=== PATIENT | female | born 1950 | race Caucasian/White ===

== ENCOUNTER 2022-11-28 09:38 | Outpatient (OUT) | payer MEDICARE, OTHER, SELFPAY ==
[2022-11-28 09:53] LABS: Basophils Percent Auto 0.5 % (0.2-2.0); Eosinophils Absolute Auto 0.1 10^3/uL (0.0-0.7); Eosinophils Percent Auto 2.7 % (0.9-7.0); Hematocrit 39.1 % (36.0-48.0); Hemoglobin 12.1 g/dL (12.0-16.0); Lymphocytes Absolute Auto 1.3 10^3/uL (1.2-3.8); Lymphocytes Percent Auto 30.7 % (20.5-60.0); Mean Corpuscular HGB Conc 30.9 g/dL (29.9-35.2); Mean Corpuscular Hemoglobin 26.1 pg (26.7-34.0); Mean Corpuscular Volume 84.4 fL (81.0-99.0); Mean Platelet Volume 11.7 fL (9.5-13.5); Monocytes Absolute Auto 0.3 10^3/uL (0.3-0.8); Monocytes Percent Auto 6.8 % (1.7-12.0); Neutrophils Absolute Auto 2.5 10^3/uL (1.4-6.5); Neutrophils Percent Auto 59.3 % (43.0-75.0); Platelet Count 186 10^3/uL (150-450); Red Blood Count 4.63 10^6/uL (4.20-5.40); Red Cell Distribution Width 14.5 % (11.0-15.0); White Blood Count 4.1 10^3/uL (4.0-11.0)
[2022-11-28 10:21] LABS: Thyroid Stimulating Hormone 2.394 uIU/mL (0.358-3.740)
[2022-11-28 10:40] LABS: Free T4 1.07 ng/dL (0.76-1.46)
[2022-11-29 11:09] LABS: PTH, Intact 23 pg/mL (15-65)
[2022-11-30 20:09] LABS: Alanine Aminotransferase 20 U/L (14-59); Albumin Globulin Ratio 0.9; Albumin Level 3.3 g/dL (3.4-5.0); Alkaline Phosphatase 98 U/L (46-116); Anion Gap 19.4; Aspartate Amino Transferase 20 U/L (15-37); BUN Creatinine Ratio 11.7; Bilirubin Total 0.3 mg/dL (0.2-1.0); Calcium 9.5 mg/dL (8.5-10.1); Carbon Dioxide 19.7 mmol/L (21.0-32.0); Chloride 105 mmol/L (98-107); Chol HDL Ratio 4.7; Cholesterol 234 mg/dL (<=200); Estimated GFR (African America >60 (>=60); Estimated GFR (Non-African Ame 53 (>=60); Globulin 3.7 g/dL; Glucose 99 mg/dL (74-106); HDL Cholesterol 50 mg/dL (40-60); Potassium 5.1 mmol/L (3.5-5.1); Sodium 139 mmol/L (136-145); Triglycerides 153 mg/dL (<=150); Uric Acid 0.1 mg/dL (2.6-6.0); VLDL CHOLESTEROL 30.6 mg/dL
== END 2022-11-28 09:39 ==
LOC: LAB 09:38
PROVIDERS: PCP Family Medicine; Visit Provider Family Medicine
DX: N18.31 Chronic kidney disease, stage 3a (principal); E03.9 Hypothyroidism, unspecified
CPT/HCPCS: 36415; 80053; 80061; 82306; 83970; 84439; 84443; 84550; 85025

== ENCOUNTER 2022-11-29 11:19 | Outpatient (OUT) | payer MEDICARE, OTHER, SELFPAY ==
--- NOTE | 2022-11-29 11:27 | MM_ITS ---
Patient: ALISA GEORGE Exam Date: 11/29/2022 : 1950 Gender:F Ordering : DR NAYELI SINGH Admission #: [id number] Family : Order #: [id number] CLICK HERE TO VIEW EXAM RADIOLOGY REPORT PROCEDURE: MM TOMOSYNTHESIS SCREENING BI COMPARISON: MG MAMM SCREEN EHSAN W CAD, 11/06/2017. INDICATIONS: Screening Calculator Name NCI Breast Cancer Risk Assessment Tool 5 Year Breast Cancer Risk 1.90% Lifetime Breast Cancer Risk 5.60% Personal Breast Cancer No Personal Ovarian Cancer No Treatments None Family Cancers Father with renal, bladder cancer at age 78; Grandmother-maternal with colon cancer at age 79; Mother with skin cancer cancer at age 73. LOCATION: [facility] BREAST COMPOSITION: Almost entirely fatty. FINDINGS: DIAGNOSTIC CATEGORY 1--NEGATIVE. RIGHT BREAST: No significant suspicious finding. LEFT BREAST: No significant suspicious finding. RECOMMENDATIONS: ROUTINE MAMMOGRAM AND CLINICAL EVALUATION IN 12 MONTHS. PLEASE NOTE: A NORMAL MAMMOGRAM DOES NOT EXCLUDE THE POSSIBILITY OF BREAST CANCER. A CLINICALLY SUSPICIOUS PALPABLE LUMP SHOULD BE BIOPSIED. Dictated by: Lazarus Quezada M.D. on 11/29/2022 at 13:08 Approved by: Lazarus Quezada M.D. on 11/29/2022 at 13:12
== END 2022-11-29 11:20 ==
LOC: MAMMO 11:19
PROVIDERS: PCP Family Medicine; Visit Provider Family Medicine
DX: Z12.31 Encounter for screening mammogram for malignant neoplasm of breast (principal); Z80.51 Family history of malignant neoplasm of kidney; Z80.52 Family history of malignant neoplasm of bladder; Z80.0 Family history of malignant neoplasm of digestive organs; Z80.8 Family history of malignant neoplasm of other organs or systems
CPT/HCPCS: 77063; 77067

== ENCOUNTER 2022-12-01 09:07 | Outpatient (REF) | payer MEDICARE, OTHER, SELFPAY ==
[2022-12-01 09:37] LABS: Magnesium 1.9 mg/dL (1.8-2.4); Phosphorus 3.3 mg/dL (2.6-4.7)
== END 2022-12-01 09:08 ==
LOC: LAB 09:07
PROVIDERS: PCP Family Medicine; Visit Provider Family Medicine
DX: N18.31 Chronic kidney disease, stage 3a (principal)
CPT/HCPCS: 36415; 83735; 84100

== ENCOUNTER 2023-05-30 09:53 | Outpatient (OUT) | payer MEDICARE, OTHER, SELFPAY ==
[2023-05-30 10:54] LABS: Free T4 1.12 ng/dL (0.76-1.46)
[2023-05-30 11:01] LABS: Alanine Aminotransferase 19 U/L (14-59); Albumin Level 3.4 g/dL (3.4-5.0); Alkaline Phosphatase 98 U/L (46-116); Anion Gap 10.2; Aspartate Amino Transferase 12 U/L (15-37); Bilirubin Total 0.4 mg/dL (0.2-1.0); Calcium 8.8 mg/dL (8.5-10.1); Carbon Dioxide 30.9 mmol/L (21.0-32.0); Chloride 105 mmol/L (98-107); Chol HDL Ratio 3.2; Cholesterol 185 mg/dL (<=200); Estimated GFR (African America >60 (>=60); Estimated GFR (Non-African Ame 50 (>=60); Globulin 3.3 g/dL; Glucose 100 mg/dL (74-106); HDL Cholesterol 58 mg/dL (40-60); LDL Cholesterol Calculated 107.6 mg/dL; Potassium 4.1 mmol/L (3.5-5.1); Sodium 142 mmol/L (136-145); Total Protein 6.7 g/dL (6.4-8.2); Triglycerides 97 mg/dL (<=150); VLDL CHOLESTEROL 19.4 mg/dL
== END 2023-05-30 09:54 | disposition home or self-care (01) ==
LOC: LAB 09:53
PROVIDERS: PCP Family Medicine; Visit Provider Nurse Practitioner Family
DX: E03.9 Hypothyroidism, unspecified (principal); E78.49 Other hyperlipidemia
CPT/HCPCS: 36415; 80053; 80061; 84439; 84443

== ENCOUNTER 2023-11-24 10:46 | Outpatient (OUT) | payer MEDICARE, OTHER, SELFPAY ==
--- OUTSIDE RECORDS SUMMARY | 2023-11-24 11:06 | XMS_ITS | CCD ---
Author Organization [facility] Inform ion Partnership [facility] Care Team Providers Care Stitchdown Toe Former Name Role Phone FURLONG, DR SIMONE Batista Admitting Unavailable FURLONG, DR SIMONE Batista Primary Care Unavailable FURLONG, DR SIMONE Batista Attending Unavailable FURLONG, DR SIMONE Batista Admitting Unavailable FURLONG, DR SIMONE Batista Primary Care Unavailable DAYTON, DR SIMONE Batista Consulting Unavailable DAYTON, DR SIMONE Batista Attending Unavailable [place], DR ALICIA Raman Consulting Unavailable Simone Bejarano Unavailable Unavailable Unavailable Carlee, Dr. Simone Medrano Primary Care Tyrava ilmallory Yee, Dr. Jesus Sauceda Attending Unava ilable Festus, Dr. Jesus Sauceda Referring Unava JESUS Macias Unavailable Carlee, Dr. Simone Medrano Primary Care Tyrava ilSimone Sexton DO Primary Care Provider JESUS YEE Referring Unavailable SIMONE BEJARANO Primary Care Unavailab le Simone Bejarano DO Primary Care Provider JESUS YEE Attending Unavailable SIMONE BEJARANO Primary Care Unavailab JESUS Benson Referring Unavailable SIMONE BEJARANO Primary Care Unavailab JESUS Benson Attending Unavailable JESUS YEE Referring Unavailable SIMONE BEJARANO Primary Care Unavailab THOMAS Graff Attending Unavailable THOMAS SALAZAR Referring Unavailable Allergies Allergy Classification Reported Allergen(s) Allergy Type Date of Onset Reaction(s) Facility (1 source) natural latex rubber Drug allergy (disorder) 7 [facility] Repository (1 source) Penicillin Drug Allergy 7 [facility] Repository (3 sources) Latex rubber gloves; Translations: [Latex Gloves] Allergy to drug (finding) Other -[facility] 250 DO Work Phone: (5 sources) Penicillins; Translations: [Penicillins] Allergy to drug (finding) 3 [facility] Repository (6 sources) Latex; Translations: [LATEX] Propensity to adverse reactions 3 [facility] (4 sources) Penicillins Propensity to adverse reactions 3 Unknown, [facility] Medications Current Medications Medication Drug Class(es) Dates Sig (Normalized) Sig (Original) aspirin 81 mg delayed release oral tablet (7 sources) Platelet Aggregation Inhibitor, Nonsteroidal Anti-inflammatory Drug take 1 tablet by mouth in the morning aspirin 81 mg Take 1 tablet (81 mg total) by mouth in the morning. 0 Active escitalopram 5 mg oral tablet (2 sources) Serotonin Reuptake Inhibitor Start: 06-02-2023 End: 08-18-2023 take 1 tablet by mouth once daily escitalopram (LEXAPRO) 5 mg tablet Take 1 tablet (5 mg total) by mouth nightly. 30 tablet 2 08/18/2023 Active levothyroxine sodium 0.075 mg oral tablet (7 sources) l-Thyroxine Start: 06-02-2023 take 1 tablet by mouth in the morning levothyroxine (SYNTHROID, LEVOTHROID) 75 MCG tablet Take 1 tablet (75 mcg total) by mouth in the morning. 90 tablet 3 06/02/2023 Active Start: 01-06-2023 take 1 tablet by jd th once daily before mealtime levothyroxine (Synthroid, Levoxyl) 75 mcg tablet Take 1 tablet (75 mcg) by mouth once daily in the morning. Take before meals. 0 01/06/2023 Active 24 hr metoprolol succinate 25 mg extended release oral tablet (3 sources) beta-Adrenergic Elizabeth Start: 04-20-2023 End: 04-19-2024 take 1 tablet by mouth once daily metoprolol succinate XL (Toprol-XL) 25 mg 24 hr tablet Indications: Benign hypertensive heart disease without heart failure Take 1 tablet (25 mg) by mouth once daily. Do not crush or chew. 30 tablet 11 04/20/2023 04/19/2024 Active rosuvastatin calcium 10 mg oral tablet (7 sources) HMG-CoA Reductase Inhibitor Start: 06-02-2023 take 1 tablet by mouth once daily rosuvastatin (CRESTOR) 10 mg tablet Take 1 tablet (10 mg total) by mouth nightly. 90 tablet 3 06/02/2023 Active Start: 12-12-2022 take 1 tablet by jd th once daily at bedtime rosuvastatin (Crestor) 5 mg tablet Take 1 tablet (5 mg) by mouth once daily at bedtime. 0 12/12/2022 Active Problems Active Problems Problem Classification Problem Date Documented Da te Episodic/Chronic Chronic kidney disease (8 sources) Chronic kidney disease stage 2; Translations: [Chronic kidney disease, Stage II (mild)] Onset: 11-14-2022 04-20-2023 Chronic Chronic kidney disease (2 sources) Chronic kidney disease; Translations: [Chronic kidney disease, stage 3a (CMS/HCC)] Onset: 04-19-2023 Disorders of lipid metabolism (11 sources) Hyperlipidemia; Translations: [Other and unspecified hyperlipidemia] Onset: 11-14-2022 04-20-2023 Chronic Hypertension with complications and secondary hypertension (6 sources) Benign hypertensive heart disease without congestive heart failure; Translations: [Hypertensive heart disease without heart failure] Onset: 04-20-2023 04-20-2023 Chronic Other lower respiratory disease (3 sources) Other forms of dyspnea; Translations: [Other forms of dyspnea] Onset: 03-23-2023 Episodic Other nutritional; endocrine; and metabolic disorders (3 sources) Obesity; Translations: [Obesity, unspecified] Chronic Other nutritional; endocrine; and metabolic disorders (4 sources) Body mass index 30+ - obesity; Translations: [Body mass index (BMI) 32.0-32.9, adult] Onset: 04-19-2023 04-20-2023 Chronic Other nutritional; endocrine; and metabolic disorders (1 source) Obesity caused by energy imbalance; Translations: [Other obesity due to excess calories] Onset: 12-12-2022 12-12-2022 Chronic Other nutritional; endocrine; and metabolic disorders (2 sources) Body mass index (BMI) 32.0-32.9, adult; Translations: [Body mass index (BMI) 32.0-32.9, adult] Onset: 04-19-2023 Chronic Residual codes; unclassified (2 sources) Other specified health status; Translations: [Other specified health status] Onset: 10-24-2023 Episodic Spondylosis; intervertebral disc disorders; other back problems (1 source) Spondylosis without myelopathy or radiculopathy, thoracic region; Translations: [SPONDYLS W/O MYELO-/RADICULOP THOR] Onset: 05-06-2021 Chronic Thyroid disorders (4 sources) Acquired hypothyroidism; Translations: [Hypothyroidism, unspecified] Onset: 11-14-2022 04-19-2023 Chronic Past or Other Problems Problem Classification Problem Date Documented Da te Episodic/Chronic Cardiac dysrhythmias (7 sources) Palpitations; Translations: [Palpitations] Onset: 04-20-2023 04-20-2023 Episodic Mood disorders (1 source) Mood disorders Onset: 06-02-2023 06-02-2023 Other lower respiratory disease (7 sources) Dyspnea on exertion; Translations: [Other respiratory abnormalities] Onset: 12-12-2022 04-19-2023 Episodic Other lower respiratory disease (5 sources) Dyspnea; Translations: [Shortness of breath] Onset: 04-20-2023 04-20-2023 Episodic Other lower respiratory disease (2 sources) Shortness of breath; Translations: [Shortness of breath] Onset: 04-20-2023 Episodic Spondylosis; intervertebral disc disorders; other back problems (4 sources) Pain in thoracic spine; Translations: [PAIN IN THORACIC SPINE] Onset: 04-28-2021 Episodic Unclassified (3 sources) Never smoked tobacco; Translations: [Never a smoker] Unclassified (3 sources) Onset: 04-20-2023 04-20-2023 Varicose veins of lower extremity (4 sources) Varicose veins of lower extremity; Translations: [Asymptomatic varicose veins of bilateral lower extremities] Onset: 12-12-2022 04-19-2023 Episodic Results Test Name Value Interpretation Reference Range Facility US Heart TransthoracicOrdere d By: Jesus Baker on 04-27-2023 LV A4C EF 57.4 [facility] Work Phone: [facility] Work Phone: Heart Transthoracicon [facility] [address], [address], [place] [address] TRANSTHORACIC ECHOCARDIOGRAM REPORT Patient Name: ASTER Mckeon DORIS Reading Physician: [id number] Jesus Baker MD Study Date: 04/25/2023 Ordering Provider: [id number] JESUS YEE MRN/PID: [id number] Fellow: Nurse: Date of /Age: 11 1950 / 72 years Sales Administrator: Jennifer Long RDCS, RVT Gender: F Additional Staff: Height: 167.64 cm Admit Date: Weight: 93.90 kg Admission Status: BSA: 2.03 m2 Department Location: [facility] Blood Pressure: 136 /92 mmHg Study Type: TRANSTHORACIC ECHO (TTE) COMPLETE Diagnosis/ICD: Palpitations-R00.2; Shortness of breath-R06.02 Indication: Hyperlipidemia, Hypothyroid, CKD-Stage III CPT Codes: Echo Complete w Full Doppler-[id number] Study Detail: The following Echo studies were performed: 2D, M-Mode, Doppler and color flow. PHYSICIAN INTERPRETATION: Left Ventricle: Left ventricular systolic function is normal, with an estimated ejection fraction of 60%. There are no regional wall motion abnormalities. The left ventricular cavity size is normal. Spectral Doppler shows a normal pattern of left ventricular diastolic filling. Left Atrium: The left atrium is mildly dilated. Right Ventricle: The right ventricle is normal in size. There is normal right ventricular global systolic function. Right Atrium: The right atrium is normal in size. Aortic Valve: The aortic valve is trileaflet. There is no evidence of aortic valve regurgitation. The peak instantaneous gradient of the aortic valve is 6.9 mmHg. The mean gradient of the aortic valve is 3.0 mmHg. Mitral Valve: The mitral valve is mildly thickened. There is moderate mitral valve regurgitation. Tricuspid Valve: The tricuspid valve is structurally normal. There is trace to mild tricuspid regurgitation. Pulmonic Valve: The pulmonic valve is not well visualized. There is trace pulmonic valve regurgitation. Pericardium: There is no pericardial effusion noted. Aorta: The aortic root is normal. There is mild dilatation of the aortic arch. CONCLUSIONS: 1. Left ventricular systolic function is normal with a 60% estimated ejection fraction. 2. Moderate mitral valve regurgitation. QUANTITATIVE DATA SUMMARY: 2D MEASUREMENTS: Normal Ranges: Ao Root d: 2.60 cm (2.0-3.7cm) LAs: 3.90 cm (2.7-4.0cm) RVIDd: 2.50 cm (0.9-3.6cm) IVSd: 1.10 cm (0.6-1.1cm) LVPWd: 0.80 cm (0.6-1.1cm) LVIDd: 4.60 cm (3.9-5.9cm) LVIDs: 3.70 cm LV Mass Index: 73.0 g/m2 LV % FS 19.6 % LV SYSTOLIC FUNCTION BY 2D PLANIMETRY (MOD): Normal Ranges: EF-A4C View: 57.4 % (>=55%) LV DIASTOLIC FUNCTION: Normal Ranges: MV Peak E: 1.00 m/s (0.7-1.2 m/s) MV Peak A: 0.85 m/s (0.42-0.7 m/s) E/A Ratio: 1.17 (1.0-2.2) MV lateral e' 0.09 m/s MV medial e' 0.08 m/s E/e' Ratio: 10.80 (<8.0) MITRAL VALVE: Normal Ranges: MV Vmax: 1.15 m/s (<=1.3m/s) MV peak P.3 mmHg (<5mmHg) MV mean P.0 mmHg (<48mmHg) MITRAL INSUFFICIENCY: Normal Ranges: MR Vmax: 476.00 cm/s dP/dt: 1298 mmHg/s (>1200mmHg/sec) AORTIC VALVE: Normal Ranges: AoV Vmax: 1.31 m/s (<=1.7m/s) AoV Peak P.9 mmHg (<20mmHg) AoV Mean P.0 mmHg (1.7-11.5mmHg) LVOT Max Korey: 0.83 m/s (<=1.1m/s) AoV VTI: 31.20 cm (18-25cm) LVOT VTI: 18.30 cm LVOT Diameter: 2.40 cm (1.8-2.4cm) AoV Area, VTI: 2.65 cm2 (2.5-5.5cm2) AoV Area,Vmax: 2.86 cm2 (2.5-4.5cm2) AoV Dimensionless Index: 0.59 TRICUSPID VALVE/RVSP: Normal Ranges: Peak TR Velocity: 2.58 m/s RV Syst Pressure: 29.6 mmHg (< 30mmHg) PULMONIC VALVE: Normal Ranges: PV Max Korey: 0.6 m/s (0.6-0.9m/s) PV Max P.6 mmHg [id number] Jesus Baker MD Electronically signed on 04/27/2023 at 9:14:45 AM Final SYNGO Jesus Baker MD - 04/27/[address], [address] [place] [address] TRANSTHORACIC ECHOCARDIOGRAM REPORT Patient Name: ASTER BACON Reading Physician: [id number] Baker MD Study Date: 04/25/2023 Ordering Provider: [id number] JESUS YEE MRN/PID: [id number] Fellow: Nurse: Date of /Age: 11 1950 / 72 years Sales Administrator: Jennifer Long RDCS, RVT Gender: F Additional Staff: Height: 167.64 cm Admit Date: Weight: 93.90 kg Admission Status: BSA: 2.03 m2 Department Location: [facility] Blood Pressure: 136 /92 mmHg Study Type: TRANSTHORACIC ECHO (TTE) COMPLETE Diagnosis/ICD: Palpitations-R00.2; Shortness of breath-R06.02 Indication: Hyperlipidemia, Hypothyroid, CKD-Stage III CPT Codes: Echo Complete w Full Doppler-[id number] Study Detail: The following Echo studies were performed: 2D, M-Mode, Doppler and color flow. PHYSICIAN INTERPRETATION: Left Ventricle: Left ventricular systolic function is normal, with an estimated ejection fraction of 60%. There are no regional wall motion abnormalities. The left ventricular cavity size is normal. Spectral Doppler shows a normal pattern of left ventricular diastolic filling. Left Atrium: The left atrium is mildly dilated. Right Ventricle: The right ventricle is normal in size. There is normal right ventricular global systolic function. Right Atrium: The right atrium is normal in size. Aortic Valve: The aortic valve is trileaflet. There is no evidence of aortic valve regurgitation. The peak instantaneous gradient of the aortic valve is 6.9 mmHg. The mean gradient of the aortic valve is 3.0 mmHg. Mitral Valve: The mitral valve is mildly thickened. There is moderate mitral valve regurgitation. Tricuspid Valve: The tricuspid valve is structurally normal. There is trace to mild tricuspid regurgitation. Pulmonic Valve: The pulmonic valve is not well visualized. There is trace pulmonic valve regurgitation. Pericardium: There is no pericardial effusion noted. Aorta: The aortic root is normal. There is mild dilatation of the aortic arch. CONCLUSIONS: 1. Left ventricular systolic function is normal with a 60% estimated ejection fraction. 2. Moderate mitral valve regurgitation. QUANTITATIVE DATA SUMMARY: 2D MEASUREMENTS: Normal Ranges: Ao Root d: 2.60 cm (2.0-3.7cm) LAs: 3.90 cm (2.7-4.0cm) RVIDd: 2.50 cm (0.9-3.6cm) IVSd: 1.10 cm (0.6-1.1cm) LVPWd: 0.80 cm (0.6-1.1cm) LVIDd: 4.60 cm (3.9-5.9cm) LVIDs: 3.70 cm LV Mass Index: 73.0 g/m2 LV % FS 19.6 % LV SYSTOLIC FUNCTION BY 2D PLANIMETRY (MOD): Normal Ranges: EF-A4C View: 57.4 % (>=55%) LV DIASTOLIC FUNCTION: Normal Ranges: MV Peak E: 1.00 m/s (0.7-1.2 m/s) MV Peak A: 0.85 m/s (0.42-0.7 m/s) E/A Ratio: 1.17 (1.0-2.2) MV lateral e' 0.09 m/s MV medial e' 0.08 m/s E/e' Ratio: 10.80 (<8.0) MITRAL VALVE: Normal Ranges: MV Vmax: 1.15 m/s (<=1.3m/s) MV peak P.3 mmHg (<5mmHg) MV mean P.0 mmHg (<48mmHg) MITRAL INSUFFICIENCY: Normal Ranges: MR Vmax: 476.00 cm/s dP/dt: 1298 mmHg/s (>1200mmHg/sec) AORTIC VALVE: Normal Ranges: AoV Vmax: 1.31 m/s (<=1.7m/s) AoV Peak P.9 mmHg (<20mmHg) AoV Mean P.0 mmHg (1.7-11.5mmHg) LVOT Max Korey: 0.83 m/s (<=1.1m/s) AoV VTI: 31.20 cm (18-25cm) LVOT VTI: 18.30 cm LVOT Diameter: 2.40 cm (1.8-2.4cm) AoV Area, VTI: 2.65 cm2 (2.5-5.5cm2) AoV Area,Vmax: 2.86 cm2 (2.5-4.5cm2) AoV Dimensionless Index: 0.59 TRICUSPID VALVE/RVSP: Normal Ranges: Peak TR Velocity: 2.58 m/s RV Syst Pressure: 29.6 mmHg (< 30mmHg) PULMONIC VALVE: Normal Ranges: PV Max Korey: 0.6 m/s (0.6-0.9m/s) PV Max P.6 mmHg [id number] Jesus Baker MD Electronically signed on 04/27/2023 at 9:14:45 AM Final [facility] Work Phone: TRANSTHORACIC ECHO (TTE) COM PLETEon 04-25-2023 TRANSTHORACIC ECHO (TTE) COMPLETE [address], [address] [place] [address] TRANSTHORACIC ECHOCARDIOGRAM REPORT Patient Name: ASTER Mike BACON Reading Physician: [id number] Baker MD Study Date: 04/25/2023 Ordering Provider: [id number] JESUS YEE MRN/PID: [id number] Fellow: Nurse: Date of /Age: 11 1950 / 72 years Sales Administrator: CRISS Figueredo RDCST Gender: F Additional Staff: Height: 167.64 cm Admit Date: Weight: 93.90 kg Admission Status: BSA: 2.03 m2 Department Location: [facility] Blood Pressure: 136 /92 mmHg Study Type: TRANSTHORACIC ECHO (TTE) COMPLETE Diagnosis/ICD: Palpitations-R00.2; Shortness of breath-R06.02 Indication: Hyperlipidemia, Hypothyroid, CKD-Stage III CPT Codes: Echo Complete w Full Doppler-[id number] Study Detail: The following Echo studies were performed: 2D, M-Mode, Doppler and color flow. PHYSICIAN INTERPRETATION: Left Ventricle: Left ventricular systolic function is normal, with an estimated ejection fraction of 60%. There are no regional wall motion abnormalities. The left ventricular cavity size is normal. Spectral Doppler shows a normal pattern of left ventricular diastolic filling. Left Atrium: The left atrium is mildly dilated. Right Ventricle: The right ventricle is normal in size. There is normal right ventricular global systolic function. Right Atrium: The right atrium is normal in size. Aortic Valve: The aortic valve is trileaflet. There is no evidence of aortic valve regurgitation. The peak instantaneous gradient of the aortic valve is 6.9 mmHg. The mean gradient of the aortic valve is 3.0 mmHg. Mitral Valve: The mitral valve is mildly thickened. There is moderate mitral valve regurgitation. Tricuspid Valve: The tricuspid valve is structurally normal. There is trace to mild tricuspid regurgitation. Pulmonic Valve: The pulmonic valve is not well visualized. There is trace pulmonic valve regurgitation. Pericardium: There is no pericardial effusion noted. Aorta: The aortic root is normal. There is mild dilatation of the aortic arch. CONCLUSIONS: 1. Left ventricular systolic function is normal with a 60% estimated ejection fraction. 2. Moderate mitral valve regurgitation. QUANTITATIVE DATA SUMMARY: 2D MEASUREMENTS: Normal Ranges: Ao Root d: 2.60 cm (2.0-3.7cm) LAs: 3.90 cm (2.7-4.0cm) RVIDd: 2.50 cm (0.9-3.6cm) IVSd: 1.10 cm (0.6-1.1cm) LVPWd: 0.80 cm (0.6-1.1cm) LVIDd: 4.60 cm (3.9-5.9cm) LVIDs: 3.70 cm LV Mass Index: 73.0 g/m2 LV % FS 19.6 % LV SYSTOLIC FUNCTION BY 2D PLANIMETRY (MOD): Normal Ranges: EF-A4C View: 57.4 % (>=55%) LV DIASTOLIC FUNCTION: Normal Ranges: MV Peak E: 1.00 m/s (0.7-1.2 m/s) MV Peak A: 0.85 m/s (0.42-0.7 m/s) E/A Ratio: 1.17 (1.0-2.2) MV lateral e' 0.09 m/s MV medial e' 0.08 m/s E/e' Ratio: 10.80 (<8.0) MITRAL VALVE: Normal Ranges: MV Vmax: 1.15 m/s (<=1.3m/s) MV peak P.3 mmHg (<5mmHg) MV mean P.0 mmHg (<48mmHg) MITRAL INSUFFICIENCY: Normal Ranges: MR Vmax: 476.00 cm/s dP/dt: 1298 mmHg/s (>1200mmHg/sec) AORTIC VALVE: Normal Ranges: AoV Vmax: 1.31 m/s (<=1.7m/s) AoV Peak P.9 mmHg (<20mmHg) AoV Mean P.0 mmHg (1.7-11.5mmHg) LVOT Max Korey: 0.83 m/s (<=1.1m/s) AoV VTI: 31.20 cm (18-25cm) LVOT VTI: 18.30 cm LVOT Diameter: 2.40 cm (1.8-2.4cm) AoV Area, VTI: 2.65 cm2 (2.5-5.5cm2) AoV Area,Vmax: 2.86 cm2 (2.5-4.5cm2) AoV Dimensionless Index: 0.59 TRICUSPID VALVE/RVSP: Normal Ranges: Peak TR Velocity: 2.58 m/s RV Syst Pressure: 29.6 mmHg (< 30mmHg) PULMONIC VALVE: Normal Ranges: PV Max Korey: 0.6 m/s (0.6-0.9m/s) PV Max P.6 mmHg [id number] Jesus Baker MD Electronically signed on 04/27/2023 at 9:14:[address] [facility] Cardiac Stress Teston 2022 Cardiac Stress Test [address], [address] [facility], [place] [address] Exercise Stress Test Patient Name: ASTER Ordering Physician: DORIS Study Date: 03/23/2023 Reading Physician: [id number] Alejandro Perry MD MRN/PID: [id number] Supervising [id number] Alejandro Perry Physician: Accession/Order#: [id number] Referring Physician: JESUS YEE Date of : 1950 PCP: Gender: F Fellow: Height: 167.64 cm Nurse: Yun Minaya RN Weight: 92.99 kg Sales Administrator: N/A BSA: 2.02 m2 Technologist: BMI: 33.09 kg/m2 Additional Staff: Age: 72 years cc report to: Study Type: Cardiac Stress Test Diagnosis/ICD: R06.09-Other forms of dyspnea; E78.5-Hyperlipidemi a unspecified Indication: Dyspnea on Exertion Procedure/CPT: Stress Test Supervision-[id number] Falls Risk: Low: Patient has low risk for sustaining a fall; environmental safety interventions in place. Study Details: Correct procedure and correct patient verified verbally. Patient Performance: The peak heart rate achieved was 144 bpm, which was 97 % of the age predicted target heart rate of 149 bpm. The resting blood pressure was 132/78 mmHg with a heart rate of 60 bpm. The standing blood pressure was 118/70 mmHg with a heart rate of 63 bpm. The patient developed dyspnea during the stress exam. The blood pressure response was normal. The test was terminated due to: MPHR >85% and dyspnea. Sinus tachycardia. Double Product (HR x BP): 256. Baseline ECG: Resting ECG showed normal sinus rhythm with normal tracing. Normal sinus rhythm. Stress Stage Data: + + ---+------+-------+ HR Sys BP Morales BP + + ---+------+-------+ Baseline Resting 60 132 78 + + ---+------+-------+ Baseline Standing 63 118 70 + + ---+------+-------+ Stage I 125 156 60 + + ---+------+-------+ Stage II 139 178 80 + + ---+------+-------+ + +---+- -----+-------+ HR Sys BP Morales BP + +---+- -----+-------+ Recovery I 130 140 60 + +---+- -----+-------+ Recovery II 125 170 70 + +---+- -----+-------+ Recovery III 75 120 70 + +---+- -----+-------+ Recovery IV 76 120 78 + +---+- -----+-------+ Summary: 1. Graded exercise stress test with nondiagnostic ST-T changes for ischemia. 2. No provoked chest pain or arrhythmia. 3. Appropriate hemodynamic response to exercise. 4. Fair exercise tolerance. 5. Normal heart rate recovery phase. 6. Patient was able to exercise for 4-minute 31 seconds per the Scotty protocol. Achieved workload of 6.4 METS and 96% of maximum predicted heart rate. 7. Adequate level of stress achieved. [id number] Alejandro Perry MD Electronically signed on 03/23/2023 at 6:48:55 PM Final Normal [facility] Cardiac Stress Test [facility] 250 DO Work Phone: Office Visit (Cardiology)on 02-23-2023 Follow-up visit Diagnoses/Problems Assessed Dyspnea on minimal exertion (786.09) (R06.09) Hyperlipidemia (272.4) (E78.5) Chronic kidney disease with symptom management only, stage 2 (mild) (585.2) (N18.2) Class 1 obesity with body mass index (BMI) of 32.0 to 32.9 in adult (278.00,V85.32) (E66.9,Z68.32) Never a smoker Orders Class 1 obesity with body mass index (BMI) of 32.0 to 32.9 in adult Healthy Weight Tips; Status:Complete - Retrospective Authorization; Done: [id number] Some eating tips that can help you lose weight.; Status:Complete - Retrospective Authorization; Done: [id number] Dyspnea on minimal exertion, Hyperlipidemia Cardiac Stress Test; Status:Hold For - Scheduling,Retrospe ctive Authorization; Requested for:[id number]; Hyperlipidemia IO EKG Electrocardiogram- 12 Lead; Status:Complete; Done: [id number] SocHx: Never a smoker Tobacco Use Screening; Status:Complete; Done: [id number] Patient Instructions Please bring all medicines, vitamins, and herbal supplements with you when you come to the office. Prescriptions will not be filled unless you are compliant with your follow up appointments or have a follow up appointment scheduled as per instruction of your physician. Refills should be requested at the time of your visit. Fall prevention education given Follow up after testing completed stress test GXT Chief Complaint ASTER BACON is being seen for an initial evaluation of SOB. 72-year-old female seen in cardiology consultation at the request of her primary care physician for exertional dyspnea. She has no chest discomfort. She is usually very active but now with any amount of activity she becomes more dyspneic. She has a family history of coronary artery disease in both mother father, sister and brother, has hyperlipidemia and chronic kidney disease. There is no prior history of myocardial infarction revascularization, stroke, thromboembolic or bleeding disorder ECG today is normal sinus rhythm completely normal. Overall overall risk for CAD is low other than family history, chronic kidney disease as main comorbidity features Recommendations proceed with treadmill stress testing to further assess her dyspnea and or ischemic etiology. Surgical History Problems History of Ankle surgery History of Appendectomy History of Cholecystectomy History of Colonoscopy History of Tonsillectomy Current Meds Medication NameInstruction Aspirin 81 MG Oral Tablet Delayed ReleaseTAKE 1 TABLET DAILY. Levothyroxine Sodium 75 MCG Oral TabletTAKE 1 TABLET DAILY DIRECTED. Rosuvastatin Calcium 5 MG Oral TabletTAKE 1 TABLET Bedtime Allergies Medication Latex Gloves Adverse Reaction; blisters; Recorded By: Denise Petit; 02/23/2023 9:14:44 AM Penicillins Adverse Reaction; Recorded By: Denise Petit; 02/23/2023 9:14:44 AM Family History Mother Family history of Coronary artery graft present Family history of cardiac pacemaker (V17.49) (Z82.49) Family history of malignant neoplasm (V16.9) (Z80.9) History of PTCA Father Family history of Coronary artery graft present Family history of malignant neoplasm (V16.9) (Z80.9) History of PTCA Sister Family history of Coronary artery graft present Family history of malignant neoplasm (V16.9) (Z80.9) History of PTCA Brother Family history of Coronary artery graft present History of PTCA Social History Problems Daily caffeine consumption Never a smoker No illicit drug use Occasional alcohol use Review of Systems Constitutional: not feeling tired. Cardiovascular: palpitations, but no intermittent leg claudication and as noted in HPI. Respiratory: shortness of breath during exertion, but no cough and no shortness of breath. Gastrointestinal: no change in bowel habits and no blood in stools. Integumentary: no skin rashes. Neurological: no seizures and no frequent falls. All other systems have been reviewed and are negative for complaint. Vitals Vital Signs Recorded: [id number] 09:14AMRecorded: [id number] 09:10AM Nfqyihuy226, RUE, Easzgve360, LUE, Sitting Pwywbtpfw75, RUE, Xbfohqw61, LUE, Sitting Heart Rate71, Apical Height5 ft 6.5 in Armnno886 lb BMI Tyavtrdkjt83.59 kg/m2 BSA Calculated2.03 Tobacco Useb) No PHQ-2 #1. Over the last 2 weeks have you felt down, depressed or hopeless? (If yes, answer PHQ-9 below)Yes PHQ-2 #2. Over the last 2 weeks have you felt little interest or pleasure in doing things? (If yes, answer PHQ-9 below)No Falls Screening (Age 18+)b) One or more falls in the last year PHQ-9 #1. Little interest or pleasure in doing things0-Not at all PHQ-9 #2. Feeling down, depressed, or hopelesS3-Nearly every day PHQ-9 #3. Trouble falling or staying asleep, or sleeping too much3-Nearly every day PHQ-9 #4. Feeling tired or having little energy2-More than half the days PHQ-9 #5. Poor appetite or overeating0-Not at all PHQ-9 #6. Feeling bad about yourself or you are a failure or that you have l (more content not included)... Normal [facility] Tobacco Screening.on 023 Adult depression screening assessment Yes [facility] 250 DO Work Phone: Adult depression screening assessment No [facility] [facility] DO Work Phone: Adult depression screening assessment Moderate (10-14) [facility] 250 DO Work Phone: Fall risk assessment b) One or more falls in the last year [facility] 250 DO Work Phone: Tobacco use status CP b) No [facility] 250 DO Work Phone: Tobacco Screening. 0-Not at all [facility] 250 DO Work Phone: Tobacco Screening. 3-Nearly every day [facility] 250 DO Work Phone: Tobacco Screening. 2-More than half the days [facility] 250 DO Work Phone: Tobacco Screening. Somewhat Difficult [facility] 250 DO Work Phone: XR TSPINE 3 VIEWSon 04-28-20 21 XR TSPINE 3 VIEWS EXAMINATION: XR TSPINE 3 VIEWS HISTORY: Pain in thoracic spine COMPARISON: No relevant comparison available. FINDINGS: BONES: Normal alignment on the lateral projection with no acute fracture or spondylolisthesis. Moderate to severe diffuse degenerative spondylosis. Dextrocurvature the mid thoracic spine on the frontal projection DISC SPACES: Multilevel disc space narrowing with endplate sclerosis PARASPINOUS: Negative. No paraspinous abnormality is seen. OTHER: Right upper quadrant surgical clips likely from cholecystectomy IMPRESSION: Moderate to severe diffuse degenerative spondylosis Electronically authenticated by: ALICIA MUNGUIA Date: 2021-04-28 19:29 Normal [facility] CBC (INCLUDES DIFF/PLT)on Basophils (Bld) [#/Vol] 0.021 10*3/uL Normal 0-200 [facility] Comment on above: Performed By: #### 7 18, 905, 7600, 6399, 91383, 622, 11699, 61212 #### [facility] [address], [address] [place] [address] [employer] Polishing Laborer: Rip Cornejo MD Basophils/100 WBC (Bld) 0.6 % Normal [facility] Comment on above: Performed By: #### 7 18, 905, 7600, 6399, 78280, 622, 85144, 44202 #### [facility] [address], [address] [place] [address] [employer] Polishing Laborer: Rip Cornejo MD Eosinophils (Bld) [#/Vol] 0.098 10*3/uL Normal 15-500 [facility] Comment on above: Performed By: #### 7 18, 905, 7600, 6399, 60806, 622, 37269, 12807 #### [facility] [address], [address] [place] [address] [employer]ishing Laborer: Rip Cornejo MD Eosinophils/100 WBC (Bld) 2.8 % Normal [facility] Comment on above: Performed By: #### 7 18, 905, 7600, 6399, 58093, 622, 38238, 15513 #### [facility] [address], [address] [place] [address] [employer] Polishing Laborer: Rip Cornejo MD Erythrocyte distribution width (RBC) [Ratio] 14.2 % Normal 11.0-15.0 [facility] Comment on above: Performed By: #### 7 18, 905, 7600, 6399, 95747, 622, 83085, 15123 #### [facility] of [place] [address] [employer] Laborer: Rip Cornejo MD Hematocrit (Bld) [Volume fraction] 37.3 % Normal 35.0-45.0 [facility] Comment on above: Performed By: #### 7 18, 905, 7600, 6399, 70399, 622, 53300, 11374 #### [facility] [place] [address] [employer]ishing Laborer: iRp Cornejo MD Hemoglobin (Bld) [Mass/Vol] 12.0 g/dL Normal 11.7-15.5 [facility] Comment on above: Performed By: #### 7 18, 905, 7600, 6399, 85665, 622, 14297, 74738 #### [facility] [place] [address] [employer]ishing Laborer: Rip Cornejo MD Lymphocytes (Bld) [#/Vol] 1.32 10*3/uL Normal 850-3900 [facility] Comment on above: Performed By: #### 7 18, 905, 7600, 6399, 47682, 622, 15149, 25082 #### [facility] [place] [address] [employer]ishing Laborer: Rip Cornejo MD Lymphocytes/100 WBC (Bld) 37.7 % Normal [facility] Comment on above: Performed By: #### 7 18, 905, 7600, 6399, 15971, 622, 77819, 78280 #### [facility] [place] [address] [employer] Polishing Laborer: Rip Cornejo MD MCH (RBC) [Entitic mass] 25.9 pg Low 27.0-33.0 [facility] Comment on above: Performed By: #### 7 18, 905, 7600, 6399, 14486, 622, 11910, 17682 #### [facility] [place] [address] [employer] Polishing Laborer: Rip Cornejo MD MCHC (RBC) [Mass/Vol] 32.2 g/dL Normal 32.0-36.[address] [facility] Comment on above: Performed By: #### 7 18, 905, 7600, 6399, 94977, 622, 50986, 59130 #### [facility] [place] [address] [employer] And Polishing Laborer: Rip Cornejo MD MCV (RBC) [Entitic vol] 80.6 fL Normal 80.0-100.0 [facility] Comment on above: Performed By: #### 7 18, 905, 7600, 6399, 44797, 622, 55393, 55766 #### [facility] [place] [address] [employer] Laborer: Rip Cornejo MD Monocytes (Bld) [#/Vol] 0.217 10*3/uL Normal 200-950 [facility] Comment on above: Performed By: #### 7 18, 905, 7600, 6399, 71445, 622, 10850, 86941 #### [facility] [place] [address] [employer] Polishing Laborer: Rip Cornejo MD Monocytes/100 WBC (Bld) 6.2 % Normal [facility] Comment on above: Performed By: #### 7 18, 905, 7600, 6399, 89674, 622, 20897, 81529 #### [facility] [place] [address] [employer]ishing Laborer: Rip Cornejo MD Neutrophils (Bld) [#/Vol] 1.845 10*3/uL Normal 6631-3431 [facility] Comment on above: Performed By: #### 7 18, 905, 7600, 6399, 88931, 622, 76702, 94732 #### [facility] of [address], [address] [place] [address] [employer] Polishing Laborer: Rip Cornejo MD Neutrophils/100 WBC (Bld) 52.7 % Normal [facility] Comment on above: Performed By: #### 7 18, 905, 7600, 6399, 15905, 622, 87549, 94534 #### [facility] of [address], [address] [place] [address] Gr[employer] And Polishing Laborer: Rip Cornejo MD Platelet mean volume (Bld) [Entitic vol] 12.6 fL High 7.5-12.5 [facility] Comment on above: Performed By: #### 7 18, 905, 7600, 6399, 51910, 622, 19539, 81321 #### [facility] of [address], [address] [place] [address] [employer] And Polishing Laborer: Rip Cornejo MD Platelets (Bld) [#/Vol] 202 10*3/uL Normal 140-400 [facility] Comment on above: Performed By: #### 7 18, 905, 7600, 6399, 47384, 622, 72913, 05878 #### [facility] [place] [address] [employer]ishing Laborer: Rip Cornejo MD RBC (Bld) [#/Vol] 4.63 10*6/uL Normal 3.80-5.10 [facility] Comment on above: Performed By: #### 7 18, 905, 7600, 6399, 20843, 622, 28151, 55067 #### [facility] of [address], [address] [place] [address] Grinding And Polishing Laborer: Rip Cornejo MD WBC (Bld) [#/Vol] 3.5 10*3/uL Low 3.8-10.8 [facility] Comment on above: Performed By: #### 7 18, 905, 7600, 6399, 79153, 622, 44566, 09150 #### [facility] of [address] [place] [address] [employer] Polishing Laborer: Rip Cornejo MD [facility] 04-20-2021 Albumin [Mass/Vol] 3.8 g/dL Normal 3.6-5.1 [facility] Comment on above: Performed By: #### 7 18, 905, 7600, 6399, 80407, 622, 66527, 21328 #### [facility] of [address], [address] [place] [address] [employer] Polishing Laborer: Rip Cornejo MD Albumin/Globulin [Mass ratio] 1.5 {ratio} Normal 1.0-2.5 [facility] Comment on above: Performed By: #### 7 18, 905, 7600, 6399, 97124, 622, 09997, 76219 #### [facility] [place] [address] [employer] Polishing Laborer: Rip Cornejo MD ALP [Catalytic activity/Vol] 87 U/L Normal 37-153 [facility] Comment on above: Performed By: #### 7 18, 905, 7600, 6399, 70005, 622, 80731, 21558 #### [facility] [place] [address] [employer]ishing Laborer: Rip Cornejo MD ALT [Catalytic activity/Vol] 10 U/L Normal 6-29 [facility] Comment on above: Performed By: #### 7 18, 905, 7600, 6399, 19116, 622, 87883, 87111 #### [facility] of [address], [address] [place] [address] Gr[employer] And Polishing Laborer: Rip Cornejo MD AST [Catalytic activity/Vol] 11 U/L Normal 10-35 [facility] Comment on above: Performed By: #### 7 18, 905, 7600, 6399, 54878, 622, 01933, 72361 #### [facility] of [address], [address] [place] [address] Grinding And Polishing Laborer: Rip Cornejo MD Bilirubin [Mass/Vol] 0.4 mg/dL Normal 0.2-1.2 [facility] Comment on above: Performed By: #### 7 18, 905, 7600, 6399, 06067, 622, 96628, 78964 #### [facility] of [address], [address] [place] [address] Grinding And Polishing Laborer: Rip Cornejo MD BUN/CREATININE RATIO NOT APPLICABLE Normal 6-22 [facility] Comment on above: Performed By: #### 7 18, 905, 7600, 6399, 86462, 622, 30367, 59783 #### [facility] [place] [address] [employer] And Polishing Laborer: Rip Cornejo MD Calcium [Mass/Vol] 9.5 mg/dL Normal 8.6-10.4 [facility] Comment on above: Performed By: #### 7 18, 905, 7600, 6399, 15769, 622, 12911, 79385 #### [facility] [place] [address] [employer] Polishing Laborer: Rip Cornejo MD Chloride [Moles/Vol] 108 mmol/L Normal 98-110 [facility] Comment on above: Performed By: #### 7 18, 905, 7600, 6399, 91069, 622, 52920, 60349 #### [facility] [place] [address] Grinding And Polishing Laborer: Rip Cornejo MD CO2 [Moles/Vol] 25 mmol/L Normal 20-32 [facility] Comment on above: Performed By: #### 7 18, 905, 7600, 6399, 60206, 622, 69531, 82569 #### [facility] [place] [address] Gr[employer] And Polishing Laborer: Rip Cornejo MD Creatinine [Mass/Vol] 0.94 mg/dL Normal 0.50-0.99 [facility] Comment on above: Result Comment: For patients >49 years of age, the reference limit for Creatinine is approximately 13% higher for people identified as -[place]. Performed By: #### 7 18, 905, 7600, 6399, 84641, 622, 16793, 03725 #### [facility] [place] [address] Grinding And Polishing Laborer: Rip Cornejo MD eGFR NON-AFR. NAURUAN 62 mL/min/1.73m2 Normal > OR = 60 [facility] Comment on above: Performed By: #### 7 18, 905, 7600, 6399, 98598, 622, 09779, 17465 #### [facility] [address], [address] [place] [address] Grinding And Polishing Laborer: Rip Cornejo MD GFR/1.73 sq M.predicted among blacks MDRD (S/P/Bld) [Vol rate/Area] 72 mL/min/{1.73_m2} Normal > OR = 60 [facility] Comment on above: Performed By: #### 7 18, 905, 7600, 6399, 33931, 622, 43108, 71075 #### [facility] [place] [address] Gr[employer] And Polishing Laborer: Rip Cornejo MD Globulin (S) [Mass/Vol] 2.5 g/dL Normal 1.9-3.7 [facility] Comment on above: Performed By: #### 7 18, 905, 7600, 6399, 92840, 622, 41741, 79181 #### [facility] [place] [address] Gr[employer] And Polishing Laborer: Rip Cornejo MD Glucose [Mass/Vol] 103 mg/dL High 65-99 [facility] Comment on above: Result Comment: Fasting reference interval For someone without known diabetes, a glucose value between 100 and 125 mg/dL is consistent with prediabetes and should be confirmed with a follow-up test. Performed By: #### 7 18, 905, 7600, 6399, 84044, 622, 84412, 57563 #### [facility] [address] [place] [address] [employer] Polishing Laborer: Rip Cornejo MD Potassium [Moles/Vol] 4.2 mmol/L Normal 3.5-5.3 [facility] Comment on above: Performed By: #### 7 18, 905, 7600, 6399, 46254, 622, 74333, 09066 #### [facility] [address], [address] [place] [address] Grinding And Polishing Laborer: Rip Cornejo MD Protein [Mass/Vol] 6.3 g/dL Normal 6.1-8.1 [facility] Comment on above: Performed By: #### 7 18, 905, 7600, 6399, 92436, 622, 60369, 87254 #### [facility] [place] [address] Grinding And Polishing Laborer: Rip Cornejo MD Sodium [Moles/Vol] 140 mmol/L Normal 135-146 [facility] Comment on above: Performed By: #### 7 18, 905, 7600, 6399, 09642, 622, 75087, 20243 #### [facility] [place] [address] Gr[employer] And Polishing Laborer: Rip Cornejo MD Urea nitrogen [Mass/Vol] 17 mg/dL Normal 7-25 [facility] Comment on above: Performed By: #### 7 18, 905, 7600, 6399, 61009, 622, 41963, 55673 #### [facility] [place] [address] Grinding And Polishing Laborer: Rip Cornejo MD LIPID PANEL, [facility] 10-2 Cholesterol [Mass/Vol] 209 mg/dL High <200 [facility] Comment on above: Order Comment: FASTI NG:YES FASTING: YES Performed By: #### 7 18, 905, 7600, 6399, 36040, 622, 09107, 94367 #### [facility] [place] [address] Grinding And Polishing Laborer: Rip Cornejo MD Cholesterol in HDL [Mass/Vol] 43 mg/dL Low > OR = 50 [facility] Comment on above: Order Comment: FASTI NG:YES FASTING: YES Performed By: #### 7 18, 905, 7600, 6399, 27033, 622, 29500, 90597 #### [facility] [address], [address] [place] [address] Grinding And Polishing Laborer: Rip Cornejo MD Cholesterol in LDL [Mass/Vol] 139 mg/dL High [facility] Comment on above: Order Comment: FASTI NG:YES FASTING: YES Result Comment: Refe rence range: <100 Desirable range <100 mg/dL for primary prevention; <70 mg/dL for patients with CHD or diabetic patients with > or = 2 CHD risk factors. LDL-C is now calculated using the Too calculation, which is a validated novel method providing better accuracy than the Friedewald equation in the estimation of LDL-C. Chalo SS et al. JOSE. 2013;310(19): 1704-2867 (http://education.GiPStech/faq/GWL563) Performed By: #### 7 18, 905, 7600, 6399, 69456, 622, 36735, 82583 #### [facility] [address], [address] [place], [place] [id number] Gr[employer] And Polishing Laborer: Rip Cornejo MD Cholesterol.total/Choles terol in HDL [Mass ratio] 4.9 {ratio} Normal <5.0 [facility] Comment on above: Order Comment: FASTI NG:YES FASTING: YES Performed By: #### 7 18, 905, 7600, 6399, 82337, 622, 03464, 66778 #### [facility] [address], [address] [place] [address] Grinding And Polishing Laborer: Rip Cornejo MD NON HDL CHOLESTEROL 166 mg/dL (calc) High <130 [facility] Comment on above: Order Comment: FASTI NG:YES FASTING: YES Result Comment: For patients with diabetes plus 1 major ASCVD risk factor, treating to a non-HDL-C goal of <100 mg/dL (LDL-C of <70 mg/dL) is considered a therapeutic option. Performed By: #### 7 18, 905, 7600, 6399, 31867, 622, 32524, 17220 #### [facility] [address], [address] [place] [address] Grinding And Polishing Laborer: Rip Cornejo MD Triglyceride [Mass/Vol] 143 mg/dL Normal <150 [facility] Comment on above: Order Comment: FASTI NG:YES FASTING: YES Performed By: #### 7 18, 905, 7600, 6399, 05444, 622, 51326, 57378 #### [facility] [address], [address] [place] [address] Grinding And Polishing Laborer: Rip Cornejo MD MAGNESIUMon 04-20-2021 Magnesium [Mass/Vol] 1.7 mg/dL Normal 1.5-2.5 [facility] Comment on above: Performed By: #### 7 18, 905, 7600, 6399, 33082, 622, 94520, 74427 #### [facility] [address], [address] [place] [address] Grinding And Polishing Laborer: Rip Cornejo MD PHOSPHATE ( PHOSPHORUS)on 04-20-2021 Phosphate [Mass/Vol] 3.3 mg/dL Normal 2.1-4.3 [facility] Comment on above: Performed By: #### 7 18, 905, 7600, 6399, 22121, 622, 35638, 66485 #### [facility] [address], [address] [place] [address] Grinding And Polishing Laborer: Rip Cornejo MD PTH, INTACT WITHOUT CALCIUMo n 04-20-2021 PARATHYROID HORMONE, INTACT 40 pg/mL Normal 14-64 [facility] Comment on above: Result Comment: Interpretive Guide Intact PTH Calcium ------- Normal Parathyroid Normal Normal Hypoparathyroidism Low or Low Normal Low Hyperparathyroidism Primary Normal or High High Secondary High Normal or Low Tertiary High High Non-Parathyroid Hypercalcemia Low or Low Normal High Performed By: #### 7 18, 905, 7600, 6399, 03639, 622, 09137, 04646 #### [facility] [address], [address] [place] [address] Grinding And Polishing Laborer: Rip Cornejo MD TSH+FREE T4on 04-20-2021 Free T4 [Mass/Vol] 1.3 ng/dL Normal 0.8-1.8 [facility] Comment on above: Performed By: #### 7 18, 905, 7600, 6399, 72930, 622, 27915, 82242 #### [facility] [place] [address] Grinding And Polishing Laborer: Rip Cornejo MD TSH Qn 2.34 m[IU]/L Normal 0.40-4.50 [facility] Comment on above: Performed By: #### 7 18, 905, 7600, 6399, 67715, 622, 85244, 38668 #### [facility] [address], [address] [place] [address] Grinding And Polishing Laborer: Rip Cornejo MD URIC ACIDon 04-20-2021 Urate [Mass/Vol] 5.9 mg/dL Normal 2.5-7.0 [facility] Comment on above: Result Comment: Ther apeutic target for gout patients: <6.0 mg/dL Performed By: #### 7 18, 905, 7600, 6399, 91394, 622, 79689, 22834 #### [facility] [address], [address] [place] [address] Grinding And Polishing Laborer: Rip Cornejo MD VITAMIN D,25-OH,TOTAL,IAon 1 VITAMIN D,25-OH,TOTAL,IA 36 ng/mL Normal 30-100 [facility] Comment on above: Result Comment: Estephanie min D Status 25-OH Vitamin D: Deficiency: <20 ng/mL Insufficiency: 20 - 29 ng/mL Optimal: > or = 30 ng/mL For 25-OH Vitamin D testing on patients on D2-supplementation and patients for whom quantitation of D2 and D3 fractions is required, the QuestAssureD(TM) 25-OH VIT D, (D2,D3), LC/MS/MS is recommended: order code 82386 (patients >2yrs). See Note 1 Note 1 For additional information, please refer to http://education.GiPStech/faq/SFS336 (This link is being provided for informational/ educational purposes only.) Performed By: #### 7 18, 905, 5390, 4999, 56051, 622, 09436, 87588 #### [facility] [address] [facility], [address] [place] [address] Grinding And Polishing Laborer: Rip Cornejo MD Vital Signs Date Time Vital Sign Value Performing Clinician Facility 04-25-2023 12:27-0400 Body height 167.[address] 04-25-2023 12:27-0400 Body mass index (BMI) [Ratio] 33.41 kg/m2 [address] 04-25-2023 12:27-0400 Body weight 93.[address] 04-25-2023 12:27-0400 Diastolic blood pressure 92 mm[Hg] [address] 04-25-2023 12:27-0400 Systolic blood pressure 136 mm[Hg] [address] 04-20-2023 11:43-0400 Body height 168.9 cm Jesus Yee DO Work Phone: [facility] 04-20-2023 11:43-0400 Body mass index (BMI) [Ratio] 32.91 kg/m2 Jesus Yee DO Work Phone: [facility] 04-20-2023 11:43-0400 Body weight 93.89 kg Jesus Yee DO Work Phone: [facility] 04-20-2023 11:43-0400 Diastolic blood pressure 92 mm[Hg] Jesus Yee DO Work Phone: [facility] 04-20-2023 11:43-0400 Heart rate 58 /min Jesus Yee DO Work Phone: [facility] 04-20-2023 11:43-0400 Systolic blood pressure 142 mm[Hg] Jesus Yee DO Work Phone: [facility] 02-23-2023 09:14-0400 Diastolic blood pressure 62 mm[Hg] Simone G Furlong Work Phone: [facility] DO Work Phone: 02-23-2023 09:14-0400 Systolic blood pressure 120 mm[Hg] Simone G Furlong Work Phone: [facility] [facility] DO Work Phone: 02-23-2023 09:10-0400 Body height 168.91 cm Simone G Furlong Work Phone: [facility] DO Work Phone: 02-23-2023 09:10-0400 Body mass index (BMI) [Ratio] 32.59 kg/m2 Simone G Furlong Work Phone: [facility] DO Work Phone: 02-23-2023 09:10-0400 Body surface area Derived from formula 2.03 m2 Simone G Furlong Work Phone: [facility] 250 DO Work Phone: 02-23-2023 09:10-0400 Body weight 92.99 kg Simone G Furlong Work Phone: [facility] [facility] DO Work Phone: 02-23-2023 09:10-0400 Diastolic blood pressure 64 mm[Hg] Simone G Furlong Work Phone: [facility] 250 DO Work Phone: 02-23-2023 09:10-0400 Heart rate 71 /min Simone G Furlong Work Phone: [facility] DO Work Phone: 02-23-2023 09:10-0400 Systolic blood pressure 120 mm[Hg] Simone Bejarano Work Phone: [facility] DO Work Phone: 02-23-2023 09:10-0400 10 1 Simone Bejarano Work Phone: [facility] DO Work Phone: Comment on above: PHQ-9 TS Encounters Encounter Date Encounter Type Care Provider Facility Start: 11-07-2023 End: 11-07-2023 ambulatory THOMAS SALAZAR Not Available Start: 10-24-2023 End: 10-24-2023 ambulatory [facility] Ambulatory Start: 08-18-2023 Refill Joann Margarita [facility] Start: 04-25-2023 End: 04-26-2023 ambulatory [facility] Start: 04-25-2023 End: 04-25-2023 Subsequent hospital visit by physician Latia Loera Echo/Vasc Room 2 [facility] Comment on above: Palpitations; Shortness of breath Start: 04-20-2023 End: 04-20-2023 ambulatory [facility] Amb[facility] Start: 04-20-2023 End: 04-20-2023 Office outpatient visit 25 minutes Jesus Romo [place] DO Work Phone: [facility] Comment on above: BMI 32.0-32.9,adult; Stage 3a chronic kidney disease (CKD) (CMS/HCC); Other hyperlipidemia; Benign hypertensive 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 Simone Bejarano Facility: Start: 04-28-2021 End: 04-29-[address] SIMONE BEJARANO Facility:[facility]1 Procedures Date Procedure Procedure Detail Performing Clinician Start: 10-24-2023 FOLLOW UP IN CARDIOLOGY JESUS YEE Start: 06-02-2023 Adult depression scr eening assessment Joann Margarita CUSTODIAN MANAGER Start: 04-25-2023 TRANSTHORACIC ECHO ( TTE) COMPLETE JESUS YEE Start: 04-25-2023 HOLTER OR EVENT CARD IAC MONITOR JESUS YEE Start: 04-25-2023 Echo tthrc r-t 2d w/ [employer] compl spec&colr d Jesus Clarissa Festus DO Work Phone: Appendectomy Simone batista Work Phone: Cholecystectomy Simone love Work Phone: Colonoscopy Simone Herreran lynne Work Phone: Operative procedure on ankle Simone Bejarano Work Phone: Tonsillectomy Simone jimenez Work Phone: Plan of Treatment Date Care Activity Detail Author Start: 06-13-2026 DTaP,Tdap and Td Vaccines (3 - Td or Tdap) DTaP,Tdap and Td Vaccines (3 - Td or Tdap) [facility] Start: 06-13-2026 DTaP/Tdap/Td Vaccine s (3 - Td or Tdap) DTaP/Tdap/Td Vaccines (3 - Td or Tdap) [facility] Start: 06-02-2024 Adult BMI Screening Adult BMI Screen ing [facility] [facility] Start: 06-02-2024 Depression Screening Depression Scre ening [facility] [employer] [facility] Start: 06-02-2024 Tobacco Screening Tobacco Screening [facility] Start: 12-13-2023 Fall Risk Screening Fall Risk Screen ing [facility] Start: 10-24-2023 End: 10-24-2023 Patient encounter procedure 10/24/2023 1:30 PM EDT Office Visit [facility] [address] [place] [address] Jesus Yee S, DO [address] [place], [place] [id number] [facility] Start: 04-25-2023 End: 04-25-2023 Clinical Support 04/25/2023 11:00 AM EDT Clinical Support [facility] [address] [place] [address] [facility] Start: 04-20-2023 End: 04-20-2024 Holter monitor study Holter Or Event Rn Home Health Cardiac Services Routine Palpitations Shortness of breath Expected: 04/20/2023 (Approximate), Expires: 04/20/2024 [facility] Service Area Work Phone: Comment on above: Expected: 04/20/2023 (Approximate), Expires: 04/20/2024 Start: 04-20-2023 End: 04-20-2025 Heart Transthoracic Transthoracic Echo (TTE) Complete Echocardiography Routine Palpitations Shortness of breath Expected: 04/20/2023 (Approximate), Expires: 04/20/2025 [facility] Work Phone: Comment on above: Expected: 04/20/2023 (Approximate), Expires: 04/20/2025 Start: 04-20-2023 FUV, Provider: Jesus Yee, Status: Pen, Time: 11:20 AM FUV, Provider: Jesus Yee, Status: Pen, Time: 11:20 AM [facility] 250 DO Work Phone: Start: 03-23-2023 STRESS SYDNIE, Provider : [place]AR[place]O HHVI NUCLEAR 01,[id number], Status: Pen, Time: 2:30 PM STRESS SYDNIE, Provider: [place]AR[place] HHVI NUCLEAR 01,[id number], Status: Pen, Time: 2:30 PM [facility] Work Phone: Start: 02-24-2023 Influenza vaccination Influenza Vacc ine (#1) [facility] Start: 09-29-2020 COVID-19 Vaccine (2 - Mixed Product series) COVID-19 Vaccine (2 - Mixed Product series) [facility] Start: 05-31-2013 Administration of varicella zoster vaccine Zoster (Shingles) Vaccine (2 of 3) [facility] Start: 05-31-2013 Zoster Vaccines (2 of 3) Zoster Vacc augusta (2 of 3) [facility] Start: 1992 Screening for malign ant neoplasm of breast Mammogram [facility] Start: 1970 Adult BMI Follow Up Plan Adult BMI F ollow Up Plan [facility] Start: 1970 Diabetes mellitus screening Diabetes Screening [facility] Start: 1970 Hepatitis C screening Hepatitis C Sc reening [facility] Start: 1952 Lipid panel Lipid Panel [facility] Start: 1952 Medicare Annual Well ness Visit [facility] Start: 1952 Screening for malign ant neoplasm of colon [facility] Start: 1952 Screening for osteoporosis Bone Density Scan [facility] Start: 1952 Thyroid stimulating hormone measurement TSH Level [facility] End: 04-25-2023 [facility] Service Area Work Phone: Comment on above: Once for 1 Occurrenc es starting 04/25/2023 until 04/25/2023 Immunizations Immunization Date Immunization Notes Care Provider Madelyn zhu 04-24-2023 influenza, high dose seasonal, preservative-free Joann Margarita CUSTODIAN MANAGER [facility] 04-20-2021 influenza, seasonal, injectable [facility]one [facility]jarano [facility] DO Work Phone: 04-20-2021 influenza virus vacc ine, unspecified formulation Jessu Yee DO Work Phone: [facility] Work Phone: 08-04-2020 SARS-CoV-2, Unspecified Will aaliyah Yee DO Work Phone: [facility] Work Phone: 04-22-2020 pneumococcal polysaccharide vaccine, 23 valent Simone Batista Furlong Work [facility] Work Phone: 04-17-2019 influenza, high dose seasonal, preservative-free Simone Batista Furlong Work Phone: [place] [address] DO Work Phone: 11-03-2017 pneumococcal conjuga te vaccine, 13 valent Simone G Furlong Work Phone: [place] [address] DO Work Phone: 06-13-2016 influenza, injectabl e, quadrivalent, preservative free Simone G [employer] Work Phone: [place] [address] DO Work Phone: 06-13-2016 tetanus toxoid, redu nicholas diphtheria toxoid, and acellular pertussis vaccine, adsorbed Simone G [employer] Work Phone: [facility] DO Work Phone: 04-05-2013 zoster vaccine, live Simone Batista Furlong Work Phone: [place] [address] DO Work Phone: 04-05-2013 zoster vaccine, unspecified formulation Joann Margarita [facility] 06-23-2010 tetanus toxoid, redu nicholas diphtheria toxoid, and acellular pertussis vaccine, adsorbed Simone G Furlong Work Phone: [facility] [employer] DO Work Phone: Payers Date Payer Category Payer Medicare [id number] 2017 Private Health Insurance [id number] 1959 Medicare [id number] 1959 Private Health Insurance [id number] 1950 Unknown [id number] 2.16.84 [id number] 1950 Unknown [id number] 2.16.84 [id number] 1952 Unknown [id number] 2.16. [id number] 1952 Unknown [id number] 2.16.8 [id number] 1952 Unknown [id number] 2.16.84 [id number] 1952 Unknown [id number] 2.16.8 [id number] 1952 Unknown [id number] 2.16.8 [id number] 1952 Unknown [id number] 2.16.8 [id number] 1952 Unknown [id number] 2.16.84 [id number] 1952 Unknown [id number] 2.16.84 [id number] Unknown Social History Date Type Detail Facility Start: 12-12-2022 End: 04-20-2023 No illicit drug use No illicit drug use -[facility] 250 DO Work Phone: Start: 12-12-2022 End: 04-20-2023 Tobacco smoking status NHIS Never smoked tobacco [facility] Work Phone: Start: 12-12-2022 End: 04-20-2023 Tobacco use and exposure Smokeless tobacco non-user [facility] Work Phone: Start: 04-20-2023 End: 06-02-2023 Alcohol intake Current drinker of alcohol (finding) [facility] Work Phone: Start: 12-12-2022 End: 04-20-2023 Tobacco use panel [facility] Work Phone: Start: 1950 [facility]igned At [facility] Work [facility]: Start: 04-10-2023 End: 04-25-2023 Exposure to SARS-CoV-2 (event) Not sure [facility] Adolescent depressio n screening assessment 0 [facility] History of Present illness Narrative 04-20-2023 Jesus Yee, DO - 04/20/2023 11:20 AM EDT Note Date & Type Note Facility 04-20-2023 History of Present illness Narrative Subjective Aster Bacon is a 72 y.o. female Chief Complaint Results 72-year-old female returns for follow-up following recent stress testing (stress imaging was denied), primarily for symptoms of exertional dyspnea, palpitations which still persist. She has no chest discomfort. Treadmill stress test is reviewed she was able to perform on the Scotty protocol into stage II, approximately 5 METS without ischemic changes, and appropriate heart rate response. As mentioned above she still has exertional dyspnea, and mentions palpitations that are at rest and sporadic in nature with chest pounding but no chest pain She has evidence of hypertension on today's exam she is usually normotensive at home. Based on the above, I would simply recommend initiating Toprol-XL 25 mg daily to treat underlying palpitations and hypertension, obtain echocardiogram to assess for LV function/wall motion abnormality and evidence for possible diastolic dysfunction. We recommend continued aerobic activity and walking her dog on a regular basis we will follow-up in 6 months and report thereafterwards. Review of Systems Cardiovascular: Positive for palpitations. Respiratory: Positive for shortness of breath. All other systems reviewed and are negative. Visit Vitals BP (!) 142/92 (BP Location: Left arm, Patient Position: Sitting) Pulse 58 Ht 1.689 m (5' 6.5 ) Wt 93.9 kg (207 lb) BMI 32.91 kg/m Smoking Status Never BSA 2.1 m Objective Physical Exam Constitutional: Appearance: Normal appearance. She is normal weight. HENT: Nose: Nose normal. Neck: Vascular: No carotid bruit. Cardiovascular: Rate and Rhythm: Normal rate. Pulses: Normal pulses. Heart sounds: Normal heart sounds. Pulmonary: Effort: Pulmonary effort is normal. Abdominal: General: Bowel sounds are normal. Palpations: Abdomen is soft. Genitourinary: Rectum: Normal. Musculoskeletal: General: Normal range of motion. Cervical back: Normal range of motion. Right lower leg: No edema. Left lower leg: No edema. Skin: General: Skin is warm and dry. Neurological: General: No focal deficit present. Mental Status: She is alert. Psychiatric: Mood and Affect: Mood normal. Behavior: Behavior normal. Thought Content: Thought content normal. Judgment: Judgment normal. Current Medications Current Outpatient Medications: aspirin 81 mg EC tablet, Take 1 tablet (81 mg) by mouth once daily., Disp: , Rfl: levothyroxine (Synthroid, Levoxyl) 75 mcg tablet, Take 1 tablet (75 mcg) by mouth once daily in the morning. Take before meals., Disp: , Rfl: rosuvastatin (Crestor) 5 mg tablet, Take 1 tablet (5 mg) by mouth once daily at bedtime., Disp: , Rfl: Assessment/Plan No diagnosis found. documented in this encounter [facility] Work Phone: Instructions 04-20-2023 Patient Instructions Note Date & Type Note Facility 04-20-2023 Instructions Miki Clements MA - 04/20/2023 11:20 AM EDT Please bring all medicines, vitamins, and herbal supplements with you when you come to the office. Prescriptions will not be filled unless you are compliant with your follow up appointments or have a follow up appointment scheduled as per instruction of your physician. Refills should be requested at the time of your visit. 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 She has no chest discomfort. She is usually very active but now with any amount of activity she becomes more dyspneic. She has a family history of coronary artery disease in both mother father, sister and brother, has hyperlipidemia and chronic kidney disease.There is no prior history of myocardial infarction revascularization, stroke, thromboembolic or bleeding disorderECG today is normal sinus rhythm completely normal.Overall overall risk for CAD is low other than family history, chronic kidney disease as main comorbidity featuresRecommendations proceed with treadmill stress testing to further assess her dyspnea and or ischemic etiology. [facility] [employer] Work Phone: Chief complaint Narrative - Reported Note Date & Type Note Facility Chief complaint Narrative - Reported ASTER BACON is being seen for an initial evaluation of SOB.72-year-old female seen in cardiology consultation at the request of her primary care physician for exertional dyspnea. She has no chest discomfort. She is usually very active but now with any amount of activity she becomes more dyspneic. She has a family history of coronary artery disease in both mother father, sister and brother, has hyperlipidemia and chronic kidney disease.There is no prior history of myocardial infarction revascularization, stroke, thromboembolic or bleeding disorderECG today is normal sinus rhythm completely normal.Overall overall risk for CAD is low other than family history, chronic kidney disease as main comorbidity featuresRecommendations proceed with treadmill stress testing to further assess her dyspnea and or ischemic etiology. -[facility] DO Work Phone: Evaluation note Note Date & Type Note Facility Evaluation note Diagnosis Palpitations Shortness of breath documented in this encounter [facility] Work Phone: Evaluation note Note Date & Type Note Facility Evaluation note Diagnosis Palpitations Shortness of breath documented in this encounter [facility] Work Phone: Instructions Note Date & Type Note Facility Instructions Not on filedocumented in this en counter [facility] Summary Purpose Family History No Family History Records FoundUnknown Family Member Name Dates Details Family history of cardiac pa cemaker: Mother(V17.49, Z82.49) Status:Active Coronary artery graft presen t: Mother, Father, Brother, Sister Status:Active Family history of malignant neoplasm: Mother, Father, Sister(V16.9, Z80.9) Status:Active History of PTCA: Mother, Fat her, Sister, Brother(V45.82, Z98.61) Status:Active Unknown Family Member Name Dates Details Coronary artery graft presen t: Mother, Father, Brother, Sister Status:Active Family history of cardiac pa cemaker: Mother(V17.49, Z82.49) Status:Active Family history of malignant neoplasm: Mother, Father, Sister(V16.9, Z80.9) Status:Active History of PTCA: Mother, Fat her, Sister, Brother(V45.82, Z98.61) Status:Active Unknown Family Member Name Dates Details Family history of cardiac pa cemaker: Mother(V17.49, Z82.49) Status:Active Coronary artery graft presen t: Mother, Father, Brother, Sister Status:Active Family history of malignant neoplasm: Mother, Father, Sister(V16.9, Z80.9) Status:Active History of PTCA: Mother, Fat her, Sister, Brother(V45.82, Z98.61) Status:Active Advance Directives No Advanced Directives Records FoundNo Advanced Directives Records FoundNo Advanced Directives Records FoundNo Advanced Directives Records FoundNo Advanced Directives Records FoundNo Advanced Directives Records FoundNo Advanced Directives Records FoundNo Advanced Directives Records Found Reason for Referral Specialty Diagnoses / Procedures Referred By Contac t Referred To Contact Cardiology Diagnoses Palpitations Shortness of breath Procedures Transthoracic Echo (TTE) Complete RI ECHO TRANSTHORC R-T 2D W/WO M-MODE REC F-UP/LMTD RI DOP ECHOCARD COLOR FLOW VELOCITY MAPPING RI DOP ECHOCARD PULSE WAVE W/SPECTRAL F-UP/LMTD STD Jesus Yee, DO [address] [place] [address] [facility] [address] [place] [address] Referral ID Status Reason Start Date Expiration Date Visits Requested Visits Authorized [id number] Pending Review Perform Procedure 3 04/19/2024 1 1 Specialty Diagnoses / Procedures Referred By Contac t Referred To Contact Cardiology Diagnoses Palpitations Shortness of breath Procedures Holter Or Event Rn Home Health Jesus Yee, DO [address] [place] [address] [facility] [address] [place] [address] Referral ID Status Reason Start Date Expiration Date V isits Requested Visits Authorized [id number] Pending Review 04/20/2023 04/19/2024 1 1 Specialty Diagnoses / Procedures Referred By Contac t Referred To Contact Cardiology Diagnoses Benign hypertensive heart disease without heart failure Palpitations Procedures Follow Up In Cardiology Jesus Yee, [address] [place] [address] [facility] [address], [address] [address] Jesus Yee, DO [address] [place] [address] [facility] 2, [address] [address] Referral ID Status Reason Start Date Expiration Date V isits Requested Visits Authorized [id number] Authorized 04/20/2023 04/19/2024 1 1 Referral ID Status Reason Start Date Expiration Date Visits Requested Visits Authorized [id number] Authorized Perform Procedure 3 04/19/2024 1 1 Additional Source Comments INFORMATION SOURCE (unrecogn ized section and content) DATE CREATED AUTHOR 04/25/2021 [facility] DATE CREATED AUTHOR AUTHOR'S ORGANIZ ATION 08/10/2021 [facility] DATE CREATED AUTHOR AUTHOR'S ORGANIZ ATION 02/24/2023 [employer] DATE CREATED AUTHOR AUTHOR'S ORGANIZ ATION 03/03/2023 [facility] DATE CREATED AUTHOR AUTHOR'S ORGANIZ ATION 03/30/2023 [facility] DATE CREATED AUTHOR AUTHOR'S ORGANIZ ATION 04/30/2023 [facility] DATE CREATED AUTHOR AUTHOR'S ORGANIZ ATION 10/25/2023 [facility] DATE CREATED AUTHOR AUTHOR'S ORGANIZ ATION 11/09/2023 [facility] EPIC Reason for Visit (unrecogniz ed section and content) Reason Comments Results stress Specialty Diagnoses / Procedures Referred By Contac t Referred To Contact Cardiology Diagnoses Palpitations Shortness of breath Procedures Transthoracic Echo (TTE) Complete RI ECHO TRANSTHORC R-T 2D W/WO M-MODE REC F-UP/LMTD RI DOP ECHOCARD COLOR FLOW VELOCITY MAPPING RI DOP ECHOCARD PULSE WAVE W/SPECTRAL F-UP/LMTD STD Jesus Yee DO [address] [facility] 2, [address] [address] Referral ID Status Reason Start Date Expiration Date Visits Requested Visits Authorized [id number] Authorized Perform Procedure 3 04/19/2024 1 1 Reason Onset Date Comments Med Refill 08/18/2023 Care Teams (unrecognized sec tion and content) [employer] Former Relationship Specialty Start Date End Date Simone Bejarano DO [address], [facility] [place] [address] PCP - General 02/23/23 [employer] Former Relationship Specialty Start Date End Date Simone Bejarano DO [address], [place] [address] PCP - General 02/23/23 [employer] Former Relationship Specialty Start Date End Date Simone Bejarano DO [address], [place] [address] PCP - General 02/23/23 [employer] Former Relationship Specialty Start Date End Date Simone Bejarano DO [address], [place] [address] PCP - General Family Medicine 09/08/22 FOR RECORDS PERTAINING TO PATIENTS WHO ARE OR HAVE BEEN ENROLLED IN A CHEMICAL DEPENDENCY/SUBSTANCEABUSE PROGRAM, SOME INFORMATION MAY BE OMITTED. This clinical summary was aggregated from multiple sources. Caution should be exercised in using it in the provision of clinical care. This summary normalizes information from multiple sources, and as a consequence, information in this document may materially change the coding, format and clinical context of patient data. In addition, data may be omitted in some cases. CLINICAL DECISIONS SHOULD BE BASED ON THE PRIMARY CLINICAL RECORDS. [employer] provides no warranty or guarantee of the accuracy or completeness of information in this document.
[2023-11-24 11:38] LABS: Basophils Percent Auto 0.5 % (0.2-2.0); Eosinophils Absolute Auto 0.1 10^3/uL (0.0-0.7); Eosinophils Percent Auto 2.3 % (0.9-7.0); Hematocrit 41.2 % (36.0-48.0); Hemoglobin 12.7 g/dL (12.0-16.0); Immature Granulocytes Abs Auto 0.02 10^3/uL (0.00-0.03); Immature Granulocytes Pct Auto 0.4 % (0.0-0.5); Lymphocytes Absolute Auto 1.5 10^3/uL (1.2-3.8); Mean Corpuscular HGB Conc 30.8 g/dL (29.9-35.2); Mean Corpuscular Hemoglobin 26.3 pg (26.7-34.0); Mean Corpuscular Volume 85.3 fL (81.0-99.0); Mean Platelet Volume 12.1 fL (9.5-13.5); Monocytes Absolute Auto 0.3 10^3/uL (0.3-0.8); Monocytes Percent Auto 5.8 % (1.7-12.0); Neutrophils Absolute Auto 3.7 10^3/uL (1.4-6.5); Platelet Count 178 10^3/uL (150-450); Red Blood Count 4.83 10^6/uL (4.20-5.40); Red Cell Distribution Width 14.7 % (11.0-15.0); White Blood Count 5.7 10^3/uL (4.0-11.0)
[2023-11-24 11:46] LABS: Alanine Aminotransferase 22 U/L (14-59); Albumin Globulin Ratio 0.9; Albumin Level 3.3 g/dL (3.4-5.0); Alkaline Phosphatase 99 U/L (46-116); Anion Gap 12.7; Aspartate Amino Transferase 12 U/L (15-37); BUN Creatinine Ratio 11.9; Bilirubin Total 0.6 mg/dL (0.2-1.0); Calcium 9.3 mg/dL (8.5-10.1); Carbon Dioxide 28.8 mmol/L (21.0-32.0); Chloride 105 mmol/L (98-107); Chol HDL Ratio 2.8; Cholesterol 185 mg/dL (<=200); Estimated GFR (African America 60 (>=60); Estimated GFR (Non-African Ame 49 (>=60); Globulin 3.6 g/dL; Glucose 103 mg/dL (74-106); HDL Cholesterol 66 mg/dL (40-60); Magnesium 1.9 mg/dL (1.8-2.4); Phosphorus 3.7 mg/dL (2.6-4.7); Potassium 4.5 mmol/L (3.5-5.1); Sodium 142 mmol/L (136-145); Total Protein 6.9 g/dL (6.4-8.2); Triglycerides 93 mg/dL (<=150); Uric Acid 5.7 mg/dL (2.6-6.0); VLDL CHOLESTEROL 18.6 mg/dL
[2023-11-26 13:07] LABS: PTH, Intact 41 pg/mL (15-65)
== END 2023-11-24 10:47 | disposition home or self-care (01) ==
PROVIDERS: PCP Family Medicine; Visit Provider Nurse Practitioner Family
DX: E78.49 Other hyperlipidemia (principal); N18.31 Chronic kidney disease, stage 3a
CPT/HCPCS: 36415; 80053; 80061; 82306; 83735; 83970; 84100; 84550; 85025

== ENCOUNTER 2024-11-23 11:00 | Emergency (ER) | payer MEDICARE, OTHER, SELFPAY ==
--- OUTSIDE RECORDS SUMMARY | 2024-09-16 09:00 | XMS_ITS ---
Author Organization [facility] , [facility] Address [address] [place] [address] Care Team Providers Care Wet Process Technician Name Role Phone Mouna REDMAN, Michelle Primary Care Provider REASON FOR VISIT *New Patient Encounters Encounter [facility] Date [facility] [address] [place] [id number] 09/16/2024 Michelle Freire Plan Of Treatment No Information Progress Notes * Ce BACONhDOB:[birth year] (74 yo F)Acc No.[id number]:09/16/2024 Progress Notes Patient: Aster NOGUEIRA Provider: Clarissa Freire MD :1950 A ge:74 Y S ex:Female Date:09/16/2024 [place] [address] [id number] Subjective: * Chief Complaints: * 1 . *New Patient. * Medical History: Objective: * Vitals: Assessment: Plan: * Treatment: * * Electronic signature of Colten Freire MD, on 11/23/2024 at 10:03 AM EDT Sign off status: Pending * Provider: Clarissa Freire MD Date: 09/16/2024 Generated for Keila jimenez/Stalin/eTransmitting on: 11/23/2024 10:03 AM EDT
[2024-11-23 11:06] VITALS: BP 175/77; PULSE 66; TEMP 36.8; O2SAT 97; BMI 33.9
--- OUTSIDE RECORDS SUMMARY | 2024-11-23 11:06 | XMS_ITS | CCD ---
Author Organization [facility] CliniSymn Care Team Providers Care Director [employer] Name Role Phone HEATHERLONG, DR SIMONE Batista Admitting Unavailable FURLONG, DR SIMONE Batista Primary Care Unavailable FURLONG, DR SIMONE Batista Attending Unavailable FURЮЛИЯ, DR SIMONE Batista Admitting Unavailable FURLONG, DR SIMONE Batista Primary Care Unavailable FURNG, DR SIMONE Batista Consulting Unavailable JARODNG, DR SIMONE Batista Attending Unavailable WEST, DR ALICIA Raman Consulting Unavailable Simone Bejarano Unavailable Unavailable Unavailable Carlee, Dr. Simone Medrano Primary Care Unava ilmallory Yee, Dr. Kenton Sauceda Attending Unava ilable Festus, Dr. Kenton Sauceda Referring Unava KENTON Macias Attending Unavailable Carlee, Dr. Simone Medrano Primary Care Tyrava ilSimone Sexton DO Primary Care Provider KENTON YEE Referring Unavailable SIMONE BEJARANO Primary Care Unavailab THOMAS Graff Attending Unavailable THOMAS SALAZAR Referring Unavailable THOMAS SALAZAR Attending Unavailable YEN DE OLIVEIRA Attending Unavailable Simone Bejarano MD Primary Care Provider [phone] Simone Bejarano DO Primary Care Provider Simone Bejarano DO Primary Care Provider George Ye Primary Care [facility] KARI DOCKERY Attending Unavailable SIMONE BEJARANO Referring Unavailable SIMONE BEJARANO Primary Care Unavailable GEORGE LÓPEZ Attending Unavailable SIMONE BEJARANO Referring Unavailable GEORGE LÓPEZ Primary Care Unavailable GEORGE LÓPEZ Referring Unavailable GEORGE LÓPEZ Primary Care Unavailable Simone Bejarano DO Primary Care Provider Simone Bejarano DO Primary Care Provider [phone] KENTON YEE Attending Unavailable KENTON YEE Referring Unavailable SIMONE BEJARANO Primary Care Unavailab le Allergies Allergy Classification Reported Allergen(s) Allergy Type Date of Onset Reaction(s) Facility (1 source) natural latex rubber Drug allergy (disorder) 7 [facility] Repository (1 source) Penicillin Drug Allergy 7 [facility] Repository (3 sources) Latex rubber gloves; Translations: [Latex Gloves] Allergy to drug (finding) Other -[facility] 250 DO Work Phone: (7 sources) Penicillins; Translations: [Penicillins] Allergy to drug (finding) 3 [facility] Repository (20 sources) Latex; Translations: [LATEX] Propensity to adverse reactions 3 [facility] (12 sources) Penicillins Propensity to adverse reactions 3 Unknown, [facility] (3 sources) Latex Propensity to adverse reactions 3 [facility] (3 sources) Penicillins Drug Intolerance 3 Rash, Unknown [facility] (4 sources) Penicillins Propensity to adverse reactions to drug 3 Rash, Unknown [facility] Medications Current Medications Medication Drug Class(es) Dates Sig (Normalized) Sig (Original) aspirin 81 mg delayed release oral tablet (20 sources) Platelet Aggregation Inhibitor, Nonsteroidal Anti-inflammatory Drug Start: 11-23-2024 take 1 tablet by mouth once daily Aspirin (Adult Aspirin Regimen) 81 mg tablet,delayed release (DR/EC) Active 81 MG PO Daily November 23, 2024 12:00am take 1 tablet by mouth in the mo rning aspirin 81 mg Take 1 tablet (81 mg total) by mouth in the morning. Active furosemide 20 mg oral tablet (5 sources) Loop Diuretic Start: 11-23-2024 End: 11-23-2024 take 1 tablet by mouth once daily as needed for edema Furosemide 20 mg tablet Active 20 MG PO Daily as needed for edema November 23, 2024 10:08am Start: 10-15-2024 take 1 tablet by jd th once daily as needed furosemide (LASIX) 20 mg tablet Indications: Localized swelling of both lower legs Take 1 tablet (20 mg total) by mouth daily as needed (leg swelling). 90 tablet 1 10/15/2024 Active levothyroxine sodium 0.075 mg oral tablet (20 sources) l-Thyroxine Start: 11-23-2024 take 1 tablet by mouth once daily Levothyroxine (Synthroid) 75 mcg tablet Active 75 MCG PO Daily November 23, 2024 12:00am Start: 01-06-2023 End: 07-24-2024 take 1 tablet by mouth in the morning levothyroxine (SYNTHROID, LEVOTHROID) 75 MCG tablet Take 1 tablet (75 mcg total) by mouth in the morning. 90 tablet 1 07/25/2024 Active 24 hr metoprolol succinate 25 mg [...] 30 tablet 11 04/20/2023 04/19/2024 Active rosuvastatin 10 mg oral capsule (20 sources) HMG-CoA Reductase Inhibitor Start: 11-23-2024 take 1 tablet by mouth once daily Rosuvastatin 10 mg tablet Active 10 MG PO Daily November 23, 2024 12:00am Start: 10-24-2023 End: 10-29-2024 take 1 tablet by mouth once daily at bedtime rosuvastatin (Crestor) 5 mg tablet Indications: Other hyperlipidemia Take 1 tablet (5 mg) by mouth once daily at bedtime. 90 tablet 3 10/24/2023 10/29/2024 Discontinued (Dose adjustment) Start: 06-02-2023 End: 10-09-2024 take 1 tablet by mouth once daily rosuvastatin (CRESTOR) 10 mg tablet Take 1 tablet (10 mg total) by mouth nightly. 90 tablet 10/10/2024 Active Start: 12-12-2022 take 1 tablet by jd th once daily at bedtime rosuvastatin (Crestor) 5 mg tablet Take 1 tablet (5 mg) by mouth once daily at bedtime. 0 12/12/2022 Active Completed/Discontinued Medications Medication Drug Class(es) Dates Sig (Normalized) Sig (Original) escitalopram 5 mg oral tablet (20 sources) Serotonin Reuptake Inhibitor Start: 11-23-2024 End: 11-23-2024 take 1 tablet by mouth once daily Escitalopram Oxalate 5 mg tablet Discontinued 5 MG PO Daily November 23, 2024 12:00am November 23, 2024 10:10am Start: 06-02-2023 End: 07-24-2024 take 1 tablet by mouth in the morning escitalopram (LEXAPRO) 5 mg tablet Indications: Reactive depression Take 1 tablet (5 mg total) by mouth in the morning. 90 tablet 1 07/25/2024 Active Problems Active Problems Problem Classification Problem Date Documented Date Episodic/Chronic Abdominal pain (2 sources) Right lower quadrant pain; Translations: [Right lower quadrant pain] Onset: 10-15-2024 10-15-2024 Episodic Anxiety disorders (1 source) Anxiety; Translations: [Anxiety disorder, unspecified] 11-23-2024 Chronic Chronic kidney disease (20 sources) Chronic kidney disease stage 2; Translations: [Chronic kidney disease, Stage II (mild)] Onset: 11-14-2022 04-20-2023 Chronic Chronic kidney disease (1 source) Chronic kidney disease; Translations: [Chronic kidney disease, stage 3a] Onset: 11-14-2022 Disorders of lipid metabolism (20 sources) Hyperlipidemia; Translations: [Other and unspecified hyperlipidemia] Onset: 11-14-2022 04-20-2023 Chronic Essential hypertension (1 source) Hypertensive disorder Onset: 11-30-2023 Chronic Hypertension with complications and secondary hypertension (8 sources) Benign hypertensive heart disease without congestive heart failure; Translations: [Hypertensive heart disease without heart failure] Onset: 04-20-2023 04-20-2023 Chronic Mood disorders (3 sources) Reactive depression (situational); Translations: [Major depressive disorder, single episode, unspecified] Onset: 11-30-2023 07-24-2024 Chronic Osteoarthritis (7 sources) Degenerative joint disease of hand; Translations: [Unilateral primary osteoarthritis of first carpometacarpal joint, right hand] Onset: 11-30-2023 11-30-2023 Chronic Other and unspecified benign neoplasm (2 sources) Melanocytic nevus of trunk; Translations: [Melanocytic nevi of trunk] 03-18-2024 Episodic Other and unspecified benign neoplasm (2 sources) Senile angioma; Translations: [Hemangioma of skin and subcutaneous tissue] 03-18-2024 Episodic Other lower respiratory disease (3 sources) Other forms of dyspnea; Translations: [Other forms of dyspnea] Onset: 03-23-2023 Episodic Other nutritional; endocrine; and metabolic disorders (3 sources) Obesity; Translations: [Obesity, unspecified] Chronic Other nutritional; endocrine; and metabolic disorders (6 sources) Body mass index 30+ - obesity; Translations: [Body mass index (BMI) 32.0-32.9, adult] Onset: 04-19-2023 04-20-2023 Chronic Other nutritional; endocrine; and metabolic disorders (13 sources) Obesity caused by energy imbalance; Translations: [Class 1 obesity due to excess calories with serious comorbidity and body mass index (BMI) of 32.0 to 32.9 in adult] Onset: 12-12-2022 12-12-2022 Chronic Other nutritional; endocrine; and metabolic disorders (1 source) Other obesity due to excess calories; Translations: [Other obesity due to excess calories] Onset: 12-12-2022 Chronic Other nutritional; endocrine; and metabolic disorders (1 source) Body mass index (BMI) 32.0-32.9, adult; Translations: [Body mass index (BMI) 32.0-32.9, adult] Onset: 12-12-2022 Chronic Other nutritional; endocrine; and metabolic disorders (2 sources) Body mass index (BMI) 34.0-34.9, adult; Translations: [Body mass index (BMI) 34.0-34.9, adult] Onset: 10-29-2024 Chronic Other screening for suspected conditions (not mental disorders or infectious disease) (3 sources) Patient encounter status; Translations: [Encounter for screening for diabetes mellitus] Onset: 10-15-2024 10-15-2024 Episodic Other skin disorders (2 sources) Seborrheic keratosis; Translations: [Other seborrheic keratosis] 03-18-2024 Episodic Other skin disorders (1 source) Bilateral localized swelling of lower legs; Translations: [Localized swelling, mass and lump, lower limb, bilateral] 10-15-2024 Episodic Other skin disorders (1 source) Localized swelling, mass and lump, lower limb, bilateral; Translations: [Localized swelling, mass and lump, lower limb, bilateral] Onset: 10-15-2024 Episodic Residual codes; unclassified (2 sources) Never smoked tobacco; Translations: [Other specified health status] Onset: 10-24-2023 10-29-2024 Episodic Residual codes; unclassified (2 sources) Other specified health status; Translations: [Other specified health status] Onset: 10-24-2023 Episodic Spondylosis; intervertebral disc disorders; other back problems (1 source) Spondylosis without myelopathy or radiculopathy, thoracic region; Translations: [SPONDYLS W/O MYELO-/RADICULOP THOR] Onset: 05-06-2021 Chronic Thyroid disorders (19 sources) Acquired hypothyroidism; Translations: [Hypothyroidism, unspecified] Onset: 11-14-2022 04-19-2023 Chronic Past or Other Problems Problem Classification Problem Date Documented Da te Episodic/Chronic Cardiac dysrhythmias (5 sources) Palpitations; Translations: [Palpitations] Onset: 04-25-2023 04-20-2023 Episodic Mood disorders (13 sources) Mood disorders Onset: 11-30-2023 Resolved: 10-15-2024 11-30-2023 Other lower respiratory disease (20 sources) Dyspnea on exertion; Translations: [Other respiratory abnormalities] Onset: 12-12-2022 04-19-2023 Episodic Other lower respiratory disease (4 sources) Dyspnea; Translations: [Shortness of breath] Onset: 04-25-2023 04-20-2023 Episodic Other lower respiratory disease (1 source) Shortness of breath; Translations: [Shortness of breath] Onset: 04-25-2023 Episodic Spondylosis; intervertebral disc disorders; other back problems (4 sources) Pain in thoracic spine; Translations: [PAIN IN THORACIC SPINE] Onset: 04-28-2021 Episodic Unclassified (3 sources) Never smoked tobacco; Translations: [Never a smoker] Unclassified (10 sources) Onset: 04-20-2023 Resolved: 10-15-2024 04-20-2023 Varicose veins of lower extremity (16 sources) Varicose veins of lower extremity; Translations: [Asymptomatic varicose veins of bilateral lower extremities] Onset: 12-12-2022 04-19-2023 Episodic Results Test Name Value Interpretation Reference Range Facility CBC AND AUTO DIFFon 10-16-19 ABSOLUTE BASOPHIL 0.0 X10E9/L Normal 0.0-0.2 [facility] Comment on above: Performed By: #### C BCA, CMP, HA1C #### [facility] ([id number]) [address], [address] [place] [address] ABSOLUTE NEUTROPHIL 2.9 X10E9/L Normal 1.5-6.6 [facility] Comment on above: Performed By: #### C BCA, CMP, HA1C #### [facility] ([id number]) [address], [address] [place] [address] Basophils/100 WBC (Bld) 0.6 % Normal [facility] Comment on above: Performed By: #### C BCA, CMP, HA1C #### [facility] ([id number]) [address], [address] [place] [address] Eosinophils (Bld) [#/Vol] 0.1 10*3/uL Normal 0.0-0.4 [facility] Comment on above: Performed By: #### C BCA, CMP, HA1C #### [facility] ([id number]) [address], [address] [place] [address] Eosinophils/100 WBC (Bld) 2.1 % Normal [facility] Comment on above: Performed By: #### C BCA, CMP, HA1C #### [facility] ([id number]) [address], [address] [place] [address] Erythrocyte distribution width (RBC) [Ratio] 14.5 % Normal 11.5-15.0 [facility] Comment on above: Performed By: #### C BCA, CMP, HA1C #### [facility] ([id number]) [address] [place] [address] Hematocrit (Bld) [Volume fraction] 37.4 % Normal 35-47 [facility] Comment on above: Performed By: #### C NICHOL CMP, HA1C #### [facility] ([id number]) [address], [address] [place] [address] Hemoglobin (Bld) [Mass/Vol] 12.3 g/dL Normal 11.7-15.5 [facility] Comment on above: Performed By: #### C NICHOL, CMP, HA1C #### [facility] ([id number]) [address] [place] [address] Lymphocytes (Bld) [#/Vol] 1.2 10*3/uL Normal 1.0-3.5 [facility] Comment on above: Performed By: #### C NICHOL, CMP, HA1C #### [facility] ([id number]) [address] [place] [address] Lymphocytes/100 WBC (Bld) 26.3 % Normal [facility] Comment on above: Performed By: #### C NICHOL, CMP, HA1C #### [facility] ([id number]) [address] [address] [place] [address] MCH (RBC) [Entitic mass] 26.7 pg Low 27-34 [facility] Comment on above: Performed By: #### C NICHOL, CMP, HA1C #### [facility] ([id number]) [address] [address] [place] [address] MCHC (RBC) [Mass/Vol] 33.0 g/dL Normal 32-36 [facility] Comment on above: Performed By: #### C NICHOL, CMP, HA1C #### [facility] ([id number]) [address], [address] [place] [address] MCV (RBC) [Entitic vol] 81 fL Normal 80-100 [facility] Comment on above: Performed By: #### C BCA, CMP, HA1C #### [facility] ([id number]) [address], [address] [place] [address] Monocytes (Bld) [#/Vol] 0.3 10*3/uL Normal 0-0.9 [facility] Comment on above: Performed By: #### C BCA, CMP, HA1C #### [facility] ([id number]) [address], [facility] [address] [place] [address] Monocytes/100 WBC (Bld) 6.1 % Normal [facility] Comment on above: Performed By: #### C BCA, CMP, HA1C #### [facility] ([id number]) [address] [place] [address] Neutrophils/100 WBC (Bld) 64.9 % Normal [facility] Comment on above: Performed By: #### C BCA, CMP, HA1C #### [facility] ([id number]) [address], [facility] [address] [place] [address] Platelet mean volume (Bld) [Entitic vol] 11.2 fL Normal 7-12 [facility] Comment on above: Performed By: #### C BCA, CMP, HA1C #### [facility] ([id number]) [address] [place] [address] Platelets (Bld) [#/Vol] 161 10*3/uL Normal 150-450 [facility] Comment on above: Performed By: #### C BCA, CMP, HA1C #### [facility] ([id number]) [address] [place] [address] RBC COUNT 4.62 X10E12/L Normal 3.80-5.20 [facility] Comment on above: Performed By: #### C BCA, CMP, HA1C #### [facility] ([id number]) [address] [place] [address] WBC (Bld) [#/Vol] 4.5 10*3/uL Normal 4.0-11.0 [facility] Comment on above: Performed By: #### C BCA, CMP, HA1C #### [facility] ([id number]) [address] [place] [address] CBC auto differentialon 09-25 Basophils (Bld) [#/Vol] 0 10*3/uL [facility] Basophils/100 WBC (Bld) 0.6 % [facility] Eosinophils (Bld) [#/Vol] 0.1 10*3/uL [facility] Eosinophils/100 WBC (Bld) 2.1 % [facility] Erythrocyte distribution width (RBC) [Ratio] 14.5 % 11.5 - 15.0 % [facility] Hematocrit (Bld) [Volume fraction] 37.4 % 35 - 47 % [facility] Hemoglobin (Bld) [Mass/Vol] 12.3 g/dL 11.7 - 15.5 g/dL [facility] Interpretation and review of laboratory results Abnormal [facility] Lymphocytes (Bld) [#/Vol] 1.2 10*3/uL [facility] Lymphocytes/100 WBC (Bld) 26.3 % [facility] MCH (RBC) [Entitic mass] 26.7 pg Low 27 - 34 pg [facility] MCHC (RBC) [Mass/Vol] 33 g/dL 32 - 36 g/dL [facility] MCV (RBC) [Entitic vol] 81 fL 80 - 100 fL [facility] Monocytes (Bld) [#/Vol] 0.3 10*3/uL [facility] Monocytes/100 WBC (Bld) 6.1 % [facility] Neutrophils (Bld) [#/Vol] 2.9 10*3/uL [facility] Neutrophils/100 WBC (Bld) 64.9 % [facility] Platelet mean volume (Bld) [Entitic vol] 11.2 fL 7 - 12 fL [facility] Platelets (Bld) [#/Vol] 161 10*3/uL [facility] RBC (Bld) [#/Vol] 4.62 10*6/uL [facility] WBC corrected for nucl RBC Auto (Bld) [#/Vol] 4.5 [facility] COMPREHENSIVE METABOLIC PANE Domingo 10-15-2024 Albumin [Mass/Vol] 4.3 g/dL Normal 3.2-5.3 [facility] Comment on above: Performed By: #### C BCA, CMP, HA1C #### [facility] ([id number]) [address], [address] [place] [address] ALP [Catalytic activity/Vol] 83 U/L Normal 39-130 [facility] Comment on above: Performed By: #### C BCA, CMP, HA1C #### [facility] ([id number]) [address], [address] [place] [address] ALT [Catalytic activity/Vol] 15 U/L Normal 0-31 [facility] Comment on above: Performed By: #### C BCA, CMP, HA1C #### [facility] ([id number]) [address], [address] [place] [address] Anion gap [Moles/Vol] 9 mmol/L Normal 5-15 [facility] Comment on above: Performed By: #### C BCA, CMP, HA1C #### [facility] ([id number]) [address], [address] [place] [address] AST [Catalytic activity/Vol] 16 U/L Normal 0-41 [facility] Comment on above: Performed By: #### C BCA, CMP, HA1C #### [facility] ([id number]) [address], [address] [place] [address] Bilirubin [Mass/Vol] 0.4 mg/dL Normal 0.3-1.2 [facility] Comment on above: Performed By: #### C BCA, CMP, HA1C #### [facility] ([id number]) [address] [place] [address] Calcium [Mass/Vol] 9.6 mg/dL Normal 8.5-10.5 [facility] Comment on above: Performed By: #### C BCA, CMP, HA1C #### [facility] ([id number]) [address], [address] [place] [address] Chloride [Moles/Vol] 107 mmol/L Normal 98-109 [facility] Comment on above: Performed By: #### C BCA, CMP, HA1C #### [facility] ([id number]) [address], [address] [place] [address] CO2 [Moles/Vol] 25 mmol/L Normal 22-32 [facility] Comment on above: Performed By: #### C BCA, CMP, HA1C #### [facility] ([id number]) [address], [address] [place] [address] Creatinine [Mass/Vol] 1.21 mg/dL High 0.40-1.00 [facility] Comment on above: Result Comment: METH OD TRACEABLE TO IDMS STANDARD Performed By: #### C BCA, CMP, HA1C #### [facility] ([id number]) [address], [address] [address] GFR/1.73 sq M.predicted among non-blacks MDRD (S/P/Bld) [Vol rate/Area] 48 mL/min/{1.73_m2} Low >59 [facility] Comment on above: Result Comment: Reported eGFR is based on the CKD-EPI 2020 equation that does not use a race coefficient. Performed By: #### C BCA, CMP, HA1C #### [facility] ([id number]) [address], [address] [place] [address] Glucose [Mass/Vol] 109 mg/dL High 65-99 [facility] Comment on above: Performed By: #### C BCA, CMP, HA1C #### [facility] ([id number]) [address], [address] [place] [address] Potassium [Moles/Vol] 4.0 mmol/L Normal 3.5-5.0 [facility] Comment on above: Performed By: #### C BCA, CMP, HA1C #### [facility] ([id number]) [address], [address] [address] Protein [Mass/Vol] 6.8 g/dL Normal 6.0-8.0 [facility] Comment on above: Performed By: #### C BCA, CMP, HA1C #### [facility] ([id number]) [address], [address] [place] [address] Sodium [Moles/Vol] 141 mmol/L Normal 134-146 [facility] Comment on above: Performed By: #### C BCA, CMP, HA1C #### [facility] ([id number]) [address], [address] [place] [address] Urea nitrogen [Mass/Vol] 16 mg/dL Normal 5-27 [facility] Comment on above: Performed By: #### C BCA, CMP, HA1C #### [facility] ([id number]) [address], [address] [place] [address] Comprehensive metabolic pane domingo 10-15-2024 Albumin [Mass/Vol] 4.3 g/dL 3.2 - 5.3 g/dL [facility] ALP [Catalytic activity/Vol] 83 U/L 39 - 130 U/L [facility] ALT No additional P-5'-P [Catalytic activity/Vol] 15 U/L 0 - 31 U/L [facility] Anion gap [Moles/Vol] 9 mmol/L 5 - 15 mmol/L [facility] AST [Catalytic activity/Vol] 16 U/L 0 - 41 U/L [facility] Bilirubin [Mass/Vol] 0.4 mg/dL 0.3 - 1 .2 mg/dL [facility] Calcium [Mass/Vol] 9.6 mg/dL 8.5 - 10. 5 mg/dL [facility] Chloride [Moles/Vol] 107 mmol/L 98 - 10 9 mmol/L [facility] CO2 [Moles/Vol] 25 mmol/L 22 - 32 mmol/L [facility] Creatinine [Mass/Vol] 1.21 mg/dL High 0.40 - 1.00 mg/dL [facility] Comment on above: METHOD TRACEABLE TO [facility] STANDARD eGFR (CKD-EPI)non-race dependent 48 Low - PINF [facility] Comment on above: Reported eGFR is based on the CKD-EPI 2020 equation that does not use a race coefficient. Glucose [Mass/Vol] 109 mg/dL High 65 - 99 mg/dL [facility] Interpretation and review of laboratory results Abnormal [facility] Potassium [Moles/Vol] 4 mmol/L 3.5 - 5.0 mmol/L [facility] Protein [Mass/Vol] 6.8 g/dL 6.0 - 8.0 g/dL [facility] Sodium [Moles/Vol] 141 mmol/L 134 - 146 mmol/L [facility] Urea nitrogen [Mass/Vol] 16 mg/dL 5 - 27 mg/d L [facility] HGB A1C (GLYCO-HGB)on 2024 Glucose [Mass/Vol] 120 mg/dL Normal [facility] Comment on above: Performed By: #### C BCA, CMP, HA1C #### [facility] ([id number]) [address], [address] [place] [address] HbA1c (Bld) [Mass fraction] 5.8 % High 4.4-5.6 [facility] Comment on above: Result Comment: NOTE ADA Guidelines Result HgbA1c Normal : less than 5.7 % Prediabetes : 5.7 % to 6.4 % Diabetes : > 6.4 % Use with caution in patients with abnormal hemoglobin variants as the half-life of red blood cells and in vivo glycation rates are affected. Performed By: #### C BCA, CMP, HA1C #### [facility] ([id number]) [address], [address] [place] [address] Heart TransthoracicOrdere d By: Kenton Baker on 04-27-[address]4 [facility] Work Phone: [facility] Work Phone: Heart Transthoracicon [address], [facility] [address] [address] TRANSTHORACIC ECHOCARDIOGRAM REPORT Patient Name: ASTER Mike BACON Reading Physician: [id number] Kenton Baker MD Study Date: 04/25/2023 Ordering Provider: [id number] KENTON YEE MRN/PID: [id number] Fellow: Nurse: Date of /Age: 11 1950 / 72 years Entry Level Marketing Representative: Jennifer Long RDCS, RVT Gender: F Additional Staff: Height: 167.64 cm Admit Date: Weight: 93.90 kg Admission Status: BSA: 2.03 m2 Department Location: [facility] Blood Pressure: 136 /92 mmHg Study Type: TRANSTHORACIC ECHO (TTE) COMPLETE Diagnosis/ICD: Palpitations-R00.2; Shortness of breath-R06.02 Indication: Hyperlipidemia, Hypothyroid, CKD-Stage III CPT Codes: Echo Complete w Full Doppler-65133 Study Detail: The following Echo studies were [...] 0.6 m/s (0.6-0.9m/s) PV Max P.6 mmHg [id number] Kenton Baker MD Electronically signed on 04/27/2023 at 9:14:45 AM Final SYNGO Kenton Baker MD - 04/27/[address], [place] [address] TRANSTHORACIC ECHOCARDIOGRAM REPORT Patient Name: ASTER Lacey Physician: [id number] Baker MD Study Date: 04/25/2023 Ordering Provider: [id number] KENTON YEE MRN/PID: [id number] Fellow: Nurse: Date of /Age: 11 1950 / 72 years Entry Level Marketing Representative: Jennifer Long RDCS, RVT Gender: F Additional Staff: Height: 167.64 cm Admit Date: Weight: 93.90 kg Admission Status: BSA: 2.03 m2 Department Location: [facility] Blood Pressure: 136 /92 mmHg Study Type: TRANSTHORACIC ECHO (TTE) COMPLETE Diagnosis/ICD: Palpitations-R00.2; Shortness of breath-R06.02 Indication: Hyperlipidemia, Hypothyroid, CKD-Stage III CPT Codes: Echo Complete w Full Doppler-20491 Study Detail: The following Echo studies were [...] 0.6 m/s (0.6-0.9m/s) PV Max P.6 mmHg [id number] Kenton Baker MD Electronically signed on 04/27/2023 at 9:14:[address] [facility] Work Phone: TRANSTHORACIC ECHO (TTE) [facility] PLETEon 04-25-2023 TRANSTHORACIC ECHO (TTE) COMPLETE [address], [address] [address] TRANSTHORACIC ECHOCARDIOGRAM REPORT Patient Name: ASTER Mike BACON Reading Physician: [id number] Kenton Baker MD Study Date: 04/25/2023 Ordering Provider: [id number] KENTON YEE MRN/PID: [id number] Fellow: Nurse: Date of /Age: 11 1950 / 72 years Entry Level Marketing Representative: Jennifer Long RDCS, RVT Gender: F Additional Staff: Height: 167.64 cm Admit Date: Weight: 93.90 kg Admission Status: BSA: 2.03 m2 Department Location: [facility] Blood Pressure: 136 /92 mmHg Study Type: TRANSTHORACIC ECHO (TTE) COMPLETE Diagnosis/ICD: Palpitations-R00.2; Shortness of breath-R06.02 Indication: Hyperlipidemia, Hypothyroid, CKD-Stage III CPT Codes: Echo Complete w Full Doppler-33596 Study Detail: The following Echo studies were [...] 0.6 m/s (0.6-0.9m/s) PV Max P.6 mmHg [id number] Kenton Baker MD Electronically signed on 04/27/2023 at 9:14:45 AM Final [facility] Cardiac Stress Teston 2022 Cardiac Stress Test [address], [address] [place] [address] Exercise Stress Test Patient Name: ASTER Ordering Physician: DORIS Study Date: 03/23/2023 Reading Physician: [id number] Alejandro Perry MD MRN/PID: [id number] Supervising [id number] Alejandro Perry Physician: Accession/Order#: [id number] Referring Physician: KENTON YEE Date of : 1950 PCP: Gender: F Fellow: Height: 167.64 cm Nurse: Yun Minaya RN Weight: 92.99 kg Entry Level Marketing Representative: N/A BSA: 2.02 m2 Technologist: BMI: 33.09 kg/m2 Additional Staff: Age: 72 years cc report to: Study Type: Cardiac Stress Test Diagnosis/ICD: R06.09-Other forms of dyspnea; E78.5-Hyperlipidemi a unspecified Indication: Dyspnea on Exertion Procedure/CPT: Stress Test Supervision-96729 Falls Risk: Low: Patient has low risk [...] rate. 7. Adequate level of stress achieved. [id number] Alejandro Perry MD Electronically signed on 03/23/2023 at 6:48:55 PM Final Normal [facility] Cardiac Stress Test MP-No rth [facility] 250 DO Work Phone: Office Visit (Cardiology)on [...] Weight Tips; Status:Complete - Retrospective Authorization; Done: [id number] Some eating tips that can help you lose weight.; Status:Complete - Retrospective Authorization; Done: [id number] Dyspnea on minimal exertion, Hyperlipidemia Cardiac Stress Test; Status:Hold For - Scheduling,Retrospe ctive Authorization; Requested for:[id number]; Hyperlipidemia IO EKG Electrocardiogram- 12 Lead; Status:Complete; Done: [id number] SocHx: Never a smoker Tobacco Use Screening; Status:Complete; Done: [id number] Patient Instructions Please bring all medicines, vitamins, [...] negative for complaint. Vitals Vital Signs Recorded: 23Feb2023 09:14AMRecorded: 23Feb2023 09:10AM Rezdczsh796, RUE, Jupjsup414, LUE, Sitting Cfjqttbmp90, RUE, Dpmskap14, LUE, Sitting Heart Rate71, Apical Height5 ft 6.5 in Oxpbzc832 lb BMI Cpgwmrkdtt28.59 kg/m2 BSA Calculated2.03 Tobacco Useb) No PHQ-2 [...] Screening.on 023 Adult depression screening assessment Yes [facility] 250 DO Work Phone: Adult depression screening assessment No [facility] 250 DO Work Phone: Adult depression screening assessment Moderate (10-14) [facility]io [facility] 250 DO Work Phone: Fall risk assessment b) One or more falls in the last year [facility] 250 DO Work Phone: Tobacco use status CP b) No [facility] 250 DO Work Phone: Tobacco Screening. 0-Not at all [facility] 250 DO Work Phone: Tobacco Screening. 3-Nearly every day [facility] 250 DO Work Phone: Tobacco Screening. 2-More than half the days [facility] 250 DO Work Phone: Tobacco Screening. Somewhat Difficult [facility] 250 DO Work Phone: XR TSPINE 3 [...] by: ALICIA MUNGUIA Date: 2021-04-28 19:[address] [facility] CBC (INCLUDES DIFF/PLT)on Basophils (Bld) [#/Vol] 0.021 10*3/uL Normal 0-200 [facility] Comment on above: Performed By: #### 7 18, 905, 7600, 6399, 15634, 622, 31292, 55504 #### [facility] [address], [address] [place] [address] Price Changer: Rip Cornejo MD Basophils/100 WBC (Bld) 0.6 % Normal [facility] Comment on above: Performed By: #### 7 18, 905, 7600, 6399, 59293, 622, 04230, 16424 #### [facility] [address] [facility], [address] [place] [id number] Price Changer: Rip Cornejo MD Eosinophils (Bld) [#/Vol] 0.098 10*3/uL Normal 15-500 [facility] Comment on above: Performed By: #### 7 18, 905, 7600, 6399, 94998, 622, 27205, 44593 #### [facility] of [place] [address] Price Changer: Rip Cornejo MD Eosinophils/100 WBC (Bld) 2.8 % Normal [facility] Comment on above: Performed By: #### 7 18, 905, 7600, 6399, 01688, 622, 66321, 17775 #### [facility] of [place] [address] Price Changer: Rip Cornejo MD Erythrocyte distribution width (RBC) [Ratio] 14.2 % Normal 11.0-15.0 [facility] Comment on above: Performed By: #### 7 18, 905, 7600, 6399, 63081, 622, 67252, 65906 #### [facility] of [place] [address] Price Changer: Rip Cornejo MD Hematocrit (Bld) [Volume fraction] 37.3 % Normal 35.0-45.0 [facility] Comment on above: Performed By: #### 7 18, 905, 7600, 6399, 55747, 622, 33388, 48354 #### [facility] of [place] [address] Price Changer: Rip Cornejo MD Hemoglobin (Bld) [Mass/Vol] 12.0 g/dL Normal 11.7-15.5 [facility] Comment on above: Performed By: #### 7 18, 905, 7600, 6399, 74244, 622, 93684, 17986 #### [facility] of [place] [address] Price Changer: Rip Cornejo MD Lymphocytes (Bld) [#/Vol] 1.32 10*3/uL Normal 850-3900 [facility] Comment on above: Performed By: #### 7 18, 905, 7600, 6399, 41329, 622, 00648, 51950 #### [facility] of [place] [address] Price Changer: Rip Cornejo MD Lymphocytes/100 WBC (Bld) 37.7 % Normal [facility] Comment on above: Performed By: #### 7 18, 905, 7600, 6399, 80703, 622, 53792, 69591 #### [facility] of [place] [address] Price Changer: Rip Cornejo MD MCH (RBC) [Entitic mass] 25.9 pg Low 27.0-33.0 [facility] Comment on above: Performed By: #### 7 18, 905, 7600, 6399, 25208, 622, 32007, 57142 #### [facility] of [place] [address] Price Changer: Rip Cornejo MD MCHC (RBC) [Mass/Vol] 32.2 g/dL Normal 32.0-36.[address] [facility] Comment on above: Performed By: #### 7 18, 905, 7600, 6399, 60789, 622, 62430, 05334 #### [facility] of [place] [address] Price Changer: Rip Cornejo MD MCV (RBC) [Entitic vol] 80.6 fL Normal 80.0-100.0 [facility] Comment on above: Performed By: #### 7 18, 905, 7600, 6399, 94290, 622, 07009, 10891 #### [facility] of [place] [address] Price Changer: Rip Cornejo MD Monocytes (Bld) [#/Vol] 0.217 10*3/uL Normal 200-950 [facility] Comment on above: Performed By: #### 7 18, 905, 7600, 6399, 05400, 622, 74037, 80510 #### [facility] of [place] [address] Price Changer: Rip Cornejo MD Monocytes/100 WBC (Bld) 6.2 % Normal [facility] Comment on above: Performed By: #### 7 18, 905, 7600, 6399, 56882, 622, 00364, 05101 #### [facility] of [place] [address] Price Changer: Rip Cornejo MD Neutrophils (Bld) [#/Vol] 1.845 10*3/uL Normal 3244-9741 [facility] Comment on above: Performed By: #### 7 18, 905, 7600, 6399, 96144, 622, 20596, 32283 #### [facility] of [place] [address] Price Changer: Rip Cornejo MD Neutrophils/100 WBC (Bld) 52.7 % Normal [facility] Comment on above: Performed By: #### 7 18, 905, 7600, 6399, 28872, 622, 94454, 16129 #### [facility] of [place] [address] Price Changer: Rip Cornejo MD Platelet mean volume (Bld) [Entitic vol] 12.6 fL High 7.5-12.5 [facility] Comment on above: Performed By: #### 7 18, 905, 7600, 6399, 70469, 622, 44230, 74071 #### [facility] of [place] [address] Price Changer: Rip Cornejo MD Platelets (Bld) [#/Vol] 202 10*3/uL Normal 140-400 [facility] Comment on above: Performed By: #### 7 18, 905, 7600, 6399, 33021, 622, 91718, 98348 #### [facility] [place] [address] Price Changer: Rip Cornejo MD RBC (Bld) [#/Vol] 4.63 10*6/uL Normal 3.80-5.10 [facility] Comment on above: Performed By: #### 7 18, 905, 7600, 6399, 52403, 622, 51952, 22672 #### [facility] of [place] [address] Price Changer: Rip Cornejo MD WBC (Bld) [#/Vol] 3.5 10*3/uL Low 3.8-10.8 [facility] Comment on above: Performed By: #### 7 18, 905, 7600, 6399, 48708, 622, 60661, 73508 #### [facility] of [place] [address] Price Changer: Rip Cornejo MD [facility] METABOLIC [facility] 04-20-2021 Albumin [Mass/Vol] 3.8 g/dL Normal 3.6-5.1 [facility] Comment on above: Performed By: #### 7 18, 905, 7600, 6399, 26547, 622, 53990, 50655 #### [facility] of [place] [address] Price Changer: Rip Cornejo MD Albumin/Globulin [Mass ratio] 1.5 {ratio} Normal 1.0-2.5 [facility] Comment on above: Performed By: #### 7 18, 905, 7600, 6399, 05501, 622, 70962, 85171 #### [facility] [place] [address] Price Changer: Rip Cornejo MD ALP [Catalytic activity/Vol] 87 U/L Normal 37-153 [facility] Comment on above: Performed By: #### 7 18, 905, 7600, 6399, 33245, 622, 89364, 06828 #### [facility] [place] [address] Price Changer: Rip Cornejo MD ALT [Catalytic activity/Vol] 10 U/L Normal 6-29 [facility] Comment on above: Performed By: #### 7 18, 905, 7600, 6399, 27268, 622, 56544, 95245 #### [facility] [place] [address] Price Changer: Rip Cornejo MD AST [Catalytic activity/Vol] 11 U/L Normal 10-35 [facility] Comment on above: Performed By: #### 7 18, 905, 7600, 6399, 53691, 622, 69190, 70605 #### [facility] of [address], [address] [place] [address] Price Changer: Rip Cornejo MD Bilirubin [Mass/Vol] 0.4 mg/dL Normal 0.2-1.2 [facility] Comment on above: Performed By: #### 7 18, 905, 7600, 6399, 19787, 622, 74483, 62012 #### [facility] [place] [address] Price Changer: Rip Cornejo MD BUN/CREATININE RATIO NOT APPLICABLE Normal 6-22 [facility] Comment on above: Performed By: #### 7 18, 905, 7600, 6399, 52689, 622, 13124, 05771 #### [facility] of [place] [address] Price Changer: Rip Cornejo MD Calcium [Mass/Vol] 9.5 mg/dL Normal 8.6-10.4 [facility] Comment on above: Performed By: #### 7 18, 905, 7600, 6399, 17532, 622, 48978, 15843 #### [facility] of [place] [address] Price Changer: Rip Cornejo MD Chloride [Moles/Vol] 108 mmol/L Normal 98-110 [facility] Comment on above: Performed By: #### 7 18, 905, 7600, 6399, 14823, 622, 94619, 40973 #### [facility] of [address] [address] Price Changer: Rip Cornejo MD CO2 [Moles/Vol] 25 mmol/L Normal 20-32 [facility] Comment on above: Performed By: #### 7 18, 905, 7600, 6399, 29909, 622, 54140, 72820 #### [facility] [place] [address] Price Changer: Rip Cornejo MD Creatinine [Mass/Vol] 0.94 mg/dL Normal 0.50-0.[address] [facility] Comment on above: Result Comment: For patients >49 years of age, the reference limit for Creatinine is approximately 13% higher for people identified as -Grenadian. Performed By: #### 7 18, 905, 7600, 6399, 83636, 622, 94159, 16990 #### [facility] [place] [address] Price Changer: Rip Cornejo MD eGFR NON-AFR. PORTUGUESE 62 mL/min/1.73m2 Normal > OR = 60 [facility] Comment on above: Performed By: #### 7 18, 905, 7600, 6399, 49654, 622, 85063, 62797 #### [facility] [place] [address] Price Changer: Rip Cornejo MD GFR/1.73 sq M.predicted among blacks MDRD (S/P/Bld) [Vol rate/Area] 72 mL/min/{1.73_m2} Normal > OR = 60 [facility] Comment on above: Performed By: #### 7 18, 905, 7600, 6399, 13750, 622, 19615, 50978 #### [facility] [place] [address] Price Changer: Rip Cornejo MD Globulin (S) [Mass/Vol] 2.5 g/dL Normal 1.9-3.7 [facility] Comment on above: Performed By: #### 7 18, 905, 7600, 6399, 77006, 622, 08417, 04934 #### [facility] [place] [address] Price Changer: Rip Cornejo MD Glucose [Mass/Vol] 103 mg/dL High 65-99 [facility] Comment on above: Result Comment: Fasting reference interval For someone without known diabetes, a glucose value between 100 and 125 mg/dL is consistent with prediabetes and should be confirmed with a follow-up test. Performed By: #### 7 18, 905, 7600, 6399, 52683, 622, 58617, 30957 #### [facility] [place] [address] Price Changer: Rip Cornejo MD Potassium [Moles/Vol] 4.2 mmol/L Normal 3.5-5.[address] [facility] [address] [facility] Comment on above: Performed By: #### 7 18, 905, 7600, 6399, 77401, 622, 17818, 84199 #### [facility] [place] [address] Price Changer: Rip Cornejo MD Protein [Mass/Vol] 6.3 g/dL Normal 6.1-8.1 [facility] Comment on above: Performed By: #### 7 18, 905, 7600, 6399, 10037, 622, 40322, 39448 #### [facility] [place] [address] Price Changer: Rip Cornejo MD Sodium [Moles/Vol] 140 mmol/L Normal 135-146 [facility] Comment on above: Performed By: #### 7 18, 905, 7600, 6399, 30151, 622, 52204, 92648 #### [facility] [place] [address] Price Changer: Rip Cornejo MD Urea nitrogen [Mass/Vol] 17 mg/dL Normal 7-25 [facility] Comment on above: Performed By: #### 7 18, 905, 7600, 6399, 73839, 622, 11182, 22351 #### [facility] [address], [address] [place] [address] Price Changer: Rip Cornejo MD LIPID PANEL, [place] [address] Cholesterol [Mass/Vol] 209 mg/dL High <200 [facility] Comment on above: Order Comment: FASTI NG:YES FASTING: YES Performed By: #### 7 18, 905, 7600, 6399, 68842, 622, 10820, 23875 #### [facility] [address], [address] [place] [address] Price Changer: Rip Cornejo MD Cholesterol in HDL [Mass/Vol] 43 mg/dL Low > OR = 50 [facility] Comment on above: Order Comment: FASTI NG:YES FASTING: YES Performed By: #### 7 18, 905, 7600, 6399, 18256, 622, 14166, 81530 #### [facility] [address], [address] [place] [address] Price Changer: Rip Cornejo MD Cholesterol in LDL [Mass/Vol] 139 mg/dL High [facility] Comment on above: Order Comment: FASTI NG:YES FASTING: YES Result Comment: Refe rence range: <100 Desirable range <100 mg/dL for primary prevention; <70 mg/dL for patients with CHD or diabetic patients with > or = 2 CHD risk factors. LDL-C is now calculated using the Chalo-Ashanti calculation, which is a validated novel method providing better accuracy than the Friedewald equation in the estimation of LDL-C. Chalo LUONG et al. JOSE. 2013;310(19): 6516-2287 (http://education.[employer]/faq/UXY734) Performed By: #### 7 18, 905, 7600, 6399, 51558, 622, 76286, 00851 #### [facility] [address], [address] [place], [place] [address] Price Changer: Rip Cornejo MD Cholesterol.total/Choles terol in HDL [Mass ratio] 4.9 {ratio} Normal <5.0 [facility] Comment on above: Order Comment: FASTI NG:YES FASTING: YES Performed By: #### 7 18, 905, 7600, 6399, 08767, 622, 78333, 51376 #### [facility] [place] [address] Price Changer: Rip Cornejo MD NON HDL CHOLESTEROL 166 mg/dL (calc) High <130 [facility] Comment on above: Order Comment: FASTI NG:YES FASTING: YES Result Comment: For patients with diabetes plus 1 major ASCVD risk factor, treating to a non-HDL-C goal of <100 mg/dL (LDL-C of <70 mg/dL) is considered a therapeutic option. Performed By: #### 7 18, 905, 7600, 6399, 06310, 622, 20678, 61873 #### [facility] [place] [address] Price Changer: Rip Cornejo MD Triglyceride [Mass/Vol] 143 mg/dL Normal <150 [facility] Comment on above: Order Comment: FASTI NG:YES FASTING: YES Performed By: #### 7 18, 905, 7600, 6399, 31965, 622, 07386, 24590 #### [facility] [place] [address] Price Changer: Rip Cornejo MD MAGNESIUMon 04-20-2021 Magnesium [Mass/Vol] 1.7 mg/dL Normal 1.5-2.5 [facility] Comment on above: Performed By: #### 7 18, 905, 7600, 6399, 13228, 622, 65999, 42321 #### [facility] [place] [address] Price Changer: Rip Cornejo MD PHOSPHATE ( PHOSPHORUS)on 04-20-2021 Phosphate [Mass/Vol] 3.3 mg/dL Normal 2.1-4.3 [facility] Comment on above: Performed By: #### 7 18, 905, 7600, 6399, 76028, 622, 45268, 78902 #### [facility] [place] [address] Price Changer: Rip Cornejo MD PTH, INTACT WITHOUT CALCIUMo [...] By: #### 7 18, 905, 7600, 6399, 54993, 622, 47801, 74387 #### [facility] [place] [address] Price Changer: Rip Cornejo MD TSH+FREE T4on 04-20-2021 Free T4 [Mass/Vol] 1.3 ng/dL Normal 0.8-1.8 [facility] Comment on above: Performed By: #### 7 18, 905, 7600, 6399, 18964, 622, 29095, 48530 #### [facility] [place] [address] Price Changer: Rip Cornejo MD TSH Qn 2.34 m[IU]/L Normal 0.40-4.50 [facility] Comment on above: Performed By: #### 7 18, 905, 7600, 6399, 65081, 622, 89227, 37356 #### [facility] [place] [address] Price Changer: Rip Cornejo MD URIC ACIDon 04-20-2021 Urate [Mass/Vol] 5.9 mg/dL Normal 2.5-7.0 [facility] Comment on above: Result Comment: Ther apeutic target for gout patients: <6.0 mg/dL Performed By: #### 7 18, 905, 7600, 6399, 93860, 622, 69845, 62945 #### [facility] [place] [address] [facility], [address] [place] [address] Price Changer: Rip Cornejo MD VITAMIN D,25-OH,TOTAL,IAon 1 VITAMIN [...] D, (D2,D3), LC/MS/MS is recommended: order code 20432 (patients >2yrs). See Note 1 Note 1 For additional information, please refer to http://education.[employer]/faq/INQ385 (This link is being provided for informational/ educational purposes only.) Performed By: #### 7 18, 905, 7600, 6399, 17891, 622, 15833, 13364 #### [facility] [place] [address] [facility], [address] [place], [place] [phone] Price Changer: Rip Cornejo MD Vital Signs Date Time Vital Sign Value Performing Clinician Facility 11-23-2024 10:04040 Body height 167.64 cm [facility] 11-23-2024 10:04-0400 Body mass index (BMI) [Ratio] 34.2 kg/m2 [facility] 11-23-2024 10:04-0400 Body temperature 97.8 [degF] [facility] 11-23-2024 10:04040 Body weight 96.16 kg [facility] 11-23-2024 10:04-0400 Diastolic blood pressure 76 mm[Hg] [facility] 11-23-2024 10:04-0400 Heart rate 77 /min [facility] 11-23-2024 10:04-0400 Respiratory rate 16 /min [facility] 11-23-2024 10:04-0400 SaO2% (BldA) [Mass fraction] 98 % [facility] 11-23-2024 10:04-0400 Systolic blood pressure 131 mm[Hg] [facility] 10-29-2024 09:36-0400 Body height 167.6 cm Kenton Curriedon Work Phone: [facility] 10-29-2024 09:36-0400 Body mass index (BMI) [Ratio] 34.7 kg/m2 Kenton Yee DO Work Phone: [facility] 10-29-2024 09:36-0400 Body weight 97.52 kg Kenton Yee DO Work Phone: [facility] 10-29-2024 09:36-0400 Diastolic blood pressure 78 mm[Hg] Kenton Yee DO Work Phone: [facility] 10-29-2024 09:36-0400 Heart rate 70 /min Kenton Yee DO Work Phone: [facility] 10-29-2024 09:36-0400 Systolic blood pressure 124 mm[Hg] Kenton Yee DO Work Phone: [facility] 10-15-2024 14:04-0400 Body height 168.9 cm George PARIKH [facility] Phone: [facility] 10-15-2024 14:04-0400 Body mass index (BMI) [Ratio] 34.12 kg/m2 George López APRN-SOFT WORK WRAPPER EXAMINER Work Phone: [facility] [employer] [facility] 10-15-2024 14:04-0400 Body temperature 98.29 [degF] George López APRN-SOFT WORK WRAPPER EXAMINER Work Phone: [facility] 10-15-2024 14:04-0400 Body weight 97.34 kg George López APRN-SOFT WORK WRAPPER EXAMINER Work Phone: [facility] 10-15-2024 14:04-0400 Diastolic blood pressure 70 mm[Hg] George López APRN-SOFT WORK WRAPPER EXAMINER Work Phone: [facility] [employer] [facility] 10-15-2024 14:04-0400 Heart rate 87 /min George López APRN-SOFT WORK WRAPPER EXAMINER Work Phone: [facility] [employer] [facility] 10-15-2024 14:04-0400 Respiratory rate 18 /min George López APRN-SOFT WORK WRAPPER EXAMINER Work Phone: [facility] 10-15-2024 14:04-0400 SaO2% (BldA) [Mass fraction] 98 % George López APRN-SOFT WORK WRAPPER EXAMINER Work Phone: [facility] 10-15-2024 14:04-0400 Systolic blood pressure 110 mm[Hg] George López APRN-SOFT WORK WRAPPER EXAMINER Work Phone: [facility] 11-30-2023 12:58-0400 Body height 168.9 cm Kari Dockery [employer]CHO[employer] PROFESSIONAL-MEAL PACKER Work Phone: [facility] 11-30-2023 12:58-0400 Body temperature 97.3 [degF] Kari Dockery [employer] SCHOOL PROFESSIONAL-MEAL PACKER Work Phone: [facility] 11-30-2023 12:58-0400 Diastolic blood pressure 60 mm[Hg] Kari Dockery [employer] SCHOOL PROFESSIONAL-MEAL PACKER Work Phone: [facility] 11-30-2023 12:58-0400 Heart rate 70 /min Kari Dockery [employer] SCHOOL PROFESSIONAL-MEAL PACKER Work Phone: [facility] 11-30-2023 12:58-0400 Respiratory rate 98 /min Kari Dockery [employer]DLE SCHOOL PROFESSIONAL-MEAL PACKER Work Phone: [facility] 11-30-2023 12:58-0400 Systolic blood pressure 116 mm[Hg] Kari Dockery [employer]DLE SCHOOL PROFESSIONAL-MEAL PACKER Work Phone: [facility] 04-25-2023 12:27-0400 Body height 167.[address] 04-25-2023 12:27-0400 Body mass index (BMI) [Ratio] 33.41 kg/m2 [address] 04-25-2023 12:27-0400 Body weight 93.[address] 04-25-2023 12:27-0400 Diastolic blood pressure 92 mm[Hg] [address] 04-25-2023 12:27-0400 Systolic blood pressure 136 mm[Hg] [address] 04-20-2023 11:43-0400 Body height 168.9 cm Kenton Yee DO Work Phone: [facility] 04-20-2023 11:43-0400 Body mass index (BMI) [Ratio] 32.91 kg/m2 Kenton Yee DO Work Phone: [facility] 04-20-2023 11:43-0400 Body weight 93.89 kg Kenton Curriedon DO Work Phone: [facility] 04-20-2023 11:43-0400 Diastolic blood pressure 92 mm[Hg] Kenton Yee DO Work Phone: [facility] 04-20-2023 11:43-0400 Heart rate 58 /min Kenton Curriedon DO Work Phone: [facility] 04-20-2023 11:43-0400 Systolic blood pressure 142 mm[Hg] Kenton Yee DO Work Phone: [facility] 02-23-2023 09:14-0400 Diastolic blood pressure 62 mm[Hg] Simone G Furlong Work Phone: [facility] DO Work Phone: 02-23-2023 09:14-0400 Systolic blood pressure 120 mm[Hg] Simone G Furlong Work Phone: [facility] DO Work Phone: 02-23-2023 09:10-0400 Body height 168.91 cm Simone G Furlong Work Phone: [facility] DO Work Phone: 02-23-2023 09:10-0400 Body mass index (BMI) [Ratio] 32.59 kg/m2 Simone G Furlong Work Phone: [facility] 250 DO Work Phone: 02-23-2023 09:10-0400 Body surface area Derived from formula 2.03 m2 Simone G Furlong Work Phone: [facility] 250 DO Work Phone: 02-23-2023 09:10-0400 Body weight 92.99 kg Simone G Furlong Work Phone: [facility] DO Work Phone: 02-23-2023 09:10-0400 Diastolic blood pressure 64 mm[Hg] Simone G Furlong Work Phone: [facility] DO Work Phone: 02-23-2023 09:10-0400 Heart rate 71 /min Simone G Furlong Work Phone: [facility] DO Work Phone: 02-23-2023 09:10-0400 Systolic blood pressure 120 mm[Hg] Simone G Furlong Work Phone: [facility] DO Work Phone: 02-23-2023 09:10-0400 10 1 Simone G Furlong Work Phone: [facility] DO Work Phone: Comment on above: PHQ-9 TS Encounters Encounter Date Encounter Type Care Provider Facility Start: 11-23-2024 End: 11-23-2024 [facility] Work Phone: Start: 11-23-2024 End: 11-23-2024 Patient encounter procedure [facility] Work Phone: Start: 10-30-2024 End: 10-30-2024 [facility]phone [facility] Start: 10-29-2024 End: 10-29-2024 Office outpatient visit 15 minutes [facility] Work Phone: [facility] Comment on above: Dyspnea on exertion; Benign hypertensive heart disease without heart failure; BMI 34.0-34.9,adult; Never smoked tobacco Start: 10-29-2024 End: 10-29-2024 ambulatory [facility] Start: 10-15-2024 End: 10-15-2024 ambulatory [facility] Start: 10-15-2024 End: 10-15-2024 Office outpatient visit 15 minutes [facility] [employer] PROFESSIONAL-SOFT WORK WRAPPER EXAMINER [facility] Comment on above: Screening for diabet es mellitus (DM) (Primary Dx); Localized swelling of both lower legs; Stage 2 chronic kidney disease; Right lower quadrant abdominal pain Start: 10-15-2024 End: 10-15-2024 ambulatory [facility] Start: 10-09-2024 End: 10-10-2024 Refill [facility] Start: 07-24-2024 End: 07-25-2024 Refill [facility] Comment on above: Reactive depression Start: 04-25-2024 End: 04-25-2024 Telephone encounter [facility] Start: 03-18-2024 End: 03-18-2024 Bamboo flowsheet Yen De Oliveira [employer] S[employer]OL PROFESSIONAL-SOFT WORK WRAPPER EXAMINER Work Phone: [facility] Start: 03-18-2024 End: 03-18-2024 Bamboo flowsheet Yen De Oliveira [employer]CHOOL PROFESSIONAL-SOFT WORK WRAPPER EXAMINER Work Phone: [facility] Start: 03-18-2024 End: 03-18-2024 Office outpatient new 30 minutes Yen De Oliveira [employer] SCHOOL PROFESSIONAL-SOFT WORK WRAPPER EXAMINER Work Phone: [facility] Comment on above: Seborrheic keratosis (Primary Dx); Melanocytic nevi of trunk; Lozano angioma Start: 03-18-2024 End: 03-18-2024 ambulatory YEN DE OLIVEIRA Not Available Start: 12-05-2023 End: 12-05-2023 ambulatory THOMAS SALAZAR Not Available Start: 11-30-2023 End: 11-30-2023 Office outpatient visit 25 minutes Kari Dockery [employer] PROFESSIONAL-MEAL PACKER Work Phone: [facility] Comment on above: Stage 3a chronic kid iglesia disease (CKD) ([facility]) (Primary Dx); Acquired hypothyroidism; Other hyperlipidemia; Class 1 obesity due to excess calories with serious comorbidity and body mass index (BMI) of 32.0 to 32.9 in adult; Reactive depression; Primary osteoarthritis of first carpometacarpal joint of right hand Start: 11-30-2023 End: 11-30-2023 ambulatory KARI DOCKERY [facility] Start: 11-13-2023 End: 11-14-2023 Orders Only Kari Dockery [employer]DLE SCHOOL PROFESSIONAL-MEAL PACKER Work Phone: [facility] Comment on above: Stage 3a chronic kid iglesia disease (CKD) ([facility]) (Primary Dx) Other hyperlipidemia (Primary Dx) Start: 11-07-2023 End: 11-07-2023 ambulatory THOMAS SALAZAR Not Available Start: 11-06-2023 End: 11-13-2023 Telephone encounter Kari Dockery [employer]CHO[employer] PROFESSIONAL-MEAL PACKER Work Phone: [facility] Start: 10-30-2023 End: 10-30-2023 Refill Simone Bejarano DO Work Phone: [facility] Start: 08-18-2023 Refill Joann Margarita INSTRUCTIONAL MATERIALS DIRECTOR [facility] Start: 04-25-2023 End: 04-25-2023 Subsequent hospital visit by physician Latia Loera Echo/Vasc Room 2 [facility] Comment on above: Palpitations; Shortness of breath Start: 04-25-2023 End: 04-25-2023 ambulatory KENTON YEE [facility] Start: 04-20-2023 End: 04-20-2023 Office outpatient visit 25 minutes Kenton Romo Festus DO Work Phone: [facility] Comment on above: BMI 32.0-32.9,adult; Stage 3a chronic kidney disease (CKD) (CMS/HCC); Other hyperlipidemia; Benign hypertensive heart disease without heart failure; Palpitations; Shortness of breath Start: 03-23-2023 Chart Update Simone jimenez Work Phone: [facility] 250 DO Work Phone: Start: 03-23-2023 ambulatory KENTON FESTUS Facilit y:[id number] Start: 02-23-2023 Office consultation new/estab patient 60 min Simone Bejarano Work Phone: [facility] 250 DO Work Phone: Start: 02-23-[address] Simone Bejarano Facility: Start: 04-28-2021 End: 04-29-[address] SIMONE BEJARANO Facility: Procedures Date Procedure Procedure Detail Performing Clinician Start: 10-15-2024 Adult depression scr eening assessment Georgemeredith López [employer]CHO[employer] PROFESSIONAL-SOFT WORK WRAPPER EXAMINER Work Phone: Start: 11-30-2023 Adult depression scr eening assessment Kari Dockery [employer] SCHOOL PROFESSIONAL-MEAL PACKER Work Phone: Start: 06-02-2023 Adult depression scr eening assessment Joann Margarita INSTRUCTIONAL MATERIALS DIRECTOR Start: 04-25-2023 TRANSTHORACIC ECHO ( TTE) COMPLETE KENTON FESTUS Start: 04-25-2023 Echo tthrc r-t 2d w/ wom-mode compl spec&colr d Kenton Clarissa Festus DO Work Phone: Appendectomy Simone batista Work Phone: Cholecystectomy Simone love Work Phone: Colonoscopy Simone batista Work Phone: Operative procedure on ankle Simone Bejarano Work Phone: Tonsillectomy Simone jimenez Work Phone: Plan of Treatment Date Care Activity Detail Author Start: 2027 RSV High Risk: (Elde rly (60+) or Population) (1 - 1-dose 75+ series) RSV High Risk: (Elderly (60+) or Population) (1 - 1-dose 75+ series) [facility] Start: 06-13-2026 DTaP,Tdap and Td Vaccines (3 - Td or Tdap) DTaP,Tdap and Td Vaccines (3 - Td or Tdap) [facility] Start: 06-13-2026 DTaP/Tdap/Td Vaccine s (3 - Td or Tdap) DTaP/Tdap/Td Vaccines (3 - Td or Tdap) [facility] Start: 01-29-2026 Screening for malign ant neoplasm of colon Colonoscopy [facility] Comment on above: Postponed from 05/13 (Not Indicated) Start: 10-15-2025 Adult BMI Follow Up Plan Adult BMI F ollow Up Plan [facility] Start: 10-15-2025 Adult BMI Screening Adult BMI Screen ing [facility] Start: 10-15-2025 Depression Screening Depression Scre ening [facility] Start: 10-15-2025 Tobacco Screening Tobacco Screening [facility] Start: 02-24-2025 Influenza vaccination [facility] Start: 12-09-2024 End: 12-09-2024 Patient encounter procedure 12/09/2024 1:45 PM EDT Office Visit [facility] Internal Medicine - Family Medicine [address] [place] [id number] Simone Bejarano, DO [address] [place] [address] [facility] Start: 11-29-2024 Adult BMI Follow Up Plan Adult BMI F ollow Up Plan [facility] Start: 11-29-2024 Depression Screening Depression Scre ening [facility] Start: 11-29-2024 Fall Risk Screening Fall Risk Screen ing [facility] Start: 11-29-2024 Tobacco Screening Tobacco Screening [facility] Start: 06-02-2024 Adult BMI Screening Adult BMI Screen ing [facility] Start: 06-02-2024 Depression Screening Depression Scre ening [facility] Start: 06-02-2024 Tobacco Screening Tobacco Screening [facility] Start: 03-18-2024 End: 03-18-2024 Patient encounter procedure 03/18/2024 1:55 PM EDT Office Visit [facility] [address] [place] [id number] Yen De Oliveira [employer]CHO[employer] PROFESSIONAL-SOFT WORK WRAPPER EXAMINER [address] [place] [address] Arrived [facility] Comment on above: Arrived Start: 02-25-2024 COVID-19 Vaccine ( season) COVID-19 Vaccine ( season) [facility] Start: 02-25-2024 Influenza vaccination Influenza Vacc ine [facility] Start: 12-13-2023 Fall Risk Screening Fall Risk Screen ing [facility] Start: 11-30-2023 Medicare Annual Well ness Visit Medicare Annual Wellness Visit [facility] Comment on above: Postponed from 05/13 (Patient Refused) Start: 11-30-2023 End: 11-30-2023 Patient encounter procedure 11/30/2023 1:00 PM EDT [facility] [address] [facility] [place] [address] Kari Dockery, MIDDLE SCHOOL PROFESSIONAL-MEAL PACKER [address] [facility] [place] [address] [facility] Start: 10-24-2023 End: 10-24-2023 Patient encounter procedure 10/24/2023 1:30 PM EDT Office Visit [facility] [address] [place] [address] Kenton Yee S, DO [address] [place] [address] [facility] Start: 04-25-2023 End: 04-25-2023 Clinical Support 04/25/2023 11:00 AM EDT Clinical Support [facility] [address] [place] [address] [facility] Start: 04-20-2023 End: 04-20-2024 Holter monitor study Holter Or Event Pediatric Rn Cardiac Services Routine Palpitations Shortness of breath Expected: 04/20/2023 (Approximate), Expires: 04/20/2024 [facility] Service Area Work Phone: Comment on above: Expected: 04/20/2023 (Approximate), Expires: 04/20/2024 Start: 04-20-2023 End: 04-20-2025 [facility] Transthoracic Transthoracic Echo (TTE) Complete Echocardiography Routine Palpitations Shortness of breath Expected: 04/20/2023 (Approximate), Expires: 04/20/2025 [facility] Work Phone: Comment on above: Expected: 04/20/2023 (Approximate), Expires: 04/20/2025 Start: 04-20-2023 FUV, Provider: Kenton Yee, Status: Pen, Time: 11:20 AM FUV, Provider: Kenton Yee, Status: Pen, Time: 11:20 AM [facility] DO Work Phone: Start: 03-23-2023 STRESS SYDNIE, Provider : [place] HHVI NUCLEAR ,[id number], Status: Pen, Time: 2:30 PM STRESS SYDNIE, Provider: [place] HHVI NUCLEAR 01,[id number], Status: Pen, Time: 2:30 PM -[facility] Reddy DO Work Phone: Start: 02-24-2023 Influenza vaccination Influenza Vacc ine (#1) [facility] Start: 09-29-2020 COVID-19 Vaccine (2 - Mixed Product series) COVID-19 Vaccine (2 - Mixed Product series) [facility] Start: 05-31-2013 Administration of varicella zoster vaccine Zoster (Shingles) Vaccine (2 of 3) [facility] Start: 05-31-2013 Zoster Vaccines (2 of 3) Zoster Vacc augusta (2 of 3) [facility] Start: 1992 Screening for malign ant neoplasm of breast Mammogram [facility] Start: 1971 Urine screening for protein CKD: Urine Protein Screening [facility] Start: 1970 Adult BMI Follow Up Plan Adult BMI F ollow Up Plan [facility] Start: 1970 Diabetes mellitus screening Diabetes Screening [facility] Start: 1970 Hepatitis C screening Hepatitis C [facility] Start: 1952 Lipid panel Lipid Panel [facility] Start: 1952 Medicare Annual Well ness Visit [facility] Start: 1952 Screening for malign ant neoplasm of colon [facility] Start: 1952 Screening for osteoporosis Bone Density Scan [facility] Start: 1952 Thyroid stimulating hormone measurement TSH Level [facility] End: 11-12-2024 CBC W Auto Differential panel - Blood CBC auto differential Lab Routine Stage 3a chronic kidney disease (CKD) (CMS-HCC) 1 Occurrences starting 11/13/2023 until 11/12/2024 [facility] Comment on above: 1 Occurrences starti ng 11/13/2023 until 11/12/2024 End: 11-12-2024 Comprehensive metabolic 2000 panel - Serum or Plasma Comprehensive metabolic panel Lab Routine Other hyperlipidemia 1 Occurrences starting 11/13/2023 until 11/12/2024 [employer] Work Phone: Comment on above: 1 Occurrences starti ng 11/13/2023 until 11/12/2024 End: 10-16-2025 Hemoglobin A1c/Hemoglobin.total in Blood Hemoglobin A1c Lab Routine Screening for diabetes mellitus (DM) 1 Occurrences starting 10/15/2024 until 10/16/2025 [employer] Work Phone: Comment on above: 1 Occurrences starti ng 10/15/2024 until 10/16/2025 Hemoglobin A1c/Hemoglobin.total in Blood Hemoglobin A1c Lab Routine Screening for diabetes mellitus (DM) 10/15/2024 5:58 PM EDT [facility] End: 11-12-2024 Lipid panel Lipid panel Lab Routine Other hyperlipidemia 1 Occurrences starting 11/13/2023 until 11/12/2024 [facility] Comment on above: 1 Occurrences starti ng 11/13/2023 until 11/12/2024 End: 11-12-2024 Magnesium [Mass/volume] in Serum or Plasma Magnesium Lab Routine Stage 3a chronic kidney disease (CKD) ([facility]) 1 Occurrences starting 11/13/2023 until 11/12/2024 [employer] Work Phone: Comment on above: 1 Occurrences starti ng 11/13/2023 until 11/12/2024 End: 11-12-2024 Parathyroid Hormone, intact Parathyroid Hormone, intact Lab Routine Stage 3a chronic kidney disease (CKD) ([facility]) 1 Occurrences starting 11/13/2023 until 11/12/2024 [facility] Comment on above: 1 Occurrences starti ng 11/13/2023 until 11/12/2024 End: 11-12-2024 Phosphate [Mass/volume] in Serum or Plasma Phosphorus Lab Routine Stage 3a chronic kidney disease (CKD) ([facility]) 1 Occurrences starting 11/13/2023 until 11/12/2024 [facility] Comment on above: 1 Occurrences starti ng 11/13/2023 until 11/12/2024 End: 11-12-2024 Urate [Mass/volume] in Serum or Plasma Uric acid Lab Routine Stage 3a chronic kidney disease (CKD) ([facility]) 1 Occurrences starting 11/13/2023 until 11/12/2024 [facility] Comment on above: 1 Occurrences starti ng 11/13/2023 until 11/12/2024 End: 04-25-2023 [facility] Service Area Work Phone: Comment on above: Once for 1 Occurrenc es starting 04/25/2023 until 04/25/2023 End: 11-12-2024 Vitamin D 25 hydroxy Vitamin D 25 hydroxy Lab Routine Stage 3a chronic kidney disease (CKD) ([facility]) 1 Occurrences starting 11/13/2023 until 11/12/2024 [facility] Comment on above: 1 Occurrences starti ng 11/13/2023 until 11/12/2024 Immunizations Immunization Date Immunization Notes Care Provider Madelyn joyce 04-24-2023 influenza, high dose seasonal, preservative-free Joann Margarita INSTRUCTIONAL MATERIALS DIRECTOR [facility] 04-24-2023 influenza virus vacc ine, unspecified formulation Simone [employer]Luna [employer]ng DO Work Phone: [facility] 04-20-2021 influenza, seasonal, injectable Simone G Furlong Work Phone: [facility] [employer] DO Work Phone: 04-20-2021 influenza virus vacc ine, unspecified formulation Kenton Curriedon DO Work Phone: [facility] Work Phone: 08-04-2020 SARS-CoV-2, Unspecified Will aaliyah Yee DO Work Phone: [facility] Work Phone: 04-22-2020 pneumococcal polysaccharide vaccine, 23 valent Simone G Furlong Work Phone: [facility] [employer] DO Work Phone: 04-17-2019 influenza, high dose seasonal, preservative-free Simone G Furlong Work Phone: [facility] [employer] DO Work Phone: 11-03-2017 pneumococcal conjuga te vaccine, 13 valent Simone G Furlong Work Phone: [facility] DO Work Phone: 06-13-2016 influenza, injectabl e, quadrivalent, preservative free Simone Batista [employer] Work Phone: [facility] [employer] DO Work Phone: 06-13-2016 tetanus toxoid, redu nicholas diphtheria toxoid, and acellular pertussis vaccine, adsorbed Simone Batista Furlong Work Phone: [facility] DO Work Phone: 04-05-2013 zoster vaccine, live Simone Batista Furlong Work Phone: [facility] [place] DO Work Phone: 04-05-2013 zoster vaccine, unspecified formulation Joann Margarita [facility] 06-23-2010 tetanus toxoid, redu nicholas diphtheria toxoid, and acellular pertussis vaccine, adsorbed Simone Batista [employer] Work Phone: [facility] DO Work Phone: Payers Date Payer Category Payer Managed Care Other (unspecified) [employer] [id number] 2017 Medicare [id number] 2017 Medicare supplementa l policy (as second payer) [employer] MEDICARE SUPPLEMENT [id number] 2017 Private Health Insurance [id number] 1959 Medicare [id number] 1959 Private Health Insurance [id number] 1952 Unknown [id number] .[id number] 1952 Unknown [id number] [id number] .[id number] 1952 Unknown [id number] [id number] .2.356 1952 Unknown [id number] [id number] .2.1068 1952 Unknown [id number] [id number] .2.1246 1952 Unknown [id number] [id number] .2.1259 1952 Unknown [id number] [id number] .2.1259 1952 Unknown [id number] [id number] .2.1259 1952 Unknown [id number] [id number] .2.1259 1952 Unknown [id number] [id number] .2.1286 1952 Unknown [id number] [id number] .2.1286 1952 Unknown [id number] [id number] .2.1286 1952 Unknown [id number] .[id number] Unknown Social History Date Type Detail Facility Start: 04-20-2023 End: 10-15-2024 No illicit drug use No illicit drug use [facility] Start: 04-20-2023 End: 11-23-2024 Tobacco smoking status NHIS Never smoked tobacco [facility] Work Phone: Start: 12-12-2022 End: 04-20-2023 Tobacco use and exposure Smokeless tobacco non-user [facility] Work Phone: Start: 04-20-2023 End: 10-15-2024 Alcohol intake Current drinker of alcohol (finding) [facility] Work Phone: Start: 04-20-2023 End: 10-15-2024 Tobacco use panel [facility] Start: 1950 Sex Assigned At Not on file [facility] Work Phone: Start: 04-10-2023 End: 10-29-2024 Exposure to SARS-CoV-2 (event) Not sure [facility] Start: 12-05-2023 End: 03-18-2024 Alcoholic beverage intake Lifetime non-drinker (finding) [employer] [facility] Adolescent depressio n screening assessment 0 [facility] [employer] Start: 01-29-2015 End: 11-23-2024 Sex Female (finding) [facility] Start: 10-24-2023 Alcohol Comment wine monthly [facility] Work Phone: Start: 1950 Sex Assigned At Female F [facility] Clinical Notes 04-20-2023 to 10-30-2024 Telephone Encounter - Hiral Wisdom CMA - 10/30/2024 10:24 AM EDTTelephone Encounter - Simone Bejarano, DO - 10/30/2024 10:24 AM EDTKenton Yee, DO - 10/29/2024 9:30 AM EDTAttachments Note Date & Type Note Facility 10-30-2024 Miscellaneous Notes Patient was called about her CV/thyroid apt does she need to have more labs done? She also questioned a mammogram and her bone density scan when those needed done. She states she wants to stay with you as her provider. Does she still need an apt since she had one with [facility]? It looks like she was seen for other problems and not her thyroid. The last thyroid tests I had was back in May of 2023 unless she had 1 in [place]. So yes she will need to be seen for her thyroid at some point this year before she leaves for [place] documented in this encounter [facility] 10-30-2024 Telephone encounter Note Patient was called about her CV/thyroid apt does she need to have more labs done? She also questioned a mammogram and her bone density scan when those needed done. She states she wants to stay with you as her provider. Does she still need an apt since she had one with [facility]? [facility] 10-30-2024 Telephone encounter Note It looks like she was seen for other problems and not her thyroid. The last thyroid tests I had was back in May of 2023 unless she had 1 in [place]. So yes she will need to be seen for her thyroid at some point this year before she leaves for [place] [facility] 10-29-2024 History of Presen t illness Narrative Chief Complaint Patient presents with Annual Exam 1 year, benign hypertensive heart disease Subjective Aster Bacon is a 74 y.o. female 74-year-old female returns for annual cardiovascular follow-up and is doing well. She denies any recurrent dyspnea. We originally saw her for dyspnea did a complete cardiac workup 2021 that was negative details of which are reviewed. She is currently hemodynamically stable, no longer on metoprolol. Remains on rosuvastatin and aspirin. She recently returned from [place] and experienced significant amount of edema which is treated by her primary care physician with low-dose furosemide completely resolving her edema issues. Recommendations: Follow-up as needed Review of Systems Cardiovascular: Positive for leg swelling. All other systems reviewed and are negative. Vitals: 10/29/24 0936 BP: 124/78 BP Location: Left arm Patient Position: Sitting Pulse: 70 Weight: 97.5 kg (215 lb) Height: 1.676 m (5' 6 ) Objective Physical Exam Constitutional: Appearance: Normal appearance. HENT: Nose: Nose normal. Neck: Vascular: No carotid bruit. Cardiovascular: Rate and Rhythm: Normal rate. Pulses: Normal pulses. Heart sounds: Normal heart sounds. Pulmonary: Effort: Pulmonary effort is normal. Abdominal: General: Bowel sounds are normal. Palpations: Abdomen is soft. Musculoskeletal: General: Normal range of motion. Cervical back: Normal range of motion. Right lower leg: No edema. Left lower leg: No edema. Skin: General: Skin is warm and dry. Neurological: General: No focal deficit present. Mental Status: She is alert. Psychiatric: Mood and Affect: Mood normal. Behavior: Behavior normal. Thought Content: Thought content normal. Judgment: Judgment normal. Allergies Penicillins and Latex Current Medications Current Outpatient Medications Medication Instructions aspirin 81 mg, Daily escitalopram (LEXAPRO) 5 mg, oral, Daily PRN furosemide (LASIX) 20 mg, Daily PRN levothyroxine (Synthroid, Levoxyl) 75 mcg tablet 1 tablet, Daily before breakfast rosuvastatin (CRESTOR) 5 mg, oral, Nightly rosuvastatin (CRESTOR) 10 mg, Daily Assessment/Plan 1. Dyspnea on exertion 2. Benign hypertensive heart disease without heart failure Follow Up In Cardiology 3. BMI 34.0-34.9,adult 4. Never smoked tobacco Scribe Attestation By signing my name below, IDenise LPN, Scribe attest that this documentation has been prepared under the direction and in the presence of Kenton eYe DO. Provider Attestation - Scribe documentation All medical record entries made by the Scribe were at my direction and personally dictated by me. I have reviewed the chart and agree that the record accurately reflects my personal performance of the history, physical exam, discussion and plan. documented in this encounter [facility] Work Phone: 10-29-2024 Instructions Denise Petit LPN - 10/29/2024 9:30 AM EDT Please bring all medicines, vitamins, and herbal supplements with you when you come to the office. Prescriptions will not be filled unless you are compliant with your follow up appointments or have a follow up appointment scheduled as per instruction of your physician. Refills should be requested at the time of your visit. BMI was above normal measurement. Current weight: 97.5 kg (215 lb) Weight change since last visit (-) denotes wt loss 5 lbs Weight loss needed to achieve BMI 25: 60.4 Lbs Weight loss needed to achieve BMI 30: 29.5 Lbs Provided instructions on dietary changes. Follow up ordered as needed only The following attachments cannot be sent through Care Everywhere.Mediterranean Diet (Guinean)documented in this encounter [facility] Work Phone: 10-15-2024 History of Presen t illness Narrative Images from the original note were not included. [address] [facility] [id number] SUBJECTIVE: Patient ID: Aster Bacon is a 74 y.o. female. Chief Complaint Patient presents with Multiple concerns today Presents for multiple concerns today. [facility] she just returned this week after staying 4 months in [place]. She has been experiencing intermittent RLQ abdominal pain. She describes as a dull ache. Does not occur every day. She does not believe ache is associated with bowel movements or dietary intake. She denies changes of her bowel patterns. There is no radiation of pain. She is concerned about having diabetes. Would like to be screened for this today. She went to a health fair in [place] and was told she has elevated blood sugar and high blood pressure. Blood pressure in office today 110/70. [facility] blood sugar fingerstick in [place] was over 100 . She is concerned about swelling of both her lower legs. The following portions of the patient's history were reviewed and updated as appropriate: allergies, current medications, past family history, past medical history, past social history, past surgical history and problem list. Past Surgical History: Procedure Laterality Date APPENDECTOMY CHOLECYSTECTOMY COLONOSCOPY 01/14/2015 normal HEEL SPUR EXCISION Right TONSILLECTOMY Past Medical History: Diagnosis Date Arthritis Immunization History Administered Date(s) Administered Influenza High Dose Preservative Free IM 04/17/2019, 04/24/2023 Influenza, Im Trivalent Preservative 04/20/2021 Influenza, Injectable, quadrivalent (PF) 06/13/2016 Pneumococcal Conjugate 13-Valent 11/03/2017 Pneumococcal Polysaccharide 04/22/2020 SARS-COV-2 (COVID-19) Vaccine, Unspecified 08/04/2020 Tdap 06/23/2010, 06/13/2016 Zoster Live 04/05/2013 REVIEW OF SYSTEMS: Review of Systems Constitutional: Negative for chills and fever. HENT: Negative. Eyes: Negative for visual disturbance. Respiratory: Negative for chest tightness and shortness of breath. Cardiovascular: Positive for leg swelling. Negative for chest pain and palpitations. Gastrointestinal: Positive for abdominal pain. Endocrine: Negative. Genitourinary: Negative for menstrual problem and pelvic pain. Musculoskeletal: Negative. Skin: Negative. Allergic/Immunologic: Negative. Neurological: Negative for syncope and facial asymmetry. Hematological: Does not bruise/bleed easily. Psychiatric/Behavioral: Negative. PHYSICAL EXAMINATION: Vitals: 10/15/24 1404 BP: 110/70 BP Site: Left Arm BP Postition: Sitting Pulse: 87 Resp: 18 Temp: 36.8 C (98.3 F) TempSrc: Oral SpO2: 98% Weight: 97.3 kg (214 lb 9.6 oz) Height: 168.9 cm (5' 6.5 ) Patient noted to have elevated BMI and the following intervention(s) were applied: encouragement to exercise. Physical Exam Vitals and nursing note reviewed. Constitutional: General: She is not in acute distress. Appearance: She is well-developed. She is not diaphoretic. HENT: Head: Normocephalic and atraumatic. Right Ear: Tympanic membrane and external ear normal. Left Ear: Tympanic membrane and external ear normal. Nose: Nose normal. Mouth/Throat: Mouth: Mucous membranes are moist. Pharynx: No oropharyngeal exudate. Eyes: General: Right eye: No discharge. Left eye: No discharge. Conjunctiva/sclera: Conjunctivae normal. Pupils: Pupils are equal, round, and reactive to light. Neck: Thyroid: No thyromegaly. Vascular: No JVD. Cardiovascular: Rate and Rhythm: Regular rhythm. Heart sounds: Normal heart sounds. No murmur heard. No friction rub. No gallop. Comments: Bilateral lower extremity non pitting edema Pulmonary: Effort: Pulmonary effort is normal. Breath sounds: Normal breath sounds. Abdominal: General: Bowel sounds are normal. There is no distension. Palpations: Abdomen is soft. There is no mass. Tenderness: There is no abdominal tenderness. Musculoskeletal: General: Normal range of motion. Cervical back: Normal range of motion and neck supple. Lymphadenopathy: Cervical: No cervical adenopathy. Skin: General: Skin is warm and dry. Capillary Refill: Capillary refill takes less than 2 seconds. Neurological: Mental Status: She is alert and oriented to person, place, and time. Deep Tendon Reflexes: Reflexes are normal and symmetric. Psychiatric: Mood and Affect: Mood normal. Behavior: Behavior normal. Thought Content: Thought content normal. Judgment: Judgment normal. ASSESSMENT/PLAN: Aster was seen today for multiple concerns today. Diagnoses and all orders for this visit: Screening for diabetes mellitus (DM) - Hemoglobin A1c; Future Localized swelling of both lower legs - furosemide (LASIX) 20 mg tablet; Take 1 tablet (20 mg total) by mouth daily as needed (leg swelling). Stage 2 chronic kidney disease - Comprehensive metabolic panel; Future - CBC auto differential; Future Right lower quadrant abdominal pain Abdominal pain RLQ. Pain is described as a dull ache. Is not constant. Is intermittent in nature. Not precipitated by bowel movements or dietary intake. I did discuss CT scan of abdomen today. Patient has declined. She will keep a diary when pain occurs. Monitor what she is eating and drinking, activities she is doing. 2. Stage 2 CKD Check CMP 3. Localized swelling of lower legs. Start furosemide 20 mg tablet oral daily PRN 4. Screening for DM Check A1c Body mass index is 34.12 kg/m . Patient noted to have elevated BMI and the following intervention(s) were applied: Discussed current weight today. Consider healthy food choices, portion control. Avoid sugary beverages and high concentrated sweets. Routine exercise regimen encouraged. ALL QUESTIONS ANSWERED Total time spent was 25 minutes: Preparing to see the patient (e.g., review of tests) Obtaining and/or reviewing separately obtained history Performing a medically appropriate examination and/or evaluation Counseling and educating the patient/family/caregiver Ordering medications, tests, or procedures Follow-up: Next scheduled KATI Nichole 10/15/24 1634 documented in this encounter [facility] 10-09-2024 Miscellaneous Notes Rx sent in. She is due for a recheck appointment in early November. Please set u documented in this encounter [facility] 10-09-2024 Telephone encounter Note Rx sent in. She is due for a recheck appointment in early November. Please set u [facility] 04-25-2024 Miscellaneous Notes Patient was wondering if you can order a test to see if she is diabetic? Her grinder hand suggested it and she would like it sent to [facility] She was screened in October and was okay. She having any new symptoms. Maybe she should come in to discuss it Informed patient and patient is leaving Monday documented in this encounter [facility] 04-25-2024 Telephone encounter Note Patient was wondering if you can order a test to see if she is diabetic? Her grinder hand suggested it and she would like it sent to [facility] 04-25-2024 Telephone encounter Note She was screened in October and was okay. She having any new symptoms. Maybe she should come in to discuss it [facility] 04-25-2024 Telephone encounter Note Informed patient and patient is leaving Monday [facility] 03-18-2024 History of Presen t illness Narrative Skin Check Location: Patient requests a skin examination from the waist up, A full body skin exam was offered, patient declined Dermatologic history: no history of skin cancer, no history of atypical moles New patient Lesions: Location: right arm Duration: months Associated symptoms: rough, raised Treatments: none All pertinent medical history, medications, and allergies were reviewed. General Exam: alert , oriented to person, place, and time , normal affect, well appearing Unaccompanied A complete skin exam was offered, pt declined. Areas not examined despite medical recommendation: From the waist down Scalp, Examined , exam limited by hair Head, Face Examined Neck Examined Chest Examined Back Examined Abdomen Examined Right arm Examined Left arm Examined Hands Examined Digits,nails: Examined Lymphatics: Not examined 1. Seborrheic keratosis Stuck on verrucous, variably pigmented papules and plaques. Patient was counseled regarding these benign growths. Removal is normally not necessary, but they may be removed if they are symptomatic or for cosmetic reasons. 2. Melanocytic nevi of trunk Trunk Scattered evenly pigmented, daniel to brown macules and papules, no suspicious features Counseled regarding these benign growths. Rarely, a nevus can develop into malignant melanoma, so any changing nevi should be promptly re-evaluated. 3. Lozano angioma (3) Arms, Scalp, Trunk Scattered lozano-red papule(s). The patient was informed that angiomas are benign growths on the the skin. No treatment is necessary. Next Visit: 1 year documented in this encounter [facility] 11-30-2023 History of Presen t illness Narrative Subjective Patient ID: Aster Bacon is a 73 y.o. female. Here today to review her lab work for her stage A CKD and her thyroid Her lab work is all stable and we discussed ways to keep her CKD from progressing She is feeling good and trying to be as active as possible and keeping hydrated She is avoiding nsaid use She does feel better since starting on the low dose lexapro and would like to continue - she feels less irritable and more even keeled and not so quick to react to things, her mood overall has improved She is not having any difficulties with her medication She is trying to stay as active as possible to manage her weight and make healthy choices eating She does have a lot of pain in her right thumb from years of crocheting and other tasks involving her hands The following portions of the patient's history were reviewed and updated as appropriate: allergies, current medications, past family history, past medical history, past social history, past surgical history, problem list, and medication reconciliation was completed including current medication and post discharge medication. Review of Systems Constitutional: Negative. HENT: Negative. Eyes: Negative. Respiratory: Negative. Cardiovascular: Negative. Gastrointestinal: Negative. Endocrine: Negative. Genitourinary: Negative. Musculoskeletal: Positive for arthralgias (right thumb) and joint swelling (right thumb). Allergic/Immunologic: Negative. Neurological: Negative. Hematological: Negative. Psychiatric/Behavioral: Positive for dysphoric mood (improved). Objective Physical Exam Vitals and nursing note reviewed. Constitutional: Appearance: Normal appearance. HENT: Head: Normocephalic. Mouth/Throat: Mouth: Mucous membranes are moist. Eyes: Conjunctiva/sclera: Conjunctivae normal. Neck: Vascular: No carotid bruit. Cardiovascular: Rate and Rhythm: Normal rate and regular rhythm. Pulses: Normal pulses. Heart sounds: Normal heart sounds. No murmur heard. Pulmonary: Effort: Pulmonary effort is normal. No respiratory distress. Breath sounds: Normal breath sounds. Musculoskeletal: General: Tenderness and deformity (distortion, swelling of MCP of the right thumb, no erythema , tender to touch) present. Lymphadenopathy: Cervical: No cervical adenopathy. Skin: General: Skin is warm and dry. Capillary Refill: Capillary refill takes less than 2 seconds. Neurological: Mental Status: She is alert and oriented to person, place, and time. Gait: Gait normal. Psychiatric: Mood and Affect: Mood normal. Behavior: Behavior normal. Thought Content: Thought content normal. Judgment: Judgment normal. Assessment/Plan Aster was seen today for hypertension. Diagnoses and all orders for this visit: Stage 3a chronic kidney disease (CKD) ([facility]) Acquired hypothyroidism Other hyperlipidemia Class 1 obesity due to excess calories with serious comorbidity and body mass index (BMI) of 32.0 to 32.9 in adult Reactive depression - escitalopram (LEXAPRO) 5 mg tablet; Take 1 tablet (5 mg total) by mouth in the morning. Primary osteoarthritis of first carpometacarpal joint of right hand Other orders - levothyroxine (SYNTHROID, LEVOTHROID) 75 MCG tablet; Take 1 tablet (75 mcg total) by mouth in the morning. - rosuvastatin (CRESTOR) 10 mg tablet; Take 1 tablet (10 mg total) by mouth nightly. Her CKD is stable - no changes made today Keep blood pressure stable No blood pressure medication needed at this time 'monitor periodicallly at home - avoid nsaids, stay hydrated, be active, try to loose weight Continue with lexapro this is working well Use topical ointment for OA of right thumb, at some point she may need a hand specialist She may benefiti from a soft splint Continue synthroid and rosuvastatin - prescriptions refilled Patient noted to have elevated BMI and the following intervention(s) were applied: encouragement to exercise. STEPHANIE Andrade 11/30/23 1529 documented in this encounter [facility] 11-13-2023 Miscellaneous Notes Patient is coming in for cv and would like labs sent to the [facility], she said a full work up that medicare will cover. Please and thank you documented in this encounter [facility] 11-13-2023 Telephone encounter Note Patient is coming in for cv and would like labs sent to the [facility], she said a full work up that medicare will cover. Please and thank you [facility] 11-06-2023 Miscellaneous Notes ----- Message from STEPHANIE Andrade sent at 06/02/2023 1:50 PM EST ----- Regarding: recheck cv and mood Apt late october, early December 17 - Kari Sent frances [place] Scheduled documented in this encounter [facility] 11-06-2023 Telephone encounter Note ----- Message from STEPHANIE Andrade sent at 06/02/2023 1:50 PM EST ----- Regarding: recheck cv and mood Apt late october, early December 17 - Kari [facility] 11-06-2023 Telephone encounter Note Sent frances msg [facility] 11-06-2023 Telephone encounter Note Scheduled [facility] 04-20-2023 History of Presen t illness Narrative Subjective Aster Bacon is a [...] No diagnosis found. documented in this encounter [facility] Work Phone: 04-20-2023 Instructions Miki Clements MA - 04/20/2023 [...] of your visit. documented in this encounter [facility] Work Phone: 04-20-2023 Evaluation note Diagnosis BMI 32.0-32.9,adult Stage 3a chronic kidney disease (CKD) ([facility]) Other hyperlipidemia Benign hypertensive heart disease without heart failure Palpitations Shortness of breath documented in this encounter [facility] Work Phone: Chief complaint Narrative - Reported* ASTER BACON is being seen for an initial evaluation of SOB. * 72-year-old female seen in cardiology consultation at the request of her primary care physician moustaphaional dyspnea. She has no chest discomfort. She is usually very active but now with any amountof activity she becomes more dyspneic. She has a family history of coronary artery disease in both mother father, sister and brother, has hyperlipidemia and chronic kidney disease. * There is no prior history of myocardial infarction revascularization, stroke, thromboembolic or bleeding disorder * ECG today is normal sinus rhythm completely normal. * Overall overall risk for CAD is low other than family history, chronic kidney disease as main comorbidity features * Recommendations proceed with treadmill stress testing to further assess her dyspnea and or ischemicetiology. [facility] [employer] DO Work Phone: Chiei complaint Narrative - Reported* ASTER BACON is being seen for an initial evaluation of SOB. * 72-year-old female seen in cardiology consultation at the request of her primary care physician dejuan dyspnea. She has no chest discomfort. She is usually very active but now with any amountof activity she becomes more dyspneic. She has a family history of coronary artery disease in both mother father, sister and brother, has hyperlipidemia and chronic kidney disease. * There is no prior history of myocardial infarction revascularization, stroke, thromboembolic or bleeding disorder * ECG today is normal sinus rhythm completely normal. * Overall overall risk for CAD is low other than family history, chronic kidney disease as main comorbidity features * Recommendations proceed with treadmill stress testing to further assess her dyspnea and or ischemicetiology. [facility] [employer] DO Work Phone: Evaluation note* Diagnosis Palpitations Shortness of breath documented in this encounter [facility] Work Phone: Evaluation note* Diagnosis Palpitations Shortness of breath documented in this encounter [facility] Work Phone: Evaluation note* Diagnosis Seborrheic keratosis- Primary Melanocytic nevi of trunk Lozano angioma documented in this encounter [facility]* Diagnosis Reactive depression [facility]* Diagnosis Stage 3a chronic kidney disease (CKD) ([facility] Primary Acquired hypothyroidism Unspecified hypothyroidism Other hyperlipidemia Class 1 obesity due to excess calories with serious comorbidity and body mass index (BMI) of 32.0 to 32.9 in adult Reactive depression Primary osteoarthritis of first carpometacarpal joint of right hand [facility] Diagnosis Stage 3a chronic kidney disease (CKD) ([facility] Primary [facility] Diagnosis Other hyperlipidemia- Primary [facility] Diagnosis Screening for diabetes mellitus (DM)- Primary Screening for diabetes mellitus Localized swelling of both lower legs Stage 2 chronic kidney disease Right lower quadrant abdominal pain [facility] Diagnosis Dyspnea on exertion Other dyspnea and respiratory abnormality Benign hypertensive heart disease without heart failure BMI 34.0-34.9,adult Never smoked tobacco documented in this encounter [facility] Work Phone: Evaluation noteNo assessment information available [facility] Work Phone: InstructionsNot on filedocumented in this encounter [facility] filed[facility] filedocumented in this [facility] filedocumented in [facility] filedocumented in this [facility] filedocumented in this [facility] on filedocumented in [facility]* Attachments The following attachments cannot be sent through Care Everywhere. * Abdominal pain (Guinean) [facility]ructions[facility] on [facility] Purpose Family History Unknown Family Member Name Dates Details Family [...] her, Sister, Brother([id number], [id number]) Status:Active Advance Directives Advance Directive Response Recorded Date/ Time Advance Directives No November 23 9:58am Reason for Referral Specialty Diagnoses / Procedures Referred By Contac t Referred To Contact Cardiology Diagnoses Palpitations Shortness of breath Procedures Transthoracic Echo (TTE) Complete OK ECHO TRANSTHORC R-T 2D W/WO M-MODE REC F-UP/LMTD OK DOP ECHOCARD COLOR FLOW VELOCITY MAPPING OK DOP ECHOCARD PULSE WAVE W/SPECTRAL F-UP/LMTD STD Kenton Yee, [place] [id number], [address] [address] Referral ID Status Reason Start Date Expiration Date Visits Requested Visits Authorized [id number] Pending Review Perform Procedure 04/19/2024 1 1 Specialty Diagnoses / Procedures Referred By Contac t Referred To Contact Cardiology Diagnoses Palpitations Shortness of breath Procedures Holter Or Event Pediatric Rn Kenton Yee [address], [address] [address] Referral ID Status Reason Start Date Expiration Date V isits Requested Visits Authorized [id number] Pending Review 04/20/2023 04/19/2024 1 1 Specialty Diagnoses / Procedures Referred By Britt t Referred To Contact Cardiology Diagnoses Benign hypertensive heart disease without heart failure Palpitations Procedures Follow Up In Cardiology Kenton Yee, DO [address] [facility] 2, [address] [address] Kenton Yee, DO [facility] [facility] 2, [address] [place] [address] Referral ID Status Reason Start Date Expiration Date V isits Requested Visits Authorized [id number] Authorized 04/20/2023 04/19/2024 1 1 Referral ID Status Reason Start Date Expiration Date Visits Requested Visits Authorized [id number] Authorized Perform Procedure 04/19/2024 1 1 Chief Complaint and Reason for Visit Chief Complaint Admit Date Right leg pain, lower back pain October 10:01am Additional Source Comments INFORMATION SOURCE (unrecogn ized section and content) DATE CREATED AUTHOR 04/25/2021 [facility] DATE CREATED AUTHOR AUTHOR'S ORGANIZ ATION 08/10/2021 [facility] DATE CREATED AUTHOR AUTHOR'S ORGANIZ ATION 02/24/2023 [facility] DATE CREATED AUTHOR AUTHOR'S ORGANIZ ATION 03/03/2023 [facility] DATE CREATED AUTHOR AUTHOR'S ORGANIZ ATION 03/30/2023 [facility] DATE CREATED AUTHOR AUTHOR'S ORGANIZ ATION 02/08/2024 [facility] DATE CREATED AUTHOR AUTHOR'S ORGANIZ ATION 03/20/2024 [facility] EPIC DATE CREATED AUTHOR AUTHOR'S ORGANIZ ATION 10/16/2024 [facility] DATE CREATED AUTHOR AUTHOR'S ORGANIZ ATION 10/16/2024 [facility] DATE CREATED AUTHOR AUTHOR'S ORGANIZ ATION 11/01/2024 [facility] Reason for Visit (unrecogniz ed section and content) Reason Comments Results stress Specialty Diagnoses / Procedures Referred By Britt londono Referred To Contact Cardiology Diagnoses Palpitations Shortness of breath Procedures Transthoracic Echo (TTE) Complete OK ECHO TRANSTHORC R-T 2D W/WO M-MODE REC F-UP/LMTD OK DOP ECHOCARD COLOR FLOW VELOCITY MAPPING OK DOP ECHOCARD PULSE WAVE W/SPECTRAL F-UP/LMTD STD Kenton Yee, DO [address] [place] [address] 2, [address] [address] Referral ID Status Reason Start Date Expiration Date Visits Requested Visits Authorized [id number] Authorized Perform Procedure 3 04/19/2024 1 1 Reason Comments Suspicious Skin Lesion Reason Onset Date Comments Med Refill 07/24/2024 Reason Comments Med Refill Reason Comments Hypertension Reason Onset Date Comments Med Refill 08/18/2023 Reason Onset Date Comments Med Refill 10/09/2024 Reason Comments Multiple concerns today Reason Comments Annual Exam 1 year, benign hyper tensive heart disease Specialty Diagnoses / Procedures Referred By Britt londono Referred To Contact Cardiology Diagnoses Benign hypertensive heart disease without heart failure Procedures Follow Up In Cardiology Kenton Yee, [address] [place] [address] 2, [address] [address] Phone: tel: fax: Kenton Yee, DO [address] [facility] 2, [address] [address] Phone: tel: fax: Referral ID Status Reason Start Date Expiration Date V isits Requested Visits Authorized [id number] Authorized 10/24/2023 10/23/2024 1 1 Care Teams (unrecognized sec tion and content) Director Life Sciences Relationship Specialty Start Date End Date Simone Bejarano DO [address], [facility] [place] [address] PCP - General 02/23/23 Director Life Sciences Relationship Specialty Start Date End Date Simone Bejarano DO [address], [facility] [place] [address] PCP - General 02/23/23 Director Life Sciences Relationship Specialty Start Date End Date Simone Bejarano DO [address] [place] [address] PCP - General 02/23/23 Director Life Sciences Relationship Specialty Start Date End Date Simone Bejarano MD [address] [place] [address] PCP - General Family Medicine 11/07/23 Director Life Sciences Relationship Specialty Start Date End Date Simone Bejarano MD [address] [place] [address] PCP - General Family Medicine 11/07/23 Director Life Sciences Relationship Specialty Start Date End Date Simone Bejarano DO [address] [place] [address] PCP - General Family Medicine 09/08/22 Director Life Sciences Relationship Specialty Start Date End Date Simone Bejarano DO [address] [place] [address] PCP - General Family Medicine 09/08/22 Director Life Sciences Relationship Specialty Start Date End Date Simone Bejarano DO [address] [place] [address] PCP - General Family Medicine 09/08/22 Director Life Sciences Relationship Specialty Start Date End Date Simone Bejarano DO [address] [place] [address] PCP - General Family Medicine 09/08/22 Director Life Sciences Relationship Specialty Start Date End Date Simone Bejarano DO [address], [place] [address] PCP - General Family Medicine 09/08/22 Director Life Sciences Relationship Specialty Start Date End Date Simone Bejarano DO [address], [place] [address] PCP - General Family Medicine 09/08/22 Director Life Sciences Relationship Specialty Start Date End Date Simone Bejarano DO [address], [place] [address] PCP - General Family Medicine 09/08/22 Director Life Sciences Relationship Specialty Start Date End Date George López APRN-[facility] [address] [place] [address] PCP - General Family Medicine 10/14/24 Director Life Sciences Relationship Specialty Start Date End Date Simone Bejarano DO PCP - General 02/23/23 Director Life Sciences Relationship Specialty Start Date End Date Simone Bejarano [address], [place] [address] PCP - General Family Medicine 10/30/24 Team Status: Active Member Role Status Dates Simone Bejarano DO Primary Care Provider Active Team Status: Inactive Member Role Status Dates Yane Ang APRN Attending Provider Active Start: November 23, 2024 End: November 23, 2024 Simone Bejarano DO Primary Care Provider Active Start: November 23, 2024 End: November 23, 2024 Goals (unrecognized section and content) Goals may be documented in a n alternate section FOR RECORDS PERTAINING TO PATIENTS WHO ARE [...] BE BASED ON THE PRIMARY CLINICAL RECORDS. [facility] [employer] [facility]. provides no warranty or guarantee of the accuracy or completeness of information in this document.
--- OUTSIDE RECORDS SUMMARY | 2024-11-23 11:07 | XMS_ITS | Encounter Summary ---
Author Organization [employer] s tem Address [id number] [address] [place] [address] Care Team Providers Care Keyboard Teacher Name Role Phone Simone Bejarano DO Primary Care Provider + [phone] Encounter Details Date Type Department Care Team (Late Contact Info) Description 11/30/2022 Orders Only [facility] Internal Medicine - Family Medicine [address] [place] [phone] Kathya Clayton CMA Stage 3a chronic kidney disease (CKD) ([facility]-HCC); Acquired hypothyroidism Social History Tobacco Use Types Packs/Day Years Used Date Smoking Tobacco: Never Assessed Childcare Answer Date Recorded Childcare Unknown 12/05/2018 Employment Answer Date Recorded Employment Unknown 12/05/2018 Comments Unknown Sex and Gender Information Value Date Recorded Sex Assigned at Not on file Legal Sex Female 11:45 AM EDT Gender Identity Not on file Sexual Orientation Not on file documented as of this encounter Plan of Treatment Upcoming Encounters Date Type Department Care Team (Late Contact Info) Description 12/09/2024 1:45 PM EDT Office Visit [facility] - Family Medicine [address] [place] [phone] Simone Bejarano DO [address] [place] [address] documented as of this encounter Procedures Procedure Name Priority Date/Time Associated Diagnosis Comments PARATHYROID HORMOME, INTACT Routine 11/28/2022 Stage 3a chronic kidney disease (CKD) ([facility]-HCC) VITAMIN D 25 HYDROXY Routine 11/28/2022 Stage 3a chronic kidney disease (CKD) ([facility]) CBC (NO DIFF) Routine 11/28/2022 Stage 3a chronic kidney disease (CKD) ([facility]) TSH Routine 11/28/2022 Acquired hypothyroidism T4, FREE Routine 11/28/2022 Acquired hypothyroidism documented in this encounter Results * CBC (11/28/2022) External Hematocrit Hct 39.1 36 - 48 MANUALLY TRANSCRIBED RESULTS External Hemoglobin 12.1 12 - 16 MANUALLY TRANSCRIBED RESULTS External Mpv 11.7 3.5 - 13.5 MANUAL LY TRANSCRIBED RESULTS External Platelet Count 186 150 - 450 MANUALLY TRANSCRIBED RESULTS External Rbc Count 4.63 4.20 - 5.40 MANUALLY TRANSCRIBED RESULTS External Rdw 186 150 - 450 MANUALL Y TRANSCRIBED RESULTS External Wbc Count 4.1 4 - 11 MANUALLY TRANSCRIBED RESULTS Blood 11/28/2022 Simone Bejarano DO LAB BLOOD ORDERABLES Final R esult Performing Organization Address City/[facility]/ZIP Co de Phone Number MANUALLY TRANSCRIBED RESULTS * TSH (11/28/2022) External Tsh 2.394 0.358 - 3.740 MANUALLY TRANSCRIBED RESULTS Blood 11/28/2022 Simone Bejarano DO LAB BLOOD ORDERABLES Final R esult MANUALLY TRANSCRIBED RESULTS * Parathyroid Hormone, intact (11/28/2022) PTH, Intact 23 15 - 65 MANUALLY TRANSCRIBED RESULTS 11/28/2022 us Simone Bejarano DO LAB BLOOD ORDERABLES Final R esult Performing Organization Address City/[facility] Co de Phone Number MANUALLY TRANSCRIBED RESULTS * T4, free (11/28/2022) External T4 Free 1.07 0.76 - 1.46 MANUALLY TRANSCRIBED RESULTS Blood 11/28/2022 Simone Bejarnao DO LAB BLOOD ORDERABLES Final R esult Performing Organization Address [facility] Co de Phone Number MANUALLY TRANSCRIBED RESULTS * Vitamin D 25 hydroxy (11/28/2022) External Vitamin D 25-Hydroxy 38.2 20 - 100 MANUALLY TRANSCRIBED RESULTS Blood 11/28/2022 Result [facility] Simone Bejarano LAB BLOOD ORDERABLES Final R [facility] Performing Organization Address [facility] Co de Phone Number MANUALLY TRANSCRIBED RESULTS documented in this encounter Visit Diagnoses Diagnosis Stage 3a chronic kidney disease (CKD) ([facility]-HCC) Acquired hypothyroidism Unspecified hypothyroidism documented in this encounter Care Teams Keyboard Teacher Relationship Specialty Start Date End Date Simone Bejarano DO [address] [facility], [place] [address] PCP - General Family Medicine 10/30/24 documented as of this encounter
--- OUTSIDE RECORDS SUMMARY | 2024-11-23 11:07 | XMS_ITS | Encounter Summary ---
Author Organization [employer] s tem Address [id number] [address] [place] [address] Care Team Providers Care Stripper Apprentice Name Role Phone Simone Bejarano DO Primary Care Provider + [phone] Encounter Details Date Type Department Care Team ([facility] Contact Info) Description 06/02/[address] [facility] [address] [place] [address] Kitty Beard CMA Acquired hypothyroidism; Other hyperlipidemia Social History Tobacco Use Types Packs/Day Years Used Date Smoking Tobacco: Never Smokeless Tobacco: Never Alcohol Use Standard Drinks/Week Comments Yes 0 (1 standard drink = 0.6 oz pur e alcohol) PHQ-2 Answer Date Recorded Total Score 0 06/02/2023 Childcare Answer Date Recorded Childcare Unknown 12/05/2018 Employment Answer Date Recorded Employment Unknown 12/05/2018 Hunger Screening Answer Date Recorded Within the past 12 months we worried whether our food would run out before we got money to buy more. Never True 12/12/2022 Within the past 12 months th e food we bought just didn't last and we didn't have money to get more. Never True 12/12/2022 Comments Unknown Sex and Gender Information Value Date Recorded Sex Assigned at Not on file Legal Sex Female 11:45 AM EDT Gender Identity Not on file Sexual Orientation Not on file documented as of this encounter Plan of Treatment Upcoming Encounters Date Type Department Care Team ([facility] Contact Info) Description 12/09/2024 1:45 PM EDT Office Visit [facility] Internal Medicine - Family Medicine [address] [place] [address] HeatherquintonPrince jimeneznis Tiny, DO [address] [facility], [place] [address] documented as of this encounter Procedures Procedure Name Priority Date/Time Associated Diagnosis Comments MULTIPLE LABS Routine 05/30/2023 10:38 AM EST THYROID PROFILE INCLUDES TSH FT4 Routine 05/30/2023 Acquired hypothyroidism LIPID PROFILE Routine 05/30/2023 Other hyperlipidemia COMPREHENSIVE METABOLIC PANEL Routine 05/30/2023 Other hyperlipidemia documented in this encounter Results * Multiple labs (05/30/2023 10:38 AM EST) aKri Dockery APRN-COMPLIANCE ANALYST [facility]AG[facility] Final Resul t Performing Organization Address City/[facility] Co de Phone Number MANUALLY TRANSCRIBED RESULTS * Comprehensive metabolic panel (05/30/2023) External Albumin 3.4 [facility]QUEST External Alt Sgpt 19 [facility] External Anion Gap 10.2 [facility] External Ast 12 [facility]QUEST External Blood Urea Nitrogen Bun 14.0 [facility] External Calcium Ca 8.8 [facility] External Chloride 105 [facility] External Co2 / Carbon Dioxide 30.9 [facility] External Creatinine 1.08 [facility] External Gfr Non Amer 50 [facility] External Alkaline Phosphatase 98 [facility]QUEST External Glucose Fasting Or Random (Fbs) 100 [facility]QUEST External Potassium K 4.1 [facility]QUEST External Sodium Na 142 [facility]QUEST Total Bilirubin 0.4 [facility]QUEST External Total Protein 6.7 [facility] Blood 05/30/2023 Kari Dockery APRN-GINO LAB BLOOD ORDERABLES Final Result SUNQUEST * Lipid panel (05/30/2023) External Cholesterol 185 [facility]QUEST External Hdl Cholesterol 58 [facility]QUEST External Ldl (Calc) 107.6 [facility]QUEST External Triglycerides 97 [facility]QUEST Blood 05/30/2023 Kari Dockery BOAT CREW DECK HAND-COMPLIANCE ANALYST LAB BLOOD ORDERABLES Final Result Performing Organization Address City/[facility]/ZIP Co de Phone Number SUNQUEST * Thyroid profile includes TSH FT4 (05/30/2023) TSH 3.740 SUNQUEST FREET4 {PL} 1.12 SUNQUEST 05/30/2023 Kari Dockery BOAT CREW DECK HAND-COMPLIANCE ANALYST LAB BLOOD ORDERABLES Final Result Performing Organization Address [facility] Co de Phone Number SUNQUEST documented in this encounter Visit Diagnoses Diagnosis Acquired hypothyroidism Unspecified hypothyroidism Other hyperlipidemia documented in this encounter Additional Health Concerns Assessment Noted Time PHQ-9 Depression Total Score: 0 06/02/20 23 10:44 AM EST documented as of this encounter Care Teams Stripper Apprentice Relationship Specialty Start Date End Date Simone Bejarano DO [address], [place] [address] PCP - General Family Medicine 10/30/24 documented as of this encounter
--- OUTSIDE RECORDS SUMMARY | 2024-11-23 11:07 | XMS_ITS | Clinical Summary ---
Author Organization [facility] Healthcare Address [address] [facility] [place] [address] Care Team Providers Care Line Pilot Name Role Phone Simone Bejarano MD Primary Care Provider Allergies Active Allergy Reactions Criticality Noted Date Comments Latex Rash Low 04/19/2023 BLISTERS Penicillins Rash,Unknown Medium 04/19/2023 ADVERSE REACTION Medications aspirin 81 MG EC tablet Take 81 mg by mouth in the morning. Active escitalopram (Lexapro) 5 MG tablet Take 5 mg by mouth in the morning. 08/18/2023 Active levothyroxine (Synthroid, Levoxyl) 75 MCG tablet Take 1 tablet by mouth in the morning. 10/30/2023 Active rosuvastatin (Crestor) 5 MG tablet Take 5 mg by mouth at bedtime 10/24/2023 Active Active Problems No known active problems Family History Relation Name Status Comments Father Mother Social History Tobacco Use Types Packs/Day Years Used Date Smoking Tobacco: Never Tobacco Cessation:Counseling Given: Not Answered Alcohol Use Standard Drinks/Week Comments Never 0 (1 standard drink = 0.6 oz pur e alcohol) Comments Unknown Sex and Gender Information Value Date Recorded Sex Assigned at Not on file Legal Sex Female 7:17 PM EDT Gender Identity Not on file Sexual Orientation Not on file Last Filed Vital Signs Vital Sign Reading Time Taken Comments Blood Pressure - - Pulse - - Temperature - - Respiratory Rate - - Oxygen Saturation - - Inhaled Oxygen Concentration - - Weight 91.6 kg (202 lb) 12/05/2023 10:12 AM EDT Height 167.6 cm (5' 6 ) 12/05/2023 10:12 AM EDT Body Mass Index 32.6 12/05/2023 10:12 AM EDT Plan of Treatment Not on file Insurance MEDICARE [employer] Care Teams Line Pilot Relationship Specialty Start Date End Date Simone Bejarano MD PCP - General Family Medicine 11/07/23
--- OUTSIDE RECORDS SUMMARY | 2024-11-23 11:07 | XMS_ITS | Encounter Summary ---
Author Organization [employer] s tem Address [facility] [id number] [address] [place] [address] Care Team Providers Care Zinc Plater Name Role Phone Simone Bejarano DO Primary Care Provider + [phone] Encounter Details Date Type Department Care Team (Late Contact Info) Description 12/08/2022 Orders Only [facility] Internal Medicine - Family Medicine [address] [place] [phone] External, Scanning Provider Social History Tobacco Use Types Packs/Day Years Used Date Smoking Tobacco: Never Assessed PHQ-2 Answer Date Recorded Total Score 0 12/12/2022 Childcare Answer Date Recorded Childcare Unknown 12/05/2018 [...] Description 12/09/2024 1:45 PM EDT [facility] [address] [place] [phone] Simone Bejarano DO [address] [facility] [address] documented as of this encounter Procedures Procedure Name Priority Date/Time Associated Diagnosis Comments MAMMOGRAPHY Routine 12/08/2022 documented in this encounter Results * MAMMOGRAPHY (12/08/2022) Anatomical Region Laterality Modality Other us Scanning Provider External [facility] Result documented in this encounter Visit Diagnoses Not on filedocumented in this encounter Care Teams Zinc Plater Relationship Specialty Start Date End Date Simone Bejarano DO [address], [place] [address] PCP - General Family Medicine 10/30/24 documented as of this encounter
--- OUTSIDE RECORDS SUMMARY | 2024-11-23 11:07 | XMS_ITS | Encounter Summary ---
Author Organization [employer] s tem Address [id number] [address] [place] [address] Care Team Providers Care Vegetable I Farmworker Name Role Phone Simone Bejarano Primary Care Provider + [phone] Encounter Details Date Type Department Care Team (Late st Contact Info) Description 05/26[facility]2023 [facility] [address] [place] [phone] Kari Dockery, ROTOR PLATE WASHER-WAX BALL MOLDER [address] [place] [address] Social History Tobacco Use Types Packs/Day Years [...] on file documented as of this encounter Miscellaneous Notes * Telephone Encounter - Milagros Pete - 05/26/2023 11:44 AM EST Patient is coming in for cv and would like labs sent to [facility] and she said to please send everything that she needs. Thanks documented in this encounter Plan of Treatment Upcoming Encounters Date Type Department Care Team (Late st Contact Info) Description 12/09/2024 1:45 PM EDT Office Visit [facility] Medicine - Family Medicine [address] [place] [address] Simone Bejarano DO [address], [facility] [place] [address] documented as of this encounter Visit Diagnoses Not on filedocumented in this encounter Additional Health Concerns Assessment Noted Time PHQ-9 Depression Total Score: 0 12/13/19 23 10:55 AM EDT documented as of this encounter Care Teams Vegetable I Farmworker Relationship Specialty Start Date End Date Simone Bejarano DO [address] [place], [facility] [place] [address] PCP - General Family Medicine 10/30/24 documented as of this encounter
--- OUTSIDE RECORDS SUMMARY | 2024-11-23 11:07 | XMS_ITS | Clinical Summary ---
Author Organization [facility] Address [address] [place] [address] Phone Care Team Providers Care Ssn/Ssbn Assistant Navigator Name Role Phone Simone Bejarano Primary Care Provider Allergies Active Allergy Reactions Criticality Noted Date Comments Latex Rash Low 04/19/2023 BLISTERS Penicillins Unknown Medium 04/19/2023 ADVERSE REACTION Medications levothyroxine (Synthroid, Levoxyl) 75 mcg tablet Take 1 tablet (75 mcg) by mouth once daily in the morning. Take before meals. 3 Active aspirin 81 mg EC tablet Take 1 tablet (81 mg) by mouth once daily. Active escitalopram (Lexapro) 5 mg tablet Take 1 tablet (5 mg) by mouth once daily as needed. 4 Active furosemide (Lasix) 20 mg tablet Take 1 tablet (20 mg) by mouth once daily as needed. 5 Active rosuvastatin (Crestor) 10 mg tablet Take 1 tablet (10 mg) by mouth once daily. 5 Active rosuvastatin (Crestor) 5 mg tabletIndications: Other hyperlipidemia Take 1 tablet (5 mg) by mouth once daily at bedtime. 90 tablet 3 4 10/30/19 25 Discontinu ed(Dose adjustment ) Active Problems Problem Noted Date Diagnosed Date Never smoked tobacco 10/24/2023 Benign hypertensive heart disease without heart failure 04/20/2023 BMI 34.0-34.9,adult 04/19/2023 Asymptomatic varicose veins of both lower extrem ities 12/12/2022 Dyspnea on exertion 12/12/2022 Acquired hypothyroidism 11/14/2022 Other hyperlipidemia 11/14/2022 Stage 3a chronic kidney disease (CKD) (Multi) Encounters Date Type Department Care Team Description 10/29/2024 9:30 AM EDT Office Visit [place] [id number] [address] Kenton Mortensen, DO Dyspnea on exertion; Benign hypertensive heart disease without heart failure; BMI 34.0-34.9,adult; Never smoked tobacco 10/29/2024 Travel from Last 3 Months Immunizations Immunization Administration Dates Next Due Flu vaccine (IIV4), preservative free *Check age /dose* 06/13/2016 Flu vaccine, trivalent, pres ervative free, HIGH-DOSE, age 65y+ (Fluzone) 04/17/2019 Influenza, seasonal, injectable 04/20/2021 Pneumococcal conjugate vaccine, 13-valent (PREVN AR 13) 11/03/2017 Pneumococcal polysaccharide vaccine, 23-valent, age 2 years and older (PNEUMOVAX 23) 04/22/2020 SARS-CoV-2, Unspecified 08/04/2020 Tdap vaccine, age 7 year and older (BOOSTRIX, AD ACEL) 06/13/2016,06/23/2010 Zoster, live 04/05/2013 Family History Medical History Relation Name Comments Heart disease Brother CORONARY ATERY GRAFT PTCA Brother Cancer Father Heart disease Father CORONARY ATERY GRAFT PTCA Father CARDIAC PACEMAKER Mother Cancer Mother Heart disease Mother CORONARY ATERY GRAFT PTCA Mother Cancer Sister Heart disease Sister CORONARY ATERY GRAFT PTCA Sister Relation Name Status Comments Brother Father Mother Sister Social History Tobacco Use Types Packs/Day Years Used Date Smoking Tobacco: Never Smokeless Tobacco: Never Alcohol Use Standard Drinks/Week Comments Yes 0 (1 standard drink = 0.6 oz pur e alcohol) wine monthly PHQ-2 Answer Date Recorded Patient Health Questionnaire-2 Score 3 02/23/2023 Comments Unknown Sex and Gender Information Value Date Recorded Sex Assigned at Not on file Legal Sex Female 9:35 AM EDT Gender Identity Not on file Sexual Orientation Not on file COVID-19 Exposure Response Date Recorded In the last 10 days, have yo u been in contact with someone who was confirmed or suspected to have Coronavirus/COVID-19? No / Unsure 10/29/2024 9:18 AM EDT Last Filed Vital Signs Vital Sign Reading Time Taken Comments Blood Pressure 124/78 10/29/2024 9:36 AM EDT Pulse 70 10/29/2024 9:36 AM EDT Temperature - - Respiratory Rate - - Oxygen Saturation - - Inhaled Oxygen Concentration - - Weight 97.5 kg (215 lb) 10/29/2024 9:36 AM EDT Height 167.6 cm (5' 6 ) 10/29/2024 9:36 AM EDT Body Mass Index 34.7 10/29/2024 9:36 AM EDT Plan of Treatment Health Maintenance Due Date Last Done Comments Bone Density Scan 1952 CT Colonography 1952 Colonoscopy 1952 Colorectal Cancer Screening 1952 FIT-DNA (Cologuard) 1952 FIT 1952 Lipid Panel 1950 Medicare Annual Wellness Visit (AWV) 1950 Sigmoidoscopy 1950 TSH Level 1952 Hepatitis C Screening 1970 CKD: Urine Protein Screening 1971 Mammogram 1992 Zoster Vaccines (2 of 3) 05/31/2013 04/05/2013 COVID-19 Vaccine ( season) 2024 08/04/2020 Influenza Vaccine (Season Ended) 2025 04/24/2023, 04/20/2021, 04/17/2019, Additional history exists DTaP/Tdap/Td Vaccines (3 - Td or Tdap) 06/13/2026 06/13/2016, 06/23/2010 RSV High Risk: (Elderly (60+) or Population) (1 - 1-dose 75+ series) 2027 Pneumococcal Vaccine Completed 04/22/2020, 11/04/19 18 HIB Vaccines Aged Out No longer eligi ble based on patient's age to complete this topic HPV Vaccines Aged Out No longer eligi ble based on patient's age to complete this topic Hepatitis A Vaccines Aged Out No long er eligible based on patient's age to complete this topic Hepatitis B Vaccines Aged Out No long er eligible based on patient's age to complete this topic IPV Vaccines Aged Out No longer eligi ble based on patient's age to complete this topic Meningococcal Vaccine Aged Out No sloan anaya eligible based on patient's age to complete this topic Rotavirus Vaccines Aged Out No longer eligible based on patient's age to complete this topic Insurance MEDICARE PART A AND B MEDICARE SUPPLEMENT MEDIC[place] [address] [place] [address] MEDICARE SUPPLEMENT Care Teams Ssn/Ssbn Assistant Navigator Relationship Specialty Start Date End Date Simone Bejarano DO PCP - General 02/23/23
--- OUTSIDE RECORDS SUMMARY | 2024-11-23 11:07 | XMS_ITS | Encounter Summary ---
Author Organization [employer] Address [id number] [address] [place] [address] Care Team Providers Care Risk Analyst Name Role Phone Simone Bejarano DO Primary Care Provider + [phone] Encounter Details Date Type Department Care Team ([facility] Contact Info) Description 01/31/2023 Telephone [facility] - Family Medicine [address] [place] [address] Kitty Beard CMA Social History Tobacco Use Types Packs/Day Years [...] Upcoming Encounters Date Type Department Care Team ([facility] Contact Info) Description 12/09/2024 1:45 PM EDT [facility] [address] [place] [address] Simone Bejarano DO [address] [facility] [place] [address] documented as of this encounter Visit Diagnoses Not on filedocumented in this encounter Additional Health Concerns Assessment Noted Time PHQ-9 Depression Total Score: 0 12/13/19 23 10:55 AM EDT documented as of this encounter Care Teams Risk Analyst Relationship Specialty Start Date End Date Simone Bejarano DO [address], [facility] [place] [address] PCP - General Family Medicine 10/30/24 documented as of this encounter
--- OUTSIDE RECORDS SUMMARY | 2024-11-23 11:07 | XMS_ITS | Clinical Summary ---
Author Organization [employer] Address [id number] [address] [place] [address] Care Team Providers Care Rn Liaison Name Role Phone JavierSimone jimenez Primary Care Provider + [phone] Allergies Active Allergy Reactions Criticality Noted Date Comments Latex Rash Low 04/19/2023 BLISTERS Penicillins Rash Medium 04/19/2023 ADVERSE REACTION Medications aspirin 81 mg Take 1 tablet (81 mg total) by mouth in the morning. Active escitalopram (LEXAPRO) 5 mg tabletIndication s:Reactive depression Take 1 tablet (5 mg total) by mouth in the morning. 90 tablet 1 07/25/2024 Active levothyroxine (SYNTHROID, LEVOTHROID) 75 MCG tablet Take 1 tablet (75 mcg total) by mouth in the morning. 90 tablet 1 07/25/2024 Active rosuvastatin (CRESTOR) 10 mg tablet Take 1 tablet (10 mg total) by mouth nightly. 90 tablet 10/10/2024 Active furosemide (LASIX) 20 mg tabletIndication s:Localized swelling of both lower legs Take 1 tablet (20 mg total) by mouth daily as needed (leg swelling). 90 tablet 1 10/15/2024 Active Active Problems Problem Noted Date Diagnosed Date Osteoarthritis of thumb, right 11/30/2023 Asymptomatic varicose veins of both lower extrem ities 12/12/2022 Dyspnea on exertion 12/12/2022 Class 1 obesity due to exces s calories with serious comorbidity and body mass index (BMI) of 32.0 to 32.9 in adult 12/12/2022 Acquired hypothyroidism 11/14/2022 Other hyperlipidemia 11/14/2022 Stage 3a chronic kidney disease (CKD) 11/14/2022 Encounters Date Type Department Care Team Description 11/22/2024 Orders Only [facility] - [facility] Medicine [address] [place] [phone] Ref Prov, Not In System 10/30/2024 Telephone [facility] - [facility] [address] [place] [address] Hiral Wisdom CMA 10/15/2024 5:57 PM EDT - 10/15/2024 11:59 PM EDT Hospital Encounter [facility] [address] [place] [address] Stage 2 chronic kidney disease; Screening for diabetes mellitus (DM) Discharge Disposition: Home 10/15/2024 2:00 PM EDT Office Visit [facility] [address] [place] [phone] Anne López, DIE STAMPER-PESTICIDE CONTROL INSPECTOR Screening for diabetes mellitus (DM) (Primary Dx); Localized swelling of both lower legs; Stage 2 chronic kidney disease; Right lower quadrant abdominal pain 10/15/2024 Travel 10/14/2024 Telephone [facility] - [facility] [address] [place] [address] Ravinder Cuevas CMA 10/09/2024 Refill [facility] [address] [facility] [facility] [place] [address] Joann Avila CMA from Last 3 Months Immunizations Immunization Administration Dates Next Due Influenza High Dose Preservative Free IM 023,04/17/2019 Influenza, Im Trivalent Preservative 04/20/2021 Influenza, Injectable, quadrivalent (PF) 016 Pneumococcal Conjugate 13-Valent 11/03/2017 Pneumococcal Polysaccharide 04/22/2020 SARS-COV-2 (COVID-19) Vaccine, Unspecified 08/04 Tdap 06/13/2016,06/23/2010 Zoster Live 04/05/2013 Family History Medical History Relation Name Comments Cancer Brother 1 Munir Spine Heart disease Brother 2 Stas Heart disease Brother 3 Thiago Cancer Father Bladder Heart disease Father Obesity Father Dementia Mother Heart disease Mother Hypothyroidism Mother Heart disease Sister Oneyda Relation Name Status Comments Brother 1 Munir Alive Brother 2 Stas Alive Brother 3 Thiago Alive Brother 4 Amari Alive Father Mother Sister Oneyda Alive Social History Tobacco Use Types Packs/Day Years Used Date Smoking Tobacco: Never Smokeless Tobacco: Never Alcohol Use Standard Drinks/Week Comments Yes 0 (1 standard drink = 0.6 oz pur e alcohol) PHQ-2 Answer Date Recorded Total Score 0 10/15/2024 Childcare Answer Date Recorded Childcare Unknown 12/05/2018 Employment Answer Date Recorded Employment Unknown 12/05/2018 Hunger Screening Answer Date Recorded Within the past 12 months we worried whether our food would run out before we got money to buy more. Never True 10/15/2024 Within the past 12 months th e food we bought just didn't last and we didn't have money to get more. Never True 10/15/2024 Comments Unknown Sex and Gender Information Value Date Recorded Sex Assigned at Not on file Legal Sex Female 11:45 AM EDT Gender Identity Not on file Sexual Orientation Not on file Last Filed Vital Signs Vital Sign Reading Time Taken Comments Blood Pressure 110/70 10/15/2024 2:04 PM EDT Pulse 87 10/15/2024 2:04 PM EDT Temperature 36.8 C (98.3 F) 10/15/2024 2:04 PM EDT Respiratory Rate 18 10/15/2024 2:04 PM EDT Oxygen Saturation 98% 10/15/2024 2:04 PM EDT Inhaled Oxygen Concentration - - Weight 97.3 kg (214 lb 9.6 oz) 10/15/2024 2:04 P M EDT Height 168.9 cm (5' 6.5 ) 10/15/2024 2:04 PM EDT Body Mass Index 34.12 10/15/2024 2:04 PM EDT Plan of Treatment Upcoming Encounters Date Type Department Care Team (Late st Contact Info) Description 12/09/2024 1:45 PM EDT Office Visit [facility] - [facility] [address] [place] [address] Simone Bejarano, DO [address] [facility], [place] [address] Health Maintenance Due Date Last Done Comments Medicare Annual Wellness Visit 1950 Zoster (Shingles) Vaccine (2 of 3) 05/31/2013 04/05/2013 Fall Risk Screening 11/29/2024 11/30/2023 Influenza Vaccine 02/24/2025 04/24/2023, , 04/17/2019, Additional history exists Adult BMI Follow Up Plan 10/15/2025 10/15/2024 Adult BMI Screening 10/15/2025 10/15/2024 Depression Screening 10/15/2025 10/15/2024 Tobacco Screening 10/15/2025 10/15/2024 Colonoscopy 01/29/2026 Postponed from 1997 (Not Indicated) DTaP,Tdap and Td Vaccines (3 - Td or Tdap) 06/13/2026 06/13/2016, 06/23/2010 COVID-19 Vaccine Discontinued 08/04/2020 Medical Devices Not on file Procedures Procedure Name Priority Date/Time Associated Diagnosis Comments MULTIPLE LABS Routine 11/14/2024 9:30 AM EDT HEMOGLOBIN A1C Routine 10/15/2024 2:38 PM EDT Screening for diabetes mellitus (DM) COMPREHENSIVE METABOLIC PANEL Routine 10/15/2024 2:38 PM EDT Stage 2 chronic kidney disease CBC WITH AUTO DIFFERENTIAL Routine 10/15/2024 2:38 PM EDT Stage 2 chronic kidney disease from Last 3 Months Results * Multiple labs (11/14/2024 9:30 AM EDT) us Not In System Ref Prov [facility] Final Res ult MANUALLY TRANSCRIBED RESULTS * (ABNORMAL) CBC auto differential (10/15/2024 2:38 PM EDT) White Blood Cells 4.5 4.0 - 11.0 X10E9/L 10/15/2024 6:32 PM EDT [facility] RBC count 4.62 3.80 - 5.20 X10E12/L 10/15/2024 6:32 PM EDT [facility] Hemoglobin 12.3 11.7 - 15.5 g/dL 10/15/2024 6:32 PM EDT [facility] Hematocrit 37.4 35 - 47 % 10/15/2024 6:32 PM EDT [facility] MCV 81 80 - 100 fL 10/15/2024 6:32 PM EDT [facility] MCH 26.7(L) 27 - 34 pg 10/15/2024 6:32 PM EDT [facility] MCHC 33.0 32 - 36 g/dL 10/15/2024 6:32 PM EDT [facility] RDW 14.5 11.5 - 15.0 % 10/15/2024 6:32 PM EDT [facility] Platelets 161 150 - 450 X10E9/L 10/15/2024 6:32 PM EDT [facility] MPV 11.2 7 - 12 fL 10/15/2024 6:32 PM EDT [facility] % neutrophils 64.9 % 10/15/2024 6:32 PM EDT [facility] % lymphocytes 26.3 % 10/15/2024 6:32 PM EDT [facility] % monocytes 6.1 % 10/15/2024 6:32 PM EDT [facility] % eosinophils 2.1 % 10/15/2024 6:32 PM EDT [facility] % Basophils 0.6 % 10/15/2024 6:32 PM EDT [facility] Neutrophils Absolute (A) 2.9 1.5 - 6.6 X10E9/L 10/15/2024 6:32 PM EDT [facility] Lymphocytes Absolute 1.2 1.0 - 3.5 X10E9/L 10/15/2024 6:32 PM EDT [facility] Monocytes Absolute 0.3 0 - 0.9 X10E9/L 10/15/2024 6:32 PM EDT [facility] Eosinophils Absolute 0.1 0.0 - 0.4 X10E9/L 10/15/2024 6:32 PM EDT [facility] Basophils Absolute 0.0 0.0 - 0.2 X10E9/L 10/15/2024 6:32 PM EDT [facility] Blood / Unknown 10/15/2024 2 :38 PM EDT 10/15/2024 5:58 PM EDT Anne López [facility] BLOOD ORDERABLES Final Result [facility] [address] [place] [address], [facility] [address] [place] [address] * (ABNORMAL) Hemoglobin A1c (10/15/2024 2:38 PM EDT) Pathologist [facility] Hemoglobin A1C 5.8(H) 4.4 - 5.6 % 10/15/2024 6:50 PM EDT [facility] Comment: NOTE ADA Guidelines Result HgbA1c Normal : less than 5.7 % Prediabetes : 5.7 % to 6.4 % Diabetes : > 6.4 % Use with caution in patients with abnormal hemoglobin variants as the half-life of red blood cells and in vivo glycation rates are affected. Average glucose 120 mg/dL 6:50 PM EDT [facility] PLASMA 10/15/2024 2:38 PM EDT 10/15/2024 5:58 PM EDT Anne López [facility] BLOOD ORDERABLES Final Result [facility] [address] [place] [address], [facility] [address] [place] [address] * (ABNORMAL) Comprehensive metabolic panel (10/15/2024 2:38 PM EDT) Sodium 141 134 - 146 mmol/L 10/15/2024 6:42 PM EDT [facility] Potassium, Bld 4.0 3.5 - 5.0 mmol/L 10/15/2024 6:42 PM EDT [facility] Chloride 107 98 - 109 mmol/L 10/15/2024 6:42 PM EDT [facility] CO2 25 22 - 32 mmol/L 10/15/2024 6:42 PM T [facility] Anion gap 9 5 - 15 mmol/L 10/15/2024 6:42 PM T [facility] BUN 16 5 - 27 mg/dL 10/15/2024 6:42 PM EDT [facility] Creatinine 1.21(H) 0.40 - 1.00 mg/dL 10/15/2024 6:42 PM T [facility] Comment:METHOD TRACEABLE TO IDMS STANDARD Glucose 109(H) 65 - 99 mg/dL 10/15/2024 6:42 PM [facility] Calcium 9.6 8.5 - 10.5 mg/dL 10/15/2024 6:42 PM T [facility] Total Protein 6.8 6.0 - 8.0 g/dL 10/15/2024 6:42 PM EDT [facility] Albumin 4.3 3.2 - 5.3 g/dL 10/15/2024 6:42 PM EDT [facility] Alkaline Phosphatase 83 39 - 130 U/L 10/15/2024 6:42 PM [facility] AST 16 0 - 41 U/L 10/15/2024 6:42 PM [facility] ALT 15 0 - 31 U/L 10/15/2024 6:42 PM T [facility] Total bilirubin 0.4 0.3 - 1.2 mg/dL 10/15/2024 6:42 PM T [facility] eGFR (CKD-EPI)non-rac e dependent 48(L) >59 ml/min/1.7 3sq.m 10/15/2024 6:42 PM EDT [facility] Comment: Reported eGFR is based on the CKD-EPI 2020 equation that does not use a race coefficient. Blood (PLASMA) 10/15/2024 2: 38 PM EDT 10/15/2024 5:58 PM EDT us Anne López DIE STAMPER-PESTICIDE CONTROL INSPECTOR LAB BLOOD ORDERABLES Final Result [employer] [address] [place] [address] from Last 3 Months Insurance MEDICARE [facility] ethology Care Teams Rn Liaison Relationship Specialty Start Date End Date Simone Bejarano DO [address] [facility] [address] [address] [place], [place] [id number] PCP - General Family Medicine 10/30/24
--- OUTSIDE RECORDS SUMMARY | 2024-11-23 11:07 | XMS_ITS | Encounter Summary ---
Author Organization [employer] Address [id number] [address] [place] [address] Care Team Providers Care Unit Nurse Name Role Phone Simone Bejarano DO Primary Care Provider + [phone] Encounter Details Date Type Department Care Team ([facility] Contact Info) Description 11/27/2023 [facility] [address] [place] [phone] External, Scanning Provider Social History Tobacco Use Types Packs/Day Years Used Date Smoking Tobacco: Never Smokeless Tobacco: Never Alcohol Use Standard Drinks/Week Comments Yes 0 (1 standard drink = 0.6 oz pur e alcohol) PHQ-2 Answer Date Recorded Total Score 0 11/30/2023 Childcare Answer Date Recorded Childcare Unknown 12/05/2018 Employment Answer Date Recorded Employment Unknown 12/05/2018 Hunger Screening Answer Date Recorded Within the past 12 months we worried whether our food would run out before we got money to buy more. Never True 11/30/2023 Within the past 12 months th e food we bought just didn't last and we didn't have money to get more. Never True 11/30/2023 Comments Unknown Sex and Gender Information Value Date Recorded Sex Assigned at Not on file Legal Sex Female 11:45 AM EDT Gender Identity Not on file Sexual Orientation Not on file documented as of this encounter Plan of Treatment Upcoming Encounters Date Type Department Care Team ([facility] Contact Info) Description 12/09/2024 1:45 PM EDT Office Visit [facility] Internal Medicine - Family Medicine [address] [place] [address] Simone Bejarano DO [address] [place] [address] documented as of this encounter Procedures Procedure Name Priority Date/Time Associated Diagnosis Comments PARATHYROID HORMOME, INTACT Routine 11/24/2023 documented in this encounter Results * Parathyroid Hormone, intact (11/24/2023) Pth intact 41 MANUALLY TRANSCRIBED RESULTS Blood 11/24/2023 us Scanning Provider External LAB BLOOD ORDERABLES Final Result MANUALLY TRANSCRIBED RESULTS documented in this encounter Visit Diagnoses Not on filedocumented in this encounter Additional Health Concerns Assessment Noted Time PHQ-9 Depression Total Score: 0 06/02/20 23 10:44 AM EST documented as of this encounter Care Teams Unit Nurse Relationship Specialty Start Date End Date Simone Bejarano DO [address], [place] [address] PCP - General Family Medicine 10/30/24 documented as of this encounter
--- OUTSIDE RECORDS SUMMARY | 2024-11-23 11:07 | XMS_ITS | Encounter Summary ---
Author Organization [facility] Address [address] [place] [address] Phone Care Team Providers Care Graduate Student Instructor Name Role Phone Simone Bejarano Primary Care Provider Encounter Details Date Type Department Care Team (Late st Contact Info) Description 02/23/2023 Scanned Document [facility] [address] [place] [address] [place] [address] Department of Pediatrics-Genetics [place] [id number] Social History Tobacco Use Types Packs/Day Years Used Date Smoking Tobacco: Never Assessed PHQ-2 Answer Date Recorded Patient Health Questionnaire-2 Score 3 02/23/2023 Comments Unknown Sex and Gender Information Value Date Recorded Sex Assigned at Not on file Legal Sex Female 9:35 AM EDT Gender Identity Not on file Sexual Orientation Not on file documented as of this encounter Functional Status * Over the past 2 weeks, how often have you been bothered by any of the following problems? Question Answer Date of Assessment Author Patient Health Questionnaire-2 Score 3 02/23/2023 9:10 AM EDT Conversion, All scripts Touchworks Vitals * Little interest or pleasure in doing things Answer Date of Assessment Author Not at all 02/23/2023 9:10 AM EDT Conversio n, [employer] Touchworks Vitals * Feeling down, depressed, or hopeless Answer Date of Assessment Author Nearly every day 02/23/2023 9:10 AM EDT Conversi on, [employer] Touchworks Vitals * Trouble falling or staying asleep, or sleeping too much Answer Date of Assessment Author Nearly every day 02/23/2023 9:10 AM EDT Conversi on, [employer] Touch[employer] Vitals * Feeling tired or having little energy Answer Date of Assessment Author More than half the days 02/23/2023 9:10 AM EDT C onversion, [employer] Touchworks Vitals * Poor appetite or overeating Answer Date of Assessment Author Not at all 02/23/2023 9:10 AM EDT Conversio n, [employer] Touch[employer] Vitals * Feeling bad about yourself - or that you are a failure or have let yourself or your family down Answer Date of Assessment Author Not at all 02/23/2023 9:10 AM EDT Conversio n, [employer] Touch[employer] Vitals * Trouble concentrating on things, such as reading the newspaper or watching television Answer Date of Assessment Author Not at all 02/23/2023 9:10 AM EDT Conversio n, [employer] Touch[employer] Vitals * Moving or speaking so slowly that other people could have noticed? Or the opposite - being so fidgety or restless that you have been moving around a lot more than usual. Answer Date of Assessment Author Not at all 02/23/2023 9:10 AM EDT Conversio n, [employer] Touch[employer] Vitals * Thoughts that you would be better off or hurting yourself in some way Answer Date of Assessment Author Not at all 02/23/2023 9:10 AM EDT Conversio n, [employer] Touch[employer] Vitals * Patient Health Questionnaire-9 Score Answer Date of Assessment Author 10 02/23/2023 9:10 AM EDT Conversio n, [employer] Touch[employer] Vitals * How difficult have these problems made it for you to do your work, take care of things at home, or get along with other people? Answer Date of Assessment Author Somewhat difficult 02/23/2023 9:10 AM EDT Emily solison, [employer] Touchworks Vitals documented as of this encounter Plan of Treatment Not on file documented as of this encounter Procedures Procedure Name Priority Date/Time Associated Diagnosis Comments ELECTROCARDIOGRAM RHYTHM STRIP 02/23/2023 documented in this encounter Results * ELECTROCARDIOGRAM RHYTHM STRIP (02/23/2023) Valerie Lao MD ECG ORDERABLES Final Result documented in this encounter Visit Diagnoses Not on filedocumented in this encounter Additional Health Concerns Assessment Noted Time PHQ-9 Depression Total Score: 10 023 9:10 AM EDT documented as of this encounter Care Teams Graduate Student Instructor Relationship Specialty Start Date End Date Simone Bejarano DO PCP - General 02/23/23 documented as of this encounter
--- OUTSIDE RECORDS SUMMARY | 2024-11-23 11:07 | XMS_ITS | Encounter Summary ---
Author Organization [employer] s tem Address [facility]-[id number] [address] [place] [address] Care Team Providers Care Inclinometer Tester Name Role Phone Simone Bejarano DO Primary Care Provider + [phone] Encounter Details Date Type Department Care Team ([facility] Contact Info) Description 11/22/2024 [facility] [address] [place] [address] Ref Prov, [place] [address] Social History Tobacco Use Types Packs/Day Years [...] Upcoming Encounters Date Type Department Care Team ([facility] Contact Info) Description 12/09/2024 1:45 PM EDT Office Visit [facility] Internal Medicine - Family Medicine [address] [place] [address] Simone Bejarano DO [address] [place] [address] documented as of this encounter Procedures Procedure Name Priority Date/Time Associated Diagnosis Comments MULTIPLE LABS Routine 11/14/2024 9:30 AM EDT documented in this encounter Results * Multiple labs (11/14/2024 9:30 AM EDT) us Not In System Ref Prov ME IMAGING Final Res ult MANUALLY TRANSCRIBED RESULTS documented in this encounter Visit Diagnoses Not on filedocumented in this encounter Additional Health Concerns Assessment Noted Time PHQ-9 Depression Total Score: 0 10/16/19 2:03 PM EDT A Body Mass Index follow-up plan has been documented for the patient 10/15/2024 4:34 PM EDT documented as of this encounter Care Teams Inclinometer Tester Relationship Specialty Start Date End Date Simone Bejarano DO [address] [facility] [place] [address] PCP - General Family Medicine 10/30/24 documented as of this encounter
--- OUTSIDE RECORDS SUMMARY | 2024-11-23 11:07 | XMS_ITS | Patient Health Record ---
Author Organization [email or web address] , [facility] Address [address] [place] [address] Care Team Providers Care Icing Coater Name Role Phone Mouna REDMAN, Michelle Primary Care Provider Reason For Referral No Information Encounters Encounter Location Date Provider Diagnosis [facility] [address] [place] [address] 09/13/2024 Michelle Freire Plan Of Treatment No Information Insurance Providers Payer Name Payer Address Payer Phone Subscriber Number Group Number Insured Name Patient Relationship to Insured Coverage Start Date Coverage End Date [place] [address] [place] [address] [phone] [id number] Aster Bacon Self - patient is the insured 5 [employer] [address] [address] [place], [place] [id number] Aster Bacon Self - patient is the insured 5
--- OUTSIDE RECORDS SUMMARY | 2024-11-23 11:07 | XMS_ITS | Encounter Summary ---
Author Organization [employer] s tem Address [facility][id number] [address] [place] [address] Care Team Providers Care Molding Sander Name Role Phone Simone Bejarano DO Primary Care Provider + [phone] Encounter Details Date Type Department Care Team ([facility] Contact Info) Description 11/29/2022 Orders Only [facility] Internal Medicine - Family Medicine [address] [place] [phone] Simone Bejarano DO [address] [place] [address] Social History Tobacco Use Types Packs/Day Years [...] Medicine - Family Medicine [address] [place] [phone] Simone Bejarano DO [address] [place] [address] documented as of this encounter Procedures Procedure Name Priority Date/Time Associated Diagnosis Comments MAMMOGRAPHY Routine 11/29/2022 documented in this encounter Results * MAMMOGRAPHY (11/29/2022) Anatomical Region Laterality Modality Other us Simone Bejarano DO HEALTH MAINTENANCE Final Res ult documented in this encounter Visit Diagnoses Not on filedocumented in this encounter Care Teams Molding Sander Relationship Specialty Start Date End Date Simone Bejarano DO [address] [facility], [place] [address] PCP - General Family Medicine 10/30/24 documented as of this encounter
--- OUTSIDE RECORDS SUMMARY | 2024-11-23 11:07 | XMS_ITS | Encounter Summary ---
Author Organization [employer] s tem Address [id number] [address] [place] [address] Care Team Providers Care Viscose Cellar Charge Hand Name Role Phone Simone Bejarano DO Primary Care Provider + [phone] Encounter Details Date Type Department Care Team (Late Contact Info) Description 12/01/2022 Orders Only [facility] Internal Medicine - Family Medicine [address] [place] [phone] Kathya Clayton CMA Stage 3a chronic kidney disease (CKD) ([facility]); Other hyperlipidemia Social History Tobacco Use Types [...] - Family Medicine [address] [place] [address] Simone Bejarano DO [address] [place] [address] documented as of this encounter Procedures Procedure Name Priority Date/Time Associated Diagnosis Comments URIC ACID Routine 11/28/2022 Stage 3a chronic kidney disease (CKD) ([facility]) PHOSPHORUS Routine 11/28/2022 Stage 3a chronic kidney disease (CKD) (CMS-HCC) MAGNESIUM Routine 11/28/2022 Stage 3a chronic kidney disease (CKD) (CMS-HCC) LIPID PROFILE Routine 11/28/2022 Other hyperlipidemia COMPREHENSIVE METABOLIC PANEL Routine 11/28/2022 Stage 3a chronic kidney disease (CKD) (CMS-HCC) documented in this encounter Results * (ABNORMAL) Uric acid (11/28/2022) Pathologist [facility] External Uric Acid 0.1(A) 2.6 - 6.0 MANUALLY TRANSCRIBED RESULTS Blood 11/28/2022 [facility] LAB BLOOD ORDERABLES Final R Fidelis Performing Organization Address City/[facility]/ZIP Co de Phone Number MANUALLY TRANSCRIBED RESULTS * (ABNORMAL) Lipid panel (11/28/2022) Pathologist [facility] External Cholesterol 234(A) 0 - 200 MANUALLY TRANSCRIBED RESULTS External Cholesterol:Hdl 4.7 4.4 - 7.1 MANUALLY TRANSCRIBED RESULTS External Hdl Cholesterol 50 40 - 60 MANUALLY TRANSCRIBED RESULTS External Ldl (Calc) 154 100 - 160 MANUALLY TRANSCRIBED RESULTS External Triglycerides 153(A) 0 - 150 MANUALLY TRANSCRIBED RESULTS Blood 11/28/2022 [facility] DO LAB BLOOD ORDERABLES Final R esult MANUALLY TRANSCRIBED RESULTS * (ABNORMAL) Comprehensive metabolic panel (11/28/2022) External Albumin 3.3(A) 3.4 - 5.0 MAN UALLY TRANSCRIBED RESULTS External Alt Sgpt 20 14 - 59 MANUALLY TRANSCRIBED RESULTS External Anion Gap 0.9 MANUALLY TRANSCRIBED RESULTS External Ast 20 15 - 37 MANUALL Y TRANSCRIBED RESULTS External Blood Urea Nitrogen Bun 12 7 - 18 MANUALLY TRANSCRIBED RESULTS External Calcium Ca 9.5 8.5 - 10.1 MANUALLY TRANSCRIBED RESULTS External Chloride 105 98 - 107 MANUALLY TRANSCRIBED RESULTS External Co2 / Carbon Dioxide 19.7(A) 21 - 32.0 MANUALLY TRANSCRIBED RESULTS External Creatinine 1.03(A) 0.55 - 1.02 MANUALLY TRANSCRIBED RESULTS External Gfr Amer >60 >60 MANUALLY TRANSCRIBED RESULTS External Gfr Non Amer 53 >60 MANUALLY TRANSCRIBED RESULTS External Alkaline Phosphatase 98 46 - 116 MANUALLY TRANSCRIBED RESULTS External Glucose Fasting Or Random (Fbs) 99 74 - 106 MANUALLY TRANSCRIBED RESULTS External Potassium K 5.1 3.5 - 5.1 MANUALLY TRANSCRIBED RESULTS External Sodium Na 139 136 - 145 MANUALLY TRANSCRIBED RESULTS Total Bilirubin 0.3 0.2 - 1.0 MANU ALLY TRANSCRIBED RESULTS External Total Protein 7 6.4 - 8.2 MANUALLY TRANSCRIBED RESULTS Blood 11/28/2022 Simone Bejarano DO LAB BLOOD ORDERABLES Final R esult MANUALLY TRANSCRIBED RESULTS * Magnesium (11/28/2022) Magnesium 1.9 1.8 - 2.4 MANUALLY TRANSCRIBED RESULTS Blood 11/28/2022 Simone Bejarano DO LAB BLOOD ORDERABLES Final R esult MANUALLY TRANSCRIBED RESULTS * Phosphorus (11/28/2022) Phosphorus 3.3 2.6 - 4.7 MANUALLY TRANSCRIBED RESULTS Blood 11/28/2022 Simone Bejarano DO LAB BLOOD ORDERABLES Final R esult MANUALLY TRANSCRIBED RESULTS documented in this encounter Visit Diagnoses Diagnosis Stage 3a chronic kidney disease (CKD) (CMS-HCC) Other hyperlipidemia documented in this encounter Care Teams Viscose Cellar Charge Hand Relationship Specialty Start Date End Date Simone Bejarano DO [address] [facility] [place] [place] [address] PCP - General Family Medicine 10/30/24 documented as of this encounter
--- OUTSIDE RECORDS SUMMARY | 2024-11-23 11:07 | XMS_ITS | Encounter Summary ---
Author Organization [facility] Address [id number] [address] [place] [address] Care Team Providers Care Camp Cook Name Role Phone Simone Bejarano Primary Care Provider + [phone] Encounter Details Date Type Department Care Team (Late st Contact Info) Description 11/24/2023 Orders Only [facility] Internal Medicine - Family Medicine [address] [place] [phone] Kari Dockery, RN RADIOLOGY-FOAM CASTER [address] [place] [address] Stage 3a chronic kidney disease (CKD) ([facility]); Other hyperlipidemia Social History Tobacco Use Types [...] Medicine - Family Medicine [address] [place] [address] Simone Bejarano, [address] [place] [address] documented as of this encounter Procedures Procedure Name Priority Date/Time Associated Diagnosis Comments CBC WITH AUTO DIFFERENTIAL Routine 11/24/2023 Stage 3a chronic kidney disease (CKD) ([facility]) VITAMIN D 25 HYDROXY Routine 11/24/2023 Stage 3a chronic kidney disease (CKD) ([facility]) PHOSPHORUS Routine 11/24/2023 Stage 3a chronic kidney disease (CKD) ([facility]) MAGNESIUM Routine 11/24/2023 Stage 3a chronic kidney disease (CKD) ([facility]) LIPID PROFILE Routine 11/24/2023 Other hyperlipidemia COMPREHENSIVE METABOLIC PANEL Routine 11/24/2023 Other hyperlipidemia documented in this encounter Results * Vitamin D 25 hydroxy (11/24/2023) External Vitamin D 25-Hydroxy 39.0 [facility] Blood 11/24/2023 Kari Jorden Sarkis RN RADIOLOGY-FO[facility] LAB BLOOD ORDERABLES Final Result [facility] * Comprehensive metabolic panel (11/24/2023) External Sodium Na 142 [facility] External Potassium K 4.5 [facility] External Chloride 105 [facility] External Co2 / Carbon Dioxide 28.8 [facility] External Anion Gap 12.7 [facility] External Glucose Fasting Or Random (Fbs) 103 [facility] External Blood Urea Nitrogen Bun 13.0 [facility] External Creatinine 1.09 [facility] External Gfr Amer 60 [facility] External Gfr Non Amer 49 [facility] BUN/Creatinine Ratio 11.9 [facility] External Uric Acid 5.7 [facility] External Calcium Ca 9.3 [facility] Blood 11/24/2023 Kari Dockery [facility] LAB BLOOD ORDERABLES Final Result Performing Organization Address [facility] de Phone Number [facility] * Phosphorus (11/24/2023) Phosphorus 3.7 [facility] Blood 11/24/2023 Kari Dockery [facility] LAB BLOOD ORDERABLES Final Result Performing Organization Address [facility] Phone Number [facility] * Magnesium (11/24/2023) Magnesium 1.9 [facility] Blood 11/24/2023 Kari Dockery [facility] LAB BLOOD ORDERABLES Final Result Performing Organization Address [facility] de Phone Number [facility] * Lipid panel (11/24/2023) External Cholesterol 185 [facility] External Triglycerides 93 [facility] External Hdl Cholesterol 66 [facility] External Ldl (Calc) 101.0 [facility] VLDL 18.6 [facility] Chol/HDL ratio 2.8 [facility] Blood 11/24/2023 Kari Dockery [facility] LAB BLOOD ORDERABLES Final Result Performing Organization Address [facility] de Phone Number [facility] * (ABNORMAL) CBC auto differential (11/24/2023) External Wbc Count 5.7 [facility] External Rbc Count 4.83 [facility] External Hemoglobin 12.7 [facility] External Hematocrit Hct 41.2 [facility] External Mcv 85.3 [facility] External MCH 26.3 [facility] External Mchc 30.8 [facility] External Rdw 14.7 [facility] External Platelet Count 178 [facility] External Mpv 12.1 [facility] % neutrophils 65.0 [facility] % Lymphocyte 26.0 [facility] % monocytes 5.8 [facility] % eosinophils 2.3 [facility] % Basophils 0.5 [facility] Immature granulocytes % 0.4 [facility] Neutrophils Absolute (A) 3.70 1.30 - 8.30 10*3/uL [facility] Monocytes Absolute 0.30 0.20 - 0.80 10*3/uL [facility] Eosinophils Absolute 0.10(A) 0.20 - 0.70 10*3/uL [facility] Basophils Absolute 0.00 0.00 - 0.20 10*3/uL [facility] IgA 0.02 [facility] 11/24/2023 Kari Dockery RN RADIOLOGY-[facility] LAB BLOOD ORDERABLES Final Result [facility] documented in this encounter Visit Diagnoses Diagnosis Stage 3a chronic kidney disease (CKD) (CMS-HCC) Other hyperlipidemia documented in this encounter Additional Health Concerns Assessment Noted Time PHQ-9 Depression Total Score: 0 06/02/20 23 10:44 AM EST documented as of this encounter Care Teams Camp Cook Relationship Specialty Start Date End Date Simone Bejarano DO [address] [place] [address] PCP - General Family Medicine 10/30/24 documented as of this encounter
--- OUTSIDE RECORDS SUMMARY | 2024-11-23 11:07 | XMS_ITS | Encounter Summary ---
Author Organization [facility] Address [address] [place] [address] Phone Care Team Providers Care Police And Fire Dispatcher Name Role Phone Simone Bejarano DO Primary Care Provider Encounter Details Date Type Department Care Team (Late st Contact Info) Description 03/23/2023 Scanned Document [facility] [address] [place] [address] Conversion, Onbase Social History Tobacco Use Types Packs/Day Years [...] Procedure Name Priority Date/Time Associated Diagnosis Comments CARDIAC STRESS TEST 03/23/2023 documented in this encounter Results * CARDIAC STRESS TEST (03/23/2023) Narrative 03/23/2023 Ordered by an unspecified provider. us Onbase Conversion CV STRESS PROCEDURES Final Res ult documented in this encounter Visit Diagnoses Not on filedocumented in this encounter Additional Health Concerns Assessment Noted Time PHQ-9 Depression Total Score: 10 023 9:10 AM EDT documented as of this encounter Care Teams Police And Fire Dispatcher Relationship Specialty Start Date End Date Simone Bejarano DO PCP - General 02/23/23 documented as of this encounter
--- OUTSIDE RECORDS SUMMARY | 2024-11-23 11:07 | XMS_ITS | Encounter Summary ---
Author Organization [employer] Address [facility]-[id number] [address] [place] [address] Care Team Providers Care Secondary School Teacher Librarian Name Role Phone Simone Bejarano Primary Care Provider + [phone] Encounter Details Date Type Department Care Team (Late st Contact Info) Description 10/14/2024 [facility]phone [facility] Family Medicine [address] [place] [address] Ravinder Cuevas CMA Social History Tobacco Use Types Packs/Day [...] encounter Miscellaneous Notes * Telephone Encounter - Ravinder Cuevas CMA - 10/14/2024 8:47 AM EDT Called pt to book a recheck apt. She was not accepting VM at this time documented in this encounter Plan of Treatment Upcoming Encounters Date Type Department Care Team (Late st Contact Info) Description 12/09/2024 1:45 PM EDT Office Visit [facility] Internal Medicine - Family Medicine [address] [place] [address] Simone Bejarano DO [address] [facility] [place] [address] documented as of this encounter Visit Diagnoses Not on filedocumented in this encounter Additional Health Concerns Assessment Noted Time PHQ-9 Depression Total Score: 0 11/30/19 24 1:02 PM EDT A Body Mass Index follow-up plan has been documented for the patient 11/30/2023 3:29 PM EDT documented as of this encounter Care Teams Secondary School Teacher Librarian Relationship Specialty Start Date End Date Simone Bejarano DO [address] [facility] [place] [address] PCP - General Family Medicine 10/30/24 documented as of this encounter
--- NOTE | 2024-11-23 11:24 | XR_ITS ---
[place] [address] Patient Name: ALISA GEORGE MRN: [id number] date: 1950 Sex: F Assigned Patient Location: ER Current Patient Location: ER Accession/Order Number: [id number] Exam Date: 11/23/2024 12:46 Report Date: 11/23/2024 12:51 At the request of: MARCELA WALLACE MD Procedure: XR knee RT 3V 2 views right knee plain film COMPARISON: 11/07/2019 HISTORY: Right knee pain and swelling for 6 weeks ACUTE FINDINGS: No acute findings DEGENERATIVE CHANGE: Mild medial joint space narrowing. Marginal spurring. Chondrocalcinosis of menisci. SOFT TISSUE FINDINGS: Unremarkable JOINT EFFUSION: Moderate joint effusion POSTOP CHANGES: None BONE MINERALIZATION: Adequate XR/XR knee RT 3V IMPRESSION: Moderate joint effusion. Similar Degenerative change. Impression dictated by: Teddy Kerns M.D. 11/23/2024 12:51 PM Dictation Location: [place] [address] Electronically authenticated by: [id number] Y Date: 11/23/2024 12:51
[2024-11-23] MEDS: FAMOTIDINE 20 MG TABLET PO (12:06)
[2024-11-23] MEDS: PREDNISONE 20 MG TABLET 40 MG PO (12:06)
[2024-11-23] MEDS: KETOROLAC TROMETHAMINE 30 MG/ML VIAL 15 MG IM (12:50)
--- NOTE | 2024-11-23 13:12 | ED_ITS ---
HPI - Extremity Problem General Chief complaint: Extremity Problem, Nontraumatic Stated complaint: SWOLLEN R LEG Time Seen by Provider: 11/23/24 11:15 Source: patient Mode of arrival: walk-in Limitations: no limitations History of Present Illness HPI Narrative: The patient comes to the ER with right knee swelling and pain that been going on at least for the last 6 weeks, 6 weeks ago she had a trip coming from [place] 12 hrs driving she has been doing some supportive care at home but with no resolution of her right knee swelling, swelling goes to the calf area as well No fall no trauma Related Data Previous Rx's ?Medication ?Instructions ?Recorded acetaminophen 650 mg 650 mg PO Q8H PRN pain #20 t abs 11/23/24 tablet,extended release (Tylenol 8 Hour) meloxicam 7.5 mg tablet 7.5 mg PO DAILY PRN pain #10 tabs 11/23/24 prednisone 20 mg tablet 40 mg (2 x 20 mg) PO DAILY 5 days 11/23/24 #10 tabs Allergies Allergy/AdvReac Type Severity Reaction Status Date / Time Latex, Natural Rubber Allergy Severe Rash Verified 11/23/24 11:05 Penicillins Allergy Severe Hives Verified 11/23/24 11:05 Review of Systems ROS Status of ROS 10 or more systems reviewed and unremark able except as noted in history and below PFSH PFSH Social History Little interest or pleasure in doing things: not at all Feeling down, depressed, or hopeless: not at all Exam Narrative Exam Narrative: Nurses notes and vital signs reviewed and patient is not hypoxic. General: Well-appearing and in no apparent distress. Skin: Warm, dry, no pallor noted. No rash. Head: Normocephalic, atraumatic. Right leg examination: The patient have the swelling and effusion of the right knee there is no redness no hotness no signs of infection and there is a good anterior tibial pulse with a good vascular supply, the patient have full range of movements patient with the limitation due to swelling in the right knee, there is also some edema extending to the calf area Neurological: A&O x4. No cranial nerve dysfunction observed. No truncal ataxia. Moves all extremities. Sensation intact. Psychiatric: Cooperative and interactive. Normal mood and affect. Constitutional Vital Signs, click to edit/add: Last Vital Signs Temp 98.2 F 11/23/24 11:06 Pulse 66 11/23/24 11:06 Resp 20 11/23/24 11:06 BP 175/77 H 11/23/24 11:06 Pulse Ox 97 11/23/24 11:06 O2 Del Method Room Air 11/23/24 11:06 Course Vital Signs Vital signs: Vital Signs Temperature 98.2 F 11/23/24 11:06 Pulse Rate 66 11/23/24 11:06 Respiratory Rate 20 11/23/24 11:06 Blood Pressure 175/77 H 11/23/24 11:06 Pulse Oximetry 97 11/23/24 11:06 Oxygen Delivery Method Room Air 11/23/24 11:06 Temperature 98.2 F 11/23/24 11:06 Pulse Rate 66 11/23/24 11:06 Respiratory Rate 20 11/23/24 11:06 Blood Pressure 175/77 H 11/23/24 11:06 Pulse Oximetry 97 11/23/24 11:06 Oxygen Delivery Method Room Air 11/23/24 11:06 MDM - Extremity (Nontraumatic) MDM Narrative Medical decision making narrative: Duplex of the right lower extremity shows no DVT X-ray shows effusion with no acute pathology Drake wrap applied and the patient was started on prednisone and Tylenol for supportive care for the arthritis Patient referred to orthopedic as outpatient The patient is to follow up with primary care physician in next 2-3 days or to return to the emergency department should any of the signs or symptoms worsen or new symptoms develop. The patient agrees with the following Diagnosis and Treatment plan and the patient will be discharged home. Discharge Plan Discharge Chief Complaint: Extremity Problem, Nontraumatic Clinical Impression: Arthritis, Effusion of knee Patient Disposition: Home, Self-Care Time of Disposition Decision: 13:12 Condition: Good Prescriptions / Home Meds: New prednisone 20 mg tablet 40 mg PO DAILY 5 Days Qty: 10 0RF acetaminophen [Tylenol 8 Hour] 650 mg tablet extended release 650 mg PO Q8H PRN (Reason: pain) Qty: 20 0RF meloxicam 7.5 mg tablet 7.5 mg PO DAILY PRN (Reason: pain) Qty: 10 0RF Print Language: Setswana Instructions: Arthritis (ED) Referrals: NAYELI SINGH [Primary Care Provider, Family Practice] - 1 week Lazarus Westfall MD [Physician, Orthopedics] - 1 week Discharge Date/Time: 11/23/24 13:56
== END 2024-11-23 13:56 | disposition home or self-care (01) ==
PROVIDERS: Emergency Provider Emergency Medicine; PCP Family Medicine
DX: M13.861 Other specified arthritis, right knee (principal); M25.461 Effusion, right knee; M25.561 Pain in right knee; R60.0 Localized edema
CPT/HCPCS: 73562; 93971; 96372; 99285; J1885; J7512

== ENCOUNTER 2025-03-14 13:19 | Outpatient (OUT) | payer MEDICARE, OTHER, SELFPAY ==
--- OUTSIDE RECORDS SUMMARY | 2025-03-10 14:00 | XMS_ITS | Encounter Summary ---
Author Organization [facility] Address [address] [facility] [address] Care Team Providers Care Door Hanger Name Role Phone Simone Bejarano MD Primary Care Provider [phone] Reason for Visit * Rehabilitation - Outpatient (Routine) - Authorized Specialty Diagnoses / Procedures Referred By Britt londono Referred To Contact Physical Therapy Diagnoses Right knee pain, unspecified chronicity Primary osteoarthritis of right knee Procedures MD OFFICE/OUTPATIENT NEW HIGH MDM 60 MINUTES Carmelo Mensah, DO [address] [place] [address] Phone: tel: fax: Sharmila Michael PT Referral ID Status Reason Start Date Expiration Date Visits Requested Visits Authorized [id number] Authorized Consult and Treat 01/29/2025 06/25/2025 20 30 Encounter Details Date Type Department Care Team (Latest Contact Info) Description 03/10/2025 2:00 PM EDT Treatment [facility] [address] [place] [address] Mikki Timmons, BENEDICTO Right knee pain, unspecified chronicity (Primary Dx); Primary osteoarthritis of right knee Social History Tobacco Use Types Packs/Day Years Used Date Smoking Tobacco: Never Alcohol Use Standard Drinks/Week Comments Never 0 (1 standard drink = 0.6 oz pur e alcohol) Comments Unknown Sex and Gender Information Value Date Recorded Sex Assigned at Not on file Legal Sex Female 7:17 PM EDT Gender Identity Not on file Sexual Orientation Not on file documented as of this encounter Progress Notes * Mikki Shanelle, UNIX ENGINEER - 03/10/2025 2:00 PM EDT Images from the original note were not included. Physical Therapy Treatment Visit Patient Name: Sultana Bacon Today's Date: 03/10/2025 Encounter Diagnoses Name Primary? Right knee pain, unspecified chronicity Yes Primary osteoarthritis of right knee Visit number: 4 Timed Code Treatment: 40 minutes Total Treatment Time: 55 minutes Time In: 1:50 PM Time Out: 2:45 PM History: Pt states back in September she returned from [place] and her knee and ankles started to swell. Was placed on water pills which helped ankles but not right knee. States pain and swelling continued to worsen. Went to urgent care and was thought to have DVT. Scans at hospital were negative. Wentto and was given knee injection. Shot only helped for a day or 2. Was sent to ortho who issued pt a brace and sent to therapy. Pt was told to change from Advil to Tylenol due to chronic kidney disease, not helping as much. Precautions: [place] Subjective: no change in R knee pain, continues to report constant pain. I need to be able to walkup and down steps Pain: 5/10 presently Objective: PT Evaluation (02/12/2025) RIGHT KNEE AROM: 10 degrees to 104 degres in supine PROM: 108 degrees flexion Joint play: mild laxity noted left MCL MMT: quad 4/5; hip 4-/5 Muscle length: 90/90 HS flexibility right 45 degrees, left 30 degrees left Palpation: mild tenderness right MCL Special Test: pain with Cuate testing medial and lateral Edema: suprapatellar right 45.7cm, left 45.7cm; infrapatella right 42.0cm, left 41.0cm Treatment: Manual Therapy: (10 minutes) Delivered Manual ther to R knee distraction and patellar mobs in sitting for pain and mobility Therapeutic Exercise: (30 minutes supervised ) Guided pt through ther and flex ex per grid to improve right LE quad functional strength, mobility per pt tolerance Nustep( 5 minutes unsupervised) hills lev 2 pre workout to prepare muscles Therapeutic Activity: Exercises to improve dynamic activities, functional tasks, functional mobility to return to prior activity level as needed Neuromuscular re-education: Balance Training, Muscle Facilitation, Dynamic Stability, Core Stabilization, and Blood Flow Restriction Training (BFRT) as needed. Modalities: (10 minutes) Post session pt supine with MHP to right knee and buttock in supine Assessment: Visit #4 with complaints of right knee pain. Pt returns after 2 week vacation R knee moderate antalgic gait pattern this date. Using SPC and brace most of the time. Lacking right terminalknee extension and decrease flexion during swing phase of gait. Pt performed open and closed chain activity with light reps. Continued with will benefit from further PT. 03-21-[address] Mensah Outcome Measure: Lower Extremity Functional Scale (LEFS): Rehab Diagnosis: right knee pain and weakness, difficulty walking, decrease ROM and mobility Short Term Goal: To be met in 2 weeks Goal 1: Pt to be instructed in home exercise program. Legal Billing Coordinator Goals: To be met in 10 weeks Goal 1: Pt to report independence and compliance with home program. Goal 2: Pt to achieve 120 degrees right knee flexion to assist with functional tasks such as squatting. Goal 3: Pt to be lacking no greater than 1 degree right knee extension to assist with proper gait. Goal 4: Pt to achieve 4+/5 strength right knee flexion and extension to assist with functional mobility and ADL's. Goal 5: Pt to score no less than 40/80 on LEFS indicating improved QOL. Pt will benefit from skilled PT for 2x/week from 02/12/2025 to 05/07/2025 to address the above impairments. I hereby deem this POC medically necessary. Please sign below. Date: Cosigned by Sharmila Michael PT at 03/10/2025 6:13 PM EDT documented in this encounter Plan of Treatment Upcoming Encounters Date Type Department Care Team (Late st Contact Info) Description 03/18/2025 1:30 PM EDT Treatment [facility] [address] [place] [address] Ulices Morris PTA 03/20/2025 2:00 PM EDT Treatment [facility] [address] [place] [address] NyasiaUlices khoury, [facility] 03/21/2025 11:00 AM EDT Office Visit [facility] [address] [place] [phone] Carmelo Mensah, [address] [place] [address] documented as of this encounter Visit Diagnoses Diagnosis Right knee pain, unspecified chronicity- Primary Primary osteoarthritis of right knee documented in this encounter Care Teams Door Hanger Relationship Specialty Start Date End Date Simone Bejarano MD [address] [facility] [place] [address] PCP - General Family Medicine 01/28/25 documented as of this encounter
--- OUTSIDE RECORDS SUMMARY | 2025-03-13 12:00 | XMS_ITS | Encounter Summary ---
Author Organization [facility] Address [address] [facility] [place] [address] Care Team Providers Care Electron Beam Welder Name Role Phone Simone Bejarano MD Primary Care Provider + [phone] Reason for Visit * Rehabilitation - Outpatient (Routine) - Authorized Specialty Diagnoses / Procedures Referred By Birtt londono Referred To Contact Physical Therapy Diagnoses Right knee pain, unspecified chronicity Primary osteoarthritis of right knee Procedures HI OFFICE/OUTPATIENT NEW HIGH MDM 60 MINUTES Carmelo Mensah, DO [address] [place] [address] Phone: tel: fax: Sharmila Michael PT Referral ID Status Reason Start Date Expiration Date Visits Requested Visits Authorized [id number] Authorized Consult and Treat 01/29/2025 06/25/2025 20 30 Encounter Details Date Type Department Care Team (Latest Contact Info) Description 03/13/2025 12:00 PM EDT Treatment [facility] [facility] [address] [facility] [address] [place] [address] Ulices Morris PTA Right knee pain, unspecified chronicity (Primary Dx); [...] Description 03/18/2025 1:30 PM EDT Treatment [facility] [facility] [address] [place] [address] NyasiaUlices khoury, MANAGEMENT LEAD 03/20/2025 2:00 PM EDT Treatment [facility] [address] [facility] [address] [place] [address] Ulices Morris, MANAGEMENT LEAD 03/21/2025 11:00 AM EDT Office Visit [facility] [address] [place] [phone] Carmelo Mensah, DO [address] [place] [address] documented as of this encounter Visit Diagnoses Diagnosis Right knee pain, unspecified chronicity- Primary Primary osteoarthritis of right knee documented in this encounter Care Teams Electron Beam Welder Relationship Specialty Start Date End Date Simone Bejarano MD [address], [facility] [place] [address] PCP - General Family Medicine 01/28/25 documented as of this encounter
--- OUTSIDE RECORDS SUMMARY | 2025-03-14 13:21 | XMS_ITS | Encounter Summary ---
Author Organization [employer] s tem Address [facility]-[id number] [address] [place] [address] Care Team Providers Care Mechanical Systems Designer Name Role Phone JavierSimone jimenez Primary Care Provider + [phone] Encounter Details Date Type Department Care Team (Late st Contact Info) Description 12/01/2022 Orders Only [facility] Internal Medicine - Family Medicine [address] [place] [phone] Kathya Clayton CMA Stage 3a chronic kidney disease (CKD) ([facility]); Other hyperlipidemia Social History Tobacco Use Types [...] 11/28/2022 Stage 3a chronic kidney disease (CKD) ([facility]) PHOSPHORUS Routine 11/28/2022 Stage 3a chronic kidney disease (CKD) (CMS-HCC) MAGNESIUM Routine 11/28/2022 Stage 3a chronic kidney disease (CKD) (CMS-HCC) LIPID PROFILE Routine 11/28/2022 Other hyperlipidemia COMPREHENSIVE METABOLIC PANEL Routine 11/28/2022 Stage 3a chronic kidney disease (CKD) ([facility]-H[facility]) documented in this encounter Results * (ABNORMAL) Uric acid (11/28/2022) Pathologist [facility] External Uric Acid 0.1(A) 2.6 - 6.0 MANUALLY TRANSCRIBED RESULTS Blood 11/28/2022 [facility] LAB BLOOD ORDERABLES Final R esult MANUALLY TRANSCRIBED RESULTS * (ABNORMAL) Lipid panel (11/28/2022) Pathologist [facility] External Cholesterol 234(A) 0 - 200 MANUALLY TRANSCRIBED RESULTS External Cholesterol:Hdl 4.7 4.4 - 7.1 MANUALLY TRANSCRIBED RESULTS External Hdl Cholesterol 50 40 - 60 MANUALLY TRANSCRIBED RESULTS External Ldl (Calc) 154 100 - 160 MANUALLY TRANSCRIBED RESULTS External Triglycerides 153(A) 0 - 150 MANUALLY TRANSCRIBED RESULTS Blood 11/28/2022 [facility] DO LAB BLOOD ORDERABLES Final R esult Performing Organization Address City/State/[facility] Co de Phone Number MANUALLY TRANSCRIBED RESULTS * (ABNORMAL) Comprehensive metabolic panel (11/28/2022) Pathologist [facility] External Albumin 3.3(A) 3.4 - 5.0 MAN [...] ORDERABLES Final R esult Performing Organization Address City/[facility] Co de Phone Number MANUALLY TRANSCRIBED RESULTS * Magnesium (11/28/2022) Magnesium 1.9 1.8 - 2.4 MANUALLY TRANSCRIBED RESULTS Blood 11/28/2022 us Simone Bejarano DO LAB BLOOD ORDERABLES Final R esult Performing Organization Address [facility] de Phone Number MANUALLY TRANSCRIBED RESULTS * Phosphorus (11/28/2022) Phosphorus 3.3 2.6 - 4.7 MANUALLY TRANSCRIBED RESULTS Blood 11/28/2022 Simone Bejarano DO LAB BLOOD ORDERABLES Final R esult Performing Organization Address [facility] de Phone Number MANUALLY TRANSCRIBED RESULTS documented in this encounter Visit Diagnoses Diagnosis Stage 3a chronic kidney disease (CKD) (CMS-HCC) Other hyperlipidemia documented in this encounter Care Teams Mechanical Systems Designer Relationship Specialty Start Date End Date Simone Bejarano DO [address], [place] [address] PCP - General Family Medicine 10/30/24 documented as of this encounter
--- OUTSIDE RECORDS SUMMARY | 2025-03-14 13:21 | XMS_ITS | Encounter Summary ---
Author Organization [facility] tem Address [id number] [address] [place] [address] Care Team Providers Care Sewer Digger Name Role Phone Simone Bejarano DO Primary Care Provider + [phone] Encounter Details Date Type Department Care Team (Late st Contact Info) Description 11/29/2022 [facility] [address] [place] [phone] Simone Bejarano DO [address], [place] [address] Social History Tobacco Use Types Packs/Day Years [...] on filedocumented in this encounter Care Teams Sewer Digger Relationship Specialty Start Date End Date Simone Bejarano DO [address], [place] [address] PCP - General Family Medicine 10/30/24 documented as of this encounter
--- OUTSIDE RECORDS SUMMARY | 2025-03-14 13:21 | XMS_ITS | Encounter Summary ---
Author Organization [facility] Address [address] [place] [address] Care Team Providers Care Director Child Name Role Phone Simone Bejarano MD Primary Care Provider Encounter Details Date Type Department Care Team (Late st Contact Info) Description 01/29/2025 Orders Only [facility] [address] [facility] [phone] Unallocated, [facility] ProviderMD [address] [place] [address] Social History Tobacco Use Types Packs/Day Years [...] [facility] [address] [facility] [address] [place] [address] Ulices Morris, CAR HOP 03/20/2025 2:00 PM EDT Treatment [facility] [address] [place] [address] Ulices Morris, CAR HOP 03/21/2025 11:00 AM EDT Office Visit [facility] [address] [place] [phone] Carmelo Mensah DO [address] [place] [address] documented as of this encounter Procedures Procedure Name Priority Date/Time Associated Diagnosis Comments VASC US LOWER EXTREMITY VENOUS DUPLEX RIGHT Routine 11/23/2024 4:07 PM EDT XR KNEE 1-2 VIEWS RIGHT Routine 11/23/2024 8:13 AM EDT documented in this encounter Results * Vascular US lower extremity venous duplex right (11/23/2024 4:07 PM EDT) Anatomical Region Laterality Modality Lower Extremities Ultrasound us [facility] Provider Unallocated MD IMG US PROCEDURES F inal Result * XR knee 1 or 2 views right (11/23/2024 8:13 AM EDT) Anatomical Region Laterality Modality Lower Extremities, Knee Right Radiogra phic Imaging us [facility] Provider Unallocated MD IMG XR PROCEDURES F inal Result documented in this encounter Visit Diagnoses Not on filedocumented in this encounter Care Teams Director Child Relationship Specialty Start Date End Date Simone Bejarano MD [address], [place] [address] PCP - General Family Medicine 01/28/25 documented as of this encounter
--- OUTSIDE RECORDS SUMMARY | 2025-03-14 13:21 | XMS_ITS | Encounter Summary ---
Author [facility] Address [id number] [address] [place] [address] Care Team Providers Care Locksmith Name Role Phone Simone Bejarano DO Primary Care Provider + [phone] Encounter Details Date Type Department Care Team (Late st Contact Info) Description 01/16/2025 [facility] [address] [place] [phone] Ref Prov, [place] [address] Social History Tobacco Use Types Packs/Day Years Used Date Smoking Tobacco: Never Smokeless Tobacco: Never Alcohol Use Standard Drinks/Week Comments Yes 0 (1 standard drink = 0.6 oz pur e alcohol) PHQ-2 Answer Date Recorded Total Score 0 12/09/2024 Childcare Answer Date Recorded Childcare Unknown 12/05/2018 Employment Answer Date Recorded Employment Unknown 12/05/2018 Hunger Screening Answer Date Recorded Within the past 12 months we worried whether our food would run out before we got money to buy more. Never True 12/09/2024 Within the past 12 months th e food we bought just didn't last and we didn't have money to get more. Never True 12/09/2024 Comments Unknown Sex and Gender Information Value Date Recorded Sex Assigned at Not on file Legal Sex Female 11:45 AM EDT Gender Identity Not on file Sexual Orientation Not on file documented as of this encounter Plan of Treatment Not on file documented as of this encounter Procedures Procedure Name Priority Date/Time Associated Diagnosis Comments MULTIPLE LABS Routine 11/14/2024 10:08 AM EDT documented in this encounter Results * Multiple labs (11/14/2024 10:08 AM EDT) us Not In System Ref Prov [place] [facility] Final Res ult MANUALLY TRANSCRIBED RESULTS documented in this encounter Visit Diagnoses Not on filedocumented in this encounter Additional Health Concerns Assessment Noted Time PHQ-9 Depression Total Score: 0 12/10/19 1:38 PM EDT A Body Mass Index follow-up plan has been documented for the patient 12/09/2024 6:11 PM EDT documented as of this encounter Care Teams Locksmith Relationship Specialty Start Date End Date Simone Bejarano DO [address] [facility] [place] [address] PCP - General Family Medicine 10/30/24 documented as of this encounter
--- OUTSIDE RECORDS SUMMARY | 2025-03-14 13:21 | XMS_ITS | Encounter Summary ---
Author Organization [facility] tem Address [id number] [address] [place] [address] Care Team Providers Care Senior Investigator Name Role Phone Simone Bejarano DO Primary Care Provider + [phone] Encounter Details Date Type Department Care Team (Late st Contact Info) Description 01/16/2025 Results Follow-Up [facility] Internal Medicine - Family Medicine [address] [place] [phone] Simone Bejarano DO [address], [place] [address] Multiple labs Social History Tobacco Use Types Packs/Day Years [...] on file documented as of this encounter Visit Diagnoses Not on filedocumented in this encounter Additional Health Concerns Assessment Noted Time PHQ-9 Depression Total Score: 0 12/10/19 1:38 PM EDT A Body Mass Index follow-up plan has been documented for the patient 12/09/2024 6:11 PM EDT documented as of this encounter Care Teams Senior Investigator Relationship Specialty Start Date End Date Simone Bejarano DO [address] [facility] [place] [address] PCP - General Family Medicine 10/30/24 documented as of this encounter
--- OUTSIDE RECORDS SUMMARY | 2025-03-14 13:21 | XMS_ITS | Encounter Summary ---
Author Organization Mama s tem Address [id number] [address] [place] [address] Care Team Providers Care Cigar Making Machine Operator Name Role Phone JavierSimone jimenez Primary Care Provider + [phone] Encounter Details Date Type Department Care Team (Late st Contact Info) Description 11/30/2022 Orders Only [facility] Internal Medicine - Family Medicine [address] [place] [phone] Kathya Clayton CMA Stage 3a chronic kidney disease (CKD) ([facility]); Acquired hypothyroidism Social History Tobacco Use Types [...] 11/28/2022 Stage 3a chronic kidney disease (CKD) ([facility]) VITAMIN D 25 HYDROXY Routine 11/28/2022 Stage 3a chronic kidney disease (CKD) ([facility]-HCC) CBC (NO DIFF) Routine 11/28/2022 Stage 3a chronic kidney disease (CKD) ([facility]) TSH Routine 11/28/2022 Acquired hypothyroidism T4, FREE [...] MANUALLY TRANSCRIBED RESULTS Blood 11/28/2022 Simone Bejarano LAB BLOOD ORDERABLES Final [facility] Performing Organization Address [facility] de Phone Number MANUALLY TRANSCRIBED RESULTS * TSH (11/28/2022) Pathologist [facility] External Tsh 2.394 0.358 - 3.740 MANUALLY TRANSCRIBED RESULTS Blood 11/28/2022 Simone Bejarano DO LAB BLOOD ORDERABLES Final R esult Performing Organization Address [facility] de Phone Number MANUALLY TRANSCRIBED RESULTS * Parathyroid Hormone, intact (11/28/2022) Pathologist [facility] PTH, Intact 23 15 - 65 MANUALLY TRANSCRIBED RESULTS 11/28/2022 Simoneever Herrera DO LAB BLOOD ORDERABLES Final R esult Performing Organization Address [facility] Co de Phone Number MANUALLY TRANSCRIBED RESULTS * T4, free (11/28/2022) Pathologist [facility] External T4 Free 1.07 0.76 - 1.46 MANUALLY TRANSCRIBED RESULTS Blood 11/28/2022 us Simone Bejarano DO LAB BLOOD ORDERABLES Final R esult Performing Organization Address City/[facility]/ZIP Co de Phone Number MANUALLY TRANSCRIBED RESULTS * Vitamin D 25 hydroxy (11/28/2022) External Vitamin D 25-Hydroxy 38.2 20 - 100 MANUALLY TRANSCRIBED RESULTS Blood 11/28/2022 Simone Bejarano DO LAB BLOOD ORDERABLES Final R esult Performing Organization Address [facility] Co de Phone Number MANUALLY TRANSCRIBED RESULTS documented in this encounter Visit Diagnoses Diagnosis Stage 3a chronic kidney disease (CKD) ([facility]) Acquired hypothyroidism Unspecified hypothyroidism documented in this encounter Care Teams Cigar Making Machine Operator Relationship Specialty Start Date End Date Simone Bejarano DO [address] [facility], [place] [address] PCP - General Family Medicine 10/30/24 documented as of this encounter
--- OUTSIDE RECORDS SUMMARY | 2025-03-14 13:21 | XMS_ITS | Encounter Summary ---
Author Organization [employer] s tem Address [id number] [address] [place] [address] Care Team Providers Care Veterinary Science Teacher Name Role Phone Simone Bejarano Primary Care Provider + [phone] Encounter Details Date Type Department Care Team (Late st Contact Info) Description 05/26/2023 Telephone [facility] Internal Medicine - Family Medicine [address] [place] [phone] Krai Dockery, ORGANIC CHEMISTRY PROFESSOR-NURSING UNIT COORDINATOR [address] [place] [address] Social History Tobacco Use Types Packs/Day Years [...] documented in this encounter Plan of Treatment Not on file documented as of this encounter Visit Diagnoses Not on filedocumented in this encounter Additional Health Concerns Assessment Noted Time PHQ-9 Depression Total Score: 0 12/13/19 10:55 AM EDT documented as of this encounter Care Teams Veterinary Science Teacher Relationship Specialty Start Date End Date Simone Bejarano DO [address], [facility] [place] [address] PCP - General Family Medicine 10/30/24 documented as of this encounter
--- OUTSIDE RECORDS SUMMARY | 2025-03-14 13:21 | XMS_ITS | Encounter Summary ---
Author Organization [employer] s tem Address [facility][id number] [address] [place] [address] Care Team Providers Care Poultry Tender Name Role Phone Simone Bejarano DO Primary Care Provider + [phone] Encounter Details Date Type Department Care Team (Late st Contact Info) Description 11/27/2023 Orders Only [facility] Internal Medicine - Family Medicine [address] [place] [phone] External, Scanning Provider Social History Tobacco Use [...] documented as of this encounter Care Teams Poultry Tender Relationship Specialty Start Date End Date Simone Bejraano DO [address] [place] [address] PCP - General Family Medicine 10/30/24 documented as of this encounter
--- OUTSIDE RECORDS SUMMARY | 2025-03-14 13:21 | XMS_ITS | Encounter Summary ---
Author Organization [employer] tem Address [facility][id number] [address] [place] [address] Care Team Providers Care Marketing Representative Name Role Phone Simone Bejarano Primary Care Provider + [phone] Encounter Details Date Type Department Care Team (Late st Contact Info) Description 06/02/2023 Orders Only [facility] Internal Medicine - Family Medicine [address] [place] [phone] Kitty Beard CMA Acquired hypothyroidism; Other hyperlipidemia [...] * Multiple labs (05/30/2023 10:38 AM EST) Kari Leonardo Sarkis [facility] Final Resul t Performing Organization Address City/[facility] Co de Phone Number MANUALLY [...] Total Protein 6.7 SUNQUEST Blood 05/30/2023 Kari Leonardo Sarkis [facility] LAB BLOOD ORDERABLES Final Result Performing Organization Address [facility] de Phone Number SUNQUEST * Lipid panel (05/30/2023) External Cholesterol 185 SUNQUEST External Hdl Cholesterol 58 SUNQUEST External Ldl (Calc) 107.6 SUNQUEST External Triglycerides 97 SUNQUEST Blood 05/30/2023 Kari Leonardo Sarkis [facility] LAB BLOOD ORDERABLES Final Result Performing Organization Address [facility] de Phone Number SUNQUEST * Thyroid profile includes TSH FT4 (05/30/2023) TSH 3.740 SUNQUEST FREET4 {PL} 1.12 SUNQUEST 05/30/2023 Kari Dockery [facility] LAB BLOOD ORDERABLES Final Result GERARDOQUEST documented in this encounter Visit Diagnoses Diagnosis Acquired hypothyroidism Unspecified hypothyroidism Other hyperlipidemia documented in this encounter Additional Health Concerns Assessment Noted Time PHQ-9 Depression Total Score: 0 06/02/20 23 10:44 AM EST documented as of this encounter Care Teams Marketing Representative Relationship Specialty Start Date End Date Simone Bejarano DO [address], [place] [address] PCP - General Family Medicine 10/30/24 documented as of this encounter
--- OUTSIDE RECORDS SUMMARY | 2025-03-14 13:21 | XMS_ITS | Encounter Summary ---
Author Organization [facility] Address [id number] [address] [place] [address] Care Team Providers Care Shaft Tender Name Role Phone Simone Bejarano DO Primary Care Provider + [phone] Encounter Details Date Type Department Care Team (Late st Contact Info) Description 11/25/2024 [facility] - Family Medicine [address] [place] [phone] Ref Prov, [place] [address] Social History Tobacco Use Types Packs/Day Years [...] Procedure Name Priority Date/Time Associated Diagnosis Comments XR KNEE RT 1 OR 2 VWS Routine 11/23/2024 4:09 PM EDT documented in this encounter Results * X-ray knee right 1 or 2 views (11/23/2024 4:09 PM EDT) Anatomical Region Laterality Modality Lower Extremities, MSK, Knee Right Com puted Radiography us Not In System Ref Prov IMG DIAGNOSTIC IMAGING OR DERABLES Final Result documented in this encounter Visit Diagnoses Not on filedocumented in this encounter Additional Health Concerns Assessment Noted Time PHQ-9 Depression Total Score: 0 10/16/19 2:03 PM EDT A Body Mass Index follow-up plan has been documented for the patient 10/15/2024 4:34 PM EDT documented as of this encounter Care Teams Shaft Tender Relationship Specialty Start Date End Date Simone Bejarano DO [address] [facility] [place] [address] PCP - General Family Medicine 10/30/24 documented as of this encounter
--- OUTSIDE RECORDS SUMMARY | 2025-03-14 13:21 | XMS_ITS | Encounter Summary ---
Author Organization [facility] Address [address] [place] [address] Phone Care Team Providers Care Mainframe Software Developer Name Role Phone Simone Bejarano Primary Care Provider Encounter Details Date Type Department Care Team (Late st Contact Info) Description 02/23/2023 Scanned Document [facility] [address] [place] [address] [place] [address] Department of Pediatrics-Genetics [place] [id number] Social History Tobacco Use Types Packs/Day Years [...] documented as of this encounter Care Teams Mainframe Software Developer Relationship Specialty Start Date End Date Simone Bejarano DO PCP - General 02/23/23 documented as of this encounter
--- OUTSIDE RECORDS SUMMARY | 2025-03-14 13:21 | XMS_ITS | Encounter Summary ---
Author Organization [facility] [email or web address] [facility] tem Address [place]-[id number] [address] [place] [address] Care Team Providers Care Dialysis Rn Name Role Phone Simone Bejarano DO Primary Care Provider + [phone] Encounter Details Date Type Department Care Team (Late st Contact Info) Description 01/31/2025 Results Follow-Up [facility] Internal Medicine - Family Medicine [address] [place] [phone] Simone Bejarano DO [address], [place] [address] Dexa scan central skeletal Social History Tobacco Use Types Packs/Day Years [...] documented as of this encounter Care Teams Dialysis Rn Relationship Specialty Start Date End Date Simone Bejarano DO [address] [facility] [place] [address] PCP - General Family Medicine 10/30/24 documented as of this encounter
--- OUTSIDE RECORDS SUMMARY | 2025-03-14 13:21 | XMS_ITS | Encounter Summary ---
Author Organization [facility] Address [address] [place] [address] Care Team Providers Care Laster Hand Name Role Phone Simone Bejarano MD Primary Care Provider Encounter Details Date Type Department Care Team (Latest Contact Info) Description 03/10/2025 Travel Social History Tobacco Use Types Packs/Day Years [...] [facility] [address] [facility] [address] [place] [address] Ulices Morris [facility] 03/20/2025 2:00 PM EDT Treatment [facility] [address] [facility] [address] [place] [address] Ulices Morris [facility] 03/21/2025 11:00 AM EDT Office Visit [facility] [address] [place] [phone] Carmelo Mensah, [address] [place] [address] documented as of this encounter Visit Diagnoses Not on filedocumented in this encounter Care Teams Laster Hand Relationship Specialty Start Date End Date Simone Bejarano MD [address], [place] [address] PCP - General Family Medicine 01/28/25 documented as of this encounter
--- OUTSIDE RECORDS SUMMARY | 2025-03-14 13:21 | XMS_ITS | Clinical Summary ---
Author Organization [facility] Address [address] [place] [address] Phone Care Team Providers Care Uppers Edge Burnisher Name Role Phone Simone Bejarano Primary Care Provider Allergies Active Allergy Reactions Criticality Noted Date Comments Latex Rash Low 04/19/2023 BLISTERS Penicillins Unknown Medium 04/19/2023 ADVERSE REACTION Medications levothyroxine (Synthroid, Levoxyl) 75 mcg tablet Take 1 tablet (75 mcg) by mouth once daily in the morning. Take before meals. 01/06/2023 Active aspirin 81 mg EC tablet Take 1 tablet (81 mg) by mouth once daily. Active escitalopram (Lexapro) 5 mg tablet Take 1 tablet (5 mg) by mouth once daily as needed. 08/18/2023 Active furosemide (Lasix) 20 mg tablet Take 1 tablet (20 mg) by mouth once daily as needed. 10/15/2024 Active rosuvastatin (Crestor) 10 mg tablet Take 1 tablet (10 mg) by mouth once daily. 10/10/2024 Active Active Problems Problem Noted Date Diagnosed Date Never smoked tobacco 10/24/2023 Benign hypertensive heart disease without heart failure 04/20/2023 BMI 34.0-34.9,adult 04/19/2023 Asymptomatic varicose veins of both lower extrem ities 12/12/2022 Dyspnea on exertion 12/12/2022 Acquired hypothyroidism 11/14/2022 Other hyperlipidemia 11/14/2022 Stage 3a chronic kidney disease (CKD) (Multi) Immunizations Immunization Administration Dates Next Due Flu [...] Health Maintenance Due Date Last Done Comments CT Colonography 1952 Colonoscopy 1952 Colorectal Cancer Screening 1952 FIT-DNA (Cologuard) 1952 FIT 1952 Lipid Panel 1952 Medicare Annual Wellness Visit (AWV) 1950 Sigmoidoscopy 1952 TSH Level 1952 Hepatitis C Screening 1970 CKD: Urine Protein Screening 1971 Mammogram 1992 MMR Vaccines (1 of 1 - Standard series) 05/03/2013 Zoster Vaccines (2 of 3) 05/31/2013 04/05/2013 Bone Density Scan 2017 COVID-19 Vaccine (2 - season) 2025 08/04/2020 Influenza Vaccine (#1) 2025 3, 04/20/2021, 04/17/2019, Additional history exists DTaP/Tdap/Td Vaccines [...] topic Insurance MEDICARE PART A AND B [facility] MEDICARE SUPPLEMENT MEDICARE [place] [address] [place] [address] MEDICARE SUPPLEMENT Care Teams Uppers Edge Burnisher Relationship Specialty Start Date End Date Simone Bejarano DO PCP - General 02/23/23
--- OUTSIDE RECORDS SUMMARY | 2025-03-14 13:21 | XMS_ITS | Encounter Summary ---
Author Organization [facility] Address [id number] [address] [place] [address] Care Team Providers Care Bouffant Curtain Machine Tender Name Role Phone Simone Bejarano DO Primary Care Provider + [phone] Encounter Details Date Type Department Care Team (Late st Contact Info) Description 11/22/2024 Orders Only [facility] - Family Medicine [address] [place] [phone] Ref Prov, [place] [address] Social History Tobacco Use Types Packs/Day Years [...] EDT) us Not In System Ref Prov RI IMAGING Final Res ult MANUALLY TRANSCRIBED RESULTS documented in this encounter Visit Diagnoses Not on filedocumented in this encounter Additional Health Concerns Assessment Noted Time PHQ-9 Depression Total Score: 0 10/16/19 2:03 PM EDT A Body Mass Index follow-up plan has been documented for the patient 10/15/2024 4:34 PM EDT documented as of this encounter Care Teams Bouffant Curtain Machine Tender Relationship Specialty Start Date End Date Simone Bejarano DO [address] [facility], [place] [address] PCP - General Family Medicine 10/30/24 documented as of this encounter
--- OUTSIDE RECORDS SUMMARY | 2025-03-14 13:21 | XMS_ITS | Clinical Summary ---
Author Organization [facility] Address [address] [facility] [facility] [address] [address] Care Team Providers Care Stamping Die Maker Bench Name Role Phone Simone Bejarano MD Primary Care Provider Allergies Active Allergy Reactions Criticality Noted Date Comments Latex Rash Low 04/19/2023 BLISTERS Penicillins Rash,Unknown Medium 04/19/2023 ADVERSE REACTION Medications aspirin 81 MG EC tablet Take 81 mg by mouth in the morning. Active levothyroxine (Synthroid, Levoxyl) 75 MCG tablet Take 1 tablet by mouth in the morning. 10/30/2023 Active rosuvastatin (Crestor) 5 MG tablet Take 5 mg by mouth at bedtime 10/24/2023 Active furosemide (Lasix) 20 MG tablet Take 20 mg by mouth Daily as needed 10/15/2024 Active meloxicam (Mobic) 7.5 MG tablet Take 7.5 mg by mouth Daily as needed 11/23/2024 Active rosuvastatin (Crestor) 10 MG tablet 10/10/2024 Active Active Problems No known active problems Encounters Date Type Department Care Team Description 03/13/2025 12:00 PM EDT Treatment [facility] [address] [facility] [address] [place] [address] Ulices Morris, BENEDICTO Right knee pain, unspecified chronicity (Primary Dx); Primary osteoarthritis of right knee 03/13/2025 Bamboo flowsheet [facility] [address] [facility] [address] [place] [address] Ulices Morris PTA 03/13/2025 Travel 03/10/2025 2:00 PM EDT Treatment [facility] [address] [facility] [address] [place] [address] Anabella Timmonsissa, PARALEGAL SUPERVISOR Right knee pain, unspecified chronicity (Primary Dx); Primary osteoarthritis of right knee 03/10/2025 Bamboo flowsheet [facility] [address] [facility] [address] [place] [address] Anabella Timmonsissa, PARALEGAL SUPERVISOR 03/10/2025 Travel 02/19/2025 3:00 PM EDT Treatment [facility] [address] [facility] [address] [place] [address] Sharmila Michael, PT Right knee pain, unspecified chronicity (Primary Dx); Primary osteoarthritis of right knee 02/19/2025 Bamboo flowsheet [facility] [address] [facility] [address] [place] [address] Sharmila Michael, PT 02/19/2025 Travel 02/17/2025 1:00 PM EDT Treatment [facility] [address] [facility] [address] [place] [address] Anabella Timmonsissa, PARALEGAL SUPERVISOR Right knee pain, unspecified chronicity (Primary Dx); Primary osteoarthritis of right knee 02/17/2025 Bamboo flowsheet [facility] [address] [facility] [address] [place] [address] Kimberlyy, Mikki, PARALEGAL SUPERVISOR 02/17/2025 Travel 02/12/2025 2:30 PM EDT Evaluation [facility] [address] [facility] [address] [place] [address] Sharmila Michael, PT Right knee pain, unspecified chronicity; Primary osteoarthritis of right knee 02/12/2025 Plan of Care Documentation [facility] [address] [facility] [address] [place] [address] 02/12/2025 Bamboo flowsheet [facility] [address] [facility] [address] [place] [address] Sharmila Michael, PT 02/12/2025 Travel 01/30/2025 10:45 AM EDT Clinical Support [facility] [address] [place] [address] Carmelo Mensah DO Primary osteoarthritis of right knee 01/29/2025 2:45 PM EDT Office Visit [facility] [address] [place] [address] Carmelo Mensah DO Right knee pain, unspecified chronicity (Primary Dx); Primary osteoarthritis of right knee 01/29/2025 11:10 AM EDT Ancillary Procedure [facility] [address] [place] [address] 01/29/2025 Travel 01/29/2025 Orders Only [facility] [address] [place] [address] Unallocated, Abdiaziz Ramirez MD from Last 3 Months Family History Relation Name Status Comments Father [...] - Inhaled Oxygen Concentration - - Weight 89.8 kg (198 lb) 02/04/2025 8:09 AM EDT Height 167.6 cm (5' 6 ) 02/04/2025 8:09 AM EDT Body Mass Index 31.96 02/04/2025 8:09 AM EDT Plan of Treatment Upcoming Encounters Date Type Department Care Team (Late st Contact Info) Description 03/18/2025 1:30 PM EDT Treatment [facility] [address] [facility] [address] [place] [address] Ulices Morris PARALEGAL SUPERVISOR 03/20/2025 2:00 PM EDT Treatment [facility] [address] [place] [address] Ulices Morris, PARALEGAL SUPERVISOR 03/21/2025 11:00 AM EDT Office Visit [facility] [place] [address] [place] [address] Carmelo Mensah, DO [address] [place] [address] Procedures Procedure Name Priority Date/Time Associated Diagnosis Comments XR KNEE 1-2 VIEWS RIGHT Routine 01/29/2025 11:09 AM EDT Right knee pain, unspecified chronicity from Last 3 Months Results * XR knee 1 or 2 views right (01/29/2025 11:09 AM EDT) Anatomical Region Laterality Modality Lower Extremities, Knee Right [facility] Imaging Narrative 01/31/2025 7:46 AM EDT Imaging Result: X-ray AP bilateral weight bearing, bilateral sunrise total of four views with permanent images are saved to the record coupled with previous films from the [facility] shows moderate medial osteoarthritis with some varus deformity, more mild medial osteoarthritis on the left. She does have more significant patellofemoral arthrosis and primarily medial, right over left. us Carmelo Mensah DO IMG XR PROCEDURES Final Result from Last 3 Months Insurance MEDICARE HUMANA HUMANA MEDICARE SUPPLEMENT Care Teams Stamping Die Maker Bench Relationship Specialty Start Date End Date Simone Bejarano MD [address] [facility] [place] [address] PCP - General Family Medicine 01/28/25
--- OUTSIDE RECORDS SUMMARY | 2025-03-14 13:21 | XMS_ITS | Encounter Summary ---
Author Organization [facility] Address [facility] [id number] [address] [place] [address] Care Team Providers Care Electrical And Instrument Mechanic Name Role Phone Simone Bejarano DO Primary Care Provider + [phone] Encounter Details Date Type Department Care Team (Late st Contact Info) Description 12/08/2022 Orders Only [facility] Internal Medicine - Family Medicine [address] [place] [address] External, Scanning Provider Social History Tobacco Use [...] Procedure Name Priority Date/Time Associated Diagnosis Comments HM MAMMOGRAPHY Routine 12/08/2022 documented in this encounter Results * HM MAMMOGRAPHY (12/08/2022) Anatomical Region Laterality Modality Other us Scanning Provider External HEALTH MAINTENANCE Fi nal Result documented in this encounter Visit Diagnoses Not on filedocumented in this encounter Care Teams Electrical And Instrument Mechanic Relationship Specialty Start Date End Date Simone Bjearano DO [address] [facility] [place] [address] PCP - General Family Medicine 10/30/24 documented as of this encounter
--- OUTSIDE RECORDS SUMMARY | 2025-03-14 13:21 | XMS_ITS | Encounter Summary ---
Author Organization [facility] Kuponjo s tem Address [id number] [address] [place] [address] Care Team Providers Care Corner Cutter Machine Operator Name Role Phone Simone Bejarano DO Primary Care Provider + [phone] Encounter Details Date Type Department Care Team (Late st Contact Info) Description 01/01/2025 Results Follow-Up [facility] Internal Medicine - Family Medicine [address] [place] [phone] Simone Bejarano DO [address], [place] [address] Cologuard [facility] Social History Tobacco Use Types Packs/Day Years [...] documented as of this encounter Care Teams Corner Cutter Machine Operator Relationship Specialty Start Date End Date Simone Bejarano DO [address] [facility] [place] [address] PCP - General Family Medicine 10/30/24 documented as of this encounter
--- OUTSIDE RECORDS SUMMARY | 2025-03-14 13:21 | XMS_ITS | Encounter Summary ---
Author Organization [employer] s tem Address [id number] [address] [place] [address] Care Team Providers Care Filling Technician Name Role Phone Simone Bejarano Primary Care Provider + [phone] Encounter Details Date Type Department Care Team (Late st Contact Info) Description 10/14/2024 [facility] [address] [place] [address] Ravinder Cuevas CMA Social History Tobacco Use [...] documented as of this encounter Care Teams Filling Technician Relationship Specialty Start Date End Date Simone Bejarano DO [address] [facility], [place] [address] PCP - General Family Medicine 10/30/24 documented as of this encounter
--- OUTSIDE RECORDS SUMMARY | 2025-03-14 13:21 | XMS_ITS | Encounter Summary ---
Author Organization [facility] Address [address] [place] [address] Care Team Providers Care Solution Design And Analysis Manager Name Role Phone Simone Bejarano MD Primary Care Provider Encounter Details Date Type Department Care Team (Latest Contact Info) Description 03/13/2025 Travel Social History Tobacco Use Types Packs/Day [...] [facility] [address] [facility] [address] [place] [address] Ulices Morris [facility] 03/20/2025 2:00 PM EDT Treatment [facility] [address] [facility] [address] [place] [address] Ulices Morris [facility] 03/21/2025 11:00 AM EDT Office Visit [facility] [address] [place] [phone] Carmelo Mensah, [address] [place] [address] documented as of this encounter Visit Diagnoses Not on filedocumented in this encounter Care Teams Solution Design And Analysis Manager Relationship Specialty Start Date End Date Simone Bejarano MD [address], [place] [address] PCP - General Family Medicine 01/28/25 documented as of this encounter
--- OUTSIDE RECORDS SUMMARY | 2025-03-14 13:21 | XMS_ITS | Encounter Summary ---
Author Organization [facility] Address [address] [place] [address] Care Team Providers Care High School Social Studies Tutor Name Role Phone Simone Bejarano MD Primary Care Provider Encounter Details Date Type Department Care Team (Late st Contact Info) Description 03/13/2025 Bamboo flowsheet [facility] [address] [facility] [address] [place] [address] Ulices Morris PTA Social History Tobacco Use Types Packs/Day Years [...] [facility] [address] [facility] [address] [place] [address] Ulices Morris PTA 03/20/2025 2:00 PM EDT Treatment [facility] [address] [place] [address] Ulices Morris PTA 03/21/2025 11:00 AM EDT Office Visit [facility] [address] [place] [address] Carmelo Mensah DO [address] [place] [address] documented as of this encounter Visit Diagnoses Not on filedocumented in this encounter Care Teams [employer] Social Studies Tutor Relationship Specialty Start Date End Date Simone Bejarano MD [address] [facility] [place] [address] PCP - General Family Medicine 01/28/25 documented as of this encounter
--- OUTSIDE RECORDS SUMMARY | 2025-03-14 13:21 | XMS_ITS | Encounter Summary ---
[facility][id number] [address] [place] [address] Care Team Providers Care Plant Physiology Teacher Name Role Phone Simone Bejarano Primary Care Provider + [phone] Encounter Details Date Type Department Care Team (Late st Contact Info) Description 11/24/2023 Orders Only [facility] Internal Medicine - Family Medicine [address] [place] [phone] Kari Dockery, JOB SPOTTER-PROPERTY MANAGEMENT BOOKKEEPER [address] [facility] [address] Stage 3a chronic kidney disease (CKD) ([facility]); Other hyperlipidemia Social History Tobacco Use Types [...] 11/24/2023 Stage 3a chronic kidney disease (CKD) ([facility]) VITAMIN D 25 HYDROXY Routine 11/24/2023 Stage 3a chronic kidney disease (CKD) ([facility]) PHOSPHORUS Routine 11/24/2023 Stage 3a chronic kidney disease (CKD) ([facility]) MAGNESIUM Routine 11/24/2023 Stage 3a chronic kidney disease (CKD) ([facility]) LIPID PROFILE Routine 11/24/2023 Other hyperlipidemia COMPREHENSIVE METABOLIC PANEL Routine 11/24/2023 Other hyperlipidemia documented in this encounter Results * Vitamin D 25 hydroxy (11/24/2023) External Vitamin D 25-Hydroxy 39.0 [facility] Blood 11/24/2023 [facility]ari Dock[facility] Final Result Performing Organization Address City/State/[facility] Co de Phone Number [facility] * Comprehensive metabolic panel (11/24/2023) External [...] Ca 9.3 [facility] Blood 11/24/2023 Kari Dockery [facility] Final Result Performing Organization Address City/State/[facility] de Phone Number [facility] * Phosphorus (11/24/2023) Phosphorus 3.7 [facility] Blood 11/24/2023 Kari Dockery [facility] LAB BLOOD ORDERABLES Final Result Performing Organization Address [facility] de Phone Number [facility] * Magnesium (11/24/2023) Magnesium 1.9 [facility] Blood 11/24/2023 Kari Dockery [facility] LAB BLOOD ORDERABLES Final Result Performing Organization Address [facility] de Phone Number [facility] * Lipid panel (11/24/2023) External Cholesterol 185 [facility] External Triglycerides 93 [facility] External Hdl Cholesterol 66 [facility] External Ldl (Calc) 101.0 [facility] VLDL 18.6 [facility] Chol/HDL ratio 2.8 [facility] Blood 11/24/2023 Kari Dockery [facility] LAB BLOOD ORDERABLES Final Result Performing Organization Address [facility] de Phone Number [facility] * [...] 10*3/uL [facility] IgA 0.02 [facility] 11/24/2023 Kari Leonardo Jorgeamado JOB SPOTTER-PROPERTY MANAGEMENT BOOKKEEPER LAB BLOOD ORDERABLES Final Result [facility] documented in this encounter Visit Diagnoses Diagnosis Stage 3a chronic kidney disease (CKD) (CMS-HCC) Other hyperlipidemia documented in this encounter Additional Health Concerns Assessment Noted Time PHQ-9 Depression Total Score: 0 06/02/20 23 10:44 AM EST documented as of this encounter Care Teams Plant Physiology Teacher Relationship Specialty Start Date End Date Simone Bejarano DO [address], [facility] [place] [address] PCP - General Family Medicine 10/30/24 documented as of this encounter
--- OUTSIDE RECORDS SUMMARY | 2025-03-14 13:21 | XMS_ITS | Encounter Summary ---
Author Organization [facility] Address [address] [place] [address] Care Team Providers Care Epoxy Coatings Installer Name Role Phone Simone Bejarano MD Primary Care Provider Encounter Details Date Type Department Care Team (Late st Contact Info) Description 03/10/2025 Bamboo flowsheet [facility] [address] [facility] [address] [place] [address] Mikki Timmons PTA Social History Tobacco Use Types Packs/Day [...] [facility] [address] [facility] [address] [place] [address] Ulices Morris PTA 03/20/2025 2:00 PM EDT Treatment [facility] [address] [facility] [address] [place] [address] Ulices Morris PTA 03/21/2025 11:00 AM EDT Office Visit [facility] [address] [place] [phone] Carmelo Mensah DO [address] [place] [address] documented as of this encounter Visit Diagnoses Not on filedocumented in this encounter Care Teams Epoxy Coatings Installer Relationship Specialty Start Date End Date Simone Bejarano MD [address] [facility] [place] [address] PCP - General Family Medicine 01/28/25 documented as of this encounter
--- OUTSIDE RECORDS SUMMARY | 2025-03-14 13:21 | XMS_ITS | Clinical Summary ---
Author Organization m[employer] tem Address [id number] [address] [place] [address] Care Team Providers Care Flaking Roll Operator Name Role Phone CarleeSimone Tiny ASH Primary Care Provider + [phone] Allergies Active Allergy Reactions Criticality Noted Date Comments Latex Rash Low 04/19/2023 BLISTERS Penicillins Rash Medium 04/19/2023 ADVERSE REACTION Medications aspirin 81 mg Take 1 tablet (81 mg total) by mouth in the morning. Active rosuvastatin (CRESTOR) 10 mg tablet Take 1 tablet (10 mg total) by mouth nightly. 90 tablet 10/10/2024 Active furosemide (LASIX) 20 mg tabletIndicatio ns:Localized swelling of both lower legs Take 1 tablet (20 mg total) by mouth daily as needed (leg swelling). 90 tablet 1 10/15/2024 Active escitalopram (LEXAPRO) 5 mg tabletIndicatio ns:Reactive depression TAKE 1 TABLET IN THE MORNING 90 tablet 12/31/2024 Active levothyroxine (SYNTHROID, LEVOTHROID) 75 MCG tablet TAKE 1 TABLET IN THE MORNING 90 tablet 3 12/31/2024 Active Active Problems Problem Noted Date Diagnosed Date Osteoarthritis of thumb, right 11/30/2023 Asymptomatic varicose veins of both lower extrem ities 12/12/2022 Dyspnea on exertion 12/12/2022 Class 1 obesity due to exces s calories with serious comorbidity and body mass index (BMI) of 33.0 to 33.9 in adult 12/12/2022 Acquired hypothyroidism 11/14/2022 Other hyperlipidemia 11/14/2022 Stage 3a chronic kidney disease (CKD) 11/14/2022 Prediabetes Encounters Date Type Department Care Team Description 01/31/2025 Results Follow-Up [facility] Internal Medicine - Family Medicine [address] [place] [address] Simone Bejarano, DO Dexa scan central skeletal 01/27/2025 1:45 PM EDT Support Visit [facility] Internal Medicine - Family Medicine [address] [address] Simone Bejarano, DO Asymptomatic menopausal state (Primary Dx); Right knee pain, unspecified chronicity 01/27/2025 Travel 01/16/2025 Results Follow-Up [facility] Internal Medicine - Family Medicine [address] [place] [address] Simone Bejarano, DO Multiple labs 01/16/2025 Orders Only [facility] Internal Medicine - Family Medicine [address] [place] [address] Ref Prov, Not In System 01/01/2025 Results Follow-Up [facility] Internal Medicine - Family Medicine [address] [place] [address] Simone Bejarano, DO Cologuard [facility] 12/31/2024 Refill [facility] Internal Medicine - Family Medicine [address] [place] [address] Simone Bejarano, DO Reactive depression from Last 3 Months Immunizations Immunization Administration [...] Sign Reading Time Taken Comments Blood Pressure 120/70 12/09/2024 1:39 PM EDT Pulse 82 12/09/2024 1:39 PM EDT Temperature 36.8 C (98.3 F) 12/09/2024 1:39 PM EDT Respiratory Rate 20 12/09/2024 1:39 PM EDT Oxygen Saturation 98% 12/09/2024 1:39 PM EDT Inhaled Oxygen Concentration - - Weight 94.4 kg (208 lb 3.2 oz) 12/09/2024 1:39 P M EDT Height 168.9 cm (5' 6.5 ) 12/09/2024 1:39 PM EDT Body Mass Index 33.1 12/09/2024 1:39 PM EDT Plan of Treatment Health Maintenance Due Date Last Done Comments Medicare Annual Wellness Visit 1950 Zoster (Shingles) Vaccine (2 of 3) 05/31/2013 04/05/2013 Mammogram 12/09/2023 12/08/2022, 11/29/2022 Influenza Vaccine 02/24/2025 04/24/2023, , 04/17/2019, Additional history exists Adult BMI Follow Up Plan 12/09/2025 12/09/2024 Adult BMI Screening 12/09/2025 12/09/2024 Depression Screening 12/09/2025 12/09/2024 Fall Risk Screening 12/09/2025 12/09/2024 Tobacco Screening 12/09/2025 12/09/2024 Colonoscopy 01/29/2026 Postponed from 1997 (Not Indicated) DTaP,Tdap and Td Vaccines (3 - Td or Tdap) 06/13/2026 06/13/2016, 06/23/2010 COVID-19 Vaccine Discontinued 08/04/2020 Medical Devices Not on file Procedures Procedure Name Priority Date/Time Associated Diagnosis Comments DEXA SCAN CENTRAL SKELETAL Routine 01/27/2025 5:18 PM EDT Asymptomatic menopausal state COLOGUARD NON-[facility] Routine 12/23/2024 10:10 AM EDT Special screening for malignant neoplasm of colon HM MAMMOGRAPHY Routine 12/08/2022 from Last 3 Months or Most Recently Relevant to Health Maintenance Results * Dexa scan central skeletal (01/27/2025 5:18 PM EDT) Anatomical Region Laterality Modality N/A Radiographic Lorraine ging us Simone Bejarano DO IMG DXA ORDERABLES Final Res ult * Cologuard [facility] (12/23/2024 10:10 AM EDT) EXTERNAL COLOGUARD Negative Negative 01/01/2025 12:34 AM EDT [facility] (CLIA #:[id number]) Comment: The Cologuard Plus (TM) test was performed on this specimen. NEGATIVE TEST RESULT. A negative (normal) Cologuard Plus result means the patient has a joun-vzem-roaiesu chance of having colorectal cancer (CRC) or advanced precancer (polyps or lesions that could become cancer). Negative is the normal value (reference range) for this assay. Guidelines recommend screening again 3 years after a negative Cologuard Plus result. Continued screening increases the chance of finding CRC early or preventing it entirely. A clinical validation study showed the Cologuard Plus test is effective at ruling out CRC. Out of every 10,000 patients testing negative, approximately 2 will be falsely reassured that they do not have CRC, and out of every 100 patients testing negative, approximately 7 patients will be falsely reassured they do not have advanced precancer. TEST DESCRIPTION: The Cologuard Plus test is a multi-target stool DNA (mt-sDNA) test that analyzes DNA and hemoglobin biomarkers in stool. It uses a proprietary algorithm to qualitatively detect CRC and advanced precancer. It is FDA-approved and indicated for use in adults 45 years or older at average risk for CRC. A positive (abnormal) result should be followed by a colonoscopy. Patients with a negative (normal) result should screen again in 3 years. False positive and false negative results may occur. The USPSTF recommends the Cologuard test as a CRC screening option. Their modeling estimates that screening with the test every 3 years from ages 45-85 could prevent up to 73% of CRC and avoid up to 85% of CRC deaths. A 18,911-patient clinical trial found the Cologuard Plus test effectively detects CRC and precancer. The study found the test was 95% sensitive for CRC, 43% sensitive for advanced precancer, and had a 91% specificity (Cologuard Plus Clinician Brochure. [employer]. [place], [place].). Visit [email or web address] for more test information, references, warnings, and precautions. Stool specimen (specimen) Rectum structure / Unknown 12/23/2024 10:10 AM EDT 12/24/2024 12:27 PM EDT Simone Bejarano DO LAB ORDERABLES Final Result [facility] (CLIA #:[id number]) [address] [place] [address], * HM MAMMOGRAPHY (12/08/2022) Anatomical Region Laterality Modality Other Scanning Provider External HEALTH MAINTENANCE Fi nal Result from Last 3 Months or Most Recently Relevant to Health Maintenance Insurance MEDICARE [employer] Care Teams Flaking Roll Operator Relationship Specialty Start Date End Date Simone Bejarano DO [address], [place] [address] PCP - General Family Medicine 10/30/24
--- OUTSIDE RECORDS SUMMARY | 2025-03-14 13:21 | XMS_ITS | Encounter Summary ---
Author Organization [employer] s tem Address [id number] [address] [place] [address] Care Team Providers Care Machine Edge Bander Name Role Phone Simone Bejarano DO Primary Care Provider + [phone] Encounter Details Date Type Department Care Team (Late st Contact Info) Description 01/31/[address] [facility] [address] [place] [address] Kitty Beard CMA Social History Tobacco Use [...] documented as of this encounter Care Teams Machine Edge Bander Relationship Specialty Start Date End Date Furlong, Simone G, DO [address] [facility] [address], [place] [address] PCP - General Family Medicine 10/30/24 documented as of this encounter
--- OUTSIDE RECORDS SUMMARY | 2025-03-14 13:21 | XMS_ITS | Encounter Summary ---
Author Organization [facility] Address [facility] [place]-[id number] [address] [place] [address] Care Team Providers Care Rework Machine Operator Name Role Phone Simone Bejarano DO Primary Care Provider + [phone] Encounter Details Date Type Department Care Team (Late st Contact Info) Description 12/11/2024 [facility] [address] [place] [phone] Ref Prov, [place] [address] Social History Tobacco Use Types Packs/Day Years [...] Procedure Name Priority Date/Time Associated Diagnosis Comments HEPATITIS C VIRUS QUANTITATIVE BY NAAT Routine 12/11/2024 4:00 PM EDT documented in this encounter Results * Hepatitis C Virus Quantitative by NAAT (12/11/2024 4:00 PM EDT) Blood Venous blood / Unknown us Not In System Ref Prov LAB BLOOD ORDERABLES Genie l Result MANUALLY TRANSCRIBED RESULTS documented in this encounter Visit Diagnoses Not on filedocumented in this encounter Additional Health Concerns Assessment Noted Time PHQ-9 Depression Total Score: 0 12/10/19 1:38 PM EDT A Body Mass Index follow-up plan has been documented for the patient 12/09/2024 6:11 PM EDT documented as of this encounter Care Teams Rework Machine Operator Relationship Specialty Start Date End Date Simone Bejarano DO [address] [facility], [place] [address] PCP - General Family Medicine 10/30/24 documented as of this encounter
--- OUTSIDE RECORDS SUMMARY | 2025-03-14 13:23 | XMS_ITS | CCD ---
Author Organization [facility] CliniSywv Care Team Providers Care Paper Pattern Inspector Name Role Phone FURLONG, DR SIMONE Franks Admitting Unavailable FURLONG, DR SIMONE Franks Primary Care Unavailable FURLONG, DR SIMONE Franks Attending Unavailable FURLONG, DR SIMONE Franks Admitting Unavailable FURNG, DR SIMONE Franks Primary Care Unavailable HOLABIRD, DR SIMONE Franks Consulting Unavailable FURNG, DR SIMONE Franks Attending Unavailable WEST, DR ALICIA Raman Consulting Unavailable Simone Singh Unavailable Unavailable Unavailable Samantha, Dr. Smione Medrano Primary Care Tyrava ilmallory Mortensen, Dr. Kenton Sauceda Attending Unava ilmallory Mortensen, Dr. Kenton Sauceda Referring UnaKENTON Saez, Dr. Simone Medrano Primary Care Simone Bennett DO Primary Care Provider KENTON MORTENSEN Referring Unavailable SIMONE SINGH Primary Care Unavailab le Simone Singh MD Primary Care Provider [phone] Simone Singh DO Primary Care Provider Simone Singh DO Primary Care Provider George Ye Primary Care [facility] er GEORGE LÓPEZ Referring Unavailable GEORGE LÓPEZ Primary Care Unavailable FurSimone love DO Primary Care Provider Simone Singh DO Primary Care Provider KENTON MORTENSEN Attending Unavailable KENTON MORTENSEN Referring Unavailable SIMONE SINGH Primary Care Unavailab Yane Olmedo APRN Attending Provider [phone] Simone Singh DO Primary Care Provider Carlos Ozuna PA-C Emergency Provider Carlos Ozuna Attending Unavailable Carlos Ozuna Admitting Unavailable Furlong, Simone Primary Care Unavailable GEORGE LÓPEZ Attending Unavailable FURLONG, SIMONE G Referring Unavailable GEORGE LÓPEZ Primary Care Unavailable FURLONG, SIMONE G Attending Unavailable FURLONG, SIMONE G Referring Unavailable FURLONG, SIMONE Franks Primary Care Unavailable FURLONG, SIMONE Franks Attending Unavailable FURLONG, SIMONE Franks Referring Unavailable FURLONG, SIMONE G Primary Care Unavailable HeatherloSimone jimenez MD Primary Care Provider [phone] ALICIA DUNLAP Referring Unavailable POCSANTINO, ALICIA Fan Attending Unavailable SAMANTHA, SIMONE Franks Referring Unavailable SHARMILA MICHAEL Attending Unavailable POCSANTINO, ALICIA Fan Referring Unavailable MIKKI KOO Attending Unavailable POCOS, ALICIA Fan Referring Unavailable SHARMILA MICHAEL Attending Unavailable POCOS, ALICIA Fan Referring Unavailable MIKKI KOO Attending Unavailable POCOS, ALICIA Fan Referring Unavailable YEN DE OLIVEIRA Attending Unavailable Allergies Allergy Classification Reported Allergen(s) Allergy Type Date of Onset Reaction(s) Facility (1 source) natural latex rubber Drug allergy (disorder) 7 [facility] Repository (1 source) Penicillin Drug Allergy 7 [facility] Repository (3 sources) Latex rubber gloves; Translations: [Latex Gloves] Allergy to drug (finding) [facility] 250 DO Work Phone: (8 sources) Penicillins; Translations: [Penicillins] Allergy to drug (finding) 3 [facility] Repository (20 sources) Latex; Translations: [LATEX] Propensity to adverse reactions 3 [facility] (12 sources) Penicillins Propensity to adverse reactions 3 Unknown, [facility] (15 sources) Latex Propensity to adverse reactions 3 [facility] (15 sources) Penicillins Drug Intolerance 3 Rash, Unknown [facility] (8 sources) Penicillins Propensity to adverse reactions to drug 3 Rash, Unknown [facility] (1 source) Latex Drug allergy (disorder) 5 [facility] Repository (1 source) Penicillins Drug allergy (disorder) 5 [facility] Repository Medications Current Medications Medication Drug Class(es) Dates Sig (Normalized) Sig (Original) aspirin 81 mg delayed release oral tablet (20 sources) Platelet Aggregation Inhibitor, Nonsteroidal Anti-inflammatory Drug Start: 11-23-2024 take 1 tablet by mouth once daily escitalopram 5 mg oral tablet (20 sources) Serotonin Reuptake Inhibitor Start: 06-02-2023 End: 01-29-2025 escitalopram (LEXAPRO) 5 mg tablet Indications: Reactive depression TAKE 1 TABLET IN THE MORNING 90 tablet 12/31/2024 Active furosemide 20 mg oral tablet (20 sources) Loop Diuretic Start: 10-15-2024 End: 11-23-2024 take 1 tablet by mouth every twenty-four hours as needed furosemide (Lasix) 20 MG tablet Take 20 mg by mouth Daily as needed 10/15/2024 Active levothyroxine sodium 0.075 mg oral tablet (20 sources) l-Thyroxine Start: 01-06-2023 End: 12-31-2024 take 1 tablet by mouth in the morning levothyroxine (Synthroid, Levoxyl) 75 MCG tablet Take 1 tablet by mouth in the morning. 10/30/2023 Active meloxicam 7.5 mg oral tablet (12 sources) Nonsteroidal Anti-inflammatory Drug Start: 11-23-2024 take 1 tablet by mouth every twenty-four hours as needed meloxicam (Mobic) 7.5 MG tablet Take 7.5 mg by mouth Daily as needed 11/23/2024 Active 24 hr metoprolol succinate 25 mg extended release oral tablet (3 sources) beta-Adrenergic Elizabeth Start: 04-20-2023 End: 04-19-2024 take 1 tablet by mouth once daily metoprolol succinate XL (Toprol-XL) 25 mg 24 hr tablet Indications: Benign hypertensive heart disease without heart failure Take 1 tablet (25 mg) by mouth once daily. Do not crush or chew. 30 tablet 11 04/20/2023 04/19/2024 Active ondansetron 4 mg disintegrating oral tablet (1 source) Serotonin-3 Receptor Antagonist Start: 12-25-2024 take 1 tablet by mouth four times daily as needed for nausea and vomiting rosuvastatin calcium 10 mg oral tablet (20 sources) HMG-CoA Reductase Inhibitor Start: 11-23-2024 take 1 tablet by mouth once daily Rosuvastatin 10 mg tablet Active 10 MG PO Daily November 23, 2024 12:00am Start: 10-24-2023 End: 10-29-2024 take 1 tablet by mouth at bedtime rosuvastatin (Crestor) 5 MG tablet Take 5 mg by mouth at bedtime 10/24/2023 Active Start: 06-02-2023 End: 10-09-2024 rosuvastatin (Crestor) 10 MG tablet 10/10/2024 Active Start: 12-12-2022 take 1 tablet by jd th once daily at bedtime rosuvastatin (Crestor) 5 mg tablet Take 1 tablet (5 mg) by mouth once daily at bedtime. 0 12/12/2022 Active Completed/Discontinued Medications Medication Drug Class(es) Dates Sig (Normalized) Sig (Original) 1 ml triamcinolone acetonide 40 mg/ml injection (2 sources) Corticosteroid Start: 12-09-2024 End: 12-09-2024 triamcinolone acetonide (KENALOG-40) injection 40 mg Start: 12-09-2024 End: 12-09-2024 40 mg, intra-articular, Once , On Mon12/09/24 at 1445, For 1 dose Problems Active Problems Problem Classification Problem Date Documented Date Episodic/Chronic Anxiety disorders (2 sources) Anxiety; Translations: [Anxiety disorder, unspecified] 11-23-2024 Chronic Chronic kidney disease (20 sources) Chronic kidney disease stage 2; Translations: [Chronic kidney disease, Stage II (mild)] Onset: 11-14-2022 04-20-2023 Chronic Chronic kidney disease (1 source) Chronic kidney disease; Translations: [Chronic kidney disease, stage 3a] Onset: 11-14-2022 Diabetes mellitus without complication (5 sources) Prediabetes; Translations: [Prediabetes] 12-09-2024 Episodic Disorders of lipid metabolism (20 sources) Hyperlipidemia; Translations: [Other and unspecified hyperlipidemia] Onset: 11-14-2022 04-20-2023 Chronic Hypertension with complications and secondary hypertension (8 sources) Benign hypertensive heart disease without congestive heart failure; Translations: [Hypertensive heart disease without heart failure] Onset: 04-20-2023 04-20-2023 Chronic Mood disorders (3 sources) Reactive depression (situational); Translations: [Major depressive disorder, single episode, unspecified] 07-24-2024 Chronic Nausea and vomiting (1 source) Nausea with vomiting, unspecified; Translations: [Nausea with vomiting, unspecified] Onset: 12-25-2024 Episodic Noninfectious gastroenteritis (1 source) Gastroenteritis; Translations: [Noninfective gastroenteritis and colitis, unspecified] 12-25-2024 Episodic Osteoarthritis (20 sources) Degenerative joint disease of hand; Translations: [Unilateral primary osteoarthritis of first carpometacarpal joint, right hand] Onset: 11-30-2023 11-30-2023 Chronic Other and unspecified benign neoplasm (2 sources) Melanocytic nevus of trunk; Translations: [Melanocytic nevi of trunk] 03-18-2024 Episodic Other and unspecified benign neoplasm (2 sources) Senile angioma; Translations: [Hemangioma of skin and subcutaneous tissue] 03-18-2024 Episodic Other connective tissue disease (2 sources) Swelling of right lower limb; Translations: [Other specified soft tissue disorders] 11-23-2024 Episodic Other lower respiratory disease (3 sources) Other forms of dyspnea; Translations: [Other forms of dyspnea] Onset: 03-23-2023 Episodic Other non-traumatic joint disorders (10 sources) Pain in right knee; Translations: [Pain in joint, lower leg] Onset: 12-09-2024 12-09-2024 Episodic Other nutritional; endocrine; and metabolic disorders (3 sources) Obesity; Translations: [Obesity, unspecified] Chronic Other nutritional; endocrine; and metabolic disorders (6 sources) Body mass index 30+ - obesity; Translations: [Body mass index (BMI) 32.0-32.9, adult] Onset: 04-19-2023 04-20-2023 Chronic Other nutritional; endocrine; and metabolic disorders (18 sources) Obesity caused by energy imbalance; Translations: [Class 1 obesity due to excess calories with serious comorbidity and body mass index (BMI) of 32.0 to 32.9 in adult] Onset: 12-12-2022 3 Chronic Other nutritional; endocrine; and metabolic disorders (2 sources) Body mass index (BMI) 34.0-34.9, adult; Translations: [Body mass index (BMI) 34.0-34.9, adult] Onset: 10-29-2024 Chronic Other screening for suspected conditions (not mental disorders or infectious disease) (7 sources) Patient encounter status; Translations: [Encounter for screening for diabetes mellitus] Onset: 10-15-2024 10-15-2024 Episodic Other skin disorders (2 sources) Seborrheic keratosis; Translations: [Other seborrheic keratosis] 03-18-2024 Episodic Other skin disorders (1 source) Bilateral localized swelling of lower legs; Translations: [Localized swelling, mass and lump, lower limb, bilateral] 10-15-2024 Episodic Residual codes; unclassified (2 sources) Never smoked tobacco; Translations: [Other specified health status] Onset: 10-24-2023 10-29-2024 Episodic Residual codes; unclassified (2 sources) Other specified health status; Translations: [Other specified health status] Onset: 10-24-2023 Episodic Residual codes; unclassified (2 sources) Menopause present; Translations: [Asymptomatic menopausal state] 12-09-2024 Episodic Residual codes; unclassified (1 source) Asymptomatic menopausal state; Translations: [Asymptomatic menopausal state] Onset: 01-27-2025 Episodic Spondylosis; intervertebral disc disorders; other back problems (1 source) Spondylosis without myelopathy or radiculopathy, thoracic region; Translations: [SPONDYLS W/O MYELO-/RADICULOP THOR] Onset: 05-06-2021 Chronic Thyroid disorders (20 sources) Acquired hypothyroidism; Translations: [Hypothyroidism, unspecified] Onset: 11-14-2022 04-19-2023 Chronic Unclassified (3 sources) Right knee pain, unspecified chronicity 01-27-2025 Unclassified (1 source) Thyroid Problem Onset: 12-09-2024 Past or Other Problems Problem Classification Problem Date Documented Da te Episodic/Chronic Abdominal pain (2 sources) Right lower quadrant pain; Translations: [Right lower quadrant pain] Onset: 10-15-2024 10-15-2024 Episodic Cardiac dysrhythmias (5 sources) Palpitations; Translations: [Palpitations] Onset: 04-25-2023 04-20-2023 Episodic Mood disorders (17 sources) Mood disorders Onset: 11-30-2023 Resolved: 12-09-2024 11-30-2023 Other lower respiratory disease (20 sources) Dyspnea on exertion; Translations: [Other respiratory abnormalities] Onset: 12-12-2022 04-19-2023 Episodic Other lower respiratory disease (4 sources) Dyspnea; Translations: [Shortness of breath] Onset: 04-25-2023 04-20-2023 Episodic Other lower respiratory disease (1 source) Shortness of breath; Translations: [Shortness of breath] Onset: 04-25-2023 Episodic Other skin disorders (1 source) Localized swelling, mass and lump, lower limb, bilateral; Translations: [Localized swelling, mass and lump, lower limb, bilateral] Onset: 10-15-2024 Episodic Spondylosis; intervertebral disc disorders; other back problems (4 sources) Pain in thoracic spine; Translations: [PAIN IN THORACIC SPINE] Onset: 04-28-2021 Episodic Unclassified (3 sources) Never smoked tobacco; Translations: [Never a smoker] Unclassified (14 sources) Onset: 04-20-2023 Resolved: 12-09-2024 04-20-2023 Varicose veins of lower extremity (20 sources) Varicose veins of lower extremity; Translations: [Asymptomatic varicose veins of bilateral lower extremities] Onset: 12-12-2022 04-19-2023 Episodic Results Test Name Value Interpretation Reference Range Facility XR Knee - right 1 or 2 Views on 01-31-2025 Imaging Result: X-ray AP bilateral weight bearing, bilateral sunrise total of four views with permanent images are saved to the record coupled with previous films from the [facility] shows moderate medial osteoarthritis with some varus deformity, more mild medial osteoarthritis on the left. She does have more significant patellofemoral arthrosis and primarily medial, right over left. [facility] XR Knee - right 1 or 2 Views on 01-29-2025 Radiology Study observation (narrative) [facility] DXA Skeletal system Views fo r bone densityon 01-27-2025 [facility] Radiology Study observation (narrative) [facility] Alanine aminotransferase [En zymatic activity/volume] in Serum or PlasmaOrdered By: Carlos Ozuna on 12-25-2024 ALT [Catalytic activity/Vol] 9 U/L Normal 7-52 [facility] Comment on above: Performed By: #### L ACTIC, HEPATIC, LIPASE, BMP, CBC #### [facility] [address] [place] [address] Albumin [Mass/volume] in Ser um or Plasma by Bromocresol green (BCG) dye binding methoOrdered By: Carlos Ozuna on 12-25-2024 Albumin BCG dye [Mass/Vol] 4.4 g/dL 3.5-5.7 [facility] Alkaline phosphatase [Enzyma tic activity/volume] in Serum or PlasmaOrdered By: Carlos Ozuna on 12-25-2024 ALP [Catalytic activity/Vol] 88 U/L Normal 34-104 [facility] Comment on above: Performed By: #### L ACTIC, HEPATIC, LIPASE, BMP, CBC #### [address] Appearance of UrineOrdered B y: Carlos Ozuna on 12-25-2024 Appearance (U) Clear Normal Clear [facility] Comment on above: Order Comment: Name Collection Type:: Clean-Voided Midstream Performed By: #### U A #### [address] Aspartate aminotransferase [ Enzymatic activity/volume] in Serum or PlasmaOrdered By: Carlos Ozuna on 12-25-2024 AST [Catalytic activity/Vol] 12 U/L Low 13-39 [facility] Comment on above: Performed By: #### L ACTIC, HEPATIC, LIPASE, BMP, CBC #### [facility] [address] [place] [address] Basic Metabolic Panelon 07-0 Creatinine Clr Calc Pharmacy 60.10 Normal [facility] Comment on above: Performed By: #### L ACTIC, HEPATIC, LIPASE, BMP, CBC #### [address] GFR/1.73 sq M.predicted MDRD (S/P/Bld) [Vol rate/Area] mL/min/{1.73_m2} Normal [facility] Comment on above: Performed By: #### L ACTIC, HEPATIC, LIPASE, BMP, CBC #### [facility] [address] Basophils [#/volume] in Bloo d by Automated countOrdered By: Carlos Ozuna on 12-25-2024 Basophils (Bld) [#/Vol] 0.0 10*3/uL Normal 0.0-0.2 [facility] Comment on above: Result Comment: PERF ORMED BY: [place] [address] PATHOLOGIST STRATEGIC PLANNING MANAGER ZARI JASON M.D. Performed By: #### L ACTIC, HEPATIC, LIPASE, BMP, CBC #### [address] Basophils/100 leukocytes in Blood by Automated countOrdered By: Carlos Ozuna on 12-25-2024 Basophils/100 WBC (Bld) 0.5 % Normal . [facility] Comment on above: Performed By: #### L ACTIC, HEPATIC, LIPASE, BMP, CBC #### [address] Bilirubin Test strip Ql (U)O rdered By: Carlos Ozuna on 12-25-2024 Bilirubin Ql (U) Negative Negative [facility] Bilirubin.direct [Mass/volum e] in Serum or PlasmaOrdered By: Carlos Ozuna on 12-25-2024 Bilirubin.direct [Mass/Vol] 0.10 mg/dL 0.03-0.18 [facility] Bilirubin.total [Mass/volume ] in Serum or PlasmaOrdered By: Carlos Ozuna on 12-25-2024 Bilirubin [Mass/Vol] 0.6 mg/dL Normal 0.3-1.0 [facility] Comment on above: Performed By: #### L ACTIC, HEPATIC, LIPASE, BMP, CBC #### [address] abdomen pelvis w conon CT abdomen pelvis w con [facility] [place] [address] [place] [address] CT Scan Report Signed Patient: Aster Bacon MR#: [id number] : 1950 Acct:[id number] Age/Sex: 74 / F ADM Date: 12/25/24 Loc: ER Room: Type: [facility] ER Attending Dr: Copies to: Carlos Ozuna PA-C Ordering Provider: Carlos Ozuna PA-C Date of Service: 12/25/24 CT/CT abdomen pelvis w con: Abdominal Pain CT Abdomen and Pelvis withcontrast TECHNIQUE: Axial imaging with 2-D reconstruction.90 cc of Isovue-300. The CT exam was performed using one or more the following dose reduction techniques: Automated exposure control, adjustment of the MA and/or Kv according to patient size, or use of the iterative reconstruction technique. COMPARISON: None History: Abdominal pain. Right lower quadrant pain. Diarrhea. LIMITATIONS: None LOWER THORAX Unremarkable LIVER: Hepatic cyst. GALLBLADDER: Cholecystectomy. BILE DUCTS: No dilatation SPLEEN: Unremarkable PANCREAS: Unremarkable ADRENAL GLANDS: Unremarkable KIDNEYS:Unremarkabl e AORTA: No abdominal aortic aneurysm identified. RETROPERITONEUM: No significant retroperitoneal abnormalities identified. MESENTERY:Unremarka ble STOMACH:Unremarkabl e SMALL BOWEL: The small bowel loops are nondistended. APPENDIX: The appendix is normal. COLON: Mild wall thickening with fatty infiltrative changes. Similar chronic inflammatory changes. Fluid-filled colon. Nondistended. URINARY BLADDER: Urinary bladder is unremarkable. REPRODUCTIVE SYSTEM: Reproductive structures are unremarkable. PNEUMOPERITONEUM: None PERITONEAL FLUID:None BONY STRUCTURES: Unremarkable ABDOMINAL WALL: Unremarkable CT/CT abdomen pelvis w con IMPRESSION: Findings consistent with diarrheal illness. Chronic inflammatory changes of the colon. Suspected appendectomy. Impression dictated by: Teddy Kerns M.D. 12/25/2024 4:55 PM Dictation Location: [place] [address] Transcribed By: [facility] 12/25/24 165 Dictated By: Teddy Kerns DO 12/25/24 165 Signed By: 12/25/24 165 Normal [facility] Calcium [Mass/volume] in Ser um or PlasmaOrdered By: Carlos Ozuna on 12-25-2024 Calcium [Mass/Vol] 10.1 mg/dL Normal 8.6-10.3 [facility] Comment on above: Performed By: #### L ACTIC, HEPATIC, LIPASE, BMP, CBC #### [address] Carbon dioxide, total [Moles /volume] in Serum or PlasmaOrdered By: Carlos Ozuna on 12-25-2024 CO2 [Moles/Vol] 28.1 mmol/L Normal 21.0-31.0 [facility] Comment on above: Performed By: #### L ACTIC, HEPATIC, LIPASE, BMP, CBC #### [address] Chloride [Moles/volume] in S linette or PlasmaOrdered By: Carlos Ozuna on 12-25-2024 Chloride [Moles/Vol] 103 mmol/L Normal 98-107 [facility] Comment on above: Performed By: #### L ACTIC, HEPATIC, LIPASE, BMP, CBC #### [address] Color of Urine by AutoOrdere d By: Carlos Ozuna on 12-25-2024 Color (U) Yellow Normal Yellow [facility] Comment on above: Order Comment: Name Collection Type:: Clean-Voided Midstream Performed By: #### U A #### [address] Complete Blood Count Auto Di ffon 12-25-2024 Mean Corpuscular HGB Conc 33.2 g/dL Normal 32.0-35.0 [facility] Comment on above: Performed By: #### L ACTIC, HEPATIC, LIPASE, BMP, CBC #### [place] [address] [place] Monocytes/100 WBC (Bld) 16.73 % Normal 0.00-20.00 T mamadou [facility] Comment on above: Performed By: #### L ACTIC, HEPATIC, LIPASE, BMP, CBC #### [place] [address] [place] NRBC% 0.1 /100{WBC} Normal 0-0.5 [facility] Comment on above: Performed By: #### L ACTIC, HEPATIC, LIPASE, BMP, CBC #### [facility] [address] White Blood Count 6.6 [CFU]/mL Normal 3.8-11.6 [facility] Comment on above: Performed By: #### L ACTIC, HEPATIC, LIPASE, BMP, CBC #### [facility] [address] Creatinine [Mass/volume] in Serum or PlasmaOrdered By: Carlos Ozuna on 12-25-2024 Creatinine [Mass/Vol] 0.96 mg/dL Normal 0.60-1.20 [facility] Comment on above: Performed By: #### L ACTIC, HEPATIC, LIPASE, BMP, CBC #### [facility] [address] ECG 12 lead ECGon 12-25-2024 ECG 12 lead ECG [facility] [place] [address] [place] [address] Electrocardiograph Report Signed Patient: Aster Bacon MR#: [id number] : 1950 Acct:[id number] Age/Sex: 74 / F ADM Date: 12/25/24 Loc: ER Room: Type: [facility] ER Attending Dr: Ordering Provider: Carlos Ozuna PA-C Date of Service: 12/25/2408/20/1349 ECG/ECG 12 lead ECG: Abdominal Pain Copies to: Test Reason : Blood Pressure : */* mmHG Vent. Rate : 85 BPM Atrial Rate : 85 BPM P-R Int : 122 ms QRS Dur : 78 ms QT Int : 370 ms P-R-T Axes : 44 67 66 degrees QTcB Int : 440 ms Normal sinus rhythm Nonspecific ST and T wave abnormality Confirmed by Talia Yousif MD ([id number]) on 12/26/2024 4:14:52 AM Referred By: Electronically Signed By: Talia Yousif MD Transcribed By: MUS Signed By Talia Yousif MD 09/17 0414 Normal [facility] Eosinophils [#/volume] in Bl ood by Automated countOrdered By: Carlos Ozuna on 12-25-2024 Eosinophils (Bld) [#/Vol] 0.0 10*3/uL Normal 0.0-0.45 [facility] Comment on above: Performed By: #### L ACTIC, HEPATIC, LIPASE, BMP, CBC #### [address] Eosinophils/100 leukocytes i n Blood by Automated countOrdered By: Carlos Ozuna on 12-25-2024 Eosinophils/100 WBC (Bld) 0.6 % Normal . [facility] Comment on above: Performed By: #### L ACTIC, HEPATIC, LIPASE, BMP, CBC #### [address] Erythrocyte distribution wid th [Ratio] by Automated countOrdered By: Carlos Ozuna on 12-25-2024 Erythrocyte distribution width (RBC) [Ratio] 15.2 % Normal 11.9-15.3 [facility] Comment on above: Performed By: #### L ACTIC, HEPATIC, LIPASE, BMP, CBC #### [address] Erythrocytes [#/volume] in B lood by Automated countOrdered By: Carlos Ozuna on 12-25-2024 RBC (Bld) [#/Vol] 5.01 10*6/uL High 3.60-5.00 [facility] Comment on above: Performed By: #### L ACTIC, HEPATIC, LIPASE, BMP, CBC #### [address] Glucose [Mass/volume] in Ser um or PlasmaOrdered By: Carlos Ozuna on 12-25-2024 Glucose [Mass/Vol] 93 mg/dL Normal 70-100 [facility] Comment on above: ADA recommended refe rence rangeRandom Glucose Reference Range is dependent on time and content of last meal. Glucose of more than 200 mg/dL in a nonstressed, ambulatory subject supports the diagnosis of Diabetes Mellitus. Result Comment: [place] om Glucose Reference Range is dependent on time and content of last meal. Glucose of more than 200 mg/dL in a nonstressed, ambulatory subject supports the diagnosis of Diabetes Mellitus. ADA recommended reference range Performed By: #### L ACTIC, HEPATIC, LIPASE, BMP, CBC #### [facility] [address] Glucose [Mass/volume] in Uri ne by Test stripOrdered By: Carlos Ozuna on 12-25-2024 Glucose Test strip (U) [Mass/Vol] Normal mg/dL Normal [facility] Hematocrit [Volume Fraction] of Blood by Automated countOrdered By: Carlos Ozuna on 12-25-2024 Hematocrit (Bld) [Volume fraction] 40.2 % Normal 34.0-46.4 [facility] Comment on above: Performed By: #### L ACTIC, HEPATIC, LIPASE, BMP, CBC #### [address] Hemoglobin Test strip Ql (U) Ordered By: Carlos Ozuna on 12-25-2024 Hemoglobin Ql (U) Negative Negative [facility] Hemoglobin [Mass/volume] in BloodOrdered By: Carlos Ozuna on 12-25-2024 Hemoglobin (Bld) [Mass/Vol] 13.4 g/dL Normal 11.8-15.4 [facility] Comment on above: Performed By: #### L ACTIC, HEPATIC, LIPASE, BMP, CBC #### [address] Hepatic Panelon 12-25-2024 Albumin [Mass/Vol] 4.4 g/dL Normal 3.5-5.7 The Counts include 234 beds at the [facility] Comment on above: Performed By: #### L ACTIC, HEPATIC, LIPASE, BMP, CBC #### [address] Bilirubin,Indirect 0.5 mg/dL Normal The Counts include 234 beds at the [facility] Comment on above: Performed By: #### L ACTIC, HEPATIC, LIPASE, BMP, CBC #### [address] Bilirubin.indirect [Mass/Vol] 0.10 mg/dL Normal 0.03-0.18 [facility] Comment on above: Performed By: #### L ACTIC, HEPATIC, LIPASE, BMP, CBC #### [address] Ketones [Presence] in Urine by Test stripOrdered By: Carlos Ozuna on 12-25-2024 Ketones Ql (U) 2+ Normal Negative [facility] Comment on above: Order Comment: Name Collection Type:: Clean-Voided Midstream Performed By: #### U A #### [address] Lactate [Moles/volume] in Se rum or PlasmaOrdered By: Carlos Ozuna on 12-25-2024 Lactate [Moles/Vol] 0.9 mmol/L Normal 0.5-1.9 [facility] Comment on above: Lactic Acid referenc e range has been updated to 0.5 1.9 mmol/L and the critical range of 2.0 or greater. Result Comment: Lact ic Acid reference range has been updated to 0.5 ? 1.9 mmol/L and the critical range of 2.0 or greater. PERFORMED BY: [place] [address] PATHOLOGIST STRATEGIC PLANNING MANAGER ZARI JASON M.D. Performed By: #### L ACTIC, HEPATIC, LIPASE, BMP, CBC #### [facility] [address] [place] [address] Leukocyte esterase [Presence ] in Urine by Test stripOrdered By: Carlos Ozuna on 12-25-2024 Leukocyte esterase Test strip Ql (U) Negative Normal Negative [facility] Comment on above: Order Comment: Name Collection Type:: Clean-Voided Midstream Performed By: #### U A #### [address] Leukocytes [#/volume] correc ragini for nucleated erythrocytes in Blood by Automated counOrdered By: Carlos Ozuna on 12-25-2024 WBC corrected for nucl RBC Auto (Bld) [#/Vol] 6.6 10*3/uL 3.8-11.6 [facility] Leukocytes [#/volume] in Blo od by Automated countOrdered By: Carlos Ozuna on 12-25-2024 WBC (Bld) [#/Vol] 6.6 10*3/uL Normal 3.8-11.6 [facility] Comment on above: Performed By: #### L ACTIC, HEPATIC, LIPASE, BMP, CBC #### [facility] [address] [place] [address] Lipase [Enzymatic activity/v olume] in Serum or PlasmaOrdered By: Carlos Ozuna on 12-25-2024 Lipase [Catalytic activity/Vol] 15.0 U/L Normal 11.0-82.0 [facility] Comment on above: Result Comment: PERF ORMED BY: [place] [address] PATHOLOGIST STRATEGIC PLANNING MANAGER ZARI JASON M.D. Performed By: #### L ACTIC, HEPATIC, LIPASE, BMP, CBC #### [address] Lymphocytes [#/volume] in Bl ood by Automated countOrdered By: Carlos Ozuna on 12-25-2024 Lymphocytes (Bld) [#/Vol] 0.8 10*3/uL Low 1.00-4.8 [facility] Comment on above: Performed By: #### L ACTIC, HEPATIC, LIPASE, BMP, CBC #### [address] Lymphocytes/100 leukocytes i n Blood by Automated countOrdered By: Carlos Ozuna on 12-25-2024 Lymphocytes/100 WBC (Bld) 12.6 % Normal . [facility] Comment on above: Performed By: #### L ACTIC, HEPATIC, LIPASE, BMP, CBC #### [facility] [address] [place] [address] MCH [Entitic mass] by Automa ragini countOrdered By: Carlos Ozuna on 12-25-2024 MCH (RBC) [Entitic mass] 26.6 pg Normal 24.7-34.3 [facility] Comment on above: Performed By: #### L ACTIC, HEPATIC, LIPASE, BMP, CBC #### [facility] [address] [place] [address] MCHC Auto (RBC) [Mass/Vol]Or dered By: Carlos Ozuna on 12-25-2024 MCHC (RBC) [Mass/Vol] 33.2 g/dL 32.0-35.0 [facility] MCV [Entitic volume] by Auto mated countOrdered By: Carlos Ozuna on 12-25-2024 MCV (RBC) [Entitic vol] 80.2 fL Normal 80-100 [facility] Comment on above: Performed By: #### L ACTIC, HEPATIC, LIPASE, BMP, CBC #### [place] [address] [place] Monocyte distribution width [Entitic volume] in Blood by AutomatedOrdered By: Carlos Ozuna on 12-25-2024 Monocyte distribution width Auto (Bld) [Entitic vol] 16.73 % 0.00-20.00 [facility] Monocytes [#/volume] in Bloo d by Automated countOrdered By: Carlos Ozuna on 12-25-2024 Monocytes (Bld) [#/Vol] 0.4 10*3/uL Normal 0.0-0.8 [facility] Comment on above: Performed By: #### L ACTIC, HEPATIC, LIPASE, BMP, CBC #### [facility] [address] [place] [address] [place] Monocytes/100 leukocytes in Blood by Automated countOrdered By: Carlos Ozuna on 12-25-2024 Monocytes/100 WBC (Bld) 5.5 % Normal . [facility] Comment on above: Performed By: #### L ACTIC, HEPATIC, LIPASE, BMP, CBC #### [facility] [address] [place] [address] [place] Neutrophils [#/volume] in Bl ood by Automated countOrdered By: Carlos Ozuna on 12-25-2024 Neutrophils (Bld) [#/Vol] 5.3 10*3/uL Normal 1.8-7.7 [facility] Comment on above: Performed By: #### L ACTIC, HEPATIC, LIPASE, BMP, CBC #### [place] [address] [place] Neutrophils/100 leukocytes i n Blood by Automated countOrdered By: Carlos Ozuna on 12-25-2024 Neutrophils/100 WBC (Bld) 80.8 % Normal . [facility] Comment on above: Performed By: #### L ACTIC, HEPATIC, LIPASE, BMP, CBC #### [facility] [address] Nitrite Test strip Ql (U)Ord ered By: Carlos Ozuna on 12-25-2024 Nitrite Ql (U) Negative Negative [facility] No Panel InformationOrdered By: Carlos Ozuna on 12-25-2024 Estimated GFR (CKD-EPI) > 60.0 mL/Min [facility] Creatinine Clearance (Chem 60.10 [facility] Nucleated erythrocytes [Pres ence] in Blood by Automated countOrdered By: Carlos Ozuna on 12-25-2024 Nucleated RBC Auto Ql (Bld) 0.1 /100{WBC} 0-0.5 [facility] Platelet mean volume [Entiti c volume] in Blood by Automated countOrdered By: Carlos zOuna on 12-25-2024 Platelet mean volume (Bld) [Entitic vol] 10.0 fL Normal 6.3-10.7 [facility] Comment on above: Performed By: #### L ACTIC, HEPATIC, LIPASE, BMP, CBC #### [facility] [address] Platelets [#/volume] in Bloo d by Automated countOrdered By: Carlos Ozuna on 12-25-2024 Platelets (Bld) [#/Vol] 250 10*3/uL Normal 150-450 [facility] Comment on above: Performed By: #### L ACTIC, HEPATIC, LIPASE, BMP, CBC #### [facility] [address] [place] [address] [place] Potassium [Moles/volume] in Serum or PlasmaOrdered By: Carlos Ozuna on 12-25-2024 Potassium [Moles/Vol] 3.8 mmol/L Normal 3.5-5.1 [facility] Comment on above: Performed By: #### L ACTIC, HEPATIC, LIPASE, BMP, CBC #### [facility] [address] Protein Test strip (U) [Mass /Vol]Ordered By: Carlos Ozuna on 12-25-2024 Protein (U) [Mass/Vol] Negative Negative [facility] Protein [Mass/volume] in Ser um or PlasmaOrdered By: Carlos Ozuna on 12-25-2024 Protein [Mass/Vol] 7.1 g/dL Normal 6.4-8.9 [facility] Comment on above: Performed By: #### L ACTIC, HEPATIC, LIPASE, BMP, CBC #### [address] Serum globulin measurement b y calculation (mass/volume)Ordered By: Carlos Ozuna on 12-25-2024 Globulin (S) [Mass/Vol] 2.7 g/dL Normal [facility] Comment on above: Performed By: #### L ACTIC, HEPATIC, LIPASE, BMP, CBC #### [address] Serum or plasma albumin/glob ulin mass ratioOrdered By: Carlos Ozuna on 12-25-2024 Albumin/Globulin [Mass ratio] 1.6 {ratio} Normal [facility] Comment on above: Performed By: #### L ACTIC, HEPATIC, LIPASE, BMP, CBC #### [address] Serum or plasma anion gap de terminationOrdered By: Carlos Ozuna on 12-25-2024 Anion gap [Moles/Vol] 12.7 mmol/L Normal 6.0-15.0 [facility] Comment on above: Performed By: #### L ACTIC, HEPATIC, LIPASE, BMP, CBC #### [address] Serum or plasma non-glucuron idated bilirubin measurement (mass/volume)Ordered By: Carlos Ozuna on 12-25-2024 Bilirubin.indirect [Mass/Vol] 0.5 mg/dL [facility] Sodium [Moles/volume] in Ser um or PlasmaOrdered By: Carlos Oznua on 12-25-2024 Sodium [Moles/Vol] 140 mmol/L Normal 136-145 [facility] Comment on above: Performed By: #### L ACTIC, HEPATIC, LIPASE, BMP, CBC #### [place] [address] [place] Specific gravity Test strip (U) [Rel density]Ordered By: Carlos Ozuna on 12-25-2024 Specific gravity (U) [Rel density] >1.050 High 1.001-1.030 [facility] Urea nitrogen [Mass/volume] in Serum or PlasmaOrdered By: Carlos Ozuna on 12-25-2024 Urea nitrogen [Mass/Vol] 15 mg/dL Normal 7-25 [facility] Comment on above: Performed By: #### L ACTIC, HEPATIC, LIPASE, BMP, CBC #### [facility] [address] [place] [address] [place] Urinalysison 12-25-2024 Bilirubin,Urine Negative Normal Negative [facility] Comment on above: Order Comment: Name Collection Type:: Clean-Voided Midstream Performed By: #### U A #### [address] Glucose Ql (U) Normal Normal Normal [facility] Comment on above: Order Comment: Name Collection Type:: Clean-Voided Midstream Performed By: #### U A #### [place] [address] [place] Nitrite,Urine Negative Normal Negative [facility] Comment on above: Order Comment: Name Collection Type:: Clean-Voided Midstream Performed By: #### U A #### [address] Occult Blood,Urine Negative Normal Negative The Counts include 234 beds at the [facility] Comment on above: Order Comment: Name Collection Type:: Clean-Voided Midstream Result Comment: PERF ORMED BY: [place] [address] PATHOLOGIST STRATEGIC PLANNING MANAGER ZARI JASON M.D. Performed By: #### U A #### [address] Protein,Urine Negative Normal Negative [facility] Comment on above: Order Comment: Name Collection Type:: Clean-Voided Midstream Performed By: #### U A #### [place] [address] [place] Specificy Rindge,Urine >1.050 High 1.001-1.030 [facility] Comment on above: Order Comment: Name Collection Type:: Clean-Voided Midstream Performed By: #### U A #### [place] [id number] [facility] Urobilinogen,Urine Normal Normal Normal The Counts include 234 beds at the [facility] Comment on above: Order Comment: Name Collection Type:: Clean-Voided Midstream Performed By: #### U A #### [address] Urobilinogen Test strip (U) [Mass/Vol]Ordered By: Carlos Ozuna on 12-25-2024 Urobilinogen (U) [Mass/Vol] Normal mg/dL Normal [facility] pH of Urine by Test stripOrd ered By: Carlos Ozuna on 12-25-2024 pH (U) 5.5 [pH] Normal 5.0-9.0 [facility] Comment on above: Order Comment: Name Collection Type:: Clean-Voided Midstream Performed By: #### U A #### [address] $ Arthrocentesison 5 Simone Singh DO 12/09/2024 6:11 PM $ Arthrocentesis Date/Time: 12/09/2024 2:34 PM Performed by: Simone Signh DO Authorized by: Simone Singh DO Fire Risk Assessment Score Procedure site above the Xiphoid 0 Open O2 source (mask/cannula) 0 Ignition source (Cautery, Fiberoptic Light, Laser) 0 Total Fire Risk Assessment Score 0 Verbal consent obtained?: Yes Written consent obtained?: No Risks and benefits: Risks, benefits and alternatives were discussed Consent given by: Patient Patient states understanding of procedures being performed: Yes Patient's understanding of procedure matches consent: Yes Procedure consent matches procedure scheduled: Yes Relevant documents present and verified: Yes Test results available and properly labeled: No Site marked: Yes Imaging studies available: Yes Time out: Immediately prior to the procedure a time out was called Indications: Joint effusion, pain and osteoarthritis Body area: Knee Preparation: Patient was prepped and draped in usual sterile fashion Needle size: 25 G Ultrasound guidance: No Approach: Anterior Lidocaine HCL 1% amount (ml): 4 Triamcinolone amount (mg): 40 Patient tolerance: Patient tolerated the procedure well with no immediate complications Procedure was completed Vital signs stable during the procedure Complications: none MANUALLY TRANSCRIBED RESULTS [facility] CBC AND AUTO DIFFon 10-16-19 25 ABSOLUTE BASOPHIL 0.0 X10E9/L Normal 0.0-0.2 [facility] Comment on above: Performed By: #### C SHERICE GANDARA, HA1C #### [facility] ([id number]) [address] [place] [address] ABSOLUTE NEUTROPHIL 2.9 X10E9/L Normal 1.5-6.6 [facility] Comment on above: Performed By: #### C NICHOL CMP, HA1C #### [facility] ([id number]) [address] [place] [address] Basophils/100 WBC (Bld) 0.6 % Normal P [facility] Comment on above: Performed By: #### C NICHOL CMP, HA1C #### [facility] ([id number]) [address] [place] [address] Eosinophils (Bld) [#/Vol] 0.1 10*3/uL Normal 0.0-0.4 [facility] Comment on above: Performed By: #### Porsche GANDARA CMP, HA1C #### [facility] ([id number]) [address] [place] [address] Eosinophils/100 WBC (Bld) 2.1 % Normal [facility] Comment on above: Performed By: #### Porsche GANDARA CMP, HA1C #### [facility] ([id number]) [address] [place] [address] Erythrocyte distribution width (RBC) [Ratio] 14.5 % Normal 11.5-15.0 [facility] Comment on above: Performed By: #### C BCA, CMP, HA1C #### [facility] ([id number]) [address] [place] [address] Hematocrit (Bld) [Volume fraction] 37.4 % Normal 35-47 [facility] Comment on above: Performed By: #### C BCA, CMP, HA1C #### [facility] ([id number]) [address] [place] [address] Hemoglobin (Bld) [Mass/Vol] 12.3 g/dL Normal 11.7-15.5 [facility] Comment on above: Performed By: #### C BCA, CMP, HA1C #### [facility] ([id number]) [address] [place] [address] Lymphocytes (Bld) [#/Vol] 1.2 10*3/uL Normal 1.0-3.5 [facility] Comment on above: Performed By: #### C BCA, CMP, HA1C #### [facility] ([id number]) [address] [place] [address] Lymphocytes/100 WBC (Bld) 26.3 % Normal [facility] Comment on above: Performed By: #### C BCA, CMP, HA1C #### [facility] ([id number]) [address] [place] [address] MCH (RBC) [Entitic mass] 26.7 pg Low 27-34 [facility] Comment on above: Performed By: #### C BCA, CMP, HA1C #### [facility] ([id number]) [address] [place] [address] MCHC (RBC) [Mass/Vol] 33.0 g/dL Normal 32-36 [facility] Comment on above: Performed By: #### C BCA, CMP, HA1C #### [facility] ([id number]) [address] [place] [address] MCV (RBC) [Entitic vol] 81 fL Normal 80-100 [facility] Comment on above: Performed By: #### C BCA, CMP, HA1C #### [facility] ([id number]) [address] [place] [address] Monocytes (Bld) [#/Vol] 0.3 10*3/uL Normal 0-0.9 [facility] Comment on above: Performed By: #### C BCA, CMP, HA1C #### [facility] ([id number]) [address] [facility] [address] [place] [address] Monocytes/100 WBC (Bld) 6.1 % Normal [facility] Comment on above: Performed By: #### C BCA, CMP, HA1C #### [facility] ([id number]) [address] [place] [address] Neutrophils/100 WBC (Bld) 64.9 % Normal [facility] Comment on above: Performed By: #### C BCA, CMP, HA1C #### [facility] ([id number]) [address] [place] [address] Platelet mean volume (Bld) [Entitic vol] 11.2 fL Normal 7-12 [facility] Comment on above: Performed By: #### C BCA, CMP, HA1C #### [facility] ([id number]) [address] [address] [place] [address] Platelets (Bld) [#/Vol] 161 10*3/uL Normal 150-450 [facility] Comment on above: Performed By: #### C BCA, CMP, HA1C #### [facility] ([id number]) [address], [address] [place] [address] RBC COUNT 4.62 X10E12/L Normal 3.80-5.20 [facility] Comment on above: Performed By: #### C BCA, CMP, HA1C #### [facility] ([id number]) [address] [place] [address] WBC (Bld) [#/Vol] 4.5 10*3/uL Normal 4.0-11.0 [facility] Comment on above: Performed By: #### C BCA, CMP, HA1C #### [facility] ([id number]) [address] [place] [address] CBC auto differentialon 09-25 Basophils (Bld) [#/Vol] 0 10*3/uL [facility] Basophils/100 WBC (Bld) 0.6 % P [facility] Eosinophils (Bld) [#/Vol] 0.1 10*3/uL [facility] Eosinophils/100 WBC (Bld) 2.1 % [facility] Erythrocyte distribution width (RBC) [Ratio] 14.5 % 11.5 - 15.0 % [facility] Hematocrit (Bld) [Volume fraction] 37.4 % 35 - 47 % [facility] Hemoglobin (Bld) [Mass/Vol] 12.3 g/dL 11.7 - 15.5 g/dL [facility] Interpretation and review of laboratory results Abnormal [facility] Lymphocytes (Bld) [#/Vol] 1.2 10*3/uL [facility] Lymphocytes/100 WBC (Bld) 26.3 % [facility] MCH (RBC) [Entitic mass] 26.7 pg Low 27 - 34 pg [facility] MCHC (RBC) [Mass/Vol] 33 g/dL 32 - 36 g/dL [facility] MCV (RBC) [Entitic vol] 81 fL 80 - 100 fL [facility] Monocytes (Bld) [#/Vol] 0.3 10*3/uL [facility] Monocytes/100 WBC (Bld) 6.1 % [facility] Neutrophils (Bld) [#/Vol] 2.9 10*3/uL [facility] Neutrophils/100 WBC (Bld) 64.9 % [facility] Platelet mean volume (Bld) [Entitic vol] 11.2 fL 7 - 12 fL [facility] Platelets (Bld) [#/Vol] 161 10*3/uL [facility] RBC (Bld) [#/Vol] 4.62 10*6/uL [facility] WBC corrected for nucl RBC Auto (Bld) [#/Vol] 4.5 [facility] COMPREHENSIVE METABOLIC PANE [place]ingo 10-15-2024 Albumin [Mass/Vol] 4.3 g/dL Normal 3.2-5.3 [facility] Comment on above: Performed By: #### C BCA, CMP, HA1C #### [facility] ([id number]) [address] [place] [address] ALP [Catalytic activity/Vol] 83 U/L Normal 39-130 [facility] Comment on above: Performed By: #### C BCA, CMP, HA1C #### [facility] ([id number]) [address] [place] [address] ALT [Catalytic activity/Vol] 15 U/L Normal 0-31 [facility] Comment on above: Performed By: #### C BCA, CMP, HA1C #### [facility] ([id number]) [address] [place] [address] Anion gap [Moles/Vol] 9 mmol/L Normal 5-15 [facility] Comment on above: Performed By: #### C BCA, CMP, HA1C #### [facility] ([id number]) [address] [place] [address] AST [Catalytic activity/Vol] 16 U/L Normal 0-41 [facility] Comment on above: Performed By: #### C BCA, CMP, HA1C #### [facility] ([id number]) [address] [place] [address] Bilirubin [Mass/Vol] 0.4 mg/dL Normal 0.3-1.2 [facility] Comment on above: Performed By: #### C BCA, CMP, HA1C #### [facility] ([id number]) [address] [place] [address] Calcium [Mass/Vol] 9.6 mg/dL Normal 8.5-10.5 [facility] Comment on above: Performed By: #### C BCA, CMP, HA1C #### [facility] ([id number]) [address], [facility] [address] [place] [address] Chloride [Moles/Vol] 107 mmol/L Normal 98-109 [facility] Comment on above: Performed By: #### C BCA, CMP, HA1C #### [facility] ([id number]) [address] [place] [address] CO2 [Moles/Vol] 25 mmol/L Normal 22-32 [facility] Comment on above: Performed By: #### C BCA, CMP, HA1C #### [facility] ([id number]) [address] [place] [address] Creatinine [Mass/Vol] 1.21 mg/dL High 0.40-1.00 [facility] Comment on above: Result Comment: METH OD TRACEABLE TO IDMS STANDARD Performed By: #### C BCA, CMP, HA1C #### [facility] ([id number]) [address] [place] [address] GFR/1.73 sq M.predicted among non-blacks MDRD (S/P/Bld) [Vol rate/Area] 48 mL/min/{1.73_m2} Low >59 [facility] Comment on above: Result Comment: Reported eGFR is based on the CKD-EPI 2020 equation that does not use a race coefficient. Performed By: #### C BCA, CMP, HA1C #### [facility] ([id number]) [address] [place] [address] Glucose [Mass/Vol] 109 mg/dL High 65-99 [facility] Comment on above: Performed By: #### C BCA, CMP, HA1C #### [facility] ([id number]) [address] [place] [address] Potassium [Moles/Vol] 4.0 mmol/L Normal 3.5-5.0 [facility] Comment on above: Performed By: #### C BCA, CMP, HA1C #### [facility] ([id number]) [address] [place] [address] Protein [Mass/Vol] 6.8 g/dL Normal 6.0-8.0 [facility] Comment on above: Performed By: #### C BCA, CMP, HA1C #### [facility] ([id number]) [address] [place] [address] Sodium [Moles/Vol] 141 mmol/L Normal 134-146 [facility] Comment on above: Performed By: #### C BCA, CMP, HA1C #### [facility] ([id number]) [address] [place] [address] Urea nitrogen [Mass/Vol] 16 mg/dL Normal 5-27 [facility] Comment on above: Performed By: #### C BCA, CMP, HA1C #### [facility] ([id number]) [address] [place] [address] Comprehensive metabolic pane [place]ingo 10-15-2024 Albumin [Mass/Vol] 4.3 g/dL 3.2 - 5.3 g/dL [facility] ALP [Catalytic activity/Vol] 83 U/L 39 - 130 U/L [facility] ALT No additional P-5'-P [Catalytic activity/Vol] 15 U/L 0 - 31 U/L [facility] Anion gap [Moles/Vol] 9 mmol/L 5 - 15 mmol/L [facility] AST [Catalytic activity/Vol] 16 U/L 0 - 41 U/L [facility] Bilirubin [Mass/Vol] 0.4 mg/dL 0.3 - 1 .2 mg/dL [facility] Calcium [Mass/Vol] 9.6 mg/dL 8.5 - 10. 5 mg/dL [facility] Chloride [Moles/Vol] 107 mmol/L 98 - 10 9 mmol/L [facility] CO2 [Moles/Vol] 25 mmol/L 22 - 32 mmol/L [facility] Creatinine [Mass/Vol] 1.21 mg/dL High 0.40 - 1.00 mg/dL [facility] Comment on above: METHOD TRACEABLE TO [facility] STANDARD eGFR (CKD-EPI)non-race dependent 48 Low - PINF [facility] [place] Comment on above: Reported eGFR is based on the CKD-EPI 2020 equation that does not use a race coefficient. Glucose [Mass/Vol] 109 mg/dL High 65 - 99 mg/dL [facility] Interpretation and review of laboratory results Abnormal [facility] [place] Potassium [Moles/Vol] 4 mmol/L 3.5 - 5.0 mmol/L [facility] [place] Protein [Mass/Vol] 6.8 g/dL 6.0 - 8.0 g/dL [facility] [place] Sodium [Moles/Vol] 141 mmol/L 134 - 146 mmol/L [facility] [place] Urea nitrogen [Mass/Vol] 16 mg/dL 5 - 27 mg/d L [facility] HGB A1C (GLYCO-HGB)on 2024 Glucose [Mass/Vol] 120 mg/dL Normal [facility] Comment on above: Performed By: #### C BCA, CMP, HA1C #### [facility] ([id number]) [address], [address] [place] [address] HbA1c (Bld) [Mass fraction] 5.8 % High 4.4-5.6 [facility] Comment on above: Result Comment: NOTE ADA Guidelines Result HgbA1c Normal : less than 5.7 % Prediabetes : 5.7 % to 6.4 % Diabetes : > 6.4 % Use with caution in patients with abnormal hemoglobin variants as the half-life of red blood cells and in vivo glycation rates are affected. Performed By: #### C BCA, CMP, HA1C #### [facility] ([id number]) [address] [address], [address] [place] [address] [facility] TransthoracicOrdere d By: Kenton Latham on 04-27-2023 LV A4C EF 57.4 [facility] Work Phone: [facility] Work Phone: [facility] Transthoracicon [facility] [address] [place] [address] [address] [place], [place] [address] TRANSTHORACIC ECHOCARDIOGRAM REPORT Patient Name: ASTER Lacey Physician: [id number] Kenton Latham MD Study Date: 04/25/2023 Ordering Provider: [id number] KENTON MORTENSEN MRN/PID: [id number] Fellow: Nurse: Date of /Age: 11 1950 / 72 years Head Charrer: Jennifer Long RDCS, T Gender: F Additional Staff: Height: 167.64 cm Admit Date: Weight: 93.90 kg Admission Status: BSA: 2.03 m2 Department Location: [facility] Blood Pressure: 136 /92 mmHg Study Type: TRANSTHORACIC ECHO (TTE) COMPLETE Diagnosis/ICD: Palpitations-R00.2; Shortness of breath-R06.02 Indication: Hyperlipidemia, Hypothyroid, CKD-Stage III CPT Codes: Echo Complete w Full Doppler-42031 Study Detail: The following Echo studies were [...] 0.6 m/s (0.6-0.9m/s) PV Max P.6 mmHg [id number] Kenton Latham MD Electronically signed on 04/27/2023 at 9:14:45 AM Final LANNYO Kenton Latham MD - 04/27/[address], [address] [place] [address] TRANSTHORACIC ECHOCARDIOGRAM REPORT Patient Name: ASTER Lacey Physician: [id number] Latham MD Study Date: 04/25/2023 Ordering Provider: [id number] KENTON MORTENSEN MRN/PID: [id number] Fellow: Nurse: Date of /Age: 11 1950 / 72 years Head Charrer: Jennifer Long RDCS, RVT Gender: F Additional Staff: Height: 167.64 cm Admit Date: Weight: 93.90 kg Admission Status: BSA: 2.03 m2 Department Location: [facility] Blood Pressure: 136 /92 mmHg Study Type: TRANSTHORACIC ECHO (TTE) COMPLETE Diagnosis/ICD: Palpitations-R00.2; Shortness of breath-R06.02 Indication: Hyperlipidemia, Hypothyroid, CKD-Stage III CPT Codes: Echo Complete w Full Doppler-20101 Study Detail: The following Echo studies were [...] 0.6 m/s (0.6-0.9m/s) PV Max P.6 mmHg [id number] Kenton Latham MD Electronically signed on 04/27/2023 at 9:14:45 AM Final [facility] Work Phone: TRANSTHORACIC ECHO (TTE) COM PLETEon 04-25-2023 TRANSTHORACIC ECHO (TTE) COMPLETE [facility] [address], [address], [place] [address] TRANSTHORACIC ECHOCARDIOGRAM REPORT Patient Name: ATSER BACON Reading Physician: [id number] Kenton Latham MD Study Date: 04/25/2023 Ordering Provider: [id number] KENTON Clarissa JOSELITO MRN/PID: [id number] Fellow: Nurse: Date of /Age: 11 1950 / 72 years Head Charrer: Jennifer Long RDCS, RVT Gender: F Additional Staff: Height: 167.64 cm Admit Date: Weight: 93.90 kg Admission Status: BSA: 2.03 m2 Department Location: [facility] Blood Pressure: 136 /92 mmHg Study Type: TRANSTHORACIC ECHO (TTE) COMPLETE Diagnosis/ICD: Palpitations-R00.2; Shortness of breath-R06.02 Indication: Hyperlipidemia, Hypothyroid, CKD-Stage III CPT Codes: Echo Complete w Full Doppler-40605 Study Detail: The following Echo studies were [...] 0.6 m/s (0.6-0.9m/s) PV Max P.6 mmHg [id number] Kenton Latham MD Electronically signed on 04/27/2023 at 9:14:45 AM Final [facility] Cardiac Stress Teston 2022 Cardiac Stress Test [address], [address] [place] [address] Exercise Stress Test Patient Name: ASTER Ordering Physician: DORIS Study Date: 03/23/2023 Reading Physician: [id number] Alejandro Perry MD MRN/PID: [id number] Supervising [id number] Alejandro Perry Physician: Accession/Order#: [id number] Referring Physician: KENTON MORTENSEN Date of : 1950 PCP: Gender: F Fellow: Height: 167.64 cm Nurse: Yun Minaya RN Weight: 92.99 kg Head Charrer: N/A BSA: 2.02 m2 Technologist: BMI: 33.09 kg/m2 Additional Staff: Age: 72 years cc report to: Study Type: Cardiac Stress Test Diagnosis/ICD: R06.09-Other forms of dyspnea; E78.5-Hyperlipidemi a unspecified Indication: Dyspnea on Exertion Procedure/CPT: Stress Test Supervision-19730 Falls Risk: Low: Patient has low risk [...] rate. 7. Adequate level of stress achieved. [id number] Alejandro Perry MD Electronically signed on 03/23/2023 at 6:48:55 PM Final Normal [facility] Cardiac Stress Test MP-No rth [facility] Work Phone: Office Visit (Cardiology)on [...] Weight Tips; Status:Complete - Retrospective Authorization; Done: [id number] Some eating tips that can help you lose weight.; Status:Complete - Retrospective Authorization; Done: [id number] Dyspnea on minimal exertion, Hyperlipidemia Cardiac Stress Test; Status:Hold For - Scheduling,Retrospe ctive Authorization; Requested for:[id number]; Hyperlipidemia IO EKG Electrocardiogram- 12 Lead; Status:Complete; Done: [id number] SocHx: Never a smoker Tobacco Use Screening; Status:Complete; Done: [id number] Patient Instructions Please bring all medicines, vitamins, [...] Vital Signs Recorded: 23Feb2023 09:14AMRecorded: 23Feb2023 09:10AM Hhpneszl501, RUE, Tukqwaf685, LUE, Sitting Wtcdahrrn68, RUE, Oksuwsf03, LUE, Sitting Heart Rate71, Apical Height5 ft 6.5 in Caafmh905 lb BMI Yewpknlizb77.59 kg/m2 BSA Calculated2.03 Tobacco Useb) No PHQ-2 [...] have l (more content not included)... [facility] Tobacco Screening.on 023 Adult depression screening assessment Yes [facility] Albire[facility]Reading 250 DO Work Phone: Adult depression screening assessment No [facility] io Heart-Reading 250 DO Work Phone: Adult depression screening assessment Moderate (10-14) [facility] ClariFIo Heart-Reading 250 DO Work Phone: Fall risk assessment b) One or more falls in the last year [facility] 250 DO Work Phone: Tobacco use status [facility] b) No M [facility] 250 DO Work Phone: Tobacco Screening. 0-Not at all NIKOLE Valenzuela HeartDre Reddy DO Work Phone: Tobacco Screening. 3-Nearly every day Teresa Reddy DO Work Phone: Tobacco Screening. 2-More than half the days Teresa Valenzuela HeartDre Reddy DO Work Phone: Tobacco Screening. Somewhat Difficult Teresa Reddy DO Work Phone: XR TSPINE 3 VIEWSon [...] ALICIA MUNGUIA Date: 2021-04-28 19:29 Normal [facility] CBC (INCLUDES DIFF/PLT)on Basophils (Bld) [#/Vol] 0.021 10*3/uL Normal 0-200 [facility] Comment on above: Performed By: #### 7 18, 905, 7600, 6399, 22679, 622, 07635, 46601 #### [facility] [address] [facility], [address] [place] [address] Lodging Manager: Rip Cornejo MD Basophils/100 WBC (Bld) 0.6 % Normal [facility] Comment on above: Performed By: #### 7 18, 905, 7600, 6399, 34620, 622, 58114, 24718 #### [facility] [address] , [address] [place] [address] Lodging Manager: Rip Cornejo MD Eosinophils (Bld) [#/Vol] 0.098 10*3/uL Normal 15-500 [facility] Comment on above: Performed By: #### 7 18, 905, 7600, 6399, 57339, 622, 98047, 00999 #### [facility] of [place] [address] Lodging Manager: Rip Cornejo MD Eosinophils/100 WBC (Bld) 2.8 % Normal [facility] Comment on above: Performed By: #### 7 18, 905, 7600, 6399, 02816, 622, 46538, 28313 #### [facility] of [place] [address] Lodging Manager: Rip Cornejo MD Erythrocyte distribution width (RBC) [Ratio] 14.2 % Normal 11.0-15.0 [facility] Comment on above: Performed By: #### 7 18, 905, 7600, 6399, 03857, 622, 90298, 13666 #### [facility] [place] [address] Lodging Manager: Rip Cornejo MD Hematocrit (Bld) [Volume fraction] 37.3 % Normal 35.0-45.0 [facility] Comment on above: Performed By: #### 7 18, 905, 7600, 6399, 67370, 622, 55795, 21259 #### [facility] [place] [address] Lodging Manager: Rip Cornejo MD Hemoglobin (Bld) [Mass/Vol] 12.0 g/dL Normal 11.7-15.5 [facility] Comment on above: Performed By: #### 7 18, 905, 7600, 6399, 27129, 622, 58193, 18220 #### [facility] of [place] [address] Lodging Manager: Rip Cornejo MD Lymphocytes (Bld) [#/Vol] 1.32 10*3/uL Normal 850-3900 [facility] Comment on above: Performed By: #### 7 18, 905, 7600, 6399, 92603, 622, 68625, 02650 #### [facility] [place] [address] Lodging Manager: Rip Cornejo MD Lymphocytes/100 WBC (Bld) 37.7 % Normal [facility] Comment on above: Performed By: #### 7 18, 905, 7600, 6399, 70730, 622, 08798, 71107 #### [facility] [place] [address] Lodging Manager: Rip Cornejo MD MCH (RBC) [Entitic mass] 25.9 pg Low 27.0-33.0 [facility] Comment on above: Performed By: #### 7 18, 905, 7600, 6399, 31053, 622, 62421, 12604 #### [facility] [place] [address] Lodging Manager: Rip Cornejo MD MCHC (RBC) [Mass/Vol] 32.2 g/dL Normal 32.0-36.[address] [facility] Comment on above: Performed By: #### 7 18, 905, 7600, 6399, 38074, 622, 29943, 93379 #### [facility] [place] [address] Lodging Manager: Rip Cornejo MD MCV (RBC) [Entitic vol] 80.6 fL Normal 80.0-100.0 [facility] Comment on above: Performed By: #### 7 18, 905, 7600, 6399, 30917, 622, 66119, 91970 #### [facility] [place] [address] Lodging Manager: Rip Cornejo MD Monocytes (Bld) [#/Vol] 0.217 10*3/uL Normal 200-950 [facility] Comment on above: Performed By: #### 7 18, 905, 7600, 6399, 72152, 622, 06951, 69605 #### [facility] of [address], [address] [place] [address] Lodging Manager: Rip Cornejo MD Monocytes/100 WBC (Bld) 6.2 % Normal [facility] Comment on above: Performed By: #### 7 18, 905, 7600, 6399, 30246, 622, 26747, 82881 #### [facility] of [address], [address] [place] [address] Lodging Manager: Rip Cornejo MD Neutrophils (Bld) [#/Vol] 1.845 10*3/uL Normal 1077-2617 [facility] Comment on above: Performed By: #### 7 18, 905, 7600, 6399, 89891, 622, 48911, 04922 #### [facility] of [address], [address] [place] [address] Lodging Manager: Rip Cornejo MD Neutrophils/100 WBC (Bld) 52.7 % Normal [facility] Comment on above: Performed By: #### 7 18, 905, 7600, 6399, 76726, 622, 85359, 52638 #### [facility] of [address], [address] [place] [address] Lodging Manager: Rip Cornejo MD Platelet mean volume (Bld) [Entitic vol] 12.6 fL High 7.5-12.5 [facility] Comment on above: Performed By: #### 7 18, 905, 7600, 6399, 48540, 622, 44383, 37519 #### [facility] of [address], [address] [place] [address] Lodging Manager: Rip Cornejo MD Platelets (Bld) [#/Vol] 202 10*3/uL Normal 140-400 [facility] Comment on above: Performed By: #### 7 18, 905, 7600, 6399, 67139, 622, 88442, 94107 #### [facility] of [address], [address] [place] [address] Lodging Manager: Rip Cornejo MD RBC (Bld) [#/Vol] 4.63 10*6/uL Normal 3.80-5.10 [facility] Comment on above: Performed By: #### 7 18, 905, 7600, 6399, 58801, 622, 62481, 76242 #### [facility] of [address], [address] [place] [address] Lodging Manager: Rip Cornejo MD WBC (Bld) [#/Vol] 3.5 10*3/uL Low 3.8-10.8 [facility] Comment on above: Performed By: #### 7 18, 905, 7600, 6399, 32619, 622, 90654, 78971 #### [facility] [place] [address] Lodging Manager: Rip Cornejo MD [facility] METABOLIC [facility] 04-20-2021 Albumin [Mass/Vol] 3.8 g/dL Normal 3.6-5.1 [facility] Comment on above: Performed By: #### 7 18, 905, 7600, 6399, 84974, 622, 00144, 63099 #### [facility] [place] [address] Lodging Manager: Rip Cornejo MD Albumin/Globulin [Mass ratio] 1.5 {ratio} Normal 1.0-2.5 [facility] Comment on above: Performed By: #### 7 18, 905, 7600, 6399, 58073, 622, 56717, 02076 #### [facility] [place] [address] Lodging Manager: Rip Conrejo MD ALP [Catalytic activity/Vol] 87 U/L Normal 37-153 [facility] Comment on above: Performed By: #### 7 18, 905, 7600, 6399, 46152, 622, 70398, 47787 #### [facility] [place] [address] Lodging Manager: Rip Cornejo MD ALT [Catalytic activity/Vol] 10 U/L Normal 6-29 [facility] Comment on above: Performed By: #### 7 18, 905, 7600, 6399, 58487, 622, 89720, 45700 #### [facility] of [address], [address] [place] [address] Lodging Manager: Rip Cornejo MD AST [Catalytic activity/Vol] 11 U/L Normal 10-35 [facility] Comment on above: Performed By: #### 7 18, 905, 7600, 6399, 87494, 622, 17308, 88643 #### [facility] [place] [address] Lodging Manager: Rip Cornejo MD Bilirubin [Mass/Vol] 0.4 mg/dL Normal 0.2-1.2 [facility] Comment on above: Performed By: #### 7 18, 905, 7600, 6399, 89263, 622, 67600, 53500 #### [facility] [place] [address] Lodging Manager: Rip Cornejo MD BUN/CREATININE RATIO NOT APPLICABLE Normal 6-22 [facility] Comment on above: Performed By: #### 7 18, 905, 7600, 6399, 40502, 622, 19178, 95175 #### [facility] [place] [address] Lodging Manager: Rip Cornejo MD Calcium [Mass/Vol] 9.5 mg/dL Normal 8.6-10.4 [facility] Comment on above: Performed By: #### 7 18, 905, 7600, 6399, 48149, 622, 24939, 81420 #### [facility] [place] [address] Lodging Manager: Rip Cornejo MD Chloride [Moles/Vol] 108 mmol/L Normal 98-110 [facility] Comment on above: Performed By: #### 7 18, 905, 7600, 6399, 37761, 622, 13015, 64561 #### [facility] [address], [address] [place] [address] Lodging Manager: Rip Cornejo MD CO2 [Moles/Vol] 25 mmol/L Normal 20-32 [facility] Comment on above: Performed By: #### 7 18, 905, 7600, 6399, 35406, 622, 29080, 32221 #### [facility] [place] [address] Lodging Manager: Rip Cornejo MD Creatinine [Mass/Vol] 0.94 mg/dL Normal 0.50-0.[address] [facility] Comment on above: Result Comment: For patients >49 years of age, the reference limit for Creatinine is approximately 13% higher for people identified as -Beninese. Performed By: #### 7 18, 905, 7600, 6399, 09407, 622, 88136, 19765 #### [facility] [place] [address] Lodging Manager: Rip Cornejo MD eGFR NON-AFR. GEORGIAN 62 mL/min/1.73m2 Normal > OR = 60 [facility] Comment on above: Performed By: #### 7 18, 905, 7600, 6399, 27027, 622, 24972, 87990 #### [facility] [place] [address] Lodging Manager: Rip Cornejo MD GFR/1.73 sq M.predicted among blacks MDRD (S/P/Bld) [Vol rate/Area] 72 mL/min/{1.73_m2} Normal > OR = 60 [facility] Comment on above: Performed By: #### 7 18, 905, 7600, 6399, 46825, 622, 99896, 83608 #### [facility] [address], [address] [place] [address] Lodging Manager: Rip Cornejo MD Globulin (S) [Mass/Vol] 2.5 g/dL Normal 1.9-3.7 [facility] Comment on above: Performed By: #### 7 18, 905, 7600, 6399, 50908, 622, 91661, 29101 #### [facility] [place] [address] Lodging Manager: Rip Cornejo MD Glucose [Mass/Vol] 103 mg/dL High 65-99 [facility] Comment on above: Result Comment: Fasting reference interval For someone without known diabetes, a glucose value between 100 and 125 mg/dL is consistent with prediabetes and should be confirmed with a follow-up test. Performed By: #### 7 18, 905, 7600, 6399, 64727, 622, 59950, 78081 #### [facility] [place] [address] Lodging Manager: Rip Cornejo MD Potassium [Moles/Vol] 4.2 mmol/L Normal 3.5-5.[address] [facility] [address] [facility] Comment on above: Performed By: #### 7 18, 905, 7600, 6399, 92889, 622, 77961, 84260 #### [facility] [place] [address] Lodging Manager: Rip Cornejo MD Protein [Mass/Vol] 6.3 g/dL Normal 6.1-8.1 [facility] Comment on above: Performed By: #### 7 18, 905, 7600, 6399, 91925, 622, 89842, 58448 #### [facility] [place] [address] Lodging Manager: Rip Cornejo MD Sodium [Moles/Vol] 140 mmol/L Normal 135-146 [facility] Comment on above: Performed By: #### 7 18, 905, 7600, 6399, 45688, 622, 71445, 40773 #### [facility] [place] [address] Lodging Manager: Rip Cornejo MD Urea nitrogen [Mass/Vol] 17 mg/dL Normal 7-25 [facility] Comment on above: Performed By: #### 7 18, 905, 7600, 6399, 21253, 622, 44363, 66978 #### [facility] [address], [address] [place] [address] Lodging Manager: Rip Cornejo MD LIPID PANEL, [address] Cholesterol [Mass/Vol] 209 mg/dL High <200 [facility] Comment on above: Order Comment: FASTI NG:YES FASTING: YES Performed By: #### 7 18, 905, 7600, 6399, 76750, 622, 36412, 38476 #### [facility] [address], [address] [place] [address] Lodging Manager: Rip Cornejo MD Cholesterol in HDL [Mass/Vol] 43 mg/dL Low > OR = 50 [facility] Comment on above: Order Comment: FASTI NG:YES FASTING: YES Performed By: #### 7 18, 905, 7600, 6399, 75056, 622, 56021, 02379 #### [facility] [address], [address] [place] [address] Lodging Manager: Rip Cornejo MD Cholesterol in LDL [Mass/Vol] [...] LDL-C. Chalo SS et al. JOSE. 2013;310(19): 0816-1578 (http://education.WeedWall.Scary Mommy/faq/BWP290) Performed By: #### 7 18, 905, 7600, 6399, 84584, 622, 72022, 93698 #### [facility] [address], [address] [place] [address] Lodging Manager: Rip Cornejo MD Cholesterol.total/Choles terol in HDL [Mass ratio] 4.9 {ratio} Normal <5.0 [facility] Comment on above: Order Comment: FASTI NG:YES FASTING: YES Performed By: #### 7 18, 905, 7600, 6399, 64589, 622, 04601, 49118 #### [facility] [address], [address] [place] [address] Lodging Manager: Rip Cornejo MD NON HDL CHOLESTEROL 166 mg/dL (calc) High <130 [facility] Comment on above: Order Comment: FASTI NG:YES FASTING: YES Result Comment: For patients with diabetes plus 1 major ASCVD risk factor, treating to a non-HDL-C goal of <100 mg/dL (LDL-C of <70 mg/dL) is considered a therapeutic option. Performed By: #### 7 18, 905, 7600, 6399, 63695, 622, 31897, 09004 #### [facility] [address], [address] [place] [address] Lodging Manager: Rip Cornejo MD Triglyceride [Mass/Vol] 143 mg/dL Normal <150 [facility] Comment on above: Order Comment: FASTI NG:YES FASTING: YES Performed By: #### 7 18, 905, 7600, 6399, 78201, 622, 75613, 77799 #### [facility] [place] [address] Lodging Manager: Rip Cornejo MD MAGNESIUMon 04-20-2021 Magnesium [Mass/Vol] 1.7 mg/dL Normal 1.5-2.5 [facility] Comment on above: Performed By: #### 7 18, 905, 7600, 6399, 51713, 622, 77779, 64983 #### [facility] [address], [address] [place] [address] Lodging Manager: Rip Cornejo MD PHOSPHATE ( PHOSPHORUS)on 04-20-2021 Phosphate [Mass/Vol] 3.3 mg/dL Normal 2.1-4.3 [facility] Comment on above: Performed By: #### 7 18, 905, 7600, 6399, 82556, 622, 85055, 14163 #### [facility] [place] [address] Lodging Manager: Rip Cornejo MD PTH, INTACT WITHOUT CALCIUMo [...] By: #### 7 18, 905, 7600, 6399, 92528, 622, 69812, 16982 #### [facility] [place] [address] Lodging Manager: Rip Cornejo MD TSH+FREE T4on 04-20-2021 Free T4 [Mass/Vol] 1.3 ng/dL Normal 0.8-1.8 [facility] Comment on above: Performed By: #### 7 18, 905, 7600, 6399, 32820, 622, 44365, 46829 #### [facility] [place] [address] Lodging Manager: Rip Cornejo MD TSH Qn 2.34 m[IU]/L Normal 0.40-4.50 [facility] Comment on above: Performed By: #### 7 18, 905, 7600, 6399, 05176, 622, 12732, 12557 #### [facility] [place] [address] Lodging Manager: Rip Cornejo MD URIC ACIDon 04-20-2021 Urate [Mass/Vol] 5.9 mg/dL Normal 2.5-7.0 [facility] Comment on above: Result Comment: Ther apeutic target for gout patients: <6.0 mg/dL Performed By: #### 7 18, 905, 7600, 6399, 13777, 622, 25990, 28515 #### [facility] [address], [address] [place], [place] [address] Lodging Manager: Rip Cornejo MD VITAMIN D,25-OH,TOTAL,IAon 1 VITAMIN [...] D, (D2,D3), LC/MS/MS is recommended: order code [id number] (patients >2yrs). See Note 1 Note 1 For additional information, please refer to http://education.[employer]/faq/DAY942 (This link is being provided for informational/ educational purposes only.) Performed By: #### 7 18, 905, 7600, 6399, 50958, 622, 37934, 82504 #### [facility] [address], [address] [place] [address] Lodging Manager: Rip Cornejo MD Vital Signs Date Time Vital Sign Value Performing Clinician Facility 01-29-2025 14:45-0400 Body height 167.6 cm Alicia Dunlap DO Work Phone: [facility] 01-29-2025 14:45-0400 Body mass index (BMI) [Ratio] 31.96 kg/m2 Alicia Dunlap DO Work Phone: [facility] 01-29-2025 14:45-0400 Body weight 89.81 kg Alicia Dunlap DO Work Phone: [facility] 12-25-2024 18:15-0400 Diastolic blood pressure 70 mm[Hg] Simone Furlong DO Work Phone: [facility] 12-25-2024 18:15-0400 Heart rate 86 /min Simone Furlong DO Work Phone: [facility] 12-25-2024 18:15-0400 Respiratory rate 18 /min Simone Furlong DO Work Phone: [facility] 12-25-2024 18:15-0400 SaO2% (BldA) [Mass fraction] 93 % Simone Furlong DO Work Phone: [facility] 12-25-2024 18:15-0400 Systolic blood pressure 141 mm[Hg] Simone Furlong DO Work Phone: [facility] 12-25-2024 13:44-0400 Body height 167.64 cm Simone Furlong DO Work Phone: [facility] 12-25-2024 13:44-0400 Body temperature 98.4 [degF] Simone Furlong DO Work Phone: [facility] 12-25-2024 13:44-0400 Body weight 90.71 kg Simone Furlong DO Work Phone: [facility] 12-09-2024 13:39-0400 Body height 168.9 cm Simone Furlong DO Work Phone: [facility] [employer] [facility] 12-09-2024 13:39-0400 Body mass index (BMI) [Ratio] 33.1 kg/m2 Simone Furlong DO Work Phone: [facility] [employer] [facility] 12-09-2024 13:39-0400 Body temperature 98.29 [degF] Simone Furlong DO Work Phone: [facility] [place] 12-09-2024 13:39-0400 Body weight 94.44 kg Simone Furlong DO Work Phone: [facility] [place] 12-09-2024 13:39-0400 Diastolic blood pressure 70 mm[Hg] Sim[facility] 12-09-2024 13:39-0400 Heart rate 82 /min Simone Herrerang DO Work Phone: [facility] [employer] [facility] 12-09-2024 13:39-0400 Respiratory rate 20 /min Simone Romerolong DO Work Phone: [facility] [place] 12-09-2024 13:39-0400 SaO2% (BldA) [Mass fraction] 98 % Simone Singh DO Work Phone: [facility] [facility] [email or web address] [facility] 12-09-2024 13:39-0400 Systolic blood pressure 120 mm[Hg] Simone Singh DO Work Phone: [facility] 11-23-2024 10:04-0400 Body height 167.64 cm [facility] 11-23-2024 10:04-0400 Body mass index (BMI) [Ratio] 34.2 kg/m2 [facility] 11-23-2024 10:04-0400 Body temperature 97.8 [degF] [facility] 11-23-2024 10:04-0400 Body weight 96.16 kg [facility] 11-23-2024 10:04-0400 Diastolic blood pressure 76 mm[Hg] [facility] 11-23-2024 10:04-0400 Heart rate 77 /min [facility] 11-23-2024 10:04-0400 Respiratory rate 16 /min [facility] 11-23-2024 10:04-0400 SaO2% (BldA) [Mass fraction] 98 % [facility] 11-23-2024 10:04-0400 Systolic blood pressure 131 mm[Hg] [facility] 10-29-2024 09:36-0400 Body height 167.6 cm Kenton Mortensen DO Work Phone: [facility] 10-29-2024 09:36-0400 Body mass index (BMI) [Ratio] 34.7 kg/m2 Kenton oMrtensen DO Work Phone: [facility] 10-29-2024 09:36-0400 Body weight 97.52 kg Kenton Mortensen DO Work Phone: [facility] 10-29-2024 09:36-0400 Diastolic blood pressure 78 mm[Hg] Kenton Mortensen DO Work Phone: [facility] 10-29-2024 09:36-0400 Heart rate 70 /min Kenton Mortensen DO Work Phone: [facility] 10-29-2024 09:36-0400 Systolic blood pressure 124 mm[Hg] Kenton Mortensen DO Work Phone: [facility] 10-15-2024 14:04-0400 Body height 168.9 cm George López BIN OPERATOR-STEAM PRESS TENDER Work Phone: [facility] 10-15-2024 14:04-0400 Body mass index (BMI) [Ratio] 34.12 kg/m2 George López BIN OPERATOR-STEAM PRESS TENDER [facility] 10-15-2024 14:04-0400 Body temperature 98.29 [degF] George López BIN OPERATOR-STEAM PRESS TENDER Work Phone: [facility] 10-15-2024 14:04-0400 Body weight 97.34 kg George López BIN OPERATOR-STEAM PRESS TENDER Work Phone: [facility] [email or web address] [facility] 10-15-2024 14:04-0400 Diastolic blood pressure 70 mm[Hg] George López BIN OPERATOR-STEAM PRESS TENDER Work Phone: [facility] 10-15-2024 14:04-0400 Heart rate 87 /min George López BIN OPERATOR-STEAM PRESS TENDER Work Phone: [facility] [email or web address] [facility] 10-15-2024 14:04-0400 Respiratory rate 18 /min George López BIN OPERATOR-STEAM PRESS TENDER Work Phone: [facility] 10-15-2024 14:04-0400 SaO2% (BldA) [Mass fraction] 98 % George López BIN OPERATOR-STEAM PRESS TENDER Work Phone: [facility] [email or web address] [facility] 10-15-2024 14:04-0400 Systolic blood pressure 110 mm[Hg] George López BIN OPERATOR-STEAM PRESS TENDER Work Phone: [facility] 11-30-2023 12:58-0400 Body height 168.9 cm Kari Dockery BIN OPERATOR-PEAR PICKER Work Phone: [facility] 11-30-2023 12:58-0400 Body temperature 97.3 [degF] Kari Dockery BIN OPERATOR-PEAR PICKER Work Phone: [facility] 11-30-2023 12:58-0400 Diastolic blood pressure 60 mm[Hg] Kari Dockery BIN OPERATOR-PEAR PICKER Work Phone: [facility] 11-30-2023 12:58-0400 Heart rate 70 /min Kari Dockery BIN OPERATOR-PEAR PICKER Work Phone: [facility] 11-30-2023 12:58-0400 Respiratory rate 98 /min Kari Dockery BIN OPERATOR-PEAR PICKER Work Phone: [facility] 11-30-2023 12:58-0400 Systolic blood pressure 116 mm[Hg] Kari Dockery APRN-PEAR PICKER Work Phone: [facility] 04-25-2023 12:27-0400 Body height 167.[address] 04-25-2023 12:27-0400 Body mass index (BMI) [Ratio] 33.41 kg/m2 [address] 04-25-2023 12:27-0400 Body weight 93.[address] 04-25-2023 12:27-0400 Diastolic blood pressure 92 mm[Hg] [address] 04-25-2023 12:27-0400 Systolic blood pressure 136 mm[Hg] [address] 04-20-2023 11:43-0400 Body height 168.9 cm Kenton Mortensen DO Work Phone: [facility] 04-20-2023 11:43-0400 Body mass index (BMI) [Ratio] 32.91 kg/m2 Kenton Mortensen DO Work Phone: [facility] 04-20-2023 11:43-0400 Body weight 93.89 kg Kenton Mortensen DO Work Phone: [facility] 04-20-2023 11:43-0400 Diastolic blood pressure 92 mm[Hg] Kenton Mortensen DO Work Phone: [facility] 04-20-2023 11:43-0400 Heart rate 58 /min Kenton Mortensen DO Work Phone: [facility] 04-20-2023 11:43-0400 Systolic blood pressure 142 mm[Hg] Kenton Mortensen DO Work Phone: [facility] 02-23-2023 09:14-0400 Diastolic blood pressure 62 mm[Hg] Simone G Furlong Work Phone: [facility] DO Work Phone: 02-23-2023 09:14-0400 Systolic blood pressure 120 mm[Hg] Simone G Furlong Work Phone: [facility] DO Work Phone: 02-23-2023 09:10-0400 Body height 168.91 cm Simone G Furlong Work Phone: [facility] DO Work Phone: 02-23-2023 09:10-0400 Body mass index (BMI) [Ratio] 32.59 kg/m2 Simone G Furlong Work Phone: [facility] DO Work Phone: 02-23-2023 09:10-0400 Body surface area Derived from formula 2.03 m2 Simone G Furlong Work Phone: [facility] [facility] DO Work Phone: 02-23-2023 09:10-0400 Body weight 92.99 kg Simone G Furlong Work Phone: [facility] DO Work Phone: 02-23-2023 09:10-0400 Diastolic blood pressure 64 mm[Hg] Simone G Furlong Work Phone: [facility] DO Work Phone: 02-23-2023 09:10-0400 Heart rate 71 /min Simone G Furlong Work Phone: [facility] DO Work Phone: 02-23-2023 09:10-0400 Systolic blood pressure 120 mm[Hg] Simone Franks Furlong Work Phone: [facility] DO Work Phone: 02-23-2023 09:10-0400 10 1 Simone G Furlong Work Phone: [facility] DO Work Phone: Comment on above: PHQ-9 TS Encounters Encounter Date Encounter Type Care Provider Facility Start: 03-13-2025 End: 03-13-2025 Bamboo flowsheet Ulices Morris LEGAL RECORDS MANAGER [facility] Start: 03-13-2025 End: 03-13-2025 Bamboo flowsheet Ulices Morris LEGAL RECORDS MANAGER [facility] Start: 03-13-2025 End: 03-13-2025 ambulatory Ulices Morris LEGAL RECORDS MANAGER [facility] Comment on above: Right knee pain, uns pecified chronicity (Primary Dx); Primary osteoarthritis of right knee Start: 03-10-2025 End: 03-10-2025 Bamboo flowsheet Mikki Koo LEGAL RECORDS MANAGER [facility] Start: 03-10-2025 End: 03-10-2025 Bamboo flowsheet Mikki Koo LEGAL RECORDS MANAGER [facility] Start: 03-10-2025 End: 03-10-2025 ambulatory Mikki Koo LEGAL RECORDS MANAGER [facility] Comment on above: Right knee pain, uns pecified chronicity (Primary Dx); Primary osteoarthritis of right knee Start: 02-19-2025 End: 02-19-2025 ambulatory Sharmila Michael PT [facility] Comment on above: Right knee pain, uns pecified chronicity (Primary Dx); Primary osteoarthritis of right knee Start: 02-19-2025 End: 02-19-2025 Bamboo flowsheet Sharmila Michael PT [facility] Start: 02-19-2025 End: 02-19-2025 Bamboo flowsheet Sharmila Michael PT [facility] Start: 02-17-2025 End: 02-17-2025 Bamboo flowsheet Mikki Koo LEGAL RECORDS MANAGER [facility] Start: 02-17-2025 End: 02-17-2025 Bamboo flowsheet Mikki Koo LEGAL RECORDS MANAGER [facility] Start: 02-17-2025 End: 02-17-2025 ambulatory Mikki Koo LEGAL RECORDS MANAGER [facility] Comment on above: Right knee pain, uns pecified chronicity (Primary Dx); Primary osteoarthritis of right knee Start: 02-12-2025 End: 02-12-2025 ambulatory Sharmila Michael PT [facility] Comment on above: Right knee pain, uns pecified chronicity; Primary osteoarthritis of right knee Start: 02-12-2025 End: 02-12-2025 Bamboo flowsheet Sharmila Michael PT [facility] Start: 02-12-2025 End: 02-12-2025 Bamboo flowsheet Sharmila Michael PT [facility] Start: 01-29-2025 End: 01-29-2025 Patient encounter procedure Alicia Dunlap DO Work Phone: [facility] Comment on above: Right knee pain, uns pecified chronicity (Primary Dx); Primary osteoarthritis of right knee Start: 01-29-2025 End: 01-29-2025 ambulatory ALICIA Fan POCOS Not Available Start: 01-29-2025 End: 01-29-2025 ambulatory ALICIA Fan POCOS Not Available Start: 01-27-2025 End: 01-27-2025 Office outpatient visit 15 minutes Simone Singh DO Work Phone: [facility] Comment on above: Asymptomatic menopau césar state (Primary Dx); Right knee pain, unspecified chronicity Start: 01-27-2025 End: 01-27-2025 ambulatory [facility] Start: 01-01-2025 End: 03-03-2025 Follow-up encounter Simone Singh DO Work Phone: [facility] Comment on above: Cologuard [facility] Start: 12-31-2024 End: 12-31-2024 Refill Simone Singh DO [facility] Comment on above: Reactive depression Start: 12-25-2024 End: 12-25-2024 Emergency department patient visit Simone Singh DO Work Phone: -Emergency Room Work Phone: Start: 12-09-2024 End: 12-09-2024 Office outpatient visit 25 minutes Simone Singh DO Work Phone: [facility] Comment on above: Acquired hypothyroid ism (Primary Dx); Stage 3a chronic kidney disease (CKD) (CMS-HCC); Other hyperlipidemia; Acute pain of right knee; Encounter for screening mammogram for malignant neoplasm of breast; Special screening for malignant neoplasm of colon; Class 1 obesity due to excess calories with serious comorbidity and body mass index (BMI) of 33.0 to 33.9 in adult; Asymptomatic menopausal state; Prediabetes Start: 12-09-2024 End: 12-09-2024 ambulatory [facility] Start: 11-23-2024 End: 11-23-2024 ambulatory [facility] Work Phone: Start: 11-23-2024 End: 11-23-2024 Patient encounter procedure [facility] Work Phone: Start: 10-30-2024 End: 10-30-2024 Telephone encounter Hiral Wisdom [facility] Start: 10-29-2024 End: 10-29-2024 Office outpatient visit 15 minutes [facility] Work Phone: [facility] Comment on above: Dyspnea on exertion; Benign hypertensive heart disease without heart failure; BMI 34.0-34.9,adult; Never smoked tobacco Start: 10-29-2024 End: 10-29-2024 ambulatory [facility] Start: 10-15-2024 End: 10-15-2024 ambulatory [facility] Start: 10-15-2024 End: 10-15-2024 Office outpatient visit 15 minutes [facility] BIN OPERATOR-STEAM PRESS TENDER Work Phone: [facility] Comment on above: Screening for diabet es mellitus (DM) (Primary Dx); Localized swelling of both lower legs; Stage 2 chronic kidney disease; Right lower quadrant abdominal pain Start: 10-15-2024 End: 10-15-2024 ambulatory [facility] Start: 10-09-2024 End: 10-10-2024 Refill Joann Margarita [facility] Start: 07-24-2024 End: 07-25-2024 Refill Joann Margarita [facility] Comment on above: Reactive depression Start: 04-25-2024 End: 04-25-2024 Telephone encounter Hiral Wisdom [facility] Start: 03-18-2024 End: 03-18-2024 Bamboo flowsheet Yne De Oliveira BIN OPERATOR-STEAM PRESS TENDER Work Phone: [facility] Start: 03-18-2024 End: 03-18-2024 Bamboo flowsheet Yen De Oliveira BIN OPERATOR-STEAM PRESS TENDER Work Phone: [facility] Start: 03-18-2024 End: 03-18-2024 Office outpatient new 30 minutes Yen De Oliveira BIN OPERATOR-STEAM PRESS TENDER Work Phone: [facility] Comment on above: Seborrheic keratosis (Primary Dx); Melanocytic nevi of trunk; Tafoya angioma Start: 03-18-2024 End: 03-18-2024 ambulatory YEN Fan FELTER Not Available Start: 11-30-2023 End: 11-30-2023 Office outpatient visit 25 minutes Kari Dockery BIN OPERATOR-PEAR PICKER Work Phone: [facility] Comment on above: Stage 3a chronic kid iglesia disease (CKD) ([facility]) (Primary Dx); Acquired hypothyroidism; Other hyperlipidemia; Class 1 obesity due to excess calories with serious comorbidity and body mass index (BMI) of 32.0 to 32.9 in adult; Reactive depression; Primary osteoarthritis of first carpometacarpal joint of right hand Start: 11-13-2023 End: 11-14-2023 Orders Only Kari Dockery BIN OPERATOR-PEAR PICKER Work Phone: [facility] Comment on above: Stage 3a chronic kid iglesia disease (CKD) ([facility]) (Primary Dx) Other hyperlipidemia (Primary Dx) Start: 11-06-2023 End: 11-13-2023 Telephone encounter Kari Dockery BIN OPERATOR-PEAR PICKER Work Phone: [facility] Start: 10-30-2023 End: 10-30-2023 Refill Simone Singh DO Work Phone: [facility] Start: 08-18-2023 Refill Joann Margarita CAUSTIC ROOM ATTENDANT Monica [facility] Start: 04-25-2023 End: 04-25-2023 Subsequent hospital visit by physician Latia Loera Echo/Vasc Room 2 [facility] Comment on above: Palpitations; Shortness of breath Start: 04-25-2023 End: 04-25-2023 ambulatory KENTON MORTENSEN [facility] Start: 04-20-2023 End: 04-20-2023 Office outpatient visit 25 minutes Kenton Mortensen DO Work Phone: [facility] Comment on above: BMI 32.0-32.9,adult; Stage 3a chronic kidney disease (CKD) (CMS/HCC); Other hyperlipidemia; Benign hypertensive heart disease without heart failure; Palpitations; Shortness of breath Start: 03-23-2023 Chart Update [facility]rera ng [facility] Work Phone: Start: 03-23-2023 ambulatory KENTON Brewer [id number] Start: 02-23-2023 Office consultation new/estab patient 60 min Simone Singh Work Phone: [facility] 250 DO Work Phone: Start: 02-23-[address] Simone Singh Facility: Start: 04-28-2021 End: 04-29-[address] SIMONE SINGH Facility: Procedures Date Procedure Procedure Detail Performing Clinician Start: 01-29-2025 Radiologic examinati on knee 1/2 views Alicia Dunlap DO Work Phone: Start: 01-27-2025 DEXA SCAN CENTRAL SKELETAL Simone Franks Heatherquintontony DO Work Phone: Start: 12-25-2024 Computed tomography of abdomen and pelvis with contrast Simone Heatherivan DO Work Phone: Start: 12-09-2024 Arthrocentesis aspir &/inj major jt/bursa w/o Simone Franks Javeirng DO Work Phone: Start: 12-09-2024 Adult depression scr eening assessment Simone Romerolong DO Work Phone: Start: 10-15-2024 Adult depression scr eening assessment George López BIN OPERATOR-STEAM PRESS TENDER Work Phone: Start: 11-30-2023 Adult depression scr eening assessment Kari Dockery BIN OPERATOR-PEAR PICKER Work Phone: Start: 06-02-2023 Adult depression scr eening assessment Joann Margarita CAUSTIC ROOM ATTENDANT Start: 04-25-2023 TRANSTHORACIC ECHO ( TTE) COMPLETE KENTON MORTENSEN Start: 04-25-2023 Echo tthrc r-t 2d w/ wom-mode compl spec&colr d Kenton Mortensen DO Work Phone: Start: 12-08-2022 Mammography Smione love DO Work Phone: Appendectomy Simone Herreran g Work Phone: Cholecystectomy Simone love Work Phone: Colonoscopy Simone Herreran g Work Phone: Operative procedure on ankle Simoneever Herrerang Work Phone: Tonsillectomy Simone Herrera ng Work Phone: Plan of Treatment Date Care Activity Detail Author Start: 2027 RSV High Risk: (Elderly (60+) or Population) (1 - 1-dose 75+ series) RSV High Risk: (Elderly (60+) or Population) (1 - 1-dose 75+ series) [facility] Start: 06-13-2026 DTaP,Tdap and Td Vaccines (3 - Td or Tdap) DTaP,Tdap and Td Vaccines (3 - Td or Tdap) [facility] [email or web address] [facility] Start: 06-13-2026 DTaP/Tdap/Td Vaccines (3 - Td or Tdap) DTaP/Tdap/Td Vaccines (3 - Td or Tdap) [facility] Start: 01-29-2026 Screening for malignant neoplasm of colon Colonoscopy [facility] Comment on above: Postponed from 1997 (Not Indicated ) Start: 12-09-2025 Adult BMI Follow Up Plan Adult [facility] Start: 12-09-2025 Adult BMI Screening [facility] Start: 12-09-2025 Depression Screening Depression Screening [facility] Start: 12-09-2025 Fall Risk Screening Fall Risk Screening [facility] Start: 12-09-2025 Tobacco Screening Tobacco Screening [facility] Start: 10-15-2025 Adult BMI Follow Up Plan Adult BMI Follow Up Plan [facility] Start: 10-15-2025 Adult BMI Screening Adult BMI Screening [facility] Start: 10-15-2025 Depression Screening Depression Screening [facility] Start: 10-15-2025 Tobacco Screening Tobacco Screening [facility] Start: 03-21-2025 End: 03-21-2025 Patient encounter procedure 03/21/2025 11:00 AM EDT Office Visit GANESH Loera [facility] [address] [place] [address] Alicia Dunlap, DO [address] [place] [address] GANESH Loera [facility] Start: 03-20-2025 End: 03-20-2025 ambulatory 03/20/2025 1:00 PM EDT Treatment [facility] [address] [place] [address] Sharmila Michael, PT [facility] Start: 03-18-2025 End: 03-18-2025 ambulatory 03/18/2025 1:30 PM EDT Treatment [facility] [address] [place] [address] Ulices Morris PTA [facility] Start: 03-13-2025 End: 03-13-2025 ambulatory [facility] Comment on above: Arrived Start: 03-10-2025 End: 03-10-2025 ambulatory [facility] Comment on above: Right knee pain, unspecified chronicity (Primary Dx); Primary osteoarthritis of right knee Start: 03-07-2025 End: 03-07-2025 Patient encounter procedure 03/07/2025 11:00 AM EDT Office Visit GANESH Loera [facility] [address] [place] [id number] Alicia Dunlap, DO [address] [address] [facility] Start: 02-24-2025 Influenza vaccination [facility] Start: 02-19-2025 End: 02-19-2025 ambulatory 02/19/2025 3:00 PM EDT Treatment [facility] [address] [place] [address] Sharmila Michael, PT [facility] Start: 02-17-2025 End: 02-17-2025 ambulatory [facility] Comment on above: Arrived Start: 02-12-2025 End: 02-12-2025 ambulatory [facility] Comment on above: Right knee pain, unspecified chronicity; Primary osteoarthritis of right knee Start: 01-27-2025 End: 01-27-2025 ambulatory 01/27/2025 1:45 PM EDT Support Visit [facility] [address] [place] [phone] Simone Singh DO [address] [facility] [place] [address] [facility] Start: 12-09-2024 End: 12-09-2025 DBT Breast - bilateral screening Mammography screening bilateral with CAD Imaging Routine Encounter for screening mammogram for malignant neoplasm of breast Expected: 12/09/2024, Expires: 12/09/2025 [facility] Work Phone: Comment on above: Expected: 12/09/2024, Expires: Start: 12-09-2024 End: 12-09-2024 Patient encounter procedure 12/09/2024 1:45 PM EDT Office Visit [facility] [address] [place] [address] Simone Singh, DO [address] [facility] [place] [address] [facility] Start: 11-29-2024 Adult BMI Follow Up Plan Adult BMI Follow Up Plan [facility] Start: 11-29-2024 Depression Screening Depression Screening [facility] Start: 11-29-2024 Fall Risk Screening Fall Risk Screening [facility] Start: 11-29-2024 Tobacco Screening Tobacco Screening [facility] Start: 06-02-2024 Adult BMI Screening Adult BMI Screening [facility] Start: 06-02-2024 Depression Screening Depression Screening [facility] Start: 06-02-2024 Tobacco Screening Tobacco Screening [facility] Start: 03-18-2024 End: 03-18-2024 Patient encounter procedure 03/18/2024 1:55 PM EDT Office Visit [facility] [address] [place] [address] Yen De Oliveira, BIN OPERATOR-STEAM PRESS TENDER [address] [place] [address] Arrived [facility] Comment on above: Arrived Start: 02-25-2024 COVID-19 Vaccine ( season) COVID-19 Vaccine ( season) [facility] Start: 02-25-2024 Influenza vaccination Influenza Vaccine [facility] Start: 12-13-2023 Fall Risk Screening Fall Risk Screening [facility] Start: 12-09-2023 Screening for malignant neoplasm of breast Mammogram [facility] Start: 11-30-2023 Medicare Annual Wellness Visit Medicare Annual Wellness Visit [facility] Comment on above: Postponed from 1952 (Patient Refus ed) Start: 11-30-2023 End: 11-30-2023 Patient encounter procedure 11/30/2023 1:00 PM EDT [facility] [address] [place] [address] JorgeKari fischer, BIN OPERATOR-PEAR PICKER [address] [place] [address] [facility] Start: 10-24-2023 End: 10-24-2023 Patient encounter procedure 10/24/2023 1:30 PM EDT Office Visit [facility] [address] [place] [phone] Kenton Mortensen, DO [address] [place] [address] [facility] Start: 04-25-2023 End: 04-25-2023 Clinical Support 04/25/2023 11:00 AM EDT Clinical Support [facility] [address] [place] [address] [facility] Start: 04-20-2023 End: 04-20-2024 Holter monitor study Holter Or Event [facility] Routine Palpitations Shortness of breath Expected: 04/20/2023 (Approximate), Expires: 04/20/2024 [facility] Service Area Work Phone: Comment on above: Expected: 04/20/2023 (Approximate), Expi res: 04/20/2024 Start: 04-20-2023 End: 04-20-2025 Heart Transthoracic Transthoracic Echo (TTE) Complete Echocardiography Routine Palpitations Shortness of breath Expected: 04/20/2023 (Approximate), Expires: 04/20/2025 [facility] Work Phone: Comment on above: Expected: 04/20/2023 (Approximate), Expi res: 04/20/2025 Start: 04-20-2023 FUV, Provider: Kenton Mortensen, Status: Pen, Time: 11:20 AM FUV, Provider: Kenton Mortensen, Status: Pen, Time: 11:20 AM [facility] 250 DO Work Phone: Start: 03-23-2023 STRESS SYDNIE, Provider: KAI BLAKE NUCLEAR 01,[id number], Status: Pen, Time: 2:30 PM STRESS SYDNIE, Provider: KAI JUARESI NUCLEAR 01,[id number], Status: Pen, Time: 2:30 PM [facility] 250 DO Work Phone: Start: 02-24-2023 Influenza vaccination Influenza Vaccine (#1) [facility] Start: 09-29-2020 COVID-19 Vaccine (2 - Mixed Product series) COVID-19 Vaccine (2 - Mixed Product series) [facility] Start: 05-31-2013 Administration of varicella zoster vaccine Zoster (Shingles) Vaccine (2 of 3) [facility] Start: 05-31-2013 Zoster Vaccines (2 of 3) Zoster Vaccines (2 of 3) [facility] Start: 1992 Screening for malignant neoplasm of breast Mammogram [facility] Start: 1971 Urine screening for protein CKD: Urine Protein Screening [facility] Start: 1970 Adult BMI Follow Up Plan Adult BMI Follow Up Plan [facility] Start: 1970 Diabetes mellitus screening Diabetes Screening [facility] Start: 1970 Hepatitis C screening Hepatitis C Screening [facility] Start: 1952 Lipid panel Lipid Panel [facility] Start: 1952 Medicare Annual Wellness Visit [facility] Start: 1952 Screening for malignant neoplasm of colon [facility] Start: 1952 Screening for osteoporosis Bone Density Scan [facility] Start: 1952 Thyroid stimulating hormone measurement TSH Level [facility] End: 11-12-2024 CBC W Auto Differential panel - Blood CBC auto differential Lab Routine Stage 3a chronic kidney disease (CKD) (CMS-HCC) 1 Occurrences starting 11/13/2023 until 11/12/2024 [facility] Comment on above: 1 Occurrences starting 11/13/2023 until 11/12/2024 Cologuard [facility] Cologuar d Non-[facility] Lab Routine Special screening for malignant neoplasm of colon Ordered: 12/09/2024 [employer] Comment on above: Ordered: 12/09/2024 End: 11-12-2024 Comprehensive metabolic 2000 panel - Serum or Plasma Comprehensive metabolic panel Lab Routine Other hyperlipidemia 1 Occurrences starting 11/13/2023 until 11/12/2024 [employer] Work Phone: Comment on above: 1 Occurrences starting 11/13/2023 until 11/12/2024 End: 10-16-2025 Hemoglobin A1c/Hemoglobin.total in Blood Hemoglobin A1c Lab Routine Screening for diabetes mellitus (DM) 1 Occurrences starting 10/15/2024 until 10/16/2025 [employer] Work Phone: Comment on above: 1 Occurrences starting 10/15/2024 until 10/16/2025 Hemoglobin A1c/Hemoglobin.total in Blood Hemoglobin A1c Lab Routine Screening for diabetes mellitus (DM) 10/15/2024 5:58 PM EDT [facility] End: 11-12-2024 Lipid panel Lipid panel Lab Routine Other hyperlipidemia 1 Occurrences starting 11/13/2023 until 11/12/2024 [employer] Comment on above: 1 Occurrences starting 11/13/2023 until 11/12/2024 End: 11-12-2024 Magnesium [Mass/volume] in Serum or Plasma Magnesium Lab Routine Stage 3a chronic kidney disease (CKD) ([facility]) 1 Occurrences starting 11/13/2023 until 11/12/2024 [employer] Work Phone: Comment on above: 1 Occurrences starting 11/13/2023 until 11/12/2024 End: 11-12-2024 Parathyroid Hormone, intact Parathyroid Hormone, intact Lab Routine Stage 3a chronic kidney disease (CKD) ([facility] 1 Occurrences starting 11/13/2023 until 11/12/2024 [employer] Comment on above: 1 Occurrences starting 11/13/2023 until 11/12/2024 Patient Education Viral gastroen teritis in adults [facility] Work Phone: Patient referral [facility] Work Phone: End: 11-12-2024 Phosphate [Mass/volume] in Serum or Plasma Phosphorus Lab Routine Stage 3a chronic kidney disease (CKD) ([facility]) 1 Occurrences starting 11/13/2023 until 11/12/2024 [facility] Comment on above: 1 Occurrences starting 11/13/2023 until 11/12/2024 End: 11-12-2024 Urate [Mass/volume] in Serum or Plasma Uric acid Lab Routine Stage 3a chronic kidney disease (CKD) ([facility]) 1 Occurrences starting 11/13/2023 until 11/12/2024 [facility] Comment on above: 1 Occurrences starting 11/13/2023 until 11/12/2024 End: 04-25-2023 [facility] Work Phone: Comment on above: Once for 1 Occurrences starting 04/25/20 until 04/25/2023 End: 11-12-2024 Vitamin D 25 hydroxy Vitamin D 25 hydroxy Lab Routine Stage 3a chronic kidney disease (CKD) ([facility]) 1 Occurrences starting 11/13/2023 until 11/12/2024 [facility] Comment on above: 1 Occurrences starting 11/13/2023 until 11/12/2024 Immunizations Immunization Date Immunization Notes Care Provider [facility] 04-24-2023 influenza, high dose seasonal, preservative-free Joann Margarita [facility] 04-24-2023 influenza virus vacc ine, unspecified formulation Simone Singh DO Work Phone: [facility] 04-20-2021 influenza, seasonal, injectable Simone Herrera[employer] Work Phone: [facility] 250 DO Work Phone: 04-20-2021 influenza virus vacc ine, unspecified formulation Kenton Mortensen DO Work Phone: [facility] Work Phone: 08-04-2020 SARS-CoV-2, Unspecified Will aaliyah Mortensen DO Work Phone: [facility] Work Phone: 04-22-2020 pneumococcal polysaccharide vaccine, 23 valent Simone Herrerang Work Phone: [place] [phone] DO Work Phone: 04-17-2019 influenza, high dose seasonal, preservative-free Simone Romerolong Work Phone: [place] [phone] DO Work Phone: 11-03-2017 pneumococcal conjuga te vaccine, 13 valent Simone Franks [employer] Work Phone: [place] [phone] DO Work Phone: 06-13-2016 influenza, injectabl e, quadrivalent, preservative free Simone Franks [employer] Work Phone: [place] [phone] DO Work Phone: 06-13-2016 tetanus toxoid, redu nicholas diphtheria toxoid, and acellular pertussis vaccine, adsorbed Simone Franks [employer] Work Phone: [place] [phone] DO Work Phone: 04-05-2013 zoster vaccine, live Simone Franks [employer] Work Phone: [place] [phone] DO Work Phone: 04-05-2013 zoster vaccine, unspecified formulation Joann Margarita [facility] 06-23-2010 tetanus toxoid, redu nicholas diphtheria toxoid, and acellular pertussis vaccine, adsorbed Simone Franks [employer] Work Phone: [place] [phone] DO Work Phone: Payers Date Payer Category Payer Self-pay 2017 Managed Care Other (unspecified) [employer] [id number] 2017 Medicare [id number] 2017 Medicare supplementa l policy (as second payer) [facility] MEDICARE SUPPLEMENT [id number] 2017 Private Health Insurance [id number] 1959 Medicare [id number] 1959 Private Health Insurance [id number] 1952 Unknown [id number] 2.16.840.1.923843.3.579 .2.593 1952 Unknown [id number] 2.16.840.1.957742.3.579 .2.593 1952 Unknown [id number] 2.16.840.1.385661.3.579 .2.356 1952 Unknown [id number] 2.16.840.1.327214.3.579 .2.1068 1952 Unknown [id number] 2.16.840.1.000938.3.579 .2.1246 1952 Unknown [id number] 2.16.840.1.639763.3.579 .2.1286 1952 Unknown [id number] 2.16.840.1.020715.3.579 .2.1244 1952 Unknown [id number] 2.16.840.1.675947.3.579 .2.1286 1952 Unknown [id number] 2.16.840.1.085723.3.579 .2.1286 1952 Unknown [id number] 2.16.840.1.474126.3.579 .2.1286 1952 Unknown [id number] 2.16.840.1.236813.3.579 .2.1259 1952 Unknown [id number] 2.16.840.1.387422.3.579 .2.1259 1952 Unknown [id number] 2.16.840.1.069351.3.579 .2.1259 1952 Unknown [id number] 2.16.840.1.306131.3.579 .2.1259 1952 Unknown [id number] 2.16.840.1.046921.3.579 .2.1259 1952 Unknown [id number] 2.16.840.1.539618.3.579 .2.1259 1952 Unknown [id number] 2.16.840.1.918525.3.579 .2.1259 Unknown Unknown [id number] 2.16.840.1.880478.3.579 .2.531 Social History Date Type Detail Facility Start: 04-20-2023 End: 01-29-2025 No illicit drug use No illicit drug use [facility] Start: 04-20-2023 End: 11-07-2023 Tobacco smoking status NHIS Never smoked tobacco [facility] Work Phone: Start: 12-12-2022 End: 04-20-2023 Tobacco use and exposure Smokeless tobacco non-user [facility] Work Phone: Start: 04-20-2023 End: 12-09-2024 Alcohol intake Current drinker of alcohol (finding) [facility] Work Phone: Start: 04-20-2023 End: 01-29-2025 [facility] Start: 1950 Sex Assigned At Not on file [facility] Work Phone: Start: 04-10-2023 End: 10-29-2024 Exposure to SARS-CoV-2 (event) Not sure [facility] Start: 03-18-2024 End: 01-29-2025 Alcoholic beverage intake Lifetime non-drinker (finding) [facility] Adolescent depressio n screening assessment [facility] Start: 01-29-2015 End: 11-23-2024 Sex Female (finding) [facility] Start: 10-24-2023 Alcohol Comment wine monthly [facility] Work Phone: Start: 1950 Sex Assigned At Female F [facility] Clinical Notes 04-20-2023 to 02-19-2025 Sharmila Michael, PT - 02/19/2025 3:00 PM Misael Vale - 01/29/2025 2:45 PM Fallon Singh, DO - 01/27/2025 1:45 PM Fallon Singh, DO - 12/09/2024 1:45 PM EDT Note Date & Type Note Facility 02-19-2025 History of Present illness Narrative Physical Therapy Treatment Visit Patient Name: Sultana Bacon Today's Date: 02/19/2025 Encounter Diagnoses Name Primary? Right knee pain, unspecified chronicity Yes Primary osteoarthritis of right knee Visit number: 3 Timed Code Treatment: 27 minutes Total Treatment Time: 37 minutes Time In: 3:00 PM Time Out: 3:40 PM History: Pt states back in September she returned from [place] and her knee and ankles started to swell. Was placed on water pills which helped ankles but not right knee. States pain and swelling continued to worsen. Went to urgent care and was thought to have DVT. Scans at hospital were negative. Went to Dr and was given knee injection. Shot only helped for a day or 2. Was sent to ortho who issued pt a brace and sent to therapy. Pt was told to change from Advil to Tylenol due to chronic kidney disease, not helping as much. Precautions: [place] Subjective: Right knee is hurting a lot more today, pain today rates about 9.5/10. States having pain in the back of right knee and into hernandez. States also having pain in right buttock. Pain: 5/10 presently Objective: PT Evaluation (02/12/2025) [...] right 42.0cm, left 41.0cm Treatment: Manual Therapy: (27 minutes) Passive ROM, Joint mobilization, Soft Tissue Mobilization, Myofascial Release, Muscle Energy Technique, Neural Mobilization, Myofascial Cupping, Dry Needling, IASTM, and Scar mobilization as needed. MFD with one cup sliding to right inferior and medial knee in supine. Manual distraction and mobs to right knee in sitting for pain and mobility. Manual stretching right piriformis Therapeutic Exercise: Held exercises this date due to patient complaints of pain. Therapeutic Activity: Exercises to improve dynamic activities, functional tasks, functional mobility to return to prior activity level as needed. Neuromuscular re-education: Balance Training, Muscle Facilitation, Dynamic Stability, Core Stabilization, and Blood Flow Restriction Training (BFRT) as needed. Modalities: (10 minutes) Pre session pt supine with MHP to right knee and buttock in supine Assessment: Visit #3 with complaints of right knee pain. Pt with moderate antalgic gait pattern this date. Lacking right terminal knee extension and decrease flexion during swing phase of gait. Decrease pain reported following manual therapy. Issued piriformis stretch for home program; will benefit from further PT. Outcome Measure: Lower Extremity Functional Scale (LEFS): Rehab Diagnosis: right knee pain and weakness, difficulty walking, decrease ROM and mobility Short Term Goal: To be met in 2 weeks Goal 1: Pt to be instructed in home exercise program. [employer] Goals: To be met in 10 weeks [...] POC medically necessary. Please sign below. Date: documented in this encounter [facility] 01-29-2025 History of Present illness Narrative Images from the original note were not included. Aster Bacon is a 74 y.o. female presents with chief complaint of right knee pain. HPI: Sultana is a 74-year-old white female referred for evaluation of her right knee. This has been going on for a long time , but coming back from [place] this past spring, she did have a lot of swelling of her leg so significant she wound up in the Emergency Room, that was 11-23-2024 at [place]. We do not have all the information. She did have a duplex which was negative. She subsequently followed up with Dr. Singh, had an injection, did not help at all. It is worse in the middle of the night when she needs to get up. She does wear stockings for travel as recommended by Dr. Singh. She does not know why. She does have a history of an Achilles tendon surgery on the right side. She states that this did render her missing a portion of her Achilles tendon. She has had some difficulty on the left, described as bursitis. She denies any further care to the area. She does have chronic kidney disease. SUBJECTIVE: MEDICATIONS: Current Outpatient Medications Medication Instructions aspirin 81 mg, Daily RT furosemide (LASIX) 20 mg, Daily PRN levothyroxine (Synthroid, Levoxyl) 75 MCG tablet 1 tablet, Every morning meloxicam (MOBIC) 7.5 mg, Daily PRN rosuvastatin (Crestor) 10 MG tablet rosuvastatin (CRESTOR) 5 mg, Nightly ALLERGIES: Allergies Allergen Reactions Penicillins Rash and Unknown ADVERSE REACTION Latex Rash BLISTERS SURGICAL HISTORY: Past Surgical History: Procedure Laterality Date APPENDECTOMY FOOT SURGERY Right 2019 Bone spur GALL BLADDER TONSILLECTOMY FAMILY HISTORY: No family history on file. SOCIAL HISTORY: Social History Tobacco Use Smoking status: Never Vaping Use Vaping status: Never Used Substance Use Topics Alcohol use: Never Drug use: Never Depression: Not at risk (12/09/2024) Received from [facility] PHQ-2 Total Score: 0 REVIEW OF SYMPTOMS: The review of systems, history and current medications list are all reviewed today. OBJECTIVE: Visit Vitals Ht 5' 6 Wt 198 lb BMI 31.96 kg/m Smoking Status Never BSA 2.04 m Physical Exam Her orthopedic exam shows no acute distress. She answers all questions appropriately. Examination of her knee shows the tenderness to primarily be over the medial compartment with some pain with varus and valgus stress testing. Her lateral compartment is benign. The calf and thigh are supple. Neurocirculatory status is grossly intact. Examination of the contralateral left knee reveals arc of motion without difficulty. No tenderness to palpation. Neurocirculatory status is overall grossly intact. Both knees are fully stable. Hips internal and external rotation is without pain. No trochanteric tenderness. She is wearing a decent shoe here today. X-ray AP bilateral weight bearing, bilateral sunrise total of four views with permanent images are saved to the record coupled with previous films from the [facility] shows moderate medial osteoarthritis with some varus deformity, more mild medial osteoarthritis on the left. She does have more significant patellofemoral arthrosis and primarily medial, right over left. ASSESSMENT AND PLAN: Assessment/Plan Right knee osteoarthritis with pain, likely venous insufficiency. The findings are discussed. We did outline full spectrum of care. She just had a corticosteroid injection roughly a month ago and as such, we will hold on anything further there. We did discuss Tylenol and its dosing. She is provided an L1821 hinged knee brace. We did give her a script for compounding with [facility] which does appear to be clinically indicated. A right L1821 off the shelf, prefabricated, knee orthosis with condylar pads and joints with or without patellar control was dispensed, fitted, and adjusted at this visit. The function of the device is to provide support, decrease edema, control motion at the knee joint. It will redistribute pressure and allow more comfortable weight-bearing and better support. It is for increased stability of the knee joint. The goals of the device are to decrease pain decrease inflammation, increase stability and to allow the patient to ambulate independently. The device is medically necessary for the condition, symptoms and diagnosis. It was dispensed and fitted for the patient, and it fit properly. The patient was educated as to proper use and care, and this was reviewed in detail. Written instructions and warranty information were given with the device. A receipt for the device is on file. The current supplier standards were given to the patient. [employer] patient agreement was completed at time of dispensement.. The patient stated that the device was comfortable when fitted in the office and the patient was able to ambulate without distress with this knee orthosis. At the time of dispensement, the device was suitable and not substandard. We will do some formal physical therapy in [place] for edema reduction, range of motion, strength, optimization about the knee. We did discuss arch support. We will see her back in one month for recheck and review. We discussed the possibility of a repeat injection. All of her questions are otherwise answered. She is discharged in stable condition. Follow up letter sent to Dr. Singh. Cosigned by Alicia Dunlap DO at 01/31/2025 7:46 AM EDT documented in this encounter [facility] 01-27-2025 History of Present illness Narrative Subjective Patient ID: Aster Bacon is a 74 y.o. female. Vicki presents today for a DEXA scan. She does not take any calcium or vitamin-D supplement. She is still having right knee pain. The cortisone shot I gave her lasted about 1 day and then the pain returned. It is on the inner part of her knee and the back part of her knee and upper leg. She is using ice and heat in her change abruptly with little improvement. She does not want to take any pain medication. When she 1st gets up in the morning it is very painful. She can hardly walk for about an hour and then slowly it gets better but still has pain with ambulation. If she has to get up in the middle of the night she dreads getting out of bed because it will hurt. She does not recall any injury. It started about 6 months ago when she was in [place] and it is only getting worse. The pain and limitation of motion is impacting her quality of life and ability to do ADLs and IADLs. She is unable to exercise because of the pain. The following portions of the patient's history were reviewed and updated as appropriate: allergies, current medications, past family history, past medical history, past social history, past surgical history, problem list, and medication reconciliation was completed including current medication and post discharge medication. Review of Systems Objective Physical Exam Vitals reviewed. Musculoskeletal: Right knee: Swelling, effusion and crepitus present. No deformity or erythema. Decreased range of motion. Tenderness present over the medial joint line. Neurological: General: No focal deficit present. Mental Status: She is oriented to person, place, and time. Assessment/Plan Diagnoses and all orders for this visit: Asymptomatic menopausal state - Dexa scan central skeletal; Future Check DEXA scan to screen for osteoporosis. Her vitamin-D level was low normal. Recommend that she take an [id number] Vitamin D supplement Right knee pain, unspecified chronicity - Ambulatory referral to Orthopedic Surgery ([facility]); Future She did not have any improvement with the cortisone injection. The benefits lasted about a day and then recurred. I am concerned about internal derangement. The knee x-ray did not show any severe arthritis. It is interfering with her quality of life and ability do ADLs. documented in this encounter [facility] [place] 12-25-2024 Radiology Diagnostic study note [facility] [address] [place] [address] [place] [address] CT Scan Report Signed Patient: Aster Bacon MR#: [id number] : 1950 Acct:[id number] Age/Sex: 74 / F ADM Date: 5 Loc: ER Room: Type: [facility] ER Attending Dr: Copies to: Carlos Ozuna PA-C~ Ordering Provider: Carlos Ozuna PA-C Date of Service: 12/25/24 CT/CT abdomen pelvis w con: Abdominal Pain CT Abdomen and Pelvis withcontrast TECHNIQUE: Axial imaging with 2-D reconstruction.90 cc of Isovue-300. The CT exam was performed using one or more the following dose reduction techniques: Automated exposure control, adjustment of the MA and/or Kv according to patient size, or use of the iterative reconstruction technique. COMPARISON: None History: Abdominal pain. Right lower quadrant pain. Diarrhea. LIMITATIONS: None LOWER THORAX Unremarkable LIVER: Hepatic cyst. GALLBLADDER: Cholecystectomy. BILE DUCTS: No dilatation SPLEEN: Unremarkable PANCREAS: Unremarkable ADRENAL GLANDS: Unremarkable KIDNEYS:Unremarkable AORTA: No abdominal aortic aneurysm identified. RETROPERITONEUM: No significant retroperitoneal abnormalities identified. MESENTERY:Unremarkable STOMACH:Unremarkable SMALL BOWEL: The small bowel loops are nondistended. APPENDIX: The appendix is normal. COLON: Mild wall thickening with fatty infiltrative changes. Similar chronic inflammatory changes. Fluid-filled colon. Nondistended. URINARY BLADDER: Urinary bladder is unremarkable. REPRODUCTIVE SYSTEM: Reproductive structures are unremarkable. PNEUMOPERITONEUM: None PERITONEAL FLUID:None BONY STRUCTURES: Unremarkable ABDOMINAL WALL: Unremarkable CT/CT abdomen pelvis w con IMPRESSION: Findings consistent with diarrheal illness. Chronic inflammatory changes of the colon. Suspected appendectomy. Impression dictated by: Teddy Kerns M.D. 12/25/2024 4:55 PM Dictation Location: [place] [address] Transcribed By: [facility] 12/25/241654 Dictated By: Teddy Kerns DO 12/25/24 165 Signed By: 12/25/241654 [facility] 12-09-2024 History of Present illness Narrative Subjective Patient ID: Aster Bacon is a 74 y.o. female. Vicki presents today for CV recheck and has another new problem. Her right knee has been bothering her for about 6 months. It started when she was in [place]. It is only gotten worse. It swelled up so bad that she had to go to the emergency room 2 weeks ago. They did give her some oral steroids as well as other medications and it is a little bit better. She has been using a knee brace that she bought [id number]. There is sharp pain in the her knee. Hurts with every step. Has felt like it is going to give out at times. She did have an x-ray done it showed fluid and arthritis. She is taking her all of her medications. She does not have any side effects. She is due for her labs. She would also like a mammogram, DEXA scan and Cologuard ordered. She is also having continued intermittent right lower quadrant pain. It has been there for quite some time. She has been diagnosed with irritable bowel. She usually has diarrhea stools. The following portions of the patient's history were reviewed and updated as appropriate: allergies, current medications, past family history, past medical history, past social history, past surgical history, problem list, and medication reconciliation was completed including current medication and post discharge medication. Review of Systems Constitutional: Negative. HENT: Negative. Eyes: Negative. Respiratory: Negative. Cardiovascular: Negative. Gastrointestinal: Positive for abdominal pain. Endocrine: Negative. Genitourinary: Negative. Musculoskeletal: Positive for arthralgias. Skin: Negative. Allergic/Immunologic: Negative. Neurological: Negative. Psychiatric/Behavioral: Negative. Objective Physical Exam Vitals reviewed. Constitutional: General: She is not in acute distress. Appearance: She is obese. She is not ill-appearing. HENT: Head: Normocephalic. Eyes: General: No scleral icterus. Extraocular Movements: Extraocular movements intact. Conjunctiva/sclera: Conjunctivae normal. Neck: Thyroid: No thyroid mass, thyromegaly or thyroid tenderness. Cardiovascular: Rate and Rhythm: Normal rate and regular rhythm. Pulses: Normal pulses. Heart sounds: Normal heart sounds. No murmur heard. Pulmonary: Effort: Pulmonary effort is normal. No respiratory distress. Breath sounds: Normal breath sounds. No wheezing, rhonchi or rales. Abdominal: General: Bowel sounds are normal. Palpations: Abdomen is soft. Tenderness: There is no abdominal tenderness. Musculoskeletal: Cervical back: Neck supple. Right knee: Swelling, effusion, bony tenderness and crepitus present. No deformity, erythema, ecchymosis or lacerations. Decreased range of motion. Tenderness present over the medial joint line. Normal alignment. Right lower leg: No edema. Left lower leg: No edema. Lymphadenopathy: Cervical: No cervical adenopathy. Neurological: General: No focal deficit present. Mental Status: She is alert and oriented to person, place, and time. Gait: Gait abnormal (Ambulating with a cane). Psychiatric: Mood and Affect: Mood normal. Behavior: Behavior normal. Thought Content: Thought content normal. Judgment: Judgment normal. Assessment/Plan Aster was seen today for thyroid problem and hyperlipidemia. Diagnoses and all orders for this visit: Acquired hypothyroidism TSH at goal. Continue current regimen Stage 3a chronic kidney disease (CKD) ([facility]) GFR is 57. Stable. Continue current regimen Other hyperlipidemia Lipids at goal but her CV risk is elevated at 10%. Risks and benefits of statins discussed. She is worried that it might lead to dementia like her sister has. Her sister has been on a statin for about 30 years. She declines to take 1 at this time. Acute pain of right knee - triamcinolone acetonide (KENALOG-40) injection 40 mg - $ Arthrocentesis She has pain and swelling of her right knee. X-rays done at the emergency room showed arthritis. Recommended a cortisone injection. She agreed. I did try to aspirate fluid off but there was no returned. I did inject 1 cc of triamcinolone and 4 mL of lidocaine 1% and she had near immediate relief of pain. She was walking pain-free when she left. Her knee was a little stiff she said though. Encounter for screening mammogram for malignant neoplasm of breast - Mammography screening bilateral with CAD; Future Check mammogram to screen for breast cancer Special screening for malignant neoplasm of colon - Cologuard Non-[facility] She is due for Cologuard. She has done it in the past. Risks and benefits of Cologuard versus colonoscopy discussed. She would pursue further evaluation with a colonoscopy if needed. She would like to do the Cologuard again. Class 1 obesity due to excess calories with serious comorbidity and body mass index (BMI) of 33.0 to 33.9 in adult She is obese. She would benefit from weight loss. It is contributing to high blood pressure and prediabetes. She can not really walk with her knee. Can try swimming. Patient noted to have elevated BMI and the following intervention(s) were applied: encouragement to exercise and prescribed diet education. Asymptomatic menopausal state Check dexa scan Prediabetes Her A1c was 6.3%. Recommended metformin to delay the onset of diabetes but she declines. Associated Order(s): $ Arthrocentesis Post-Procedure Diagnose(s): Acute pain of right knee $ Arthrocentesis Date/Time: 12/09/2024 2:34 PM Performed by: Simone Singh DO Authorized by: Simone Singh DO Fire Risk Assessment Score Procedure site above the Xiphoid 0 Open O2 source (mask/cannula) 0 Ignition source (Cautery, Fiberoptic Light, Laser) 0 Total Fire Risk Assessment Score 0 Verbal consent obtained?: Yes Written consent obtained?: No Risks and benefits: Risks, benefits and alternatives were discussed Consent given by: Patient Patient states understanding of procedures being performed: Yes Patient's understanding of procedure matches consent: Yes Procedure consent matches procedure scheduled: Yes Relevant documents present and verified: Yes Test results available and properly labeled: No Site marked: Yes Imaging studies available: Yes Time out: Immediately prior to the procedure a time out was called Indications: Joint effusion, pain and osteoarthritis Body area: Knee Preparation: Patient was prepped and draped in usual sterile fashion Needle size: 25 G Ultrasound guidance: No Approach: Anterior Lidocaine HCL 1% amount (ml): 4 Triamcinolone amount (mg): 40 Patient tolerance: Patient tolerated the procedure well with no immediate complications Procedure was completed Vital signs stable during the procedure Complications: none documented in this encounter [facility] [email or web address] [facility] 11-23-2024 Evaluation note Diagnosis Onset Date Resolution Right leg swelling acute November 232024 10:01am [facility] Work Phone: 1(197) 967-375405-07-2025 Miscellaneous Notes* Telephone Encounter - Hiral Wisdom CMA - 10/30/2024 10:24 AM EDT Patient was called about her CV/thyroid apt does she need to have more labs done? She also questioned a mammogram and her bone density scan when those needed done. She states she wants to stay with you as her provider. Does she still need an apt since she had one with [facility]? * Telephone Encounter - Simone Singh DO - 10/30/2024 10:24 AM EDT It looks like she was seen for other problems and not her thyroid. The last thyroid tests I had wasback in May of 2023 unless she had 1 in [place]. So yes she will need to be seen for her thyroid at some point this year before she leaves for [place] documented [facility] Minetta [id number] Telephone encounter Note* Telephone Encounter - Hiral Wisdom CMA - 10/30/2024 10:24 AM EDT Patient was called about her CV/thyroid apt does she need to have more labs done? She also questioned a mammogram and her bone density scan when those needed done. She states she wants to stay with you as her provider. Does she still need an apt since she had one with [facility]? [facility] Minetta [id number] Telephone encounter Note* Telephone Encounter - Simone Singh DO - 10/30/2024 10:24 AM EDT It looks like she was seen for other problems and not her thyroid. The last thyroid tests I had wasback in Josh of 2023 unless she had 1 in [place]. So yes she will need to be seen for her thyroid at some point this year before she leaves for [place] [facility]05-06-2025 History of Present illness Narrative* Kenton MortensenDO - 10/29/2024 9:30 AM EDT Chief Complaint Patient presents with Annual Exam [...] is currently hemodynamically stable, no longer on metoprolol.Remains on rosuvastatin and aspirin. She recently returned from [place] and experienced significantamount of edema which is treated by her [...] Scribe Attestation By signing my name below, I, Denise Moreno LPN Scribmichele attest that this documentation has been prepared under the direction and in the presence of Rich Mortensen DO. Provider Attestation - Scribe documentation All medical record entries made by the Scribe were at my direction and personally dictated by me. Ihave reviewed the chart and agree that the record accurately reflects my personal performance of the history, physical exam, discussion and plan. documented in this [facility] Work Phone: 1(254) 350-289405-06-2025 Instructions* Patient Instructions* Denise Petit LPN - 10/29/2024 9:30 AM [...] changes. Follow up ordered as needed only * Attachments The following attachments cannot be sent through Care Everywhere. * Mediterranean Diet (Malay) documented in this [facility] Work Phone: 1(707) 153-910904-22-2025 History of Present illness Narrative* George López, GENI-STEAM PRESS TENDER - 10/15/2024 2:00 PM EDT Images from the original note were not included. [address] [place] [address] SUBJECTIVE: Patient ID: Aster Bacon is a 74 y.o. female. Chief Complaint Patient presents with Multiple concerns today Presents for multiple concerns today. [facility] she just returned this week after staying 4 months in [place]. She has been experiencing intermittent RLQ abdominal [...] She went to a health fair in [place] and was told she has elevated blood sugar and high blood pressure. Blood pressure in office today 110/70. [facility] blood sugar fingerstick in [place] was over 100 . She is concerned about swelling of both her lower legs. The following portions of the patient's history were reviewed and updated as appropriate: allergies, current medications, past family history, past medical history, past social history, past surgicalhistory and problem list. Past Surgical History: Procedure [...] and the following intervention(s) were applied: encouragement toexercise. Physical Exam Vitals and nursing note reviewed. [...] not constant. Is intermittent in nature. Not precipitatedby bowel movements or dietary intake. I did [...] KATI Nichole 10/15/24 1634 documented in this [facility] Miscellaneous Notes* Telephone Encounter - Simone Singh DO - 10/09/2024 2:03 PM EDT Rx sent in. She is due for a recheck appointment in early November. Please set u documented in this encounterReg[facility]-2025 Telephone encounter Note* Telephone Encounter - Simone Singh DO - 10/09/2024 2:03 PM EDT Rx sent in. She is due for a recheck appointment in early November. Please set u [facility]10-31-2024 Miscellaneous Notes* Telephone Encounter - Hiral Wisdom CMA - 04/25/2024 10:51 AM EDT Patient was wondering if you can order a test to see if she is diabetic? Her boston cutter suggestedit and she would like it sent to [facility] * Telephone Encounter - Simone Singh DO - 04/25/2024 10:51 AM EDT She was screened in October and was okay. She having any new symptoms. Maybe she should come in to discuss it * Telephone Encounter - Hiral Wisdom CMA - 04/25/2024 10:51 AM EDT Informed patient and patient is leaving Monday for [place] documented in this [facility]Reg[facility]-2024 Telephone encounter Note* Telephone Encounter - Hiral Wisdom CMA - 04/25/2024 10:51 AM EDT Patient was wondering if you can order a test to see if she is diabetic? Her boston cutter suggestedit and she would like it sent to [facility]10-31-2024 Telephone encounter Note* Telephone Encounter - Simone Singh DO - 04/25/2024 10:51 AM EDT She was screened in October and was okay. She having any new symptoms. Maybe she should come in to discuss it [facility] [id number] Telephone encounter Note* Telephone Encounter - Hiral Wisdom CMA - 04/25/2024 10:51 AM EDT Informed patient and patient is leaving Monday for [place] [facility] [id number] History of Present illness Narrative* Yen De Oliveira, GENI-STEAM PRESS TENDER - 03/18/2024 1:55 PM EDT Skin Check Location: Patient requests a skin examination from the waist up, A full body skin exam was offered,patient declined Dermatologic history: no history of skin [...] changing nevi should be promptly re-evaluated. 3. Tafoya angioma (3) Arms, Scalp, Trunk Scattered tafoya-red papule(s). The patient was informed that angiomas are benign growths on the the skin. No treatment is necessary. Next Visit: 1 year documented in this encounterCameron [facility] [id number] History of Present illness Narrative* Kari Dockery, GENI-PEAR PICKER - 11/30/2023 1:00 PM EDT Subjective Patient ID: Aster Bacon is a [...] past medical history, past social history, past surgicalhistory, problem list, and medication reconciliation was completed including current medication andpost discharge medication. Review of Systems Constitutional: Negative. [...] visit: Stage 3a chronic kidney disease (CKD) ([facility]) Acquired hypothyroidism Other hyperlipidemia Class 1 obesity [...] tablet (75 mcg total) by mouth in themorning. - rosuvastatin (CRESTOR) 10 mg tablet; Take [...] and the following intervention(s) were applied: encouragement toexercise. STEPHANIE Andrade 11/30/23 1529 documented in this encounterNewark HospitalAdmetric [id number] Miscellaneous Notes* Telephone Encounter - Milagros Pete - 11/13/2023 2:07 PM EDT Patient is coming in for cv and would like labs sent to the [facility], she said a full work up that medicare will cover. Please and thank you documented in this encounterReg[facility]-2024 Telephone encounter Note* Telephone Encounter - Milagros Pete - 11/13/2023 2:07 PM EDT Patient is coming in for cv and would like labs sent to the [facility], she said a full work up that medicare will cover. Please and thank you [facility]2024 Miscellaneous Notes* Telephone Encounter - Milagroshuyen Pete - 11/06/2023 1:15 PM EDT ----- Message from STEPHANIE Andrade sent at 06/02/2023 1:50 PM EST ----- Regarding: recheck cv and mood Apt late october, early December 17 - Kari * Telephone Encounter - Milagros Pete - 11/06/2023 1:15 PM EDT Sent mychart msg * Telephone Encounter - Milagros Pete - 11/06/2023 1:15 PM EDT Scheduled documented in this encounterReg[facility] Telephone encounter Note* Telephone Encounter - Milagros Pete - 11/06/2023 1:15 PM EDT ----- Message from STEPHANIE Andrade sent at 06/02/2023 1:50 PM EST ----- Regarding: recheck cv and mood Apt late october, early December 17 - Kari [facility] [employer] [id number] Telephone encounter Note* Telephone Encounter - Milgaros Pete - 11/06/2023 1:15 PM EDT Sent bernardt msg [facility]2024 Telephone encounter Note* Telephone Encounter - Milagros Yanci - 11/06/2023 1:15 PM EDT [facility]uled [facility] [id number] History of Present illness Narrative* Kenton Mortensen, DO - 04/20/2023 11:20 AM EDT Subjective Aster Bacon is a 72 y.o. [...] and mentions palpitations that are at rest andsporadic in nature with chest pounding but no [...] (75 mcg) by mouth once daily in themorning. Take before meals., Disp: , Rfl: rosuvastatin (Crestor) 5 mg tablet, Take 1 tablet (5 mg) by mouth once daily at bedtime., Disp: , Rfl: Assessment/Plan No diagnosis found. documented in this [facility] Work Phone: 1(859) 965-122710-26-2023 Instructions* Patient Instructions* Miki Clements MA - 04/20/2023 11:20 AM [...] time of your visit. [facility] Work Phone: 1(982) 205-984810-26-2023 Evaluation note* Diagnosis BMI 32.0-32.9,adult Stage 3a chronic kidney disease (CKD) ([facility]) Other hyperlipidemia Benign hypertensive heart disease without heart failure Palpitations Shortness of breath documented in this encounter [facility] Work Phone: Chief complaint Narrative - [...] further assess her dyspnea and or ischemicetiology. -[facility] [employer] Work Phone: Chief complaint Narrative - Reported* [...] further assess her dyspnea and or ischemicetiology. [facility] 250 DO Work Phone: Evaluation note* Diagnosis Palpitations Shortness of breath documented in this encounter [facility] Work Phone: Evaluation note* Diagnosis Palpitations Shortness of breath documented in this encounter [facility] Work Phone: Evaluation note* Diagnosis Seborrheic keratosis- Primary Melanocytic nevi of trunk Tafoya angioma [facility]* Diagnosis Reactive depression documented in this encounter [facility]* Diagnosis Stage 3a chronic kidney disease (CKD) ([facility])- Primary Acquired hypothyroidism Unspecified hypothyroidism Other hyperlipidemia Class 1 obesity due to excess calories with serious comorbidity and body mass index (BMI) of 32.0 to 32.9 in adult Reactive depression Primary osteoarthritis of first carpometacarpal joint of right hand documented in this encounter [facility]* Diagnosis Stage 3a chronic kidney disease (CKD) ([facility])- Primary documented in this [facility]* Diagnosis Other hyperlipidemia- Primary documented in this [facility]* Diagnosis Screening for diabetes mellitus (DM)- Primary Screening for diabetes mellitus Localized swelling of both lower legs Stage 2 chronic kidney disease Right lower quadrant abdominal pain documented in this encounter [facility]* Diagnosis Dyspnea on exertion Other dyspnea and respiratory abnormality Benign hypertensive heart disease without heart failure BMI 34.0-34.9,adult Never smoked tobacco documented in this encounter [facility] Work Phone: Evaluoskrz noteNo assessment information available [facility] Work Phone: Evaluation note* Diagnosis Acquired hypothyroidism- Primary Unspecified hypothyroidism Stage 3a chronic kidney disease (CKD) ([facility]) Other hyperlipidemia Acute pain of right knee Encounter for screening mammogram for malignant neoplasm of breast Special screening for malignant neoplasm of colon Special screening for malignant neoplasms, colon Class 1 obesity due to excess calories with serious comorbidity and body mass index (BMI) of 33.0 to 33.9 in adult Asymptomatic menopausal state Prediabetes Other abnormal glucose documented in this [facility]* Diagnosis Reactive depression documented in this [facility]* Diagnosis Asymptomatic menopausal state- Primary Right knee pain, unspecified chronicity documented in [facility]* Diagnosis Right knee pain, unspecified chronicity- Primary Primary osteoarthritis of right knee documented in this encounter [facility] HealthcareEvaluation note* Diagnosis Right knee pain, unspecified chronicity Primary osteoarthritis of right knee documented in this encounter [facility] HealthcareEvaluation note* Diagnosis Right knee pain, unspecified chronicity- Primary Primary osteoarthritis of right knee documented in this encounter [facility] HealthcareEvaluation note* Diagnosis Right knee pain, unspecified chronicity- Primary Primary osteoarthritis of right knee documented in this encounter [facility] HealthcareEvaluation note* Diagnosis Right knee pain, unspecified chronicity- Primary Primary osteoarthritis of right knee documented in this encounter [facility] HealthcareEvaluation note* Diagnosis Right knee pain, unspecified chronicity- Primary Primary osteoarthritis of right knee documented in this encounter [facility] HealthcareInstructionsNot on filedocumented in this encounterProMedica Health SystemInstructionsNot on filedocumented in this encounterProMedica Health SystemInstructionsNot on filedocumented in this encounterProMedica Health SystemInstructionsNot on filedocumented in this encounterProMedica Health System InstructionsNot on filedocumented in this encounterProMedica Health System InstructionsNot on filedocumented in this encounterProMedica Health System InstructionsNot on filedocumented in this encounterProMedica Health System Instructions* Attachments The following attachments cannot be sent through Care Everywhere. * Abdominal pain (Malay) documented in this encounterProSumma Healthca Health SystemInstructionsNot on file documented in this encounterProSumma Healthca Health SystemInstructionsNot on file documented in this encounterProSumma Healthca Health SystemReason for referral (narrative)No reason for referral information availableAdams [facility] Work Phone: Reason for visit Narrative* Rehabilitation - Outpatient (Routine) - Authorized Specialty Diagnoses / Procedures Referred By Contac t Referred To Contact Physical Therapy Diagnoses Right knee pain, unspecified chronicity Primary osteoarthritis of right knee Procedures [place] OFFICE/OUTPATIENT NEW HIGH MDM 60 MINUTES Alicia Dunlap, [address] [place] [address] Phone: tel: fax: Sharmila Michael PT Referral ID Status Reason Start Date Expiration Date Visits Requested Visits Authorized [id number] Authorized Consult and Treat 01/29/2025 07/28/2025 20 20 [facility] HealthcareReason for visit Narrative* Rehabilitation - Outpatient (Routine) - Authorized Specialty Diagnoses / Procedures Referred By Britt londono Referred To Contact Physical Therapy Diagnoses Right knee pain, unspecified chronicity Primary osteoarthritis of right knee Procedures VT OFFICE/OUTPATIENT NEW HIGH MDM 60 MINUTES Alicia Dunlap, DO [address] [place] [place] [address] Phone: tel: fax: Sharmila Michael PT Referral ID Status Reason Start Date Expiration Date Visits Requested Visits Authorized [id number] Authorized Consult and Treat 01/29/2025 06/25/2025 20 30 [facility] Summary Purpose Family History Unknown Family Member [...] Referral Specialty Diagnoses / Procedures Referred By Britt londono Referred To Contact Cardiology Diagnoses Palpitations Shortness of breath Procedures Transthoracic Echo (TTE) Complete VT ECHO TRANSTHORC R-T 2D W/WO M-MODE REC F-UP/LMTD VT DOP ECHOCARD COLOR FLOW VELOCITY MAPPING VT DOP ECHOCARD PULSE WAVE W/SPECTRAL F-UP/LMTD STD Kenton Mortensen, DO [address] [place] [address] [facility] 2, Lance [address] [place] [id number] Referral ID Status Reason Start Date Expiration Date Visits Requested Visits Authorized [id number] Pending Review Perform Procedure 04/19/2024 1 1 Specialty Diagnoses / Procedures Referred By Contac t Referred To Contact Cardiology Diagnoses Palpitations Shortness of breath Procedures Holter Or Event Roughener Kenton Mortensen, [address] [place] [address] [address], [address] [address] Referral ID Status Reason Start Date Expiration Date V isits Requested Visits Authorized [id number] Pending Review 04/20/2023 04/19/2024 1 1 Specialty Diagnoses / Procedures Referred By Contac t Referred To Contact Cardiology Diagnoses Benign hypertensive heart disease without heart failure Palpitations Procedures Follow Up In Cardiology Kenton Mortensen, DO [address] [place] [address] [address], [address] [address] Kentno Mortensen, DO [address] [place] [address] 2, [address] [address] Referral ID Status Reason Start Date Expiration Date V isits Requested Visits Authorized [id number] Authorized 04/20/2023 04/19/2024 1 1 Referral ID Status Reason Start Date Expiration Date Visits Requested Visits Authorized [id number] Authorized Perform Procedure 04/19/2024 1 1 Chief Complaint and Reason for Visit Chief Complaint Admit Date Right leg pain, lower back pain October 10:01am Chief Complaint Admit Date Right leg pain, lower back pain October 10:01am vomiting/seeing flashes December 25, 2024 1 :38pm Reason for Visit Admit Date Right leg swelling November 23, 2024 10:01 am Additional Source Comments INFORMATION SOURCE (unrecogn ized section and content) DATE CREATED AUTHOR 04/25/2021 [facility] DATE CREATED AUTHOR AUTHOR'S ORGANIZ ATION 08/10/2021 [facility] DATE CREATED AUTHOR AUTHOR'S ORGANIZ ATION 02/24/2023 [employer] DATE CREATED AUTHOR AUTHOR'S ORGANIZ ATION 03/03/[address] [facility] DATE CREATED AUTHOR AUTHOR'S ORGANIZ ATION 03/30/2023 [facility] DATE CREATED AUTHOR AUTHOR'S ORGANIZ ATION 02/08/2024 [facility] DATE CREATED AUTHOR AUTHOR'S ORGANIZ ATION 10/16/2024 [facility] DATE CREATED AUTHOR AUTHOR'S ORGANIZ ATION 11/01/2024 [facility] DATE CREATED AUTHOR AUTHOR'S ORGANIZ ATION 01/12/[address] [facility] DATE CREATED AUTHOR AUTHOR'S ORGANIZ ATION 01/29/2025 [facility] DATE CREATED AUTHOR AUTHOR'S ORGANIZ ATION 03/11/2025 [facility] EPIC Reason for Visit (unrecogniz ed section and content) Reason Comments Results stress Specialty Diagnoses / Procedures Referred By Britt londono Referred To Contact Cardiology Diagnoses Palpitations Shortness of breath Procedures Transthoracic Echo (TTE) Complete VT ECHO TRANSTHORC R-T 2D W/WO M-MODE REC F-UP/LMTD VT DOP ECHOCARD COLOR FLOW VELOCITY MAPPING VT DOP ECHOCARD PULSE WAVE W/SPECTRAL F-UP/LMTD STD Kenton Mortensen, DO [address] [address], [address] [address] Referral ID Status Reason Start Date Expiration Date Visits Requested Visits Authorized [id number] Authorized Perform Procedure 3 04/19/2024 1 1 [...] failure Procedures Follow Up In Cardiology Kenton Mortensen, DO [address] [facility] [address] [place] [address] Phone: tel: fax: Kenton Mortensen, DO [facility] [place] [address] Phone: tel: fax: Referral ID Status Reason Start Date Expiration Date V isits Requested Visits Authorized [id number] Authorized 10/24/2023 10/23/2024 1 1 Reason Comments Thyroid Problem Hyperlipidemia Right knee pain, blo od work results from [facility]- October, Right lower abdominal pain also. Reason Comments Pain Specialty Diagnoses / Procedures Referred By Britt londono Referred To Contact Orthopaedic Surgery Diagnoses Right knee pain, unspecified chronicity Procedures 165 ([email or web address]) - Ambulatory referral to Orthopedic Surgery (Non[facility]) Simone Singh MD [address], [place] [address] Phone: tel: fax: Alicia Dunlap, DO [address] [place] [address] Phone: tel: fax: Referral ID Status Reason Start Date Expiration Date Visits Re quested Visits Authorized [id number] Closed 01/27/2025 01/27/2026 1 1 Care Teams (unrecognized sec tion and content) Paper Pattern Inspector Relationship Specialty Start Date End Date Simone Singh DO [address], [place] [address] PCP - General 02/23/23 Paper Pattern Inspector Relationship Specialty Start Date End Date Simone Singh DO [address], [place] [address] PCP - General 02/23/23 Paper Pattern Inspector Relationship Specialty Start Date End Date SamanthaSimone [address] [place] [address] PCP - General 02/23/23 Paper Pattern Inspector Relationship Specialty Start Date End Date Simone Singh MD [address] [place] [address] PCP - General Family Medicine 11/07/23 Paper Pattern Inspector Relationship Specialty Start Date End Date Simone Singh MD [address] [place] [address] PCP - General Family Medicine 11/07/23 Paper Pattern Inspector Relationship Specialty Start Date End Date Simone Singh DO [address] [place] [address] PCP - General Family Medicine 09/08/22 Paper Pattern Inspector Relationship Specialty Start Date End Date Samantha Simone Tiny [address] [place] [address] PCP - General Family Medicine 09/08/22 Paper Pattern Inspector Relationship Specialty Start Date End Date Simone Singh DO [address] [place] [address] PCP - General Family Medicine 09/08/22 Paper Pattern Inspector Relationship Specialty Start Date End Date Simone Singh DO [address] [place] [address] PCP - General Family Medicine 09/08/22 Paper Pattern Inspector Relationship Specialty Start Date End Date HeatherquintonSimone jimenez [address], [place] [address] PCP - General Family Medicine 09/08/22 Paper Pattern Inspector Relationship Specialty Start Date End Date Heatherivan Simone G, [address], [place] [address] PCP - General Family Medicine 09/08/22 Paper Pattern Inspector Relationship Specialty Start Date End Date HeatherquintonSimone jimenez [address], [place] [address] PCP - General Family Medicine 09/08/22 Paper Pattern Inspector Relationship Specialty Start Date End Date George López APRN-STEAM PRESS TENDER [address] [place] [address] PCP - General Family Medicine 10/14/24 Paper Pattern Inspector Relationship Specialty Start Date End Date Simone Singh PCP - General 02/23/23 Paper Pattern Inspector Relationship Specialty Start Date End Date Samantha Simone G, [address], [place] [address] PCP - General Family Medicine 10/30/24 Team Status: Active Member Role Status Dates Simone Singh DO Primary Care Provider Active Team Status: Inactive Member Role Status Dates Yane Ang APRN Attending Provider Active Start: November 23, 2024 End: November 23, 2024 Simone Singh DO Primary Care Provider Active Start: November 23, 2024 End: November 23, 2024 Paper Pattern Inspector Relationship Specialty Start Date End Date Simone Singh DO [address] [place] [address] PCP - General Family Medicine 10/30/24 Team Status: Inactive Member Role Status Dates Simone Singh DO Primary Care Provider Active Start: December 25, 2024 End: December 25, 2024 Carlos Ozuna PA-C Emergency Provider Active Start: December 25, 2024 End: December 25, 2024 Paper Pattern Inspector Relationship Specialty Start Date End Date Simone Singh DO [address] [place] [address] PCP - General Family Medicine 10/30/24 Paper Pattern Inspector Relationship Specialty Start Date End Date Simone Singh DO [address] [place] [address] PCP - General Family Medicine 10/30/24 Paper Pattern Inspector Relationship Specialty Start Date End Date Simone Singh MD [address] [place] [address] PCP - General Family Medicine 01/28/25 Paper Pattern Inspector Relationship Specialty Start Date End Date Simone Singh MD [address] [place] [address] PCP - General Family Medicine 01/28/25 Paper Pattern Inspector Relationship Specialty Start Date End Date Simone Singh MD [address] [place] [address] PCP - General Family Medicine 01/28/25 Paper Pattern Inspector Relationship Specialty Start Date End Date Simone Singh MD [address] [place] [address] PCP - General Family Medicine 01/28/25 Paper Pattern Inspector Relationship Specialty Start Date End Date Simone Singh MD [address] [place] [address] PCP - General Family Medicine 01/28/25 Paper Pattern Inspector Relationship Specialty Start Date End Date Simone Singh MD [address] [place] [address] PCP - General Family Medicine 01/28/25 Paper Pattern Inspector Relationship Specialty Start Date End Date Simone Singh MD [address] [place] [address] PCP - General Family Medicine 01/28/25 Paper Pattern Inspector Relationship Specialty Start Date End Date Simone Singh DO [address] [place] [address] PCP - General Family Medicine 10/30/24 Paper Pattern Inspector Relationship Specialty Start Date End Date Simone Singh MD [address] [place] [address] PCP - General Family Medicine 01/28/25 Paper Pattern Inspector Relationship Specialty Start Date End Date Simone Singh MD [address] [place] [address] PCP - General Family Medicine 01/28/25 Goals (unrecognized section and content) Goals may [...] BE BASED ON THE PRIMARY CLINICAL RECORDS. [facility]. provides no warranty or guarantee of the accuracy or completeness of information in this document.
--- NOTE | 2025-03-14 13:50 | MM_ITS ---
Patient Name: ALISA GEORGE MR#: [id number] : 1950 Exam Date: 03/14/2025 Ordering Doctor: DR NAYELI SINGH RADIOLOGY REPORT PROCEDURE: MM TOMOSYNTHESIS SCREENING BI COMPARISON: MM TOMOSYNTHESIS SCREENING BI, 11/29/2022. MG MAMM SCREEN EHSAN W CAD, 11/06/2017. MG MAMM EHSAN SCRN W CAD DIG, 05/18/2016. MG MAMM EHSAN SCRN W CAD DIG, 03/04/2014. INDICATIONS: Screening Calculator Name NCI Breast Cancer Risk Assessment Tool 5 Year Breast Cancer Risk 2.00% Lifetime Breast Cancer Risk 5.10% Personal Breast Cancer No Personal Ovarian Cancer No Treatments None Family Cancers Father with renal, bladder cancer at age 78; Grandmother-maternal with colon cancer at age 79; Mother with skin cancer cancer at age 73. LOCATION: [facility] BREAST COMPOSITION: The breasts are almost entirely fatty. FINDINGS: RIGHT BREAST: No significant suspicious finding. LEFT BREAST: No significant suspicious finding. DIAGNOSTIC CATEGORY 1--NEGATIVE. RECOMMENDATIONS: ROUTINE MAMMOGRAM AND CLINICAL EVALUATION IN 12 MONTHS. Dictated by: Teddy Kerns DO on 03/14/2025 at 14:41 Approved by: Teddy Kerns DO on 03/14/2025 at 14:44
== END 2025-03-14 13:20 | disposition home or self-care (01) ==
LOC: MAMMO 13:19
PROVIDERS: PCP Family Medicine; Visit Provider Family Medicine
DX: Z12.31 Encounter for screening mammogram for malignant neoplasm of breast (principal); Z80.52 Family history of malignant neoplasm of bladder; Z80.51 Family history of malignant neoplasm of kidney; Z80.0 Family history of malignant neoplasm of digestive organs; Z80.8 Family history of malignant neoplasm of other organs or systems
CPT/HCPCS: 77063; 77067